=== PATIENT | male | born 1950 | race Caucasian/White ===

== ENCOUNTER 2016-12-05 13:19 | Inpatient (IN) | payer OTHER, MEDICARE ==
[~2016-12-05] VITALS: Ht 180.3 cm; Wt 95.4 kg
[2016-12-05] VITALS (20 sets, daily range): BP systolic 83–168; BP diastolic 54–107; PULSE 58–90; RESP 12–16; TEMP 98.3–98.7; O2SAT 93–100
[~2016-12-05 13:19] MED LIST: ASPI-119 PO; CALC-137 PO; CART240C4 PO; DICY1TAB26 PO; DOCU100T9 PO; ENOX100P SQ; FERR325T PO; LOVA1TAB47 PO; MUCI600T PO; OMEP20TA PO; VITA200017 PO; WAL-10TA2 PO; WARF5 PO
[2016-12-05] MEDS ORDERED: PROPOFOL 1000 MG/100 ML INJ 100 ML ONE (13:24)
[2016-12-05] MEDS ORDERED: SODIUM CHLORIDE 0.9% FLUSH 10 ML FLUSH IVF PRN (13:30)
[2016-12-05] MEDS ORDERED: MIDAZOLAM 100 MG/100 ML INJ 100 ML ONE (13:31)
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
[2016-12-05 14:00] LABS: AUTOMATED NEUTROPHIL # 3.7 TH/MM3 (1.8-7.7); BASOPHIL % 0.5 % (0.0-2.0); EOSINOPHIL # 0.1 TH/MM3 (0-0.4); EOSINOPHIL % 1.6 % (0.0-4.0); HEMATOCRIT 41.1 % (39.0-51.0); HEMO FLAGS DIFF FINAL; LYMPH % 22.4 % (9.0-44.0); LYMPHOCYTE # 1.3 TH/MM3 (1.0-4.8); MEAN CELL VOLUME 89.1 FL (80.0-100.0); MEAN CORPUSCULAR HEMOGLOBIN 28.7 PG (27.0-34.0); MEAN CORPUSCULAR HGB CONC 32.2 % (32.0-36.0); NEUT % 65.5 % (16.0-70.0); PLATELET COUNT 170 TH/MM3 (150-450); RED BLOOD COUNT 4.61 MIL/MM3 (4.50-5.90); RED CELL DISTRIBUTION WIDTH 14.7 % (11.6-17.2); WHITE BLOOD COUNT 5.7 TH/MM3 (4.0-11.0)
[2016-12-05 14:08] LABS: APTT (PATIENT) 25.6 SEC (24.3-30.1); INTERNATIONAL NORMALIZED RATIO 1.3 RATIO; PROTHROMBIN TIME - PATIENT 14.1 SEC (9.8-11.6)
[2016-12-05] MEDS: MIDAZOLAM 100 MG/100 ML INJ 100 ML IV PRN (14:08)
[2016-12-05 14:22] LABS: ALT (GPT) 14 U/L (12-78); ANION GAP 6 MEQ/L (5-15); AST (GOT) 15 U/L (15-37); BICARBONATE 31.1 MEQ/L (21.0-32.0); BLOOD UREA NITROGEN 9 MG/DL (7-18); CHLORIDE 97 MEQ/L (98-107); GLOMERULAR FILTRATION RATE 75 ML/MIN (>89); POTASSIUM 3.7 MEQ/L (3.5-5.1); SODIUM (NA) 134 MEQ/L (136-145)
[2016-12-05 14:23] LABS: ALKALINE PHOSPHATASE 96 U/L (45-117); TOTAL BILIRUBIN ADULT 0.4 MG/DL (0.2-1.0)
[2016-12-05] MEDS ORDERED: fentaNYL DRIP 250 ML IV PRN (14:30)
--- NOTE | 2016-12-05 14:38 | RADRPT ---
EXAM DATE/TIME: 12/05/2016 14:12 [facility] COMPARISON: CHEST SINGLE AP, October 10, 2015, 5:35. INDICATIONS : Chest pain. MEDICAL HISTORY : Hypertension. Gastroesophageal reflux disease. Asthma. Rasmussen's esophagus. SURGICAL HISTORY : Tonsillectomy. ENCOUNTER: Initial ACUITY: 1 day PAIN SCORE: Non-responsive. LOCATION: Bilateral chest FINDINGS: The cardiac silhouette is enlarged in transverse diameter. Endotracheal tube is in good position abov e the percy. There is subsegmental atelectasis in the left base. The right lung is free of acute par enchymal opacity. CONCLUSION: 1. Subsegmental atelectasis left base. Ananth Gage MD on December 05, 2016 at 14:36 Board Certified Radiologist. This report was verified electronically.
[2016-12-05] MEDS ORDERED: fentaNYL DRIP 250 ML ONE (14:40)
[2016-12-05 15:17] LABS: BLOOD GAS BASE EXCESS 5.7 mmol/L (-2-2); BLOOD GAS CARBOXYHEMOGLOBIN 1.1 % (0-4); BLOOD GAS HCO3 30 mmol/L (22-26); BLOOD GAS METHEMOGLOBIN 0.4 % (0-2); BLOOD GAS O2 HGB SATURATION 95 % (90-100); BLOOD GAS OXYGEN CONTENT 16.6 Vol % (12.0-20.0); BLOOD GAS PCO2 45 mmHg (38-42); BLOOD GAS PO2 85 mmHG (61-120); BLOOD GAS TOTAL HGB 12.3 G/DL (12.0-16.0); CRITICAL VALUE NO; OXYGEN DEVICE VENTILATOR; TEMP CORR TO 98.6
[2016-12-05 15:18] LABS: DRAW SITE RT RADIAL; FIO2 50 %; NUMBER OF ARTERIAL PUNCTURES 1; STAT NO; ULNAR PULSE PRESENT
[2016-12-05] MEDS ORDERED: RESP: ALBUTEROL 2.5 MG/IPRATROPIUM 0.5 MG NEB (PRN) INH (15:45)
[2016-12-05] MEDS ORDERED: CHLORHEXIDINE GLUCONATE 2 % 1 PACK (2 CLOTHS) TOP PRN (15:45)
[2016-12-05] MEDS ORDERED: MISCELLANEOUS NURSING INFORMATION XX SCH (15:45)
[2016-12-05] MEDS ORDERED: GLUCAGON 1 MG/ML VIAL OTHER PRN (16:00)
[2016-12-05] MEDS ORDERED: DEXTROSE 50% IN WATER 50 ML VIAL(D50) IV PUSH PRN (16:00)
[2016-12-05] MEDS ORDERED: SODIUM CHLOR 0.9% 1000 ML INJ 1,000 ML IV ONE (16:30)
[2016-12-05] MEDS: RESP: ALBUTEROL 2.5 MG/IPRATROPIUM 0.5 MG NEB (SCH) INH (16:47)
[2016-12-05] MEDS: INSULIN NovoLIN REGULAR SUPPLEMENTAL SCALE SQ SCH ×2 (16:47→23:00)
[2016-12-05] MEDS: SODIUM CHLOR 0.9% 1000 ML INJ 1,000 ML IV SCH (16:58)
[2016-12-05] MEDS: PANTOPRAZOLE SODIUM 40 MG VIAL IV PUSH SCH (17:01)
--- NOTE | 2016-12-05 17:50 | MH ---
cc: JODIE MELGAR M.D. DATE OF ADMISSION 12/05/2016 Critical care admission DATE OF 1950 HISTORY OF THE PRESENT ILLNESS The patient is a 66-year-old male with a past medical history of gastroesophageal reflux disease, Rasmussen's esophagus, hypertension, hyperlipidemia, iron-deficiency anemia, coronary artery disease, PE and DVT a year ago. The patient had a tumor removed from the right side of his neck at [facility] in October with pathology showing a glomus paraganglioma. 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 He had Dobbhoff placed for approximately one month and went to outpatient surgical center today to have a peg tube placed. However during procedure the patient had questionable some hemoptysis. The patient was scoped by Dr. Peña who did not think esophagus was the source of bleeding. The patient also noted to have hiatal hernia and a G tube could not be placed. The patient was intubated at the surgical center with Versed and transferred to the ER. When seen the patient is intubated and on full mechanical ventilation. His initial blood pressure on arrival 135/84 with a pulse of 84. Chest x-ray showed subsegmental atelectasis at the left base. His laboratory data showed normal CBC and mild hyponatremia with sodium level of 134. According to the patient's and daughter, he was on anticoagulation with Coumadin for his PE and DVT and was taken off of it in October and placed on Plavix instead. There is no history of any chest pain, shortness of breath or hemoptysis prior to arrival at the surgical center. In addition, no history of nausea, vomiting or abdominal pain. PAST MEDICAL HISTORY Significant for: 1. Coronary artery disease. 2. Iron-deficiency anemia. 3. PE / DVT. 4. Hypertension. 5. Gastroesophageal reflux disease / Rasmussen's esophagus. 6. Tumor removal from the neck, pathology showing glomus paraganglioma. PAST SURGICAL HISTORY Previous bilateral tonsillectomy in 2013. SOCIAL HISTORY Nonsmoker. Occasional drinker. ALLERGIES NO KNOWN DRUG ALLERGIES. FAMILY HISTORY Noncontributory. MEDICATIONS Reported medications: 1. Omeprazole. 2. Lovastatin. 3. Cartia. 4. Mucinex. 5. Vitamin D3. 6. Calcium. 7. Ferrous sulfate. REVIEW OF SYSTEMS As per history of present illness, the rest of the review of symptoms unobtainable as patient is intubated. PHYSICAL EXAMINATION GENERAL: A 66-year-old male intubated and sedated. VITAL SIGNS: Temperature 98.3, pulse of 65, blood pressure initially 135/84 and saturation at 98%. Vent setting PRVC rate of 14, tidal volume 500, PEEP of 5. ____ 1. FIO2 50%. HEENT: Atraumatic, normocephalic. Pupils equal, round and reactive to light and accommodation. Extraocular muscles intact. Conjunctivae pink. Nonicteric sclerae. Oral mucosa within normal. NECK: Supple. No JVD, adenopathy or thyromegaly. Trachea midline. Orally intubated. CARDIOVASCULAR: Regular rate and rhythm. Normal S1-S2. No murmurs, rubs or gallops noted. LUNGS: Pulmonary exam bilateral equal air entry. No rales or wheezing. ABDOMEN: Soft, nontender, no distension. Positive bowel sounds. EXTREMITIES: No cyanosis, clubbing or edema. NEUROLOGIC: Intubated and sedated. LABORATORY DATA Sodium 134, potassium 3.7, chloride 97, CO2 31, BUN 9, creatinine 0.99, glucose 165, corrected calcium 8.8. WBC 5.7, hemoglobin 13, hematocrit 41, platelet count 170. INR 1.3, PT 14.1, PTT 25.6. IMAGING Radiographic studies, a chest x-ray showed subsegmental atelectasis at the left base. IMPRESSION 1. Vent dependent respiratory failure. 2. Hemoptysis. 3. History of hypertension. 4. History of PE and DVT. 5. Iron-deficiency anemia. 6. 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 7. Vocal cord paralysis. 8. Coronary artery disease. RECOMMENDATIONS 1. Will place on fentanyl infusion for sedation and vent synchrony if needed. 2. Continue with vent support and maintain saturation above 92%. 3. Bronchodilators in the form of DuoNeb q.6h 4. ICU vent bundle. Decrease FIO2 to 40%. 5. We will obtain a CT angiogram of the chest to rule out a PE and for further evaluation of pulmonary parenchyma. 6. Monitor heart rate and blood pressure closely and maintain MAP greater 65 mmHg. 7. IV fluids, we will start on NS at 75 an hour and will give one liter bolus of normal saline. 8. Monitor renal function, Is and Os and electrolyte replacement per protocol. 9. Keep n.p.o. for now and place on Protonix 40 mg IV daily for GI prophylaxis. We will consult GI service. The patient is known to Dr. Peña. If GI cannot place a PEG tube due to hiatal hernia, we will ask IR to place a PEG tube. 10. Monitor for signs of infections which include fever and WBC. Panculture if spikes a fever. Will obtain urinalysis with culture if indicated. A chest x-ray in the ED showed subsegmental atelectasis at the left base. I will hold off on antibiotics at this time as there is no evidence of any infectious process. 11. Place on sliding scale insulin with Accu-Cheks for glycemic control. 12. Monitor CBC and coags. 13. GI prophylaxis with Protonix 40 mg daily and DVT prophylaxis with SCDs. Will hold off on chemical anticoagulation prophylaxis given possible hemoptysis on presentation. Case discussed with the patient's family, and daughter who are present at the bedside. Critical care time 35 minutes excluding procedures. MD DAVID Armas/CHRIS /4:28 PM /5:18 PM
[2016-12-05] MEDS ORDERED: IOHEXOL 350 MG/ML 10 ML VIAL (for RAD DIAG) IVCONTRAST ONE (18:17)
--- NOTE | 2016-12-05 18:31 | RADRPT ---
EXAM DATE/TIME: 12/05/2016 18:13 [facility] COMPARISON: CT PULMONARY ANGIOGRAM, October 16, 2015, 17:38. INDICATIONS : Hemoptysis with history of pulmonary embolism. IV CONTRAST: 50 cc Omnipaque 350 (iohexol) IV RADIATION DOSE: 22.34 CTDIvol (mGy) MEDICAL HISTORY : Hypertension. Benign tongue tumor SURGICAL HISTORY : None. ENCOUNTER: Initial ACUITY: 1 day PAIN SCALE: Non-responsive LOCATION: chest TECHNIQUE: Volumetric scanning of the chest was performed using a pulmonary embolism protocol MIP images were re constructed. Using automated exposure control and adjustment of the mA and/or kV according to patien t size, radiation dose was kept as low as reasonably achievable to obtain optimal diagnostic quality images. DICOM format image data is available electronically for review and comparison. Follow-up recommendations for detected pulmonary nodules are based at a minimum on nodule size and pa tient risk factors according to Fleischner Society Guidelines. FINDINGS: PULMONARY ARTERIES: There are multiple filling defects centrally within the pulmonary arteries bilaterally involving the segmental and subsegmental level arterial vessels. LUNGS: There is respiratory motion artifact with atelectasis and both lower lobes. The patient is intubated. No pneumothorax is present. PLEURAE: There is a hypodense mass containing calcification either in the medial posterior pleural space or in the posterior mediastinum. It measures up to 3.7 cm and is stable. MEDIASTINUM: Heart and great vessels demonstrate no acute finding. There is mild atherosclerotic disease of the ao rta. No lymphadenopathy is present. There is a large hiatal hernia with most of the stomach in the po sterior mediastinum rotated on its axis and there is herniation of fat into the posterior mediastinum . As described above, there is a partially calcified hypodense abnormality either in the posterior me dial left pleural space or posterior mediastinum abutting the descending thoracic aorta. MUSCULOSKELETAL: There are degenerative changes of the thoracic spine. MISCELLANEOUS: The visualized upper abdominal organs demonstrate no acute abnormality. There are 5 stable low-densit y lesions in the liver with the largest measuring 2 cm in having density measurements characteristic of cysts. There is also a 4.8 cm right upper pole renal cyst. CONCLUSION: 1. Extensive bilateral pulmonary arterial thrombi emboli bilaterally within the segmental and lobar v essels. There are no imaging findings to indicate right heart strain. 2. Stable 3.7 cm hypodense lesion with calcification either in the posterior mediastinum abutting the descending thoracic aorta or in the posterior left pleural space. Stranding of uncertain etiology bu t has not changed in approximately 13 months. 3. Stable large hiatal hernia. There is atelectasis/volume loss in both lower lobes. Luan Bermudez MD on December 05, 2016 at 18:23 Board Certified Radiologist. This report was verified electronically.
--- NOTE | 2016-12-05 19:46 | RADRPT ---
EXAM DATE/TIME: 12/05/2016 19:31 [facility] COMPARISON: No previous studies available for comparison. INDICATIONS : Altered mental status. RADIATION DOSE: 50.04 CTDIvol (mGy) MEDICAL HISTORY : Hypertension. SURGICAL HISTORY : None. ENCOUNTER: Initial ACUITY: 1 day PAIN SCALE: Non-responsive LOCATION: Bilateral head TECHNIQUE: Multiple contiguous axial images were obtained of the head. Using automated exposure control and adj ustment of the mA and/or kV according to patient size, radiation dose was kept as low as reasonably a chievable to obtain optimal diagnostic quality images. DICOM format image data is available electro nically for review and comparison. FINDINGS: CEREBRUM: There is mild cerebral atrophy. Ventricles are normal in size. There is periventricular white matter low attenuation bilaterally that is asymmetric in the right frontal lobe. However, this finding is li lisset chronic given the adjacent dilatation of the right frontal horn. No midline shift, mass lesion, hemorrhage or acute infarction. No extra-axial fluid collections are seen. POSTERIOR FOSSA: The cerebellum and brainstem demonstrate no acute finding. The 4th ventricle is midline. The cerebe llopontine angle is unremarkable. EXTRACRANIAL: There is mucoperiosteal thickening within the right maxillary antrum and there has been sinus surgery bilaterally. Fluid is present within the nasopharynx. Embolization coils are present in the right perry perior neck next the skull base. SKULL: The calvaria is intact. No evidence of skull fracture. CONCLUSION: No acute intracranial abnormality is identified. There is mild generalized atrophy and the asymmetric mild to moderate bilateral periventricular white matter changes characteristic of chronic ischemic c hange. Luan Bermudez MD on December 05, 2016 at 19:42 Board Certified Radiologist. This report was verified electronically.
[2016-12-05] MEDS ORDERED: ETOMIDATE 20 MG/10 ML VIAL IV PUSH ONE (20:15)
[2016-12-05] MEDS ORDERED: MIDAZOLAM HCL 5 MG/ML VIAL (1 ML) IV PUSH ONE (20:15)
[2016-12-05] MEDS ORDERED: HEPARIN-D5W 25,000 U/250 ML 250 ML IV PRN (20:15)
[2016-12-05] MEDS ORDERED: ROCURONIUM INJ 50 MG/5 ML VIAL IV ONE (20:15)
[2016-12-05 21:23] LABS: APTT (PATIENT) 25.9 SEC (24.3-30.1); INTERNATIONAL NORMALIZED RATIO 1.3 RATIO; PROTHROMBIN TIME - PATIENT 14.7 SEC (9.8-11.6)
--- NOTE | 2016-12-05 21:25 | PD.PROCEDR ---
Procedure Note Procedure Date: 12/05/16 Procedure: Fiberoptic bronchoscopy with bronchoalveolar lavage, diagnostic Indication: Hemoptysis Details of procedure: Informed consent was obtained from patient's after discussion of risks, benefits, alternatives. Patient had experience hemoptysis after Dobhoff removal and concern for trauma. Patient also had a 7.0 ETT so exchanged for 8.0 to facilitate bronchoscopy and also to prevent clotting and obstruction of tube. There was no bleeding from the nares. The patient was preoxygenated with 100% FiO2 via endotracheal tube and sedated with Versed 4 mg IV, Etomidate 20 mg IV, Fentanyl 100 mcg IV, Rocuronium 50 mg IV, Fentanyl drip 100 mcg/hr. The airway was visualized with Glidescope. There was some oozing from right pharynx/Right pharyngeal epiglottic fold that appeared to be source of bleeding. The ETT was exchanged for 8.0 ETT by RT while I visualized airway. There was color change present with colorimetric CO2 monitor and equal BS bilaterally. I entered the endotracheal tube with a flexible bronchoscope. There was some blood in right mainstem that was suctioned out. There were some bloody clots in right lower lobe subsegments which were removed after 10 mL saline wash x3. There was no active bleeding in the lower airways. No endobronchial lesions. Small amount of blood in left lower lobe subsegment. Patient tolerated procedure well without apparent complication. Family was updated. Will initiate heparin drip due to bilateral pulmonary emboli. There was no GI bleeding noted on endoscopy per Dr. Peña. The source of the bleeding is likely from the pharynx. Will leave ETT in place for airway protection while heparin is initiated. Monitor for bleeding. Risk/benefit discussed with patient's and daughter. Cayla Burgess MD Dec 05, 2016 21:25
[2016-12-05] MEDS: HEPARIN-D5W 25,000 U/250 ML 250 ML IV PRN (23:42)
--- NOTE | 2016-12-05 23:54 | RADRPT ---
EXAM DATE/TIME: 12/05/2016 23:02 [facility] COMPARISON: No previous studies available for comparison. INDICATIONS : Pulmonary embolism. MEDICAL HISTORY : Hypercholesterolemia. Gastroesophageal reflux disease. Hypertension. Hearing loss. Asthma. Hiatal her jason. Barretts esophagus. Measles. Pulmonary embolism. Coronary artery disease. Anemia. Deep vein thro mbosis. SURGICAL HISTORY : Tonsillectomy. Left knee surgery. 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 ENCOUNTER: Initial ACUITY: 1 day PAIN SCORE: Non-responsive LOCATION: Bilateral legs. TECHNIQUE: Venous ultrasound of the left and right leg was performed from the inguinal ligament to the proximal calf. Real-time, color Doppler and spectral tracing, compression and augmentation techniques were us ed. FINDINGS: On the right side there is nonocclusive deep venous thrombosis extending from the popliteal vein and posterior tibial veins and including the greater saphenous vein. The femoral vein is patent. On the left side there is chronic appearing nonocclusive thrombus extending from the superficial femo ral vein to the trailer body assembler tibial veins. Collateral veins noted that are patent. CONCLUSION: 1. Positive for deep venous thrombosis as above. Sidney Pérez MD on December 05, 2016 at 23:50 Board Certified Radiologist. This report was verified electronically.
[2016-12-06] VITALS (23 sets, daily range): BP systolic 106–142; BP diastolic 63–72; PULSE 73–89; RESP 6–17; TEMP 97.4–100.5; O2SAT 93–100
[2016-12-06] MEDS: CHLORHEXIDINE GLUCONATE 2 % 1 PACK (2 CLOTHS) TOP SCH (00:10)
[2016-12-06 00:14] LABS: BLOOD, URINE NEG (NEG); COMMENT (UR) CATH-CULT NOT IND; CULTURE IF INDICATED CATH CULTURE NOT IND; GLUCOSE,URINE NEG (NEG); KETONE, URINE 10 mg/dL (NEG); NITRITE,URINE NEG (NEG); URINE COLOR YELLOW (YELLW/STRAW)
[2016-12-06] MEDS ORDERED: HEPARIN - 10,000 UNITS/ML IV ADDITIVE IV PRN (02:15)
[2016-12-06] MEDS ORDERED: HEPARIN SODIUM - IV 10,000 UNITS/10 ML VIAL IV PRN (02:15)
[2016-12-06] MEDS: RESP: ALBUTEROL 2.5 MG/IPRATROPIUM 0.5 MG NEB (SCH) INH ×4 (03:36→20:56)
[2016-12-06 04:05] LABS: AUTOMATED NEUTROPHIL # 5.9 TH/MM3 (1.8-7.7); BASOPHIL # 0.1 TH/MM3 (0-0.2); BASOPHIL % 0.8 % (0.0-2.0); EOSINOPHIL # 0.1 TH/MM3 (0-0.4); EOSINOPHIL % 1.5 % (0.0-4.0); HEMO FLAGS DIFF FINAL; LYMPH % 20.9 % (9.0-44.0); LYMPHOCYTE # 1.8 TH/MM3 (1.0-4.8); MEAN CELL VOLUME 89.4 FL (80.0-100.0); MEAN CORPUSCULAR HEMOGLOBIN 29.1 PG (27.0-34.0); MEAN CORPUSCULAR HGB CONC 32.6 % (32.0-36.0); MONO % 9.2 % (0.0-8.0); NEUT % 67.6 % (16.0-70.0); PLATELET COUNT 155 TH/MM3 (150-450); RED BLOOD COUNT 4.37 MIL/MM3 (4.50-5.90); RED CELL DISTRIBUTION WIDTH 14.5 % (11.6-17.2); WHITE BLOOD COUNT 8.7 TH/MM3 (4.0-11.0)
[2016-12-06 04:20] LABS: BICARBONATE 30.2 MEQ/L (21.0-32.0); MAGNESIUM 1.8 MG/DL (1.5-2.5); POTASSIUM 3.7 MEQ/L (3.5-5.1)
[2016-12-06 04:29] LABS: APTT (PATIENT) 49.7 SEC (24.3-30.1)
[2016-12-06] MEDS: INSULIN NovoLIN REGULAR SUPPLEMENTAL SCALE SQ SCH ×4 (05:00→23:00)
[2016-12-06] MEDS: MIDAZOLAM 100 MG/100 ML INJ 100 ML IV PRN ×2 (05:42→23:30)
[2016-12-06] MEDS: SODIUM CHLOR 0.9% 1000 ML INJ 1,000 ML IV SCH ×2 (05:50→23:30)
--- NOTE | 2016-12-06 08:25 | HHI.CCPN ---
Subjective Remarks/Hospital Course The patient is a 66-year-old male with a past medical history of gastroesophageal reflux disease, Rasmussen's esophagus, hypertension, hyperlipidemia, iron-deficiency anemia, coronary artery disease, PE and DVT a year ago. He had a tumor removed from the right side of his neck at [facility] in October with pathology showing a glomus paraganglioma. 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 He had Dobbhoff placed for approximately one month and went to outpatient surgical center today to have a peg tube placed. However during procedure the patient had some hemoptysis. The patient was scoped by Dr. Peña who did not think esophagus was the source of bleeding. The patient also noted to have hiatal hernia and a G tube could not be placed. The patient was intubated at the surgical center with Versed and transferred to the ER. When seen the patient is intubated and on full mechanical ventilation. His initial blood pressure on arrival 135/84 with a pulse of 84. Chest x-ray showed subsegmental atelectasis at the left base. His laboratory data showed normal CBC and mild hyponatremia with sodium level of 134. According to the patient's and daughter, he was on anticoagulation with Coumadin for his PE and DVT and was taken off of it in October and placed on Plavix instead. There is no history of any chest pain, shortness of breath or hemoptysis prior to arrival at the surgical center. In addition, no history of nausea, vomiting or abdominal pain. 12/06 Patient remains intubated and sedated. CTA chest last night showed extensive b/l PE, Doppler US LE b/l DVT he was started on Heparin drip. In addition patient underwent bronch and ETT exchanged to 8.0 size last night. There was oozing from right pharynx/Right pharyngeal epiglottic fold that appeared to be source of bleeding. There was some blood in right mainstem that was suctioned out. There were some bloody clots in right lower lobe sub segments which were removed . No active bleeding in the lower airways. No endobronchial lesions. Small amount of blood in left lower lobe subsegment. Objective Vital Signs Date Time Temp Pulse Resp B/P (MAP) Pulse Ox O2 Delivery O2 Flow Rate FiO2 12/06/16 06:00 85 12/06/16 06:00 17 120/69 (86) 94 12/06/16 04:05 50 12/06/16 04:00 98.9 12/05/16 18:15 Ventilator Intake and Output 12/06/16 12/06/16 12/07/16 08:00 16:00 00:00 Intake Total 100 ml Output Total 1200 ml Balance -1100 ml Result Diagram: 12/06/16 0338 12/06/16 0338 Other Results Laboratory Tests Test 12/05/16 13:45 12/05/16 15:00 12/05/16 18:45 12/05/16 20:45 White Blood Count 5.7 TH/MM3 Red Blood Count 4.61 MIL/MM3 Hemoglobin 13.2 GM/DL Hematocrit 41.1 % Mean Corpuscular Volume 89.1 FL Mean Corpuscular Hemoglobin 28.7 PG Mean Corpuscular Hemoglobin Concent 32.2 % Red Cell Distribution Width 14.7 % Platelet Count 170 TH/MM3 Mean Platelet Volume 9.5 FL Neutrophils (%) (Auto) 65.5 % Lymphocytes (%) (Auto) 22.4 % Monocytes (%) (Auto) 10.0 % Eosinophils (%) (Auto) 1.6 % Basophils (%) (Auto) 0.5 % Neutrophils # (Auto) 3.7 TH/MM3 Lymphocytes # (Auto) 1.3 TH/MM3 Monocytes # (Auto) 0.6 TH/MM3 Eosinophils # (Auto) 0.1 TH/MM3 Basophils # (Auto) 0.0 TH/MM3 CBC Comment DIFF FINAL Differential Comment Prothrombin Time 14.1 SEC 14.7 SEC Prothromb Time International Ratio 1.3 RATIO 1.3 RATIO Activated Partial Thromboplast Time 25.6 SEC 25.9 SEC Blood Urea Nitrogen 9 MG/DL Creatinine 0.99 MG/DL Random Glucose 165 MG/DL Total Protein 6.9 GM/DL Albumin 3.2 GM/DL Calcium Level 8.8 MG/DL Magnesium Level 2.0 MG/DL Alkaline Phosphatase 96 U/L Aspartate Amino Transf (AST/SGOT) 15 U/L Alanine Aminotransferase (ALT/SGPT) 14 U/L Total Bilirubin 0.4 MG/DL Sodium Level 134 MEQ/L Potassium Level 3.7 MEQ/L Chloride Level 97 MEQ/L Carbon Dioxide Level 31.1 MEQ/L Anion Gap 6 MEQ/L Estimat Glomerular Filtration Rate 75 ML/MIN Blood Gas Puncture Site RT RADIAL Blood Gas Patient Temperature 98.6 Blood Gas HCO3 30 mmol/L Blood Gas Base Excess 5.7 mmol/L Blood Gas Oxygen Saturation 95 % Arterial Blood pH 7.43 Arterial Blood Partial Pressure CO2 45 mmHg Arterial Blood Partial Pressure O2 85 mmHG Arterial Blood Oxygen Content 16.6 Vol % Arterial Blood Carboxyhemoglobin 1.1 % Arterial Blood Methemoglobin 0.4 % Blood Gas Hemoglobin 12.3 G/DL Oxygen Delivery Device VENTILATOR Blood Gas Ventilator Setting Blood Gas Inspired Oxygen 50 % Nasal Screen MRSA (PCR) MRSA NOT DETECTED Troponin I LESS THAN 0.02 NG/ML B-Type Natriuretic Peptide 24 PG/ML Test 12/05/16 23:30 12/06/16 03:38 Urine Color YELLOW Urine Turbidity HAZY Urine pH 6.0 Urine Specific [place] 1.031 Urine Protein TRACE mg/dL Urine Glucose (UA) NEG mg/dL Urine Ketones 10 mg/dL Urine Occult Blood NEG Urine Nitrite NEG Urine Bilirubin NEG Urine Urobilinogen LESS THAN 2.0 MG/DL Urine Leukocyte Esterase NEG Urine RBC 1 /hpf Urine WBC 4 /hpf Urine Amorphous Sediment RARE Microscopic Urinalysis Comment CATH-CULT NOT IND White Blood Count 8.7 TH/MM3 Red Blood Count 4.37 MIL/MM3 Hemoglobin 12.7 GM/DL Hematocrit 39.0 % Mean Corpuscular Volume 89.4 FL Mean Corpuscular Hemoglobin 29.1 PG Mean Corpuscular Hemoglobin Concent 32.6 % Red Cell Distribution Width 14.5 % Platelet Count 155 TH/MM3 Mean Platelet Volume 9.8 FL Neutrophils (%) (Auto) 67.6 % Lymphocytes (%) (Auto) 20.9 % Monocytes (%) (Auto) 9.2 % Eosinophils (%) (Auto) 1.5 % Basophils (%) (Auto) 0.8 % Neutrophils # (Auto) 5.9 TH/MM3 Lymphocytes # (Auto) 1.8 TH/MM3 Monocytes # (Auto) 0.8 TH/MM3 Eosinophils # (Auto) 0.1 TH/MM3 Basophils # (Auto) 0.1 TH/MM3 CBC Comment DIFF FINAL Differential Comment Activated Partial Thromboplast Time 49.7 SEC Blood Urea Nitrogen 8 MG/DL Creatinine 0.76 MG/DL Random Glucose 84 MG/DL Calcium Level 8.6 MG/DL Phosphorus Level 4.2 MG/DL Magnesium Level 1.8 MG/DL Sodium Level 139 MEQ/L Potassium Level 3.7 MEQ/L Chloride Level 101 MEQ/L Carbon Dioxide Level 30.2 MEQ/L Anion Gap 8 MEQ/L Estimat Glomerular Filtration Rate 102 ML/MIN Imaging Last Impressions Chest X-Ray 12/05/16 1330 Signed Impressions: Service Date/Time: Monday, December 05, 2016 14:12 - CONCLUSION: 1. Subsegmental atelectasis left base. Ananth Gage MD Lower Extremity Ultrasound 12/05/16 0000 Signed Impressions: Service Date/Time: Monday, December 05, 2016 23:02 - CONCLUSION: 1. Positive for deep venous thrombosis as above. Sidney Pérez MD Head CT 12/05/16 0000 Signed Impressions: Service Date/Time: Monday, December 05, 2016 19:31 - CONCLUSION: No acute intracranial abnormality is identified. There is mild generalized atrophy and the asymmetric mild to moderate bilateral periventricular white matter changes characteristic of chronic ischemic change. Luan Bermudez MD CT Angiography 12/05/16 0000 Signed Impressions: Service Date/Time: Monday, December 05, 2016 18:13 - CONCLUSION: 1. Extensive bilateral pulmonary arterial thrombi emboli bilaterally within the segmental and lobar vessels. There are no imaging findings to indicate right heart strain. 2. Stable 3.7 cm hypodense lesion with calcification either in the posterior mediastinum abutting the descending thoracic aorta or in the posterior left pleural space. Stranding of uncertain etiology but has not changed in approximately 13 months. 3. Stable large hiatal hernia. There is atelectasis/volume loss in both lower lobes. Luan Bermudez MD Objective Remarks GENERAL: Patient is 66 yo critically ill intubated and sedated SKIN: Warm and dry. HEAD: Normocephalic. EYES: No scleral icterus. No injection or drainage. NECK: Supple, trachea midline. No JVD or lymphadenopathy. CARDIOVASCULAR: Regular rate and rhythm without murmurs, gallops, or rubs. RESPIRATORY: Breath sounds equal bilaterally. No accessory muscle use. GASTROINTESTINAL: Abdomen soft, non-tender, nondistended. MUSCULOSKELETAL: No cyanosis, or edema. Neuro: Sedated, intubated A/P Assessment and Plan 1. VDRF 2. B/L PE and DVT (recurrent) 3. History of hypertension. 4. History of PE and DVT. 5. Iron-deficiency anemia. 6. 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 7. Vocal cord paralysis. 8. Coronary artery disease. Plan Neuro: On fentanyl infusion for sedation and vent synchrony CT brain: No acute intracranial findings identified. Pulm: Continue with vent support and maintain sats> 92%. Bronchodilators, ICU vent bundle. CT chest: Extensive b/l PE- On Heparin drip ( Not a candidate for TPA as there is no hemodynamic instability, recent surgery and stroke in October) Echo: Monitor HR and BP and maintain MAP> 65mmHg. Check 2D echo r/o RV strain. Continue with NS@75ml/hr : Monitor renal function, Is and Os and electrolyte replacement per protocol. GI: Start tube feeds- Glucerna 1.5 with goal rate 45ml/hr, on Protonix 40 mg IV daily for GI prophylaxis. Consult surgery - patient might need Lap for hiatal hernia repair and PEG tube placement. GI ( Dr. Polo) couldn't place PEG tube yesterday ath surgical idabel due to hiatal hernia. ID: Monitor for signs of infections( fever and WBC). Panculture if spikes a fever. Heme: Monitor CBC, Coags. Heme eval might need IVC filter placement. Check Hypercoag profile. Endo: SSI with Accu-Cheks for glycemic control. GI prophylaxis with Protonix 40 mg daily and DVT prophylaxis with SCDs/heparin drip CCT 30 mins. Carie Ordaz MD Dec 06, 2016 08:25
[2016-12-06] MEDS: PANTOPRAZOLE SODIUM 40 MG VIAL IV PUSH SCH (10:05)
--- NOTE | 2016-12-06 11:54 | EKG ---
Date Performed: 12/05/2016 Time Performed: 13:45:11 PTAGE: 66 years EKG: Sinus rhythm WITH OCCASIONAL VENTRICULAR PREMATURE COMPLEXES INFERIOR MYOCARDIAL INFARCTION ABNORMAL ECG Compared to prior tracing no significant change PREVIOUS TRACING : 10/16/2015 16.56 DOCTOR: Popeye Emanuel Interpretating Date/Time 12/06/2016 11:52:59
[2016-12-06 12:20] LABS: APTT (PATIENT) 97.3 SEC (24.3-30.1)
[2016-12-06] MEDS: HEPARIN-D5W 25,000 U/250 ML 250 ML IV PRN (12:35)
--- NOTE | 2016-12-06 18:20 | PD.CAR.PN ---
CVT Progress Note Subjective/Hospital Course: Unfortunate 66-year-old gentleman with multiple medical problems including pulmonary embolism currently on the IV heparin Patient requires feeding access and percutaneous gastrostomy failed to the fact that patient has partial hiatal hernia making the anatomy quite difficult At this point we will place open feeding gastrostomy in the operating room It should be noted that the somebody suggested patient should have a hiatal hernia repair. Patient is in no condition to have elective surgery of any kind at this time and gastrostomies probably mostly can tolerate in these conditions. Thanks J Objective: Vital Signs Date Time Temp Pulse Resp B/P (MAP) Pulse Ox O2 Delivery O2 Flow Rate FiO2 12/06/16 16:25 95 40 12/06/16 16:00 85 12/06/16 16:00 50 12/06/16 14:00 85 12/06/16 12:00 50 12/06/16 12:00 85 12/06/16 12:00 98.5 81 17 113/63 (80) 95 12/06/16 11:51 95 40 12/06/16 10:00 85 12/06/16 08:23 100 40 12/06/16 08:00 85 12/06/16 08:00 50 12/06/16 07:00 97.4 82 6 114/65 (81) 95 12/06/16 06:00 85 12/06/16 06:00 85 17 120/69 (86) 94 12/06/16 05:00 89 17 142/72 (95) 93 12/06/16 04:05 95 50 12/06/16 04:00 88 12/06/16 04:00 50 12/06/16 04:00 98.9 88 17 138/71 (93) 95 12/06/16 03:00 80 14 132/72 (92) 96 12/06/16 02:00 75 12/06/16 02:00 77 15 124/71 (88) 96 12/06/16 01:00 74 15 111/68 (82) 97 12/06/16 00:55 97 50 12/06/16 00:00 73 12/06/16 00:00 50 12/06/16 00:00 98.3 73 15 106/64 (78) 96 12/05/16 23:00 99 60 12/05/16 23:00 82 14 116/68 (84) 93 12/05/16 22:00 82 12/05/16 22:00 81 14 147/91 (109) 96 12/05/16 21:30 100 100 12/05/16 21:00 83 15 168/107 (127) 97 12/05/16 20:07 100 100 12/05/16 20:00 78 12/05/16 20:00 50 12/05/16 20:00 98.7 78 16 116/70 (85) 98 12/05/16 19:00 80 12 126/73 (90) 12/05/16 18:36 50 Labs: Laboratory Tests Test 12/06/16 11:34 Activated Partial Thromboplast Time 97.3 SEC (24.3-30.1) Result Diagram: 12/06/16 0338 12/06/16 0338 Fely Weaver MD Dec 06, 2016 18:20
[2016-12-06 20:37] LABS: APTT (PATIENT) 86.8 SEC (24.3-30.1)
--- NOTE | 2016-12-06 21:04 | MB ---
cc: BRIAN JOHNS M.D. DATE OF CONSULTATION December 06, [address] Ordaz REASON FOR CONSULTATION Hematology was consulted regarding patient with deep venous thrombosis and extensive pulmonary embolism and give opinion regarding IVC filter placement. HISTORY OF PRESENT ILLNESS The patient is a 66-year-old male currently sedated, intubated. History obtained from his daughter at the bedside. His is also at the bedside. The patient's daughter is not very clear and specific about the event of the patient's blood clot history. According to her the patient had bilateral lower extremity deep venous thrombosis and bilateral pulmonary embolism about 2 years ago. Appeared to be unprovoked. He was on Coumadin for awhile and then discontinued, for some reason he was restarted again around October of this year while he was at [facility] to evaluate for right neck tumor. Coumadin was discontinued and he underwent right neck resection of benign tumor. She stated the patient was found to have clot in the right neck after the surgery. She also mentioned the patient was found to have DVT and pulmonary embolism. He was then started on Plavix and discharged home. The patient suffered a vocal cord paralysis during the neck surgery. He was not able to eat and had a Dobhoff tube placed. Today he was at the outpatient surgical suite to have G tube placement. Apparently, during the procedure he started having hemoptysis. Attempt to place G tube was not successful due to a hiatal hernia. The patient however had more bleeding and subsequently he was intubated and brought to the Intensive Care Unit. He had a bronchoscopy which showed blood in the bronchus but no active bleeding. It is thought that the bleeding is from the pharyngeal epiglottic fold area. During this admission he had ultrasound which showed bilateral lower extremity deep venous thrombosis. The left lower extremity DVT appeared to be chronic. CT angiogram showed extensive bilateral pulmonary embolism. Due to the extensive pulmonary wisdom he was started back on heparin. Hematology consulted regarding about placing an IVC filter. PAST MEDICAL HISTORY Right neck glomus paraganglioma. Gastroesophageal reflux disease. Rasmussen's esophagus, hypertension, hyperlipidemia, anemia, coronary artery disease, deep venous thrombosis with pulmonary embolism, stroke, vocal cord paralysis. PAST SURGICAL HISTORY Tonsillectomy, resection of right neck benign tumor, Dobhoff tube placement. FAMILY HISTORY Father had blood clot. Brother also had a history of blood clot. SOCIAL HISTORY No tobacco use. Drinks occasionally. ALLERGIES No known drug allergies. CURRENT MEDICATIONS 1. Heparin. 2. Protonix. 3. Insulin. REVIEW OF SYSTEMS As above. The patient is intubated, sedated. PHYSICAL EXAMINATION VITAL SIGNS: Temperature 100.5, blood pressure 118/63. GENERAL: He is intubated, sedated. HEENT: Atraumatic, normocephalic. ET tube, no bleeding noted. NECK: Right neck surgical site no bleeding. Could not palpate any mass. LYMPH NODE SURVEY: Lymphatics, no palpable axillary lymph node. CARDIOVASCULAR: Regular S1-S2. LUNGS: Clear to auscultation anteriorly. ABDOMEN: Soft, nontender, positive bowel sounds. EXTREMITIES: He has trace edema more prominent on the right side. NEUROLOGIC: Exam nonfocal. SKIN: No lesion. LABORATORY DATA Reviewed. ASSESSMENT 1. 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 The history obtained from the patient's daughter is quite confusing. She is not able to provide specific details. According to her the patient had bilateral lower extremity DVT and pulmonary embolism about 2 years ago, he was on Coumadin for while and then stopped. For some unclear reason when he was at [facility] he was started on Coumadin again but then later switched to Plavix. She also told me that the patient was found to have bilateral lower extremity DVT and pulmonary embolism when he was at [facility]. According to the record in [facility] the patient was admitted in this hospital in October of 2015 with left lower extremity venous thrombosis and bilateral pulmonary embolism. During this admission ultrasound again showed left lower extremity chronic DVT but the right lower extremity DVT appeared to be acute. He also had extensive bilateral pulmonary embolism although there is no right heart strain noted. The patient presented with bleeding in the pharynx. Given his history and family history of blood clot he has a high risk of developing more clot and possibly could result in more pulmonary emboli. He is also going to have procedure for PEG tube placement which would require stopping the anticoagulation. I think placing IVC filter would be somewhat protective. I explained the procedure to the patient's and daughter. However, they are more concerned about the PEG tube placement. They do not want IVC filter placement at this time, fearing that it would interfere with the PEG tube placement. I told them that IVC filter placement should be done first and will protect the patient when he is taken off the anticoagulation for the PEG tube placement. She however stated patient already has known pulmonary embolism and deep venous thrombosis when he was at [facility]. She was very upset that nobody had requested the record. I told them that I will try to get the record from [facility] but it will not alter my recommendation at this time. She stated she does not want to consent for IVC filter placement at this time, as such the patient would stay on heparin and be monitored closely. 2. Pharyngeal bleed started after he had an endoscopy with attempt to place a G-tube. He has no active bleeding noted at this time. 3. Right neck tumor status post resection, reportedly was a paraganglioma. 4. Family history of thromboembolic event. The patient's father and brother reportedly had blood clot. Hypercoagulable panel has been ordered. However, given the patient's history he needs to be on anticoagulation for life. RECOMMENDATIONS 1. Extensive discussion with the patient's family as above. They do not want to consent for IVC filter placement at this time. 2. We will request records from [facility]. I have placed the order. 3. Continue heparin and monitor closely for sign of bleeding. 4. Hypercoagulable panel pending. Thank you Dr. Ordaz for asking me to see this patient. MD LOIS Fernandez/BONY /7:51 PM /8:34 PM DAVI
[2016-12-07] VITALS (53 sets, daily range): BP systolic 96–154; BP diastolic 54–90; PULSE 75–109; RESP 0–33; TEMP 98.4–101.1; O2SAT 88–100
[2016-12-07] MEDS: RESP: ALBUTEROL 2.5 MG/IPRATROPIUM 0.5 MG NEB (SCH) INH ×4 (03:36→20:49)
[2016-12-07] MEDS: CHLORHEXIDINE GLUCONATE 2 % 1 PACK (2 CLOTHS) TOP SCH (04:00)
[2016-12-07] MEDS: INSULIN NovoLIN REGULAR SUPPLEMENTAL SCALE SQ SCH ×4 (05:00→23:00)
[2016-12-07 05:50] LABS: AUTOMATED NEUTROPHIL # 5.7 TH/MM3 (1.8-7.7); BASOPHIL # 0.1 TH/MM3 (0-0.2); BASOPHIL % 0.9 % (0.0-2.0); EOSINOPHIL # 0.1 TH/MM3 (0-0.4); EOSINOPHIL % 1.3 % (0.0-4.0); HEMATOCRIT 40.9 % (39.0-51.0); HEMO FLAGS DIFF FINAL; LYMPH % 23.8 % (9.0-44.0); LYMPHOCYTE # 2.2 TH/MM3 (1.0-4.8); MEAN CELL VOLUME 89.8 FL (80.0-100.0); MEAN CORPUSCULAR HGB CONC 32.2 % (32.0-36.0); PLATELET COUNT 162 TH/MM3 (150-450); RED BLOOD COUNT 4.55 MIL/MM3 (4.50-5.90); RED CELL DISTRIBUTION WIDTH 14.7 % (11.6-17.2); WHITE BLOOD COUNT 9.1 TH/MM3 (4.0-11.0)
[2016-12-07 06:20] LABS: BICARBONATE 25.1 MEQ/L (21.0-32.0); MAGNESIUM 1.8 MG/DL (1.5-2.5); POTASSIUM 3.9 MEQ/L (3.5-5.1)
[2016-12-07] MEDS: SODIUM CHLOR 0.9% 1000 ML INJ 1,000 ML IV SCH ×2 (08:30→23:04)
[2016-12-07] MEDS: PANTOPRAZOLE SODIUM 40 MG VIAL IV PUSH SCH (09:00)
[2016-12-07] MEDS ORDERED: ceFAZolin INJ 1,000 MG VIAL IV ONE (09:28)
[2016-12-07] MEDS ORDERED: ROCURONIUM INJ 50 MG/5 ML SYRINGE IV PUSH ONE (09:28)
[2016-12-07] MEDS: fentaNYL DRIP 250 ML IV PRN (11:37)
--- NOTE | 2016-12-07 12:23 | ECHRPT ---
Indication: SHORTNESS OF BREATH CONCLUSIONS The left ventricular systolic function is normal with an estimated ejection fraction in the range of 60-65% Normal left ventricular size. Wall thickness is normal. No regional wall motion abnormalities are present. The left atrial size is [id number] dilated. The right atrial size is mildly dilated. Mildly dilated proximal ascending aorta. Trace mitral valve regurgitation. Mitral annular calcification is present. There is estimated moderate pulmonary hypertension present (range 50-60 mmHg). There is trace tricuspid valve regurgitation. The left ventricular systolic function is normal with an estimated ejection fraction in the range of 60-65%. Normal left ventricular size. Wall thickness is normal. No regional wall motion abnormalities are present. BP: 120 / 69 HR: 85 Rhythm: Sinus MEASUREMENTS (Male / Female) Normal Values Technical Quality:Fair 2D ECHO LV Diastolic Diameter PLAX 5.0 cm 4.2 - 5.9 / 3.9 - 5.3 cm LV Systolic Diameter PLAX 3.2 cm IVS Diastolic Thickness 0.9 cm 0.6 - 1.0 / 0.6 - 0.9 cm LVPW Diastolic Thickness 0.9 cm 0.6 - 1.0 / 0.6 - 0.9 cm LV Relative Wall Thickness 0.4 LVOT Diameter 2.4 cm Aortic Root Diameter 3.4 cm LA Systolic Diameter LX 3.3 cm 3.0 - 4.0 / 2.7 - 3.8 cm M-MODE AV Cusp Separation MM 2.5 cm DOPPLER AV Peak Velocity 131.0 cm/s AV Peak Gradient 6.9 mmHg AV Mean Gradient 4.0 mmHg AV Velocity Time Integral 20.5 cm LVOT Peak Velocity 88.0 cm/s LVOT Peak Gradient 3.1 mmHg LVOT Velocity Time Integral 16.3 cm LVOT Cardiac Index 2512.7 cm/minm AV Area Cont Eq vti 3.6 cm AV Area Cont Eq pk 3.0 cm Mitral E Point Velocity 72.6 cm/s Mitral A Point Velocity 89.8 cm/s Mitral E to A Ratio 0.8 LV E' Lateral Velocity 10.9 cm/s Mitral E to LV E' Lateral Ratio 6.7 LV E' Septal Velocity 3.9 cm/s Mitral E to LV E' Septal Ratio 18.6 TR Peak Velocity 324.0 cm/s TR Peak Gradient 42.0 mmHg Right Atrial Pressure 10.0 mmHg Pulmonary Artery Systolic Pressu 52.0 mmHg Right Ventricular Systolic Press 52.0 mmHg PV Peak Velocity 92.5 cm/s PV Peak Gradient 3.4 mmHg FINDINGS LEFT VENTRICLE The left ventricular systolic function is normal with an estimated ejection fraction in the range of 60-65%. Normal left ventricular size. Wall thickness is normal. No regional wall motion abnormalities are present. LEFT ATRIUM The left atrial size is [id number] dilated. RIGHT ATRIUM The right atrial size is mildly dilated. AORTA Mildly dilated proximal ascending aorta. MITRAL VALVE Structurally normal mitral valve. Trace mitral valve regurgitation. Mitral annular calcification is present. AORTIC VALVE Trileaflet aortic valve. No aortic valve stenosis or regurgitation. TRICUSPID VALVE There is estimated moderate pulmonary hypertension present (range 50-60 mmHg). There is trace tricuspid valve regurgitation. VESSELS Andrez Peterson MD, FACC (Electronically Signed) Final Date:07 December 2016 12:22
--- NOTE | 2016-12-07 12:30 | PD.RAD ---
Post Procedure Progress Note Pre Procedure Diagnosis: (1) DVT (deep venous thrombosis) (2) Pulmonary embolism (3) Hemoptysis Post Procedure Diagnosis: (1) Pulmonary embolism (2) DVT (deep venous thrombosis) (3) Hemoptysis Procedure Date: Dec 07, 2016 Supervising Radiologist: Patric Stover Estimated blood loss: None Anesthesia: Local, Conscious Sedation Plan of Activity Patient to Unit: Critical Care Patient Condition: Poor Additional Comments: IVC filter placed without difficulty. Filter is in excellent position. Full dictated report to follow. See PACS Report for procedural detail/treatment Patric Stover MD Dec 07, 2016 12:30
[2016-12-07] MEDS ORDERED: IOHEXOL 350 MG/ML 50 ML BTL (for RAD DIAG) IVCONTRAST ONE (12:56)
[2016-12-07] MEDS ORDERED: ceFAZolin 2 GM PREMIX 50 ML IV ONE (13:44)
[2016-12-07] MEDS ORDERED: SENNOSIDES 8.6 MG TAB PO PRN (14:00)
[2016-12-07] MEDS ORDERED: BISACODYL 10 MG SUPP RECTAL PRN (14:00)
[2016-12-07] MEDS ORDERED: MAGNESIUM HYDROXIDE SUSP 30 ML CUP PO PRN (14:00)
[2016-12-07] MEDS ORDERED: ACETAMINOPHEN 325 MG TAB PO PRN (14:00)
[2016-12-07] MEDS ORDERED: MISCELLANEOUS NURSING INFORMATION XX SCH (14:00)
[2016-12-07] MEDS ORDERED: SODIUM CHLORIDE 0.9% FLUSH 10 ML FLUSH IV FLUSH PRN (14:00)
[2016-12-07] MEDS ORDERED: CHLORHEXIDINE GLUCONATE 2 % 1 PACK (2 CLOTHS) TOP PRN (14:00)
[2016-12-07] MEDS ORDERED: RESP: ALBUTEROL 2.5 MG/3 ML NEB (PRN) NEB (14:00)
[2016-12-07] MEDS ORDERED: LACTULOSE SYRUP 20 GM/30 ML CUP PO PRN (14:00)
--- NOTE | 2016-12-07 14:22 | HHI.CCPN ---
Subjective Remarks/Hospital Course The patient is a 66-year-old male with a past medical history of gastroesophageal reflux disease, Rasmussen's esophagus, hypertension, hyperlipidemia, iron-deficiency anemia, coronary artery disease, PE and DVT year ago. He had a tumor removed from the right side of his neck at [facility] in October with pathology showing a glomus paraganglioma. 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 He had Dobbhoff placed for approximately one month and went to outpatient surgical center today to have a peg tube placed. However during procedure the patient had some hemoptysis. The patient was scoped by Dr. Peña who did not think esophagus was\ the source of bleeding. The patient also noted to have hiatal hernia and a G tube could not be placed. The patient was intubated at the surgical center with Versed and transferred to the ER. When seen the patient is intubated and on full mechanical ventilation. His initial blood pressure on arrival 135/84 with a pulse of 84. Chest x-ray showed subsegmental\ atelectasis at the left base. His laboratory data showed normal CBC and mild hyponatremia with sodium level of 134. According to the patient's and daughter, he was on anticoagulation with Coumadin for his PE and DVT and was taken off of it in October and placed on Plavix instead. There is no history of any chest pain, shortness of breath or hemoptysis prior to arrival at the surgical center. In addition, no history of nausea, vomiting or abdominal pain. 12/06 Patient remains intubated and sedated. CTA chest last night showed extensive b/l PE, Doppler US LE b/l DVT he was started on Heparin drip. In addition patient underwent bronch and ETT exchanged to 8.0 size last night. There was oozing from right pharynx/Right pharyngeal epiglottic fold that appeared to be source of bleeding. There was some blood in right mainstem that was suctioned out. There were some bloody clots in right lower lobe sub segments which were removed . No active bleeding in the lower airways. No endobronchial lesions. Small amount of blood in left lower lobe subsegment. Subjective 12/07: Tmax 101.7. Currently 99 1. Currently down for IVC filter placement and G-tube placement. Was awake and following commands prior to procedure Objective Vital Signs Date Time Temp Pulse Resp B/P (MAP) Pulse Ox O2 Delivery O2 Flow Rate FiO2 12/07/16 12:00 100 12/07/16 12:00 99.7 81 15 112/67 (82) 95 12/05/16 18:15 Ventilator Intake and Output 12/07/16 12/07/16 12/08/16 08:00 16:00 00:00 Intake Total 250 ml 1250 ml Output Total 550 ml Balance -300 ml 1250 ml Result Diagram: 12/07/16 0438 12/07/16 0438 Imaging Last Impressions Chest X-Ray 12/05/16 1330 Signed Impressions: Service Date/Time: Monday, December 05, 2016 14:12 - CONCLUSION: 1. Subsegmental atelectasis left base. Ananth Gage MD Lower Extremity Ultrasound 12/05/16 0000 Signed Impressions: Service Date/Time: Monday, December 05, 2016 23:02 - CONCLUSION: 1. Positive for deep venous thrombosis as above. Sidney Pérez MD Head CT 12/05/16 0000 Signed Impressions: Service Date/Time: Monday, December 05, 2016 19:31 - CONCLUSION: No acute intracranial abnormality is identified. There is mild generalized atrophy and the asymmetric mild to moderate bilateral periventricular white matter changes characteristic of chronic ischemic change. Luan Bermudez MD CT Angiography 12/05/16 0000 Signed Impressions: Service Date/Time: Monday, December 05, 2016 18:13 - CONCLUSION: 1. Extensive bilateral pulmonary arterial thrombi emboli bilaterally within the segmental and lobar vessels. There are no imaging findings to indicate right heart strain. 2. Stable 3.7 cm hypodense lesion with calcification either in the posterior mediastinum abutting the descending thoracic aorta or in the posterior left pleural space. Stranding of uncertain etiology but has not changed in approximately 13 months. 3. Stable large hiatal hernia. There is atelectasis/volume loss in both lower lobes. Luan Bermudez MD Objective Remarks GENERAL: Patient is 66 yo critically ill intubated and sedated SKIN: Warm and dry. No rash HEAD: Normocephalic. EYES: No scleral icterus. No injection or drainage. NECK: Supple, trachea midline. No JVD or lymphadenopathy. CARDIOVASCULAR: RRR. S1, S2 withoutmurmur RESPIRATORY: Breath sounds equal bilaterally. No accessory muscle use. GASTROINTESTINAL: Abdomen soft, non-tender, nondistended. Hypoactive bowel sounds are appreciated MUSCULOSKELETAL: No significant peripheral edema Neuro: Cranial nerves II through XII grossly intact. Strength appears equal and symmetric. Normal sensation. A/P Assessment and Plan Neuro/Psych: Right basal ganglia/temporal occipital lobe CVA 10/27 Hemorrhagic conversion right caudate/putamen 11/06/16 Sincerely occurred status post modified radical neck dissection for On fentanyl infusion and midazolam gtt for sedation and vent synchrony CT brain 12/05: No acute intracranial findings identified. Records currently unavailable. Review chart CT brain revealed possible decreased attenuation right frontal horn. Pulm: Acute respiratory failure Bilateral pulmonary embolism R tVF paralysis Bilateral pulmonary embolism Continue with vent support and maintain sats> 92%. Bronchodilators with albuterol/ipratropium aerosols every 6 hours with albuterol aerosols every 2 hours. Dyspnea ICU vent bundle. CT chest: Extensive b/l PE- On Heparin drip ( Not a candidate for TPA as there is no hemodynamic instability, recent surgery and stroke in October) Per bronchoscopy note source of bleeding appeared to be right pharyngeal epiglottic fold -? specific medial or lateral glossoepiglottic, aryepiglottic or ventricle fold though bleeding seems to have ceased CV: Coronary artery disease Hypertension Dyslipidemia Monitor HR and BP and maintain MAP> 65mmHg. 2-D echo revealed EF 60-65%. Bilateral atrial enlargement. Moderate pulmonary hypertension PAP 50-60 Continue with NS@75ml/hr Resume lovastatin 20 by mouth daily when clinically indicated Currently holding diltiazem 240 mg by mouth daily and aspirin 81 mg daily Noted abnormality calcification the posterior pleural versus mediastinal space. Stable since last year. RENAL/FEN/: Right renal cyst Monitor renal function, Is and Os electrolyte replacement per protocol. GI: Hiatal hernia Rasmussen's esophagitis GasteoEsophageal reflux disease Multiple liver cysts Gastric/duodenal polyps Start tube feeds- Glucerna 1.5 with goal rate 45ml/hr if not able to extubate, on Protonix 40 mg IV daily for GI prophylaxis. Consult surgery Dr. Weaver- patient might need Lap for hiatal hernia repair and G/J tube GI ( Dr. Peña) couldn't place PEG tube 12/05 surgical center due to hiatal hernia. ID: Monitor for signs of infections( fever and WBC). 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 Adalid Yuen Iron-deficiency anemia. Bilateral lower extremity DVT Monitor CBC, Coags. Heme eval with Dr. Flynn for might need IVC filter placement. Pending Hypercoag profile. Continue home medication iron sulfate 325 mg by mouth daily if able Ultrasound revealed right nonocclusive thrombus in greater saphenous vein to the PT/V. Femoral vein patent. Left with nonocclusive thrombus from the SFV to PT with collaterals Endo: SSI with Accu-Cheks for glycemic control. GI prophylaxis with Protonix 40 mg daily and DVT prophylaxis with SCDs/heparin drip CCT 30 mins. Alejandro Mcbride MD Dec 07, 2016 14:22
--- NOTE | 2016-12-07 15:13 | PD.ONC.PN ---
Subjective Subjective Remarks Remains on vent. Awake and follows command. Pinkish sputum in ET tube. Reviewed records from [facility]. Objective Data Date Time Temp Pulse Resp B/P (MAP) Pulse Ox O2 Delivery O2 Flow Rate FiO2 12/07/16 14:51 97 75 12/07/16 12:00 100 12/07/16 12:00 99.7 81 15 112/67 (82) 95 12/07/16 12:00 81 12/07/16 11:45 99 15.00 12/07/16 11:45 96 100 12/07/16 10:15 88 100 12/07/16 10:00 84 12/07/16 09:45 100 12/07/16 08:32 96 40 12/07/16 08:00 40 12/07/16 08:00 99.4 80 16 107/61 (76) 96 12/07/16 08:00 80 12/07/16 06:00 81 12/07/16 04:35 94 40 12/07/16 04:00 101.1 109 16 154/90 (111) 92 12/07/16 04:00 50 12/07/16 04:00 101 12/07/16 02:00 75 12/07/16 01:58 95 40 12/07/16 00:00 100.0 82 16 128/69 (88) 94 12/07/16 00:00 82 12/07/16 00:00 50 12/06/16 23:30 95 40 12/06/16 22:00 84 12/06/16 20:36 97 40 12/06/16 20:00 100.4 84 16 129/67 (87) 97 12/06/16 20:00 50 12/06/16 20:00 84 12/06/16 18:00 85 12/06/16 16:25 95 40 12/06/16 16:00 85 12/06/16 16:00 50 12/06/16 16:00 100.5 82 17 118/63 (81) 96 12/07/16 12/07/16 12/07/16 07:00 15:00 23:00 Intake Total 250 ml 1400 ml Output Total 550 ml 320 ml Balance -300 ml 1080 ml Result Diagram: 12/07/16 0438 12/07/16 0438 Laboratory Results Laboratory Tests Test 12/06/16 19:41 12/07/16 04:38 Activated Partial Thromboplast Time 86.8 SEC White Blood Count 9.1 TH/MM3 Red Blood Count 4.55 MIL/MM3 Hemoglobin 13.2 GM/DL Hematocrit 40.9 % Mean Corpuscular Volume 89.8 FL Mean Corpuscular Hemoglobin 29.0 PG Mean Corpuscular Hemoglobin Concent 32.2 % Red Cell Distribution Width 14.7 % Platelet Count 162 TH/MM3 Mean Platelet Volume 9.8 FL Neutrophils (%) (Auto) 63.0 % Lymphocytes (%) (Auto) 23.8 % Monocytes (%) (Auto) 11.0 % Eosinophils (%) (Auto) 1.3 % Basophils (%) (Auto) 0.9 % Neutrophils # (Auto) 5.7 TH/MM3 Lymphocytes # (Auto) 2.2 TH/MM3 Monocytes # (Auto) 1.0 TH/MM3 Eosinophils # (Auto) 0.1 TH/MM3 Basophils # (Auto) 0.1 TH/MM3 CBC Comment DIFF FINAL Differential Comment Blood Urea Nitrogen 8 MG/DL Creatinine 0.74 MG/DL Random Glucose 81 MG/DL Calcium Level 8.7 MG/DL Phosphorus Level 3.5 MG/DL Magnesium Level 1.8 MG/DL Sodium Level 137 MEQ/L Potassium Level 3.9 MEQ/L Chloride Level 101 MEQ/L Carbon Dioxide Level 25.1 MEQ/L Anion Gap 11 MEQ/L Estimat Glomerular Filtration Rate 105 ML/MIN Administered Medications Medications (Trade) Dose Ordered Sig/Trang Route PRN Reason Start Time Stop Time Status Last Admin Dose Admin Midazolam HCl 100 ml @ 2 mls/hr TITRATE PRN IV SEDATION 12/05/16 13:30 12/06/16 23:30 Pantoprazole Sodium (Protonix Inj) 40 mg DAILY IV PUSH 12/05/16 16:30 12/07/16 09:00 Albuterol/ Ipratropium (Duoneb Neb) 1 ampule Q6HR NEB INH 12/05/16 16:00 12/07/16 14:55 Sodium Chloride 1,000 ml @ 75 mls/hr [id number] IV 12/05/16 16:30 12/07/16 08:30 Fentanyl Citrate 250 ml @ 5 mls/hr TITRATE PRN IV SEDATION 12/05/16 16:30 12/07/16 11:37 Objective Remarks GENERAL: Well-nourished, well-developed patient. On vent. SKIN: Warm and dry. HEAD: Normocephalic. EYES: No scleral icterus. No injection or drainage. NECK: Supple, trachea midline. No JVD or lymphadenopathy. ET tube pinkish sputum. LYMPHATIC: No adenopathy. CARDIOVASCULAR: Regular rate and rhythm without murmurs. RESPIRATORY: Breath sounds equal bilaterally. No accessory muscle use. On vent. GASTROINTESTINAL: Abdomen soft, non-tender, nondistended. EXTREMITIES: No cyanosis, Trace BLE edema. MUSCULOSKELETAL: Adequate muscle tone. NEUROLOGICAL: Awake, follows command Assessment/Plan Assessment 1. 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 The history obtained from the patient's daughter is quite confusing. She is not able to provide specific details. According to her the patient had bilateral lower extremity DVT and pulmonary embolism about 2 years ago, he was on Coumadin for while and then stopped. For some unclear reason when he was at [facility] he was started on Coumadin again but then later switched to Plavix. She also told me that the patient was found to have bilateral lower extremity DVT and pulmonary embolism when he was at [facility]. According to the record in [facility] the patient was admitted in this hospital in October of 2015 with left lower extremity venous thrombosis and bilateral pulmonary embolism. During this admission ultrasound again showed left lower extremity chronic DVT but the right lower extremity DVT appeared to be acute. He also had extensive bilateral pulmonary embolism although there is no right heart strain noted. The patient presented with bleeding in the pharynx. Given his history and family history of blood clot he has a high risk of developing more clot and possibly could result in more pulmonary emboli. He is also going to have procedure for PEG tube placement which would require stopping the anticoagulation. I think placing IVC filter would be somewhat protective. I explained the procedure to the patient's and daughter. However, they are more concerned about the PEG tube placement. They do not want IVC filter placement at this time, fearing that it would interfere with the PEG tube placement. I told them that IVC filter placement should be done first and will protect the patient when he is taken off the anticoagulation for the PEG tube placement. She however stated patient already has known pulmonary embolism and deep venous thrombosis when he was at [facility]. She was very upset that nobody had requested the record. I told them that I will try to get the record from [facility] but it will not alter my recommendation at this time. She stated she does not want to consent for IVC filter placement at this time, as such the patient would stay on heparin and be monitored closely. 12/07 Reviewed records from [facility]. Pt had a stroke after the neck surgery with hemorrhagic transformation in caudate lobe noted MRA 10/27. He was later started on Plavix. No US ot CTA found in the records and no mention of DVT/PE during his stay at [facility]. The RLE DVT and PE appear acute. Given his history, he has high risk of developing recurrent clots or extension of clots. Benefit of anticoagulation outweigh the risk of bleeding. Continue heparin. Also recommend IVC filter placement. 2. Pharyngeal bleed started after he had an endoscopy with attempt to place a G-tube. He has no active bleeding noted at this time. 3. Right neck tumor status post resection, reportedly was a paraganglioma. 4. Family history of thromboembolic event. The patient's father and brother reportedly had blood clot. Hypercoagulable panel has been ordered. However, given the patient's history he needs to be on anticoagulation for life. Plan Plan: 1. Reviewed records from [facility]. 2. Continue heparin and monitor for bleed. Recommend not to stop anticoagulation for prolong period due to acute thrombosis. 3. Recommend IVC filter placement. 4. Hypercoagulable panel pending. Discussed with . Paulo Flynn MD Dec 07, 2016 15:13
--- NOTE | 2016-12-07 15:38 | MB ---
cc: FELY WATERS MD DATE OF CONSULTATION: 12/06/[address] Waters, Surgery. REASON FOR CONSULTATION Need for permanent feeding site and pulmonary embolism, respiratory failure. CRITICAL CARE TIME 40 minutes. HISTORY OF PRESENT ILLNESS This 66-year-old gentleman was admitted to the hospital on the of this month. There was an attempt to place the PEG tube and during the procedure the patient had some hemoptysis and he was transferred to our institution intubated, ventilated. Workup revealed recurrent pulmonary embolism. The patient is currently on the ventilator. Question arises about placement of a permanent feeding site and possible IVC filter. Hence, the consultation. PAST MEDICAL HISTORY 1. Coronary artery disease. 2. Previous PE and DVT 2 years ago. 3. Hypertension. 4. Gastroesophageal reflux with Rasmussen's esophagus. 5. Recent removal of paraganglioma of the right neck. 6. The patient also has a history of previous stroke. 7. Internal carotid artery dissection at [facility] in October of this year. PAST SURGICAL HISTORY Tonsillectomy and above-noted procedures. SOCIAL HISTORY The patient does not smoke, drinks socially. PHYSICAL EXAMINATION GENERAL: A 66-year-old gentleman, intubated, ventilated. HEENT: Normocephalic. No trauma to the head. Pupils equally reactive. Extraocular muscles cannot be tested. CHEST: Bilateral breath sounds. The patient is barrel-chested and has some degree probably of COPD. HEART: Regular rhythm. ABDOMEN: Soft. Active bowel sounds. No rebound or guarding. No masses. EXTREMITIES: Appear within normal limits. BACK: Normal. NEUROLOGIC: The exam cannot be performed, he is intubated, ventilated. IMPRESSION/PLAN 66-year-old gentleman now on the ventilator on full-dose heparin for PE, DVT and also findings of DVT of the right leg. At this point recommendation is as follows: The patient should have IVC filter placed and open gastrostomy versus jejunostomy. Considering the patient has a hiatal hernia and apparently stomach is fairly high up, a gastrostomy might be difficult option but will try jejunostomy, can definitely be done with a fairly large tube. As far as PE is concerned, this is a recurrent PE in the patient and he definitely needs a permanent IVC filter placed, not a removable one. I do not believe that the order of procedures matters but he is scheduled for IVC filter placement tomorrow. I will go ahead with the gastrostomy tube placement later. Thank you much for the referral. Fely BUCHANAN/DENEENL /2:21 PM /3:16 PM
[2016-12-07] MEDS: ARTIFICIAL TEARS OPTH SOLN 15 ML BTL EACH EYE SCH (16:08)
--- NOTE | 2016-12-07 16:36 | RADRPT ---
EXAM DATE/TIME: 12/07/2016 15:47 [facility] COMPARISON: CHEST SINGLE AP, December 05, 2016, 14:12. INDICATIONS : Post NG tube placement. MEDICAL HISTORY : Hypercholesterolemia. Gastroesophageal reflux disease. Hypertension. Asthma. Hiatal hernia. Barretts esophagus. Measles. Pulmonary embolism. Coronary artery disease. Anemia. Deep vein thrombosis. SURGICAL HISTORY : Tonsillectomy. Left knee surgery. Glomus paraganglioma to right neck. ENCOUNTER: Initial ACUITY: 1 day PAIN SCORE: Non-responsive. LOCATION: abdomen. FINDINGS: The examination demonstrates the patient's NG tube to be directed into the right mainstem bronchus. T his needs to be removed. There are bilateral pleural effusions. The bowel gas pattern is within normal limits. Note is made of a J-tube in the left lower quadrant. CONCLUSION: 1. The NG tube is directed into the right mainstem bronchus. This needs to be removed. Patric Stover MD on December 07, 2016 at 16:30 Board Certified Radiologist. This report was verified electronically.
--- NOTE | 2016-12-07 16:39 | RADRPT ---
EXAM DATE/TIME: 12/07/2016 11:49 [facility] COMPARISON: CT BRAIN W/O CONTRAST, December 05, 2016, 19:31. INDICATIONS : Patient presents with deep vein thrombosis on right side in need of a inferior vena cava filter. 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 Ultrasound-guided venipuncture. 2. Inferior venacavogram. 3. Inferior vena cava filter placement. 4. Conscious sedation with continuous EKG and oximetry monitoring. The risks, benefits and alternatives to the procedure were explained to the patient's family. Verbal and written consent was obtained. Due to the patient's history of chronic pulmonary embolus, age and condition a Vena-Tech filter was selected. The site was prepped in sterile fashion. Full sterile te chnique was used, including cap, mask, sterile gloves and gown and a large sterile sheet. Hand hygie ne and 2% chlorhexidine and/or betadine/alcohol prep was utilized per protocol for cutaneous antiseps is. Sterile gel and sterile probe cover were utilized for ultrasound guidance. The skin and subcuta neous tissues were infiltrated with local anesthetic solution. With ultrasound and fluoroscopic guidance the targeted vein was punctured and a vascular sheath was p laced. Inferior venacavogram was performed to demonstrate level of renal veins. No caval thrombus was identified. The prescribed filter was deployed in the infrarenal inferior vena cava. Following deplo yment the filter was identified in good position. Conscious sedation was performed with the prescribed dosages and duration as above in the presence of an independent trained radiology nurse to assist in the monitoring of the patient. EKG and oximetry remained stable throughout the procedure. The patient tolerated the procedure well and there were n o complications. The patient was sent to post anesthesia recovery in stable condition. CONCLUSION: Uncomplicated inferior vena cava filter placement as above. Patric Stover MD on December 07, 2016 at 16:35 Board Certified Radiologist. This report was verified electronically.
[2016-12-07] MEDS: HEPARIN 25,000 UNITS-D5W 250 ML - PREMIX IV SCH (18:52)
[2016-12-07] MEDS: DOCUSATE SODIUM 50 MG/SENNA 8.6 MG TAB PO SCH (20:39)
[2016-12-07 20:40] LABS: APTT (PATIENT) 32.9 SEC (24.3-30.1)
[2016-12-07] MEDS: PRAVASTATIN SOD 20 MG TAB PO SCH (20:40)
[2016-12-07] MEDS: CHOLECALCIFEROL (VIT D3) 1000 UNIT TAB PO SCH (20:40)
[2016-12-07] MEDS: SODIUM CHLORIDE 0.9% FLUSH 10 ML FLUSH IV FLUSH SCH (20:41)
[2016-12-07] MEDS: CALCIUM CARBONATE 1.25 GM (CA 500 MG) TAB PO SCH (20:41)
[2016-12-07] MEDS: MIDAZOLAM 100 MG/100 ML INJ 100 ML IV PRN (21:35)
[2016-12-08] VITALS (58 sets, daily range): BP systolic 113–136; BP diastolic 62–79; PULSE 83–115; RESP 15–23; TEMP 99–101.1; O2SAT 90–96
[2016-12-08 01:50] LABS: AUTOMATED NEUTROPHIL # 6.3 TH/MM3 (1.8-7.7); BASOPHIL % 0.4 % (0.0-2.0); EOSINOPHIL % 0.1 % (0.0-4.0); HEMATOCRIT 36.1 % (39.0-51.0); HEMO FLAGS DIFF FINAL; LYMPH % 12.7 % (9.0-44.0); MEAN CELL VOLUME 87.4 FL (80.0-100.0); MEAN CORPUSCULAR HEMOGLOBIN 28.2 PG (27.0-34.0); MEAN CORPUSCULAR HGB CONC 32.2 % (32.0-36.0); MONO % 8.7 % (0.0-8.0); NEUT % 78.1 % (16.0-70.0); PLATELET COUNT 164 TH/MM3 (150-450); RED BLOOD COUNT 4.13 MIL/MM3 (4.50-5.90); RED CELL DISTRIBUTION WIDTH 14.3 % (11.6-17.2); WHITE BLOOD COUNT 8.1 TH/MM3 (4.0-11.0)
[2016-12-08 02:18] LABS: ALKALINE PHOSPHATASE 70 U/L (45-117); ALT (GPT) LESS THAN 6 U/L (12-78); ANION GAP 7 MEQ/L (5-15); AST (GOT) 9 U/L (15-37); BLOOD UREA NITROGEN 10 MG/DL (7-18); CHLORIDE 103 MEQ/L (98-107); GLOMERULAR FILTRATION RATE 116 ML/MIN (>89); MAGNESIUM 1.6 MG/DL (1.5-2.5); POTASSIUM 3.9 MEQ/L (3.5-5.1); SODIUM (NA) 137 MEQ/L (136-145); TOTAL BILIRUBIN ADULT 0.7 MG/DL (0.2-1.0)
[2016-12-08 02:47] LABS: APTT (PATIENT) 74.5 SEC (24.3-30.1)
[2016-12-08] MEDS: RESP: ALBUTEROL 2.5 MG/IPRATROPIUM 0.5 MG NEB (SCH) INH ×3 (02:55→21:34)
[2016-12-08] MEDS: CHLORHEXIDINE GLUCONATE 2 % 1 PACK (2 CLOTHS) TOP SCH (04:00)
[2016-12-08] MEDS: INSULIN NovoLIN REGULAR SUPPLEMENTAL SCALE SQ SCH ×4 (05:00→23:00)
--- NOTE | 2016-12-08 06:38 | MP ---
cc: FELY WATERS MD DATE OF SURGERY 12/07/2016 PREOPERATIVE DIAGNOSES Bilateral recurrent pulmonary embolism. Respiratory failure. Carotid artery dissection and stroke. POSTOPERATIVE DIAGNOSES Bilateral recurrent pulmonary embolism. Respiratory failure. Carotid artery dissection and stroke. OPERATIVE PROCEDURE Open feeding jejunostomy. SURGEON MD Meg ANESTHESIA General. ESTIMATED BLOOD LOSS 20 cc. PROCEDURE The patient prepped and draped in the usual fashion. A midline epigastric small incision made measuring about 3 inches in length, deepened down through the tissue and fascia and abdomen entered. First stomach is examined. The patient has a large hiatal hernia and stomach is stuck up in the EG junction. I tried to mobilize the stomach to bring it down to do a gastrostomy; however, it would be fairly tight and under tension, so this is an inappropriate way to go. This was therefore abandoned. The small bowel was now run from the ligament of Treitz to the ileocecal valve, appears to be normal. Proximal small bowel is fairly large in diameter and very suitable for a large jejunostomy tube. Therefore a 20-Divehi jejunostomy tube is chosen, cut to length and inserted through the lateral abdominal wall. A pursestring with 2-0 silk is placed in the small intestine and then 3-0 silk is placed into the intestine and then opening made in the proximal jejunum. Through this the feeding tube is milked down about 10 inches into the bowel. Now pursestring is tied down and then Witzel jejunostomy tunnel is created with interrupted 3-0 silk Lembert stitches. Once this is completed, the jejunostomy is tacked down to anterior abdominal wall with horizontal mattress sutures using three pieces of 2-0 Vicryl. The bowel is now brought up and all stitches are tied. Additional two or three 3-0 silks are used to tack down the bowel to the anterior abdominal wall to prevent any kinking. The bowel is now flushed with saline and water and flushes easily. The abdomen is irrigated and closed with #1 PDS loop and 4-0 Monocryl. The patient tolerates the procedure well. Fely BUCHANAN/TYSON /2:32 PM 6:28 AM
[2016-12-08] MEDS: DOCUSATE SODIUM 50 MG/SENNA 8.6 MG TAB PO SCH ×2 (08:28→22:04)
[2016-12-08] MEDS: FERROUS SULFATE 325 MG (65 MG ELEMENTAL IRON) TAB PO SCH (08:28)
[2016-12-08] MEDS: CHOLECALCIFEROL (VIT D3) 1000 UNIT TAB PO SCH ×2 (08:28→22:04)
[2016-12-08] MEDS: ARTIFICIAL TEARS OPTH SOLN 15 ML BTL EACH EYE SCH ×3 (08:29→18:05)
[2016-12-08] MEDS: SODIUM CHLORIDE 0.9% FLUSH 10 ML FLUSH IV FLUSH SCH ×2 (08:29→22:06)
[2016-12-08] MEDS: PANTOPRAZOLE SODIUM 40 MG VIAL IV PUSH SCH (08:29)
[2016-12-08] MEDS: HEPARIN 25,000 UNITS-D5W 250 ML - PREMIX IV SCH (08:30)
[2016-12-08] MEDS: SODIUM CHLOR 0.9% 1000 ML INJ 1,000 ML IV SCH (11:10)
--- NOTE | 2016-12-08 11:32 | PD.ONC.PN ---
Subjective Subjective Remarks Tmax 100.3 this morning Remains intubated and sedated Per RN no bleeding Objective Data Date Time Temp Pulse Resp B/P (MAP) Pulse Ox O2 Delivery O2 Flow Rate FiO2 12/08/16 10:00 90 12/08/16 09:15 50 12/08/16 08:00 40 12/08/16 08:00 100.3 83 15 115/63 (80) 93 12/08/16 08:00 83 12/08/16 07:50 94 40 12/08/16 06:45 87 17 94 12/08/16 06:30 86 16 118/65 (82) 94 12/08/16 06:15 86 17 93 12/08/16 06:00 89 12/08/16 06:00 70 12/08/16 06:00 89 16 119/62 (81) 93 12/08/16 05:45 88 17 93 12/08/16 05:30 92 15 136/79 (98) 96 12/08/16 05:15 87 17 94 12/08/16 05:00 86 17 115/65 (82) 92 12/08/16 04:45 87 17 92 12/08/16 04:30 88 18 121/70 (87) 92 12/08/16 04:22 94 40 12/08/16 04:15 90 17 93 12/08/16 04:00 99.0 17 12/08/16 04:00 91 17 118/68 (85) 94 12/08/16 04:00 85 12/08/16 04:00 91 12/08/16 03:45 92 17 94 12/08/16 03:30 92 17 114/67 (83) 94 12/08/16 03:15 91 16 95 12/08/16 03:00 92 16 130/76 (94) 94 12/08/16 02:45 93 15 93 12/08/16 02:30 85 15 113/66 (82) 95 12/08/16 02:15 87 16 95 12/08/16 02:15 87 16 95 12/08/16 02:00 88 16 119/68 (85) 95 12/08/16 02:00 95 12/08/16 02:00 88 16 119/68 (85) 95 12/08/16 01:45 87 16 95 12/08/16 01:45 87 16 95 12/08/16 01:30 88 16 114/67 (83) 94 12/08/16 01:30 88 16 114/67 (83) 94 12/08/16 01:15 90 16 95 12/08/16 01:15 90 16 95 12/08/16 01:00 92 16 113/67 (82) 94 12/08/16 01:00 92 16 113/67 (82) 94 12/08/16 00:55 95 40 12/08/16 00:45 91 18 96 12/08/16 00:45 91 18 96 12/08/16 00:30 92 17 128/66 (86) 95 12/08/16 00:30 92 17 128/66 (86) 95 12/08/16 00:15 92 17 121/71 (88) 95 12/08/16 00:15 92 17 121/71 (88) 95 12/08/16 00:00 94 17 119/69 (86) 95 12/08/16 00:00 70 12/08/16 00:00 89 12/08/16 00:00 94 17 119/69 (86) 95 12/07/16 23:45 93 19 115/68 (84) 95 12/07/16 23:30 94 18 117/71 (86) 95 12/07/16 23:15 94 18 119/66 (83) 95 12/07/16 23:00 95 18 119/68 (85) 94 12/07/16 22:45 96 18 118/68 (85) 94 12/07/16 22:30 95 18 124/69 (87) 95 12/07/16 22:21 95 50 12/07/16 22:15 95 17 121/68 (85) 95 12/07/16 22:00 85 12/07/16 22:00 98 20 125/67 (86) 95 12/07/16 21:45 99 18 131/71 (91) 94 12/07/16 21:30 100 18 129/71 (90) 95 12/07/16 21:15 97 17 132/69 (90) 95 12/07/16 21:00 97 17 134/76 (95) 96 12/07/16 20:45 94 16 140/80 (100) 100 12/07/16 20:45 100 50 12/07/16 20:30 89 17 119/69 (86) 98 12/07/16 20:15 92 16 130/69 (89) 98 12/07/16 20:00 70 12/07/16 20:00 93 16 127/66 (86) 98 12/07/16 20:00 99.2 17 12/07/16 20:00 99 12/07/16 18:45 93 16 137/75 (95) 99 12/07/16 18:30 95 17 131/75 (93) 99 12/07/16 18:15 92 16 129/75 (93) 96 12/07/16 18:00 90 16 127/73 (91) 97 12/07/16 18:00 90 12/07/16 17:45 88 16 130/73 (92) 97 12/07/16 17:30 90 16 127/70 (89) 98 12/07/16 17:15 90 18 131/72 (91) 97 12/07/16 17:00 88 18 122/70 (87) 98 12/07/16 16:45 91 18 119/71 (87) 96 12/07/16 16:30 90 17 122/66 (84) 96 12/07/16 16:15 92 17 123/69 (87) 96 12/07/16 16:00 70 12/07/16 16:00 91 17 121/65 (83) 95 12/07/16 16:00 98.4 91 14 121/65 (83) 95 12/07/16 16:00 91 12/07/16 15:45 92 20 123/66 (85) 92 12/07/16 15:30 91 18 129/69 (89) 95 12/07/16 15:15 93 18 138/75 (96) 95 12/07/16 15:00 98.4 102 14 149/86 (107) 96 12/07/16 15:00 102 33 149/86 (107) 96 12/07/16 15:00 102 12/07/16 14:51 97 75 12/07/16 14:51 97 148/80 (102) 12/07/16 12:00 100 12/07/16 12:00 99.7 81 15 112/67 (82) 95 12/07/16 12:00 86 98 12/07/16 12:00 81 12/07/16 11:45 99 15.00 12/07/16 11:45 96 100 12/08/16 12/08/16 12/08/16 07:00 15:00 23:00 Intake Total 150 ml Output Total 600 ml Balance -450 ml Result Diagram: 12/08/16 0133 12/08/16 0133 Laboratory Results Laboratory Tests Test 12/07/16 19:50 12/08/16 01:33 Activated Partial Thromboplast Time 32.9 SEC 74.5 SEC White Blood Count 8.1 TH/MM3 Red Blood Count 4.13 MIL/MM3 Hemoglobin 11.6 GM/DL Hematocrit 36.1 % Mean Corpuscular Volume 87.4 FL Mean Corpuscular Hemoglobin 28.2 PG Mean Corpuscular Hemoglobin Concent 32.2 % Red Cell Distribution Width 14.3 % Platelet Count 164 TH/MM3 Mean Platelet Volume 9.1 FL Neutrophils (%) (Auto) 78.1 % Lymphocytes (%) (Auto) 12.7 % Monocytes (%) (Auto) 8.7 % Eosinophils (%) (Auto) 0.1 % Basophils (%) (Auto) 0.4 % Neutrophils # (Auto) 6.3 TH/MM3 Lymphocytes # (Auto) 1.0 TH/MM3 Monocytes # (Auto) 0.7 TH/MM3 Eosinophils # (Auto) 0.0 TH/MM3 Basophils # (Auto) 0.0 TH/MM3 CBC Comment DIFF FINAL Differential Comment Blood Urea Nitrogen 10 MG/DL Creatinine 0.68 MG/DL Random Glucose 120 MG/DL Total Protein 5.4 GM/DL Albumin 2.0 GM/DL Calcium Level 8.0 MG/DL Phosphorus Level 3.2 MG/DL Magnesium Level 1.6 MG/DL Alkaline Phosphatase 70 U/L Aspartate Amino Transf (AST/SGOT) 9 U/L Alanine Aminotransferase (ALT/SGPT) LESS THAN 6 U/L Total Bilirubin 0.7 MG/DL Sodium Level 137 MEQ/L Potassium Level 3.9 MEQ/L Chloride Level 103 MEQ/L Carbon Dioxide Level 27.0 MEQ/L Anion Gap 7 MEQ/L Estimat Glomerular Filtration Rate 116 ML/MIN Lactic Acid Level 1.1 mmol/L Administered Medications Medications (Trade) Dose Ordered Sig/Trang Route PRN Reason Start Time Stop Time Status Last Admin Dose Admin Midazolam HCl 100 ml @ 2 mls/hr TITRATE PRN IV SEDATION 12/05/16 13:30 12/07/16 21:35 Pantoprazole Sodium (Protonix Inj) 40 mg DAILY IV PUSH 12/05/16 16:30 12/08/16 08:29 Albuterol/ Ipratropium (Duoneb Neb) 1 ampule Q6HR NEB INH 12/05/16 16:00 12/08/16 07:49 Sodium Chloride 1,000 ml @ 75 mls/hr [id number] IV 12/05/16 16:30 12/07/16 23:04 Fentanyl Citrate 250 ml @ 5 mls/hr TITRATE PRN IV SEDATION 12/05/16 16:30 12/07/16 11:37 Sodium Chloride (NS Flush) 2 ml BID IV FLUSH 12/07/16 21:00 12/08/16 08:29 Miscellaneous Information 1 [id number] XX 12/07/16 14:00 12/07/16 14:00 Chlorhexidine Gluconate (Chlorhexidine 2% Cloth) 3 pack Taper DAILY@04 TOP 12/08/16 04:00 12/04/17 03:59 12/08/16 04:00 Senna/Docusate Sodium (Ysabel-Colace) 1 tab BID PO 12/07/16 21:00 12/08/16 08:28 Ferrous Sulfate (Ferrous Sulfate) 325 mg DAILY PO 12/08/16 09:00 12/08/16 08:28 Calcium Carbonate (Oscal) 500 mg HS PO 12/07/16 21:00 12/07/16 20:41 Cholecalciferol (Vitamin D3) 2,000 units BID PO 12/07/16 21:00 12/08/16 08:28 Pravastatin Sodium (Pravachol) 20 mg HS PO 12/07/16 21:00 12/07/16 20:40 Heparin Sodium/ Dextrose 250 ml @ 18 mls/hr TITRATE IV 12/07/16 19:00 12/08/16 08:30 Objective Remarks GENERAL: Chronically ill-appearing older male. Currently sedated and mechanically ventilated SKIN: Warm and dry. No oozing from lines HEAD: Normocephalic. EYES: No injection or drainage. NECK: Supple, trachea midline. CARDIOVASCULAR: Regular rate and rhythm without murmurs. RESPIRATORY: Scattered rhonchi. Mechanically ventilated. GASTROINTESTINAL: Abdomen soft, non-tender, nondistended. Jejunostomy tube in place EXTREMITIES: No cyanosis, Trace BLE edema. NEUROLOGICAL: Sedated. Per RN, he follows simple commands when sedation weaned Assessment/Plan Problem List: (1) Pulmonary embolism ICD Codes: I26.99 - Other pulmonary embolism without acute cor pulmonale Status: Acute Plan: --CT angiography shows extensive bilateral pulmonary embolism -- Ultrasound of bilateral lower extremity shows a chronic DVT on the left and a nonocclusive thrombus in the right -- The patient has a family history of blood clots -- IVC filter placed on 12/07. -- Currently on heparin drip -- Hypercoagulable workup pending Hx/Workup: The patient presented with bleeding in his pharynx after an attempt of tube feed placement. 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 He was also apparently diagnosed with a DVT and pulmonary embolism while at [facility]. Assessment 66-year-old male admitted with hemoptysis; hematology consulted for history of recent pulmonary embolism Plan 1. Continue heparin drip 2. Monitor CBC; monitor for bleeding 3. Patient tolerated IVC filter placement well yesterday Discussed with RN Attending Statement The exam, history, and the medical decision-making described in the above note were completed with the assistance of the mid-level provider. I reviewed and agree with the findings presented. I attest that I had a [id number] encounter with the patient on the same day, and personally performed and documented my assessment and findings in the medical record. S/p IVC filter placement and J-tube placement. No obvious bleeding. Tolerating heparin. Remains intubated. Continue heparin and monitor for sign of bleeding. Deanna Wesley Dec 08, 2016 11:32 Paulo Flynn MD Dec 08, 2016 14:18
[2016-12-08 11:41] LABS: APTT (PATIENT) 79.1 SEC (24.3-30.1)
--- NOTE | 2016-12-08 14:14 | RADRPT ---
EXAM DATE/TIME: 12/08/2016 11:16 [facility] COMPARISON: CT BRAIN W/O CONTRAST, December 05, 2016, 19:31. INDICATIONS : Stroke, recent hemorrhagic conversion. RADIATION DOSE: 51.39 CTDIvol (mGy) MEDICAL HISTORY : Stroke. Hypertension. SURGICAL HISTORY : Tonsillectomy. ENCOUNTER: Subsequent ACUITY: 3 days PAIN SCALE: Non-responsive LOCATION: cranial TECHNIQUE: Multiple contiguous axial images were obtained of the head. Using automated exposure control and adj ustment of the mA and/or kV according to patient size, radiation dose was kept as low as reasonably a chievable to obtain optimal diagnostic quality images. DICOM format image data is available electro nically for review and comparison. FINDINGS: CEREBRUM: Hypodensity in the region of the right basal ganglia indicating subacute to chronic ischemic change. This finding is unchanged from prior study. No evidence of acute intracranial hemorrhage or extra axi al fluid collection. No mass effect or midline shift. POSTERIOR FOSSA: The cerebellum and brainstem are intact. The 4th ventricle is midline. The cerebellopontine angle i s unremarkable. EXTRACRANIAL: Severe partial opacification of the maxillary and ethmoid sinuses with multiple air-fluid levels. Air -fluid levels also seen in the frontal sinuses. SKULL: The calvaria is intact. No evidence of skull fracture. CONCLUSION: 1. Increased paranasal sinus opacification. 2. No other significant interval change. Subacute to chronic ischemic findings of the right basal rocío glia. Titi Najera MD on December 08, 2016 at 14:10 Board Certified Radiologist. This report was verified electronically.
[2016-12-08] MEDS ORDERED: VANCOMYCIN INJ 1,000 MG in SODIUM CHLOR 0.9% 250 ML INJ 250 ML IV SCH (15:30)
--- NOTE | 2016-12-08 15:33 | HHI.CCPN ---
Subjective Remarks/Hospital Course The patient is a 66-year-old male with a past medical history of gastroesophageal reflux disease, Rasmussen's esophagus, hypertension, hyperlipidemia, iron-deficiency anemia, coronary artery disease, PE and DVT year ago. He had a tumor removed from the right side of his neck at [facility] in October with pathology showing a glomus paraganglioma. 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 He had Dobbhoff placed for approximately one month and went to outpatient surgical center today to have a peg tube placed. However during procedure the patient had some hemoptysis. The patient was scoped by Dr. Peña who did not think esophagus was\ the source of bleeding. The patient also noted to have hiatal hernia and a G tube could not be placed. The patient was intubated at the surgical center with Versed and transferred to the ER. When seen the patient is intubated and on full mechanical ventilation. His initial blood pressure on arrival 135/84 with a pulse of 84. Chest x-ray showed subsegmental\ atelectasis at the left base. His laboratory data showed normal CBC and mild hyponatremia with sodium level of 134. According to the patient's and daughter, he was on anticoagulation with Coumadin for his PE and DVT and was taken off of it in October and placed on Plavix instead. There is no history of any chest pain, shortness of breath or hemoptysis prior to arrival at the surgical center. In addition, no history of nausea, vomiting or abdominal pain. 12/06 Patient remains intubated and sedated. CTA chest last night showed extensive b/l PE, Doppler US LE b/l DVT he was started on Heparin drip. In addition patient underwent bronch and ETT exchanged to 8.0 size last night. There was oozing from right pharynx/Right pharyngeal epiglottic fold that appeared to be source of bleeding. There was some blood in right mainstem that was suctioned out. There were some bloody clots in right lower lobe sub segments which were removed . No active bleeding in the lower airways. No endobronchial lesions. Small amount of blood in left lower lobe subsegment. Subjective 12/07: Tmax 101.7. Currently 99 1. Currently down for IVC filter placement and G-tube placement. Was awake and following commands prior to procedure 12/08: Profoundly hypoxemic, FiO2 100%. Acute fever up to 102. Sosa culture repeat chest x-ray requested. Started on Zosyn and one dose of vancomycin. On sedation lightening, follows commands weakly. Remains on IV heparin Objective Vital Signs Date Time Temp Pulse Resp B/P (MAP) Pulse Ox O2 Delivery O2 Flow Rate FiO2 12/08/16 14:00 115 12/08/16 12:00 100 12/08/16 12:00 101.1 18 126/70 (88) 96 12/07/16 11:45 15.00 12/05/16 18:15 Ventilator Intake and Output 12/08/16 12/08/16 12/09/16 08:00 16:00 00:00 Intake Total 150 ml 1250 ml Output Total 600 ml Balance -450 ml 1250 ml Result Diagram: 12/08/16 0133 12/08/16 0133 Imaging Last Impressions Chest X-Ray 12/05/16 1330 Signed Impressions: Service Date/Time: Monday, December 05, 2016 14:12 - CONCLUSION: 1. Subsegmental atelectasis left base. Ananth Gage MD Lower Extremity Ultrasound 12/05/16 0000 Signed Impressions: Service Date/Time: Monday, December 05, 2016 23:02 - CONCLUSION: 1. Positive for deep venous thrombosis as above. Sidney Pérez MD Head CT 12/05/16 0000 Signed Impressions: Service Date/Time: Monday, December 05, 2016 19:31 - CONCLUSION: No acute intracranial abnormality is identified. There is mild generalized atrophy and the asymmetric mild to moderate bilateral periventricular white matter changes characteristic of chronic ischemic change. Luan Bermudez MD CT Angiography 12/05/16 0000 Signed Impressions: Service Date/Time: Monday, December 05, 2016 18:13 - CONCLUSION: 1. Extensive bilateral pulmonary arterial thrombi emboli bilaterally within the segmental and lobar vessels. There are no imaging findings to indicate right heart strain. 2. Stable 3.7 cm hypodense lesion with calcification either in the posterior mediastinum abutting the descending thoracic aorta or in the posterior left pleural space. Stranding of uncertain etiology but has not changed in approximately 13 months. 3. Stable large hiatal hernia. There is atelectasis/volume loss in both lower lobes. Luan Bermudez MD Objective Remarks GENERAL: Patient is 66 yo critically ill intubated and sedated SKIN: Warm and dry. No rash HEAD: Normocephalic. EYES: No scleral icterus. No injection or drainage. NECK: Supple, trachea midline. No JVD or lymphadenopathy. CARDIOVASCULAR: RRR. S1, S2 without murmur RESPIRATORY: Breath sounds equal bilaterally. No accessory muscle use. Diminished at the bilateral bases GASTROINTESTINAL: Abdomen soft, non-tender, nondistended. Hypoactive bowel sounds are appreciated MUSCULOSKELETAL: No significant peripheral edema Neuro: Intubated sedated. On sedation hold patient is followed commands with upper extremity, weak A/P Assessment and Plan Neuro/Psych: Right basal ganglia/temporal occipital lobe CVA 10/27 Hemorrhagic conversion right caudate/putamen 11/06/16 Tumor removal from the neck, pathology -glomus paraganglioma On fentanyl infusion and midazolam gtt for sedation and vent synchrony. Sedation vacation once hypoxia improves CT brain 12/05: No acute intracranial findings identified. Repeat CT head today 12/08 no intracranial hemorrhage Pulm: Acute respiratory failure Bilateral pulmonary embolism R tVF paralysis History of PE and DVT Continue with vent support and maintain sats> 92%. Bronchodilators with albuterol/ipratropium aerosols every 6 hours with albuterol aerosols every 2 hours. Dyspnea ICU vent bundle. CT chest: Extensive b/l PE- On Heparin drip ( Not a candidate for TPA as there is no hemodynamic instability, recent surgery and stroke in October) Per bronchoscopy note source of bleeding appeared to be right pharyngeal epiglottic fold -? specific medial or lateral glossoepiglottic, aryepiglottic or ventricle fold though bleeding seems to have ceased CV: Coronary artery disease Hypertension Dyslipidemia Monitor HR and BP and maintain MAP> 65mmHg. 2-D echo revealed EF 60-65%. Bilateral atrial enlargement. Moderate pulmonary hypertension PAP 50-60 Continue with NS@75ml/hr Lovastatin 20 by mouth daily when clinically indicated Currently holding diltiazem 240 mg by mouth daily and aspirin 81 mg daily. Resume ASA Noted abnormality calcification the posterior pleural versus mediastinal space. Stable since last year. RENAL/FEN/: Right renal cyst Monitor renal function, Is and Os electrolyte replacement per protocol. GI: Hiatal hernia Rasmussen's esophagitis GasteoEsophageal reflux disease Multiple liver cysts Gastric/duodenal polyps Tube feeds- Glucerna 1.5 with goal rate 45ml/hr on Protonix 40 mg IV daily for GI prophylaxis. Consult surgery Dr. Weaver- patient might need Lap for hiatal hernia repair and G/J tube GI ( Dr. Peña) couldn't place PEG tube 12/05 surgical center due to hiatal hernia. ID: High fever with hypoxia Probable healthcare associated pneumonia start Zosyn and vancomycin Chest x-ray stat pending. Send sputum blood and urine culture Monitor for signs of infections( fever and WBC). 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 Adalid Yuen Iron-deficiency anemia. Bilateral lower extremity DVT Monitor CBC, Coags. Heme eval with Dr. Flynn for need IVC filter placement. Hypercoag profile. Continue home medication iron sulfate 325 mg by mouth daily if able Ultrasound revealed right nonocclusive thrombus in greater saphenous vein to the PT/V. Femoral vein patent. Left with nonocclusive thrombus from the SFV to PT with collaterals Endo: SSI with Accu-Cheks for glycemic control. GI prophylaxis with Protonix 40 mg daily and DVT prophylaxis with SCDs/heparin drip CCT 35 mins. Nely Roland MD Dec 08, 2016 15:33
[2016-12-08 15:51] LABS: THROMBIN TIME FOR LA ND sec (13-19)
--- NOTE | 2016-12-08 16:34 | RADRPT ---
EXAM DATE/TIME: 12/08/2016 15:50 [facility] COMPARISON: CHEST SINGLE AP, December 05, 2016, 14:12. CT PULMONARY ANGIOGRAM, December 05, 2016, 18:13. ABDO MEN SINGLE VIEW, December 07, 2016, 15:47. INDICATIONS : Respiratory failure. MEDICAL HISTORY : Hypercholesterolemia. Gastroesophageal reflux disease. Hypertension.Hiatal hernia. Barretts esophagus . Measles. Pulmonary embolism. CAD. DVT. SURGICAL HISTORY : Tonsillectomy. Left knee surgery. 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 LOCATION: Bilateral chest FINDINGS: The endotracheal tubes in good position. The heart is enlarged. There are bilateral effusions. There is diffuse interstitial prominence sugges ting congestive failure. There is atelectasis in both lung bases. Appearance of the chest has worsene d compared to previous dated 12/05/16 per CONCLUSION: 1. ET tube in good position. 2. Bibasilar atelectasis and effusions. 3. The exam has worsened compared to prior. Patric Stover MD on December 08, 2016 at 16:31 Board Certified Radiologist. This report was verified electronically.
[2016-12-08 16:42] LABS: BLOOD GAS CARBOXYHEMOGLOBIN 1.2 % (0-4); BLOOD GAS HCO3 24 mmol/L (22-26); BLOOD GAS O2 HGB SATURATION 93 % (90-100); BLOOD GAS OXYGEN CONTENT 15.4 Vol % (12.0-20.0); BLOOD GAS PCO2 39 mmHg (38-42); BLOOD GAS PO2 76 mmHg (61-120); BLOOD GAS TOTAL HGB 11.8 G/DL (12.0-16.0); CRITICAL VALUE NO; TEMP CORR TO 98.6
[2016-12-08 16:43] LABS: DRAW SITE LT RADIAL; FIO2 100 %; NUMBER OF ARTERIAL PUNCTURES 1; OXYGEN DEVICE PRVC/AC
[2016-12-08 16:44] LABS: STAT YES; ULNAR PULSE PRESENT
[2016-12-08] MEDS: PIPERACIL-TAZO 4.5 GM PREMIX 100 ML IV SCH ×2 (18:05→22:05)
[2016-12-08] MEDS: MIDAZOLAM 100 MG/100 ML INJ 100 ML IV PRN (18:07)
[2016-12-08 18:21] LABS: APTT (PATIENT) 55.6 SEC (24.3-30.1)
[2016-12-08 19:10] LABS: ALT (GPT) 7 U/L (12-78); ANION GAP 5 MEQ/L (5-15); AST (GOT) 10 U/L (15-37); BICARBONATE 28.1 MEQ/L (21.0-32.0); BLOOD UREA NITROGEN 9 MG/DL (7-18); CHLORIDE 102 MEQ/L (98-107); GLOMERULAR FILTRATION RATE 102 ML/MIN (>89); POTASSIUM 3.9 MEQ/L (3.5-5.1); SODIUM (NA) 135 MEQ/L (136-145)
[2016-12-08 19:17] LABS: ALKALINE PHOSPHATASE 71 U/L (45-117); TOTAL BILIRUBIN ADULT 0.7 MG/DL (0.2-1.0)
[2016-12-08] MEDS: PRAVASTATIN SOD 20 MG TAB PO SCH (21:00)
[2016-12-08] MEDS: CALCIUM CARBONATE 1.25 GM (CA 500 MG) TAB PO SCH (22:04)
[2016-12-09] VITALS (53 sets, daily range): BP systolic 99–160; BP diastolic 59–89; PULSE 68–98; RESP 0–29; TEMP 98.8–99.9; O2SAT 89–97
[2016-12-09] MEDS: SODIUM CHLOR 0.9% 1000 ML INJ 1,000 ML IV SCH (00:30)
[2016-12-09 02:56] LABS: BASOPHIL % 0.6 % (0.0-2.0); EOSINOPHIL % 0.1 % (0.0-4.0); HEMATOCRIT 34.2 % (39.0-51.0); HEMO FLAGS DIFF FINAL; LYMPH % 10.6 % (9.0-44.0); LYMPHOCYTE # 0.9 TH/MM3 (1.0-4.8); MEAN CELL VOLUME 87.7 FL (80.0-100.0); MEAN CORPUSCULAR HGB CONC 31.9 % (32.0-36.0); MONO % 7.7 % (0.0-8.0); PLATELET COUNT 166 TH/MM3 (150-450); RED CELL DISTRIBUTION WIDTH 14.3 % (11.6-17.2); WHITE BLOOD COUNT 8.6 TH/MM3 (4.0-11.0)
[2016-12-09 03:08] LABS: APTT (PATIENT) 70.6 SEC (24.3-30.1)
[2016-12-09] MEDS: CHLORHEXIDINE GLUCONATE 2 % 1 PACK (2 CLOTHS) TOP SCH ×2 (04:00→22:51)
[2016-12-09] MEDS: PIPERACIL-TAZO 4.5 GM PREMIX 100 ML IV SCH ×4 (04:25→22:46)
[2016-12-09] MEDS: RESP: ALBUTEROL 2.5 MG/IPRATROPIUM 0.5 MG NEB (SCH) INH ×4 (04:45→20:47)
[2016-12-09] MEDS: INSULIN NovoLIN REGULAR SUPPLEMENTAL SCALE SQ SCH ×4 (05:00→23:00)
[2016-12-09] MEDS: HEPARIN 25,000 UNITS-D5W 250 ML - PREMIX IV SCH ×2 (05:21→23:13)
--- NOTE | 2016-12-09 08:27 | HHI.CCPN ---
Subjective Remarks/Hospital Course The patient is a 66-year-old male with a past medical history of gastroesophageal reflux disease, Rasmussen's esophagus, hypertension, hyperlipidemia, iron-deficiency anemia, coronary artery disease, PE and DVT year ago. He had a tumor removed from the right side of his neck at [facility] in October with pathology showing a glomus paraganglioma. 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 He had Dobbhoff placed for approximately one month and went to outpatient surgical center today to have a peg tube placed. However during procedure the patient had some hemoptysis. The patient was scoped by Dr. Peña who did not think esophagus was\ the source of bleeding. The patient also noted to have hiatal hernia and a G tube could not be placed. The patient was intubated at the surgical center with Versed and transferred to the ER. When seen the patient is intubated and on full mechanical ventilation. His initial blood pressure on arrival 135/84 with a pulse of 84. Chest x-ray showed subsegmental\ atelectasis at the left base. His laboratory data showed normal CBC and mild hyponatremia with sodium level of 134. According to the patient's and daughter, he was on anticoagulation with Coumadin for his PE and DVT and was taken off of it in October and placed on Plavix instead. There is no history of any chest pain, shortness of breath or hemoptysis prior to arrival at the surgical center. In addition, no history of nausea, vomiting or abdominal pain. 12/06 Patient remains intubated and sedated. CTA chest last night showed extensive b/l PE, Doppler US LE b/l DVT he was started on Heparin drip. In addition patient underwent bronch and ETT exchanged to 8.0 size last night. There was oozing from right pharynx/Right pharyngeal epiglottic fold that appeared to be source of bleeding. There was some blood in right mainstem that was suctioned out. There were some bloody clots in right lower lobe sub segments which were removed . No active bleeding in the lower airways. No endobronchial lesions. Small amount of blood in left lower lobe subsegment. Subjective 12/07: Tmax 101.7. Currently 99 1. Currently down for IVC filter placement and G-tube placement. Was awake and following commands prior to procedure 12/08: Profoundly hypoxemic, FiO2 100%. Acute fever up to 102. Sosa culture repeat chest x-ray requested. Started on Zosyn and one dose of vancomycin. On sedation lightening, follows commands weakly. Remains on IV heparin 12/09 Patient is sedated with Versed , Fentanyl and intubated. T;100.7 last night.On Heparin drip. Objective Vital Signs Date Time Temp Pulse Resp B/P (MAP) Pulse Ox O2 Delivery O2 Flow Rate FiO2 12/09/16 06:00 86 12/09/16 04:49 95 100 12/09/16 04:30 17 115/74 (88) 12/09/16 04:00 99.2 12/07/16 11:45 15.00 12/05/16 18:15 Ventilator Intake and Output 12/09/16 12/09/16 12/10/16 08:00 16:00 00:00 Intake Total 1327 ml Output Total 400 ml Balance 927 ml Result Diagram: 12/09/16 0244 12/08/16 1756 Other Results Laboratory Tests Test 12/08/16 10:29 12/08/16 16:25 12/08/16 17:56 12/09/16 02:44 Activated Partial Thromboplast Time 79.1 SEC 55.6 SEC 70.6 SEC Blood Gas Puncture Site LT RADIAL Blood Gas Patient Temperature 98.6 Blood Gas HCO3 24 mmol/L Blood Gas Base Excess 0.0 mmol/L Blood Gas Oxygen Saturation 93 % Arterial Blood pH 7.41 Arterial Blood Partial Pressure CO2 39 mmHg Arterial Blood Partial Pressure O2 76 mmHg Arterial Blood Oxygen Content 15.4 Vol % Arterial Blood Carboxyhemoglobin 1.2 % Arterial Blood Methemoglobin 1.0 % Blood Gas Hemoglobin 11.8 G/DL Oxygen Delivery Device PRVC/AC Blood Gas Inspired Oxygen 100 % Blood Urea Nitrogen 9 MG/DL Creatinine 0.76 MG/DL Random Glucose 117 MG/DL Total Protein 5.8 GM/DL Albumin 2.1 GM/DL Calcium Level 8.3 MG/DL Alkaline Phosphatase 71 U/L Aspartate Amino Transf (AST/SGOT) 10 U/L Alanine Aminotransferase (ALT/SGPT) 7 U/L Total Bilirubin 0.7 MG/DL Sodium Level 135 MEQ/L Potassium Level 3.9 MEQ/L Chloride Level 102 MEQ/L Carbon Dioxide Level 28.1 MEQ/L Anion Gap 5 MEQ/L Estimat Glomerular Filtration Rate 102 ML/MIN White Blood Count 8.6 TH/MM3 Red Blood Count 3.90 MIL/MM3 Hemoglobin 10.9 GM/DL Hematocrit 34.2 % Mean Corpuscular Volume 87.7 FL Mean Corpuscular Hemoglobin 28.0 PG Mean Corpuscular Hemoglobin Concent 31.9 % Red Cell Distribution Width 14.3 % Platelet Count 166 TH/MM3 Mean Platelet Volume 8.9 FL Neutrophils (%) (Auto) 81.0 % Lymphocytes (%) (Auto) 10.6 % Monocytes (%) (Auto) 7.7 % Eosinophils (%) (Auto) 0.1 % Basophils (%) (Auto) 0.6 % Neutrophils # (Auto) 7.0 TH/MM3 Lymphocytes # (Auto) 0.9 TH/MM3 Monocytes # (Auto) 0.7 TH/MM3 Eosinophils # (Auto) 0.0 TH/MM3 Basophils # (Auto) 0.0 TH/MM3 CBC Comment DIFF FINAL Differential Comment Imaging Last Impressions Head CT 12/08/16 0600 Signed Impressions: Service Date/Time: November 11:16 - CONCLUSION: 1. Increased paranasal sinus opacification. 2. No other significant interval change. Subacute to chronic ischemic findings of the right basal ganglia. Titi Najera MD Chest X-Ray 12/08/16 0000 Signed Impressions: Service Date/Time: November 15:50 - CONCLUSION: 1. ET tube in good position. 2. Bibasilar atelectasis and effusions. 3. The exam has worsened compared to prior. Patric Stover MD IVC Filter Placement X-Ray 12/07/16 0000 Signed Impressions: Service Date/Time: Wednesday, December 07, 2016 11:49 - CONCLUSION: Uncomplicated inferior vena cava filter placement as above. Patric Stover MD Abdomen X-Ray 12/07/16 0000 Signed Impressions: Service Date/Time: Wednesday, December 07, 2016 15:47 - CONCLUSION: 1. The NG tube is directed into the right mainstem bronchus. This needs to be removed. Patric Stover MD Lower Extremity Ultrasound 12/05/16 0000 Signed Impressions: Service Date/Time: Monday, December 05, 2016 23:02 - CONCLUSION: 1. Positive for deep venous thrombosis as above. Sidney Pérez MD CT Angiography 12/05/16 0000 Signed Impressions: Service Date/Time: Monday, December 05, 2016 18:13 - CONCLUSION: 1. Extensive bilateral pulmonary arterial thrombi emboli bilaterally within the segmental and lobar vessels. There are no imaging findings to indicate right heart strain. 2. Stable 3.7 cm hypodense lesion with calcification either in the posterior mediastinum abutting the descending thoracic aorta or in the posterior left pleural space. Stranding of uncertain etiology but has not changed in approximately 13 months. 3. Stable large hiatal hernia. There is atelectasis/volume loss in both lower lobes. Luan Bermudez MD Objective Remarks GENERAL: Patient is 66 yo critically ill intubated and sedated SKIN: Warm and dry. No rash HEAD: Normocephalic. EYES: No scleral icterus. No injection or drainage. NECK: Supple, trachea midline. No JVD or lymphadenopathy. CARDIOVASCULAR: RRR. S1, S2 without murmur RESPIRATORY: Breath sounds equal bilaterally. No accessory muscle use. Diminished at the bilateral bases GASTROINTESTINAL: Abdomen soft, non-tender, nondistended. Hypoactive bowel sounds are appreciated MUSCULOSKELETAL: No significant peripheral edema Neuro: Intubated sedated. On sedation hold patient is followed commands with upper extremity, weak A/P Assessment and Plan Neuro/Psych: Right basal ganglia/temporal occipital lobe CVA 10/27 Hemorrhagic conversion right caudate/putamen 11/06/16 Tumor removal from the neck, pathology -glomus paraganglioma On fentanyl infusion and midazolam gtt for sedation and vent synchrony. Sedation vacation once hypoxia improves CT brain 12/05: No acute intracranial findings identified. Repeat CT head 12/08 no intracranial hemorrhage Pulm: Acute respiratory failure Bilateral pulmonary embolism R tVF paralysis History of PE and DVT Continue with vent support and maintain sats> 92%. Bronchodilators with albuterol/ipratropium aerosols every 6 hours with albuterol aerosols every 2 hours. ICU vent bundle. CT chest: Extensive b/l PE- On Heparin drip ( Not a candidate for TPA as there is no hemodynamic instability, recent surgery and stroke in October) S/p IVC filter placement 12/07 Per bronchoscopy note source of bleeding appeared to be right pharyngeal epiglottic fold -? specific medial or lateral glossoepiglottic, aryepiglottic or ventricle fold though bleeding seems to have ceased CV: Coronary artery disease Hypertension Dyslipidemia Monitor HR and BP and maintain MAP> 65mmHg. 2-D echo revealed EF 60-65%. Bilateral atrial enlargement. Moderate pulmonary hypertension PAP 50-60 Lovastatin 20 by mouth daily when clinically indicated Resume Aspirin 81 mg daily on Pravachol Noted abnormality calcification the posterior pleural versus mediastinal space. Stable since last year. RENAL/FEN/: Right renal cyst Monitor renal function, Is and Os ,electrolyte replacement per protocol. d/c IVF, diurese with Bumex 1mg BID GI: Hiatal hernia Rasmussen's esophagitis GasteoEsophageal reflux disease Multiple liver cysts Gastric/duodenal polyps Tube feeds- Glucerna 1.5 with goal rate 45ml/hr on Protonix 40 mg IV daily for GI prophylaxis. s/p open J-tube placement on 12/07 ID: High fever with hypoxia Continue abx( Zosyn and vancomycin) follow up on cxs- pancultured 12/08 Monitor for signs of infections( fever and WBC). 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 Adalid Yuen Iron-deficiency anemia. Bilateral lower extremity DVT Monitor CBC, Coags. Heme is following Dr. Flynn s/p IVC filter placement 12/07 Continue home medication iron sulfate 325 mg by mouth daily if able Ultrasound revealed right nonocclusive thrombus in greater saphenous vein to the PT/V. Femoral vein patent. Left with nonocclusive thrombus from the SFV to PT with collaterals Endo: SSI with Accu-Cheks for glycemic control. GI prophylaxis with Protonix 40 mg daily and DVT prophylaxis with SCDs/heparin drip CCT 30 mins. Carie Ordaz MD Dec 09, 2016 08:27
[2016-12-09] MEDS: FERROUS SULFATE 325 MG (65 MG ELEMENTAL IRON) TAB PO SCH (09:00)
--- NOTE | 2016-12-09 09:41 | PD.ONC.PN ---
Subjective Subjective Remarks Tmax 100.7. Intubated, sedated male. Objective Data Date Time Temp Pulse Resp B/P (MAP) Pulse Ox O2 Delivery O2 Flow Rate FiO2 12/09/16 06:00 86 12/09/16 04:49 95 100 12/09/16 04:30 92 17 115/74 (88) 96 12/09/16 04:15 92 17 97 12/09/16 04:00 100 12/09/16 04:00 92 17 119/72 (88) 96 12/09/16 04:00 92 12/09/16 04:00 99.2 14 12/09/16 03:45 93 15 96 12/09/16 03:30 92 15 120/72 (88) 95 12/09/16 03:15 91 5 95 12/09/16 03:01 93 7 112/69 (83) 95 12/09/16 03:00 92 16 94 12/09/16 02:45 91 0 94 12/09/16 02:31 96 19 160/89 (112) 97 12/09/16 02:30 98 29 96 12/09/16 02:15 94 0 97 12/09/16 02:00 91 12/09/16 02:00 91 16 116/69 (85) 96 12/09/16 01:45 96 21 96 12/09/16 01:30 94 17 114/72 (86) 96 12/09/16 01:15 93 16 97 12/09/16 01:00 92 17 120/77 (91) 96 12/09/16 00:45 97 20 96 12/09/16 00:30 92 19 116/74 (88) 96 12/09/16 00:23 96 100 12/09/16 00:15 92 16 95 12/09/16 00:00 96 18 117/75 (89) 95 12/09/16 00:00 100 12/09/16 00:00 99.9 16 12/09/16 00:00 96 12/08/16 23:45 96 18 95 12/08/16 23:30 95 17 115/69 (84) 93 12/08/16 23:15 93 16 94 12/08/16 23:00 97 18 117/70 (86) 93 12/08/16 22:45 96 17 94 12/08/16 22:30 97 16 117/71 (86) 94 12/08/16 22:15 98 17 95 12/08/16 22:00 92 12/08/16 22:00 98 18 119/73 (88) 95 12/08/16 21:49 95 100 12/08/16 21:45 97 16 95 12/08/16 21:30 101 19 120/78 (92) 94 12/08/16 21:15 100 16 95 12/08/16 21:00 101 23 120/71 (87) 94 12/08/16 20:45 101 20 95 12/08/16 20:30 103 18 133/73 (93) 96 12/08/16 20:15 102 21 96 12/08/16 20:00 104 12/08/16 20:00 100 12/08/16 20:00 104 18 130/73 (92) 95 12/08/16 20:00 100.7 12/08/16 19:45 108 15 96 12/08/16 18:00 99 12/08/16 17:06 94 100 12/08/16 17:00 100 12/08/16 16:00 100 12/08/16 16:00 110 12/08/16 16:00 99.9 103 19 127/74 (91) 94 12/08/16 14:00 115 12/08/16 12:00 100 12/08/16 12:00 101.1 91 18 126/70 (88) 96 12/08/16 12:00 91 12/08/16 11:30 90 100 12/08/16 11:00 93 100 12/08/16 10:00 90 12/09/16 12/09/16 12/09/16 07:00 15:00 23:00 Intake Total 1327 ml Output Total 400 ml Balance 927 ml Result Diagram: 12/09/16 0244 12/08/16 1756 Laboratory Results Laboratory Tests Test 12/08/16 10:29 12/08/16 16:25 12/08/16 17:56 12/09/16 02:44 Activated Partial Thromboplast Time 79.1 SEC 55.6 SEC 70.6 SEC Blood Gas Puncture Site LT RADIAL Blood Gas Patient Temperature 98.6 Blood Gas HCO3 24 mmol/L Blood Gas Base Excess 0.0 mmol/L Blood Gas Oxygen Saturation 93 % Arterial Blood pH 7.41 Arterial Blood Partial Pressure CO2 39 mmHg Arterial Blood Partial Pressure O2 76 mmHg Arterial Blood Oxygen Content 15.4 Vol % Arterial Blood Carboxyhemoglobin 1.2 % Arterial Blood Methemoglobin 1.0 % Blood Gas Hemoglobin 11.8 G/DL Oxygen Delivery Device PRVC/AC Blood Gas Inspired Oxygen 100 % Blood Urea Nitrogen 9 MG/DL Creatinine 0.76 MG/DL Random Glucose 117 MG/DL Total Protein 5.8 GM/DL Albumin 2.1 GM/DL Calcium Level 8.3 MG/DL Alkaline Phosphatase 71 U/L Aspartate Amino Transf (AST/SGOT) 10 U/L Alanine Aminotransferase (ALT/SGPT) 7 U/L Total Bilirubin 0.7 MG/DL Sodium Level 135 MEQ/L Potassium Level 3.9 MEQ/L Chloride Level 102 MEQ/L Carbon Dioxide Level 28.1 MEQ/L Anion Gap 5 MEQ/L Estimat Glomerular Filtration Rate 102 ML/MIN White Blood Count 8.6 TH/MM3 Red Blood Count 3.90 MIL/MM3 Hemoglobin 10.9 GM/DL Hematocrit 34.2 % Mean Corpuscular Volume 87.7 FL Mean Corpuscular Hemoglobin 28.0 PG Mean Corpuscular Hemoglobin Concent 31.9 % Red Cell Distribution Width 14.3 % Platelet Count 166 TH/MM3 Mean Platelet Volume 8.9 FL Neutrophils (%) (Auto) 81.0 % Lymphocytes (%) (Auto) 10.6 % Monocytes (%) (Auto) 7.7 % Eosinophils (%) (Auto) 0.1 % Basophils (%) (Auto) 0.6 % Neutrophils # (Auto) 7.0 TH/MM3 Lymphocytes # (Auto) 0.9 TH/MM3 Monocytes # (Auto) 0.7 TH/MM3 Eosinophils # (Auto) 0.0 TH/MM3 Basophils # (Auto) 0.0 TH/MM3 CBC Comment DIFF FINAL Differential Comment Culture Results Microbiology Date/Time Source Procedure Growth Status 12/08/16 17:56 Blood Peripheral Aerobic Blood Culture Pending Received 12/08/16 17:56 Blood Peripheral Anaerobic Blood Culture Pending Received 12/08/16 17:48 Blood Peripheral Aerobic Blood Culture Pending Received 12/08/16 17:48 Blood Peripheral Anaerobic Blood Culture Pending Received 12/08/16 15:46 Sputum Endotracheal Gram Stain Pending Received 12/08/16 15:46 Sputum Endotracheal Sputum Culture Pending Received 9/28/17 15:43 Urine Catheterized Urine Urine Culture Pending Received Administered Medications Medications (Trade) Dose Ordered Sig/Trang Route PRN Reason Start Time Stop Time Status Last Admin Dose Admin Midazolam HCl 100 ml @ 2 mls/hr TITRATE PRN IV SEDATION 12/05/16 13:30 12/08/16 18:07 Pantoprazole Sodium (Protonix Inj) 40 mg DAILY IV PUSH 12/05/16 16:30 12/08/16 08:29 Fentanyl Citrate 250 ml @ 5 mls/hr TITRATE PRN IV SEDATION 12/05/16 16:30 12/07/16 11:37 Sodium Chloride (NS Flush) 2 ml BID IV FLUSH 12/07/16 21:00 12/08/16 22:06 Artificial Tears (Tears Naturale Opth Soln) 1 drop TID EACH EYE 12/07/16 18:00 12/08/16 18:05 Miscellaneous Information 1 [id number] XX 12/07/16 14:00 12/07/16 14:00 Chlorhexidine Gluconate (Chlorhexidine 2% Cloth) 3 pack Taper DAILY@04 TOP 12/08/16 04:00 12/04/17 03:59 12/09/16 04:00 Senna/Docusate Sodium (Ysabel-Colace) 1 tab BID PO 12/07/16 21:00 12/08/16 22:04 Ferrous Sulfate (Ferrous Sulfate) 325 mg DAILY PO 12/08/16 09:00 12/08/16 08:28 Calcium Carbonate (Oscal) 500 mg HS PO 12/07/16 21:00 12/08/16 22:04 Cholecalciferol (Vitamin D3) 2,000 units BID PO 12/07/16 21:00 12/08/16 22:04 Pravastatin Sodium (Pravachol) 20 mg HS PO 12/07/16 21:00 12/08/16 21:00 Heparin Sodium/ Dextrose 250 ml @ 18 mls/hr TITRATE IV 12/07/16 19:00 12/09/16 05:21 Piperacillin Sod/ Tazobactam Sod 100 ml @ 200 mls/hr Q6H IV 12/08/16 16:00 12/09/16 04:25 Albuterol/ Ipratropium (Duoneb Neb) 1 ampule Q6HR NEB INH 12/08/16 22:00 12/09/16 04:45 Objective Remarks GENERAL: Intubated, sedated male, supine in bed SKIN: Warm and dry. HEAD: Normocephalic. NECK: Supple, trachea midline. CARDIOVASCULAR: Regular rate and rhythm RESPIRATORY: anterior joseph clear. on mechanical ventilation. GASTROINTESTINAL: Abdomen distended. midline incision with dried blood on bandage. G-tube clamped. EXTREMITIES: No cyanosis NEUROLOGICAL: intubated, sedated. Assessment/Plan Problem List: (1) Pulmonary embolism ICD Codes: I26.99 - Other pulmonary embolism without acute cor pulmonale Status: Acute Plan: --CT angiography shows extensive bilateral pulmonary embolism -- Ultrasound of bilateral lower extremity shows a chronic DVT on the left and a nonocclusive thrombus in the right -- The patient has a family history of blood clots -- IVC filter placed on 12/07. -- Currently on heparin drip -- Hypercoagulable workup pending Hx/Workup: The patient presented with bleeding in his pharynx after an attempt of tube feed placement. He was recently seen at [facility] where he was diagnosed with a paraganglioma. He was also apparently diagnosed with a DVT and pulmonary embolism while at [facility]. (2) History of CVA (cerebrovascular accident) ICD Codes: Z86.73 - Personal history of transient ischemic attack (TIA), and cerebral infarction without residual deficits Plan: --had a stroke after the neck surgery with hemorrhagic transformation in caudate lobe noted MRA 10/27. --was later started on Plavix. No US or CTA found in the records and no mention of DVT/PE during his stay at [facility]. Assessment 66-year-old male admitted with hemoptysis; hematology consulted for history of recent pulmonary embolism Plan 1. continue heparin gtt 2. monitor CBC Attending Statement The exam, history, and the medical decision-making described in the above note were completed with the assistance of the mid-level provider. I reviewed and agree with the findings presented. I attest that I had a [id number] encounter with the patient on the same day, and personally performed and documented my assessment and findings in the medical record. No obvious bleeding. No significant LE edema. Continue heparin. Monitor for sign of bleeding. Gogo Armenta Dec 09, 2016 09:41 Paulo Flynn MD Dec 09, 2016 15:24
[2016-12-09] MEDS: PANTOPRAZOLE SODIUM 40 MG VIAL IV PUSH SCH (11:49)
[2016-12-09] MEDS: ASPIRIN 81 MG CHEW TAB CHEW SCH (11:50)
[2016-12-09] MEDS: SODIUM CHLORIDE 0.9% FLUSH 10 ML FLUSH IV FLUSH SCH ×2 (11:51→22:52)
[2016-12-09] MEDS: ARTIFICIAL TEARS OPTH SOLN 15 ML BTL EACH EYE SCH ×3 (11:51→18:00)
--- NOTE | 2016-12-09 13:09 | PD.CAR.PN ---
CVT Progress Note Subjective/Hospital Course: Unfortunate 66-year-old gentleman with multiple medical problems including pulmonary embolism currently on the IV heparin Patient requires feeding access and percutaneous gastrostomy failed to the fact that patient has partial hiatal hernia making the anatomy quite difficult At this point we will place open feeding gastrostomy in the operating room It should be noted that the somebody suggested patient should have a hiatal hernia repair. Patient is in no condition to have elective surgery of any kind at this time and gastrostomies probably mostly can tolerate in these conditions. Thanks J 12/09/16 St Post feeding jejunostomy Incision clean dry Abdomen soft May us the jejunostomy for feedings as per medicine. Nothing to add to care. Objective: Vital Signs Date Time Temp Pulse Resp B/P (MAP) Pulse Ox O2 Delivery O2 Flow Rate FiO2 12/09/16 12:03 93 50 12/09/16 09:32 93 60 12/09/16 06:00 86 12/09/16 04:49 95 100 12/09/16 04:30 92 17 115/74 (88) 96 12/09/16 04:15 92 17 97 12/09/16 04:00 100 12/09/16 04:00 92 17 119/72 (88) 96 12/09/16 04:00 92 12/09/16 04:00 99.2 14 12/09/16 03:45 93 15 96 12/09/16 03:30 92 15 120/72 (88) 95 12/09/16 03:15 91 5 95 12/09/16 03:01 93 7 112/69 (83) 95 12/09/16 03:00 92 16 94 12/09/16 02:45 91 0 94 12/09/16 02:31 96 19 160/89 (112) 97 12/09/16 02:30 98 29 96 12/09/16 02:15 94 0 97 12/09/16 02:00 91 12/09/16 02:00 91 16 116/69 (85) 96 12/09/16 01:45 96 21 96 12/09/16 01:30 94 17 114/72 (86) 96 12/09/16 01:15 93 16 97 12/09/16 01:00 92 17 120/77 (91) 96 12/09/16 00:45 97 20 96 12/09/16 00:30 92 19 116/74 (88) 96 12/09/16 00:23 96 100 12/09/16 00:15 92 16 95 12/09/16 00:00 96 18 117/75 (89) 95 12/09/16 00:00 100 12/09/16 00:00 99.9 16 12/09/16 00:00 96 12/08/16 23:45 96 18 95 12/08/16 23:30 95 17 115/69 (84) 93 12/08/16 23:15 93 16 94 12/08/16 23:00 97 18 117/70 (86) 93 12/08/16 22:45 96 17 94 12/08/16 22:30 97 16 117/71 (86) 94 12/08/16 22:15 98 17 95 12/08/16 22:00 92 12/08/16 22:00 98 18 119/73 (88) 95 12/08/16 21:49 95 100 12/08/16 21:45 97 16 95 12/08/16 21:30 101 19 120/78 (92) 94 12/08/16 21:15 100 16 95 12/08/16 21:00 101 23 120/71 (87) 94 12/08/16 20:45 101 20 95 12/08/16 20:30 103 18 133/73 (93) 96 12/08/16 20:15 102 21 96 12/08/16 20:00 104 12/08/16 20:00 100 12/08/16 20:00 104 18 130/73 (92) 95 12/08/16 20:00 100.7 12/08/16 19:45 108 15 96 12/08/16 18:00 99 12/08/16 17:06 94 100 12/08/16 17:00 100 12/08/16 16:00 100 12/08/16 16:00 110 12/08/16 16:00 99.9 103 19 127/74 (91) 94 12/08/16 14:00 115 Labs: Laboratory Tests Test 12/09/16 02:44 White Blood Count 8.6 TH/MM3 (4.0-11.0) Red Blood Count 3.90 MIL/MM3 (4.50-5.90) Hemoglobin 10.9 GM/DL (13.0-17.0) Hematocrit 34.2 % (39.0-51.0) Mean Corpuscular Volume 87.7 FL (80.0-100.0) Mean Corpuscular Hemoglobin 28.0 PG (27.0-34.0) Mean Corpuscular Hemoglobin Concent 31.9 % (32.0-36.0) Red Cell Distribution Width 14.3 % (11.6-17.2) Platelet Count 166 TH/MM3 (150-450) Mean Platelet Volume 8.9 FL (7.0-11.0) Neutrophils (%) (Auto) 81.0 % (16.0-70.0) Lymphocytes (%) (Auto) 10.6 % (9.0-44.0) Monocytes (%) (Auto) 7.7 % (0.0-8.0) Eosinophils (%) (Auto) 0.1 % (0.0-4.0) Basophils (%) (Auto) 0.6 % (0.0-2.0) Neutrophils # (Auto) 7.0 TH/MM3 (1.8-7.7) Lymphocytes # (Auto) 0.9 TH/MM3 (1.0-4.8) Monocytes # (Auto) 0.7 TH/MM3 (0-0.9) Eosinophils # (Auto) 0.0 TH/MM3 (0-0.4) Basophils # (Auto) 0.0 TH/MM3 (0-0.2) CBC Comment DIFF FINAL Differential Comment Activated Partial Thromboplast Time 70.6 SEC (24.3-30.1) Result Diagram: 12/09/16 0244 12/08/16 1756 Fely Weaver MD Dec 09, 2016 13:09
[2016-12-09] MEDS ORDERED: SENNOSIDES SYRUP 8.8 MG/5 ML CUP PO PRN (13:15)
[2016-12-09] MEDS ORDERED: SENNOSIDES SYRUP 8.8 MG/5 ML CUP J-TUBE PRN (13:30)
--- NOTE | 2016-12-09 15:51 | RADRPT ---
EXAM DATE/TIME: 12/09/2016 15:02 [facility] COMPARISON: CHEST SINGLE AP, December 08, 2016, 15:50. INDICATIONS : Short of breath. MEDICAL HISTORY : Stroke. Hypertension SURGICAL HISTORY : Tonsillectomy. ENCOUNTER: Initial ACUITY: 4 - 6 days PAIN SCORE: Non-responsive. LOCATION: Bilateral chest FINDINGS: Stable ETT. Redemonstration of bilateral small pleural effusions and associated lower lobe airspace d isease. Cardiac silhouette is enlarged with indistinct central pulmonary vascularity and diffuse inte rstitial prominence. Remainder of the exam is unchanged. CONCLUSION: 1. Stable ETT. 2. Stable bilateral lower lobe airspace disease and small pleural effusions. 3. Cardiomegaly with positive fluid balance. 4. No significant interval change. Armand Valencia MD on December 09, 2016 at 15:48 Board Certified Radiologist. This report was verified electronically.
[2016-12-09] MEDS: ONDANSETRON HCL 4 MG/2 ML VIAL IV PUSH PRN (17:53)
[2016-12-09] MEDS: MIDAZOLAM 100 MG/100 ML INJ 100 ML IV PRN (17:57)
[2016-12-09] MEDS ORDERED: BUMETANIDE INJ 1 MG/4 ML VIAL IV PUSH SCH (18:00)
[2016-12-09] MEDS: [UNRECOGNIZED DRUG - REMARK] J-TUBE SCH (21:00)
[2016-12-09] MEDS: PRAVASTATIN SOD 20 MG TAB PO SCH (21:00)
[2016-12-09] MEDS: fentaNYL DRIP 250 ML IV PRN (22:43)
[2016-12-09] MEDS: DOCUSATE SODIUM 100 MG/10 ML UDC J-TUBE SCH (22:47)
[2016-12-09] MEDS: CHOLECALCIFEROL (VIT D3) LIQ 400 UNITS/ML 50 ML BOTTLE J-TUBE SCH (23:09)
[2016-12-10] VITALS (23 sets, daily range): BP systolic 114–182; BP diastolic 59–74; PULSE 69–91; RESP 14–17; TEMP 98.4–99.7; O2SAT 85–95
[2016-12-10] MEDS: RESP: ALBUTEROL 2.5 MG/IPRATROPIUM 0.5 MG NEB (SCH) INH ×4 (03:38→21:56)
[2016-12-10] MEDS: INSULIN NovoLIN REGULAR SUPPLEMENTAL SCALE SQ SCH ×4 (05:00→23:00)
[2016-12-10 05:21] LABS: AUTOMATED NEUTROPHIL # 3.4 TH/MM3 (1.8-7.7); BASOPHIL % 0.6 % (0.0-2.0); EOSINOPHIL # 0.1 TH/MM3 (0-0.4); EOSINOPHIL % 1.5 % (0.0-4.0); HEMATOCRIT 29.6 % (39.0-51.0); HEMO FLAGS DIFF FINAL; LYMPH % 22.6 % (9.0-44.0); LYMPHOCYTE # 1.2 TH/MM3 (1.0-4.8); MEAN CELL VOLUME 87.2 FL (80.0-100.0); MEAN CORPUSCULAR HEMOGLOBIN 28.5 PG (27.0-34.0); MEAN CORPUSCULAR HGB CONC 32.7 % (32.0-36.0); MONO % 9.4 % (0.0-8.0); NEUT % 65.9 % (16.0-70.0); PLATELET COUNT 147 TH/MM3 (150-450); RED BLOOD COUNT 3.39 MIL/MM3 (4.50-5.90); RED CELL DISTRIBUTION WIDTH 14.5 % (11.6-17.2); WHITE BLOOD COUNT 5.1 TH/MM3 (4.0-11.0)
[2016-12-10 05:28] LABS: APTT (PATIENT) 57.6 SEC (24.3-30.1)
[2016-12-10] MEDS: PIPERACIL-TAZO 4.5 GM PREMIX 100 ML IV SCH ×4 (05:33→21:53)
[2016-12-10 05:46] LABS: ALT (GPT) 9 U/L (12-78); ANION GAP 9 MEQ/L (5-15); AST (GOT) 11 U/L (15-37); BICARBONATE 27.1 MEQ/L (21.0-32.0); CHLORIDE 102 MEQ/L (98-107); GLOMERULAR FILTRATION RATE 104 ML/MIN (>89); POTASSIUM 3.4 MEQ/L (3.5-5.1); SODIUM (NA) 138 MEQ/L (136-145)
[2016-12-10 05:51] LABS: ALKALINE PHOSPHATASE 66 U/L (45-117); BLOOD UREA NITROGEN 17 MG/DL (7-18); TOTAL BILIRUBIN ADULT 0.6 MG/DL (0.2-1.0)
--- NOTE | 2016-12-10 07:25 | HHI.CCPN ---
Subjective Remarks/Hospital Course The patient is a 66-year-old male with a past medical history of gastroesophageal reflux disease, Rasmussen's esophagus, hypertension, hyperlipidemia, iron-deficiency anemia, coronary artery disease, PE and DVT year ago. He had a tumor removed from the right side of his neck at [facility] in October with pathology showing a glomus paraganglioma. 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 He had Dobbhoff placed for approximately one month and went to outpatient surgical center today to have a peg tube placed. However during procedure the patient had some hemoptysis. The patient was scoped by Dr. Peña who did not think esophagus was\ the source of bleeding. The patient also noted to have hiatal hernia and a G tube could not be placed. The patient was intubated at the surgical center with Versed and transferred to the ER. When seen the patient is intubated and on full mechanical ventilation. His initial blood pressure on arrival 135/84 with a pulse of 84. Chest x-ray showed subsegmental\ atelectasis at the left base. His laboratory data showed normal CBC and mild hyponatremia with sodium level of 134. According to the patient's and daughter, he was on anticoagulation with Coumadin for his PE and DVT and was taken off of it in October and placed on Plavix instead. There is no history of any chest pain, shortness of breath or hemoptysis prior to arrival at the surgical center. In addition, no history of nausea, vomiting or abdominal pain. 12/06 Patient remains intubated and sedated. CTA chest last night showed extensive b/l PE, Doppler US LE b/l DVT he was started on Heparin drip. In addition patient underwent bronch and ETT exchanged to 8.0 size last night. There was oozing from right pharynx/Right pharyngeal epiglottic fold that appeared to be source of bleeding. There was some blood in right mainstem that was suctioned out. There were some bloody clots in right lower lobe sub segments which were removed . No active bleeding in the lower airways. No endobronchial lesions. Small amount of blood in left lower lobe subsegment. Subjective 12/07: Tmax 101.7. Currently 99 1. Currently down for IVC filter placement and G-tube placement. Was awake and following commands prior to procedure 12/08: Profoundly hypoxemic, FiO2 100%. Acute fever up to 102. Sosa culture repeat chest x-ray requested. Started on Zosyn and one dose of vancomycin. On sedation lightening, follows commands weakly. Remains on IV heparin 12/09 Patient is sedated with Versed , Fentanyl and intubated. T;100.7 last night.On Heparin drip. 12/10 Patient remains intubated and sedated with Fentanyl and Versed. On PRVC with PEEP:10, FIO2 70%. Afebrile. Objective Vital Signs Date Time Temp Pulse Resp B/P (MAP) Pulse Ox O2 Delivery O2 Flow Rate FiO2 12/10/16 06:00 76 12/10/16 04:00 70 12/10/16 04:00 98.4 16 139/69 (92) 94 12/10/16 01:08 Ventilator 12/07/16 11:45 15.00 Intake and Output 12/10/16 12/10/16 12/11/16 08:00 16:00 00:00 Output Total 800 ml Balance -800 ml Result Diagram: 12/10/16 0421 12/10/16 0421 Other Results Laboratory Tests Test 12/10/16 04:21 White Blood Count 5.1 TH/MM3 Red Blood Count 3.39 MIL/MM3 Hemoglobin 9.7 GM/DL Hematocrit 29.6 % Mean Corpuscular Volume 87.2 FL Mean Corpuscular Hemoglobin 28.5 PG Mean Corpuscular Hemoglobin Concent 32.7 % Red Cell Distribution Width 14.5 % Platelet Count 147 TH/MM3 Mean Platelet Volume 9.3 FL Neutrophils (%) (Auto) 65.9 % Lymphocytes (%) (Auto) 22.6 % Monocytes (%) (Auto) 9.4 % Eosinophils (%) (Auto) 1.5 % Basophils (%) (Auto) 0.6 % Neutrophils # (Auto) 3.4 TH/MM3 Lymphocytes # (Auto) 1.2 TH/MM3 Monocytes # (Auto) 0.5 TH/MM3 Eosinophils # (Auto) 0.1 TH/MM3 Basophils # (Auto) 0.0 TH/MM3 CBC Comment DIFF FINAL Differential Comment Activated Partial Thromboplast Time 57.6 SEC Blood Urea Nitrogen 17 MG/DL Creatinine 0.75 MG/DL Random Glucose 98 MG/DL Total Protein 5.6 GM/DL Albumin 1.9 GM/DL Calcium Level 8.3 MG/DL Alkaline Phosphatase 66 U/L Aspartate Amino Transf (AST/SGOT) 11 U/L Alanine Aminotransferase (ALT/SGPT) 9 U/L Total Bilirubin 0.6 MG/DL Sodium Level 138 MEQ/L Potassium Level 3.4 MEQ/L Chloride Level 102 MEQ/L Carbon Dioxide Level 27.1 MEQ/L Anion Gap 9 MEQ/L Estimat Glomerular Filtration Rate 104 ML/MIN Imaging Last Impressions Chest X-Ray 12/09/16 0000 Signed Impressions: Service Date/Time: Friday, December 09, 2016 15:02 - CONCLUSION: 1. Stable ETT. 2. Stable bilateral lower lobe airspace disease and small pleural effusions. 3. Cardiomegaly with positive fluid balance. 4. No significant interval change. Armand Valencia MD Head CT 12/08/16 0600 Signed Impressions: Service Date/Time: November 11:16 - CONCLUSION: 1. Increased paranasal sinus opacification. 2. No other significant interval change. Subacute to chronic ischemic findings of the right basal ganglia. Titi Najera MD IVC Filter Placement X-Ray 12/07/16 0000 Signed Impressions: Service Date/Time: Wednesday, December 07, 2016 11:49 - CONCLUSION: Uncomplicated inferior vena cava filter placement as above. Patric Stover MD Abdomen X-Ray 12/07/16 0000 Signed Impressions: Service Date/Time: Wednesday, December 07, 2016 15:47 - CONCLUSION: 1. The NG tube is directed into the right mainstem bronchus. This needs to be removed. Patric Stover MD Lower Extremity Ultrasound 12/05/16 0000 Signed Impressions: Service Date/Time: Monday, December 05, 2016 23:02 - CONCLUSION: 1. Positive for deep venous thrombosis as above. Sidney Pérez MD CT Angiography 12/05/16 0000 Signed Impressions: Service Date/Time: Monday, December 05, 2016 18:13 - CONCLUSION: 1. Extensive bilateral pulmonary arterial thrombi emboli bilaterally within the segmental and lobar vessels. There are no imaging findings to indicate right heart strain. 2. Stable 3.7 cm hypodense lesion with calcification either in the posterior mediastinum abutting the descending thoracic aorta or in the posterior left pleural space. Stranding of uncertain etiology but has not changed in approximately 13 months. 3. Stable large hiatal hernia. There is atelectasis/volume loss in both lower lobes. Luan Bermudez MD Objective Remarks GENERAL: Patient is 66 yo critically ill intubated and sedated SKIN: Warm and dry. No rash HEAD: Normocephalic. EYES: No scleral icterus. No injection or drainage. NECK: Supple, trachea midline. No JVD or lymphadenopathy. CARDIOVASCULAR: RRR. S1, S2 without murmur RESPIRATORY: Breath sounds equal bilaterally. No accessory muscle use. Diminished at the bilateral bases GASTROINTESTINAL: Abdomen soft, non-tender, nondistended. Hypoactive bowel sounds are appreciated MUSCULOSKELETAL: No significant peripheral edema Neuro: Intubated sedated. On sedation hold patient is followed commands with upper extremity, weak A/P Assessment and Plan Neuro/Psych: Right basal ganglia/temporal occipital lobe CVA 10/27 Hemorrhagic conversion right caudate/putamen 11/06/16 Tumor removal from the neck, pathology -glomus paraganglioma On fentanyl infusion and midazolam gtt for sedation and vent synchrony. Sedation vacation once hypoxia improves CT brain 12/05: No acute intracranial findings identified. Repeat CT head 12/08 no intracranial hemorrhage Pulm: Acute respiratory failure Bilateral pulmonary embolism R tVF paralysis History of PE and DVT On PRVC RR 14, TV 500, IT: 1.0, PEEP:10, FIO2 70%. Continue with vent support and maintain sats> 92%. Dcerease FIO2 as pk. Bronchodilators with albuterol/ipratropium aerosols every 6 hours with albuterol aerosols every 2 hours. ICU vent bundle. CT chest: Extensive b/l PE- On Heparin drip ( Not a candidate for TPA as there is no hemodynamic instability, recent surgery and stroke in October) S/p IVC filter placement 12/07 Per bronchoscopy note source of bleeding appeared to be right pharyngeal epiglottic fold -? specific medial or lateral glossoepiglottic, aryepiglottic or ventricle fold though bleeding seems to have ceased CV: Coronary artery disease Hypertension Dyslipidemia Monitor HR and BP and maintain MAP> 65mmHg. 2-D echo revealed EF 60-65%. Bilateral atrial enlargement. Moderate pulmonary hypertension PAP 50-60 Lovastatin 20 by mouth daily when clinically indicated On Aspirin 81 mg daily on Pravachol Noted abnormality calcification the posterior pleural versus mediastinal space. Stable since last year. RENAL/FEN/: Right renal cyst Monitor renal function, Is and Os ,electrolyte replacement per protocol. Decrease Bumex 1mg IV daily, Will need K replacement today. GI: Hiatal hernia Rasmussen's esophagitis GasteoEsophageal reflux disease Multiple liver cysts Gastric/duodenal polyps Tube feeds- Glucerna 1.5 with goal rate 45ml/hr on Protonix 40 mg IV daily for GI prophylaxis. s/p open J-tube placement on 12/07 ID: High fever with hypoxia Continue abx( Zosyn and vancomycin) follow up on cxs- pancultured 12/08- NGTD Monitor for signs of infections( fever and WBC). 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 Cordoba - Wilfrid Iron-deficiency anemia. Bilateral lower extremity DVT Monitor CBC, Coags. Heme is following Dr. Flynn s/p IVC filter placement 12/07 Continue home medication iron sulfate 325 mg by mouth daily if able Ultrasound revealed right nonocclusive thrombus in greater saphenous vein to the PT/V. Femoral vein patent. Left with nonocclusive thrombus from the SFV to PT with collaterals Endo: SSI with Accu-Cheks for glycemic control. GI prophylaxis with Protonix 40 mg daily and DVT prophylaxis with SCDs/heparin drip CCT 30 mins. Carie Ordaz MD Dec 10, 2016 07:25
[2016-12-10] MEDS ORDERED: SODIUM PHOSPHATE INJ 30 MMOL in SODIUM CHLOR 0.9% 250 ML INJ 240 ML IV PRN (07:30)
[2016-12-10] MEDS ORDERED: POTASSIUM PHOSPHATE INJ 30 MMOL in SODIUM CHLOR 0.9% 250 ML INJ 250 ML IV PRN (07:30)
[2016-12-10] MEDS ORDERED: POTASSIUM PHOSPHATE MONOBASIC 500 MG TAB PO/TUBE PRN (07:30)
[2016-12-10] MEDS ORDERED: POTASSIUM CHLORIDE 25 MEQ EFFERVESCENT TAB PO PRN (07:30)
[2016-12-10] MEDS ORDERED: MAGNESIUM SULFATE INJ 2 GM in SODIUM CHLORIDE 0.9% INJ 96 ML IV PRN (07:30)
[2016-12-10] MEDS ORDERED: POTASSIUM CHLOR 40 MEQ PREMIX 100 ML IV PRN ×2 (07:30)
[2016-12-10] MEDS ORDERED: POTASSIUM PHOSPHATE MONOBASIC 500 MG TAB PO PRN (07:30)
[2016-12-10] MEDS ORDERED: MAGNESIUM SULFATE INJ 4 GM in SODIUM CHLORIDE 0.9% INJ 92 ML IV PRN (07:30)
[2016-12-10] MEDS ORDERED: MAGNESIUM OXIDE 400 MG TAB PO PRN (07:30)
[2016-12-10] MEDS: ASPIRIN 81 MG CHEW TAB CHEW SCH (07:56)
[2016-12-10] MEDS: DOCUSATE SODIUM 100 MG/10 ML UDC J-TUBE SCH ×2 (07:56→21:52)
[2016-12-10] MEDS: PANTOPRAZOLE SODIUM 40 MG VIAL IV PUSH SCH (07:57)
[2016-12-10] MEDS: CHOLECALCIFEROL (VIT D3) LIQ 400 UNITS/ML 50 ML BOTTLE J-TUBE SCH ×2 (07:57→21:00)
[2016-12-10] MEDS: SODIUM CHLORIDE 0.9% FLUSH 10 ML FLUSH IV FLUSH SCH ×2 (07:57→21:00)
[2016-12-10] MEDS: ARTIFICIAL TEARS OPTH SOLN 15 ML BTL EACH EYE SCH ×3 (07:57→17:30)
[2016-12-10] MEDS: FERROUS SULFATE 325 MG (65 MG ELEMENTAL IRON) TAB PO SCH (07:58)
[2016-12-10] MEDS: BUMETANIDE INJ 1 MG/4 ML VIAL IV PUSH SCH (08:00)
[2016-12-10] MEDS: MIDAZOLAM 100 MG/100 ML INJ 100 ML IV PRN (08:54)
[2016-12-10] MEDS: POTASSIUM CHLOR 20 MEQ PREMIX 100 ML IV PRN ×2 (12:03→17:29)
[2016-12-10] MEDS: HEPARIN 25,000 UNITS-D5W 250 ML - PREMIX IV SCH (19:33)
[2016-12-10] MEDS: PRAVASTATIN SOD 20 MG TAB PO SCH (21:00)
[2016-12-10] MEDS: [UNRECOGNIZED DRUG - REMARK] J-TUBE SCH (21:00)
[2016-12-11] VITALS (30 sets, daily range): BP systolic 105–167; BP diastolic 61–90; PULSE 70–97; RESP 12–24; TEMP 98.3–99.8; O2SAT 89–100
[2016-12-11] MEDS: PIPERACIL-TAZO 4.5 GM PREMIX 100 ML IV SCH ×4 (03:05→20:30)
[2016-12-11] MEDS: RESP: ALBUTEROL 2.5 MG/IPRATROPIUM 0.5 MG NEB (SCH) INH ×4 (03:55→21:17)
[2016-12-11] MEDS: CHLORHEXIDINE GLUCONATE 2 % 1 PACK (2 CLOTHS) TOP SCH (04:00)
[2016-12-11] MEDS: INSULIN NovoLIN REGULAR SUPPLEMENTAL SCALE SQ SCH ×3 (05:00→23:00)
[2016-12-11 06:14] LABS: BASOPHIL % 0.7 % (0.0-2.0); EOSINOPHIL # 0.1 TH/MM3 (0-0.4); EOSINOPHIL % 2.9 % (0.0-4.0); HEMO FLAGS DIFF FINAL; LYMPH % 25.9 % (9.0-44.0); LYMPHOCYTE # 1.3 TH/MM3 (1.0-4.8); MEAN CELL VOLUME 87.5 FL (80.0-100.0); MONO % 9.9 % (0.0-8.0); NEUT % 60.6 % (16.0-70.0); PLATELET COUNT 176 TH/MM3 (150-450); RED BLOOD COUNT 3.43 MIL/MM3 (4.50-5.90); WHITE BLOOD COUNT 4.9 TH/MM3 (4.0-11.0)
[2016-12-11 06:24] LABS: BICARBONATE 27.1 MEQ/L (21.0-32.0); MAGNESIUM 1.8 MG/DL (1.5-2.5); POTASSIUM 3.4 MEQ/L (3.5-5.1)
[2016-12-11 06:34] LABS: APTT (PATIENT) 54.2 SEC (24.3-30.1)
--- NOTE | 2016-12-11 07:36 | HHI.CCPN ---
Subjective Remarks/Hospital Course The patient is a 66-year-old male with a past medical history of gastroesophageal reflux disease, Rasmussen's esophagus, hypertension, hyperlipidemia, iron-deficiency anemia, coronary artery disease, PE and DVT year ago. He had a tumor removed from the right side of his neck at [facility] in October with pathology showing a glomus paraganglioma. 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 He had Dobbhoff placed for approximately one month and went to outpatient surgical center today to have a peg tube placed. However during procedure the patient had some hemoptysis. The patient was scoped by Dr. Peña who did not think esophagus was\ the source of bleeding. The patient also noted to have hiatal hernia and a G tube could not be placed. The patient was intubated at the surgical center with Versed and transferred to the ER. When seen the patient is intubated and on full mechanical ventilation. His initial blood pressure on arrival 135/84 with a pulse of 84. Chest x-ray showed subsegmental\ atelectasis at the left base. His laboratory data showed normal CBC and mild hyponatremia with sodium level of 134. According to the patient's and daughter, he was on anticoagulation with Coumadin for his PE and DVT and was taken off of it in October and placed on Plavix instead. There is no history of any chest pain, shortness of breath or hemoptysis prior to arrival at the surgical center. In addition, no history of nausea, vomiting or abdominal pain. 12/06 Patient remains intubated and sedated. CTA chest last night showed extensive b/l PE, Doppler US LE b/l DVT he was started on Heparin drip. In addition patient underwent bronch and ETT exchanged to 8.0 size last night. There was oozing from right pharynx/Right pharyngeal epiglottic fold that appeared to be source of bleeding. There was some blood in right mainstem that was suctioned out. There were some bloody clots in right lower lobe sub segments which were removed . No active bleeding in the lower airways. No endobronchial lesions. Small amount of blood in left lower lobe subsegment. Subjective 12/07: Tmax 101.7. Currently 99 1. Currently down for IVC filter placement and G-tube placement. Was awake and following commands prior to procedure 12/08: Profoundly hypoxemic, FiO2 100%. Acute fever up to 102. Sosa culture repeat chest x-ray requested. Started on Zosyn and one dose of vancomycin. On sedation lightening, follows commands weakly. Remains on IV heparin 12/09 Patient is sedated with Versed , Fentanyl and intubated. T;100.7 last night.On Heparin drip. 12/10 Patient remains intubated and sedated with Fentanyl and Versed. On PRVC with PEEP:10, FIO2 70%. Afebrile. 12/11 Patient is sedated with Versed, Fentanyl and intubated. Dropped his sats overnight On PRVC with PEEP: 10, FIO2 80% . Afebrile. Objective Vital Signs Date Time Temp Pulse Resp B/P (MAP) Pulse Ox O2 Delivery O2 Flow Rate FiO2 12/11/16 06:00 86 12/11/16 04:00 50 12/11/16 04:00 98.9 16 167/90 (115) 96 12/10/16 21:58 Ventilator 12/07/16 11:45 15.00 Intake and Output 12/11/16 12/11/16 12/12/16 08:00 16:00 00:00 Intake Total 100 ml Output Total 600 ml Balance -500 ml Result Diagram: 12/11/16 0343 12/11/16 0343 Other Results Laboratory Tests Test 12/10/16 10:45 12/11/16 03:43 Phosphorus Level 3.2 MG/DL 3.4 MG/DL White Blood Count 4.9 TH/MM3 Red Blood Count 3.43 MIL/MM3 Hemoglobin 9.6 GM/DL Hematocrit 30.0 % Mean Corpuscular Volume 87.5 FL Mean Corpuscular Hemoglobin 28.0 PG Mean Corpuscular Hemoglobin Concent 32.0 % Red Cell Distribution Width 15.0 % Platelet Count 176 TH/MM3 Mean Platelet Volume 9.5 FL Neutrophils (%) (Auto) 60.6 % Lymphocytes (%) (Auto) 25.9 % Monocytes (%) (Auto) 9.9 % Eosinophils (%) (Auto) 2.9 % Basophils (%) (Auto) 0.7 % Neutrophils # (Auto) 3.0 TH/MM3 Lymphocytes # (Auto) 1.3 TH/MM3 Monocytes # (Auto) 0.5 TH/MM3 Eosinophils # (Auto) 0.1 TH/MM3 Basophils # (Auto) 0.0 TH/MM3 CBC Comment DIFF FINAL Differential Comment Activated Partial Thromboplast Time 54.2 SEC Blood Urea Nitrogen 15 MG/DL Creatinine 0.58 MG/DL Random Glucose 90 MG/DL Calcium Level 8.7 MG/DL Magnesium Level 1.8 MG/DL Sodium Level 136 MEQ/L Potassium Level 3.4 MEQ/L Chloride Level 101 MEQ/L Carbon Dioxide Level 27.1 MEQ/L Anion Gap 8 MEQ/L Estimat Glomerular Filtration Rate 139 ML/MIN Imaging Last Impressions Chest X-Ray 12/09/16 0000 Signed Impressions: Service Date/Time: Friday, December 09, 2016 15:02 - CONCLUSION: 1. Stable ETT. 2. Stable bilateral lower lobe airspace disease and small pleural effusions. 3. Cardiomegaly with positive fluid balance. 4. No significant interval change. Armand Valencia MD Head CT 12/08/16 0600 Signed Impressions: Service Date/Time: November 11:16 - CONCLUSION: 1. Increased paranasal sinus opacification. 2. No other significant interval change. Subacute to chronic ischemic findings of the right basal ganglia. Titi Najera MD IVC Filter Placement X-Ray 12/07/16 0000 Signed Impressions: Service Date/Time: Wednesday, December 07, 2016 11:49 - CONCLUSION: Uncomplicated inferior vena cava filter placement as above. Patric Stover MD Abdomen X-Ray 12/07/16 0000 Signed Impressions: Service Date/Time: Wednesday, December 07, 2016 15:47 - CONCLUSION: 1. The NG tube is directed into the right mainstem bronchus. This needs to be removed. Patric Stover MD Lower Extremity Ultrasound 12/05/16 0000 Signed Impressions: Service Date/Time: Monday, December 05, 2016 23:02 - CONCLUSION: 1. Positive for deep venous thrombosis as above. Sidney Pérez MD CT Angiography 12/05/16 0000 Signed Impressions: Service Date/Time: Monday, December 05, 2016 18:13 - CONCLUSION: 1. Extensive bilateral pulmonary arterial thrombi emboli bilaterally within the segmental and lobar vessels. There are no imaging findings to indicate right heart strain. 2. Stable 3.7 cm hypodense lesion with calcification either in the posterior mediastinum abutting the descending thoracic aorta or in the posterior left pleural space. Stranding of uncertain etiology but has not changed in approximately 13 months. 3. Stable large hiatal hernia. There is atelectasis/volume loss in both lower lobes. Luan Bermudez MD Objective Remarks GENERAL: Patient is 66 yo critically ill intubated and sedated SKIN: Warm and dry. No rash HEAD: Normocephalic. EYES: No scleral icterus. No injection or drainage. NECK: Supple, trachea midline. No JVD or lymphadenopathy. CARDIOVASCULAR: RRR. S1, S2 without murmur RESPIRATORY: Breath sounds equal bilaterally. No accessory muscle use. Diminished at the bilateral bases GASTROINTESTINAL: Abdomen soft, non-tender, nondistended. Hypoactive bowel sounds are appreciated MUSCULOSKELETAL: No significant peripheral edema Neuro: Intubated sedated. On sedation hold patient is followed commands with upper extremity, weak A/P Assessment and Plan Neuro/Psych: Right basal ganglia/temporal occipital lobe CVA 10/27 Hemorrhagic conversion right caudate/putamen 11/06/16 Tumor removal from the neck, pathology -glomus paraganglioma On fentanyl infusion and midazolam gtt for sedation and vent synchrony. Sedation vacation once hypoxia improves CT brain 12/05: No acute intracranial findings identified. Repeat CT head 12/08 no intracranial hemorrhage Pulm: Acute respiratory failure Bilateral pulmonary embolism R tVF paralysis History of PE and DVT On PRVC RR 14, TV 500, IT: 1.0, PEEP:10, FIO2 80%.Decrease FIO2 as pk Continue with vent support and maintain sats> 92%. Check CXR Bronchodilators with albuterol/ipratropium aerosols every 6 hours with albuterol aerosols every 2 hours. ICU vent bundle. CT chest: Extensive b/l PE- On Heparin drip ( Not a candidate for TPA as there is no hemodynamic instability, recent surgery and stroke in October) S/p IVC filter placement 12/07 Per bronchoscopy note source of bleeding appeared to be right pharyngeal epiglottic fold -? specific medial or lateral glossoepiglottic, aryepiglottic or ventricle fold though bleeding seems to have ceased CV: Coronary artery disease Hypertension Dyslipidemia Monitor HR and BP and maintain MAP> 65mmHg. 2-D echo revealed EF 60-65%. Bilateral atrial enlargement. Moderate pulmonary hypertension PAP 50-60 Lovastatin 20 by mouth daily when clinically indicated On Aspirin 81 mg daily on Pravachol Noted abnormality calcification the posterior pleural versus mediastinal space. Stable since last year. RENAL/FEN/: Right renal cyst Monitor renal function, Is and Os ,electrolyte replacement per protocol. Bumex 1mg IV daily, Will need K replacement today. GI: Hiatal hernia Rasmussen's esophagitis GasteoEsophageal reflux disease Multiple liver cysts Gastric/duodenal polyps Tube feeds held for possible aspiration)- Glucerna 1.5 with goal rate 45ml/hr Check KUB abdomen r/o ileus on Protonix 40 mg IV daily for GI prophylaxis. s/p open J-tube placement on 12/07 ID: High fever with hypoxia Continue abx( Zosyn and vancomycin) follow up on cxs- pancultured 12/08- NGTD Monitor for signs of infections( fever and WBC). 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 Cordoba - Wilfrid Iron-deficiency anemia. Bilateral lower extremity DVT Monitor CBC, Coags. Heme is following Dr. Flynn s/p IVC filter placement 12/07 Continue home medication iron sulfate 325 mg by mouth daily if able Ultrasound revealed right nonocclusive thrombus in greater saphenous vein to the PT/V. Femoral vein patent. Left with nonocclusive thrombus from the SFV to PT with collaterals Endo: SSI with Accu-Cheks for glycemic control. GI prophylaxis with Protonix 40 mg daily and DVT prophylaxis with SCDs/heparin drip Discussed with family and updated them on patient's condition. CCT 30 mins. Carie Ordaz MD Dec 11, 2016 07:36
--- NOTE | 2016-12-11 09:23 | RADRPT ---
EXAM DATE/TIME: 12/11/2016 07:45 [facility] COMPARISON: No previous studies available for comparison. INDICATIONS : Distention, concern for ileus. MEDICAL HISTORY : Hypercholesterolemia. Gastroesophageal reflux disease. Hypertension. Asthma. Hiatal hernia. Barretts esophagus. Measles. Pulmonary embolism.Coronary artery disease. Anemia. Deep vein thrombosis. SURGICAL HISTORY : Tonsillectomy. Left knee surgery. Glomus paraganglioma to right neck. ENCOUNTER: Initial ACUITY: 1 day PAIN SCORE: Non-responsive. LOCATION: Bilateral abdomen. FINDINGS: Supine view of the abdomen was performed. The bowel is significant for suggestive areas of wall thic kening identified within the colon. There is overall paucity of bowel gas. No evidence of air-fluid l evel. No abnormal masses, calcifications, or organomegaly is seen. The osseous structures are signif icant only for degenerative changes of the lumbar spine. CONCLUSION: Overall paucity of bowel gas, without evidence of obstruction. There is suggestion of wall thickening identified in the colon. Recommend further evaluation with contrast-enhanced CT. Shannen Phillips MD on December 11, 2016 at 9:17 Board Certified Radiologist. This report was verified electronically.
--- NOTE | 2016-12-11 09:24 | RADRPT ---
EXAM DATE/TIME: 12/11/2016 07:52 [facility] COMPARISON: CHEST SINGLE AP, December 09, 2016, 15:02. INDICATIONS : Shortness of breath. MEDICAL HISTORY : Stroke. Hypertension SURGICAL HISTORY : Tonsillectomy. ENCOUNTER: Initial ACUITY: 1 day PAIN SCORE: Non-responsive. LOCATION: Bilateral chest FINDINGS: AP portable semiupright view of the chest demonstrates an endotracheal tube with the tip at the proxi mal aspect of the clavicles. The lungs are significantly hypoinflated and there is bilateral basilar atelectasis with adjacent hazy opacity within the overlying lungs concerning for bilateral pleural ef fusions. The cardiac silhouette is enlarged and the pulmonary vasculature is engorged. Osseous struct ures are grossly unremarkable. Surgical clips overlie the right neck at the level of the thyroid glan d. CONCLUSION: Endotracheal tube which appears retracted slightly as compared to the prior exam. Lung exam consisten t with congestive heart failure and pulmonary edema with bilateral pleural effusions and atelectasis versus air space consolidation. This appearance is stable from the prior exam. Shannen Phillips MD on December 11, 2016 at 9:21 Board Certified Radiologist. This report was verified electronically.
[2016-12-11] MEDS: MIDAZOLAM 100 MG/100 ML INJ 100 ML IV PRN (09:39)
[2016-12-11] MEDS: fentaNYL DRIP 250 ML IV PRN (09:39)
[2016-12-11] MEDS: PANTOPRAZOLE SODIUM 40 MG VIAL IV PUSH SCH (09:40)
[2016-12-11] MEDS: POTASSIUM CHLOR 20 MEQ PREMIX 100 ML IV PRN ×2 (09:40→10:09)
[2016-12-11] MEDS: DOCUSATE SODIUM 100 MG/10 ML UDC J-TUBE SCH ×2 (09:40→20:29)
[2016-12-11] MEDS: SENNOSIDES SYRUP 8.8 MG/5 ML CUP PO SCH (09:40)
[2016-12-11] MEDS: BUMETANIDE INJ 1 MG/4 ML VIAL IV PUSH SCH (09:40)
[2016-12-11] MEDS: ASPIRIN 81 MG CHEW TAB CHEW SCH (09:41)
[2016-12-11] MEDS: CHOLECALCIFEROL (VIT D3) LIQ 400 UNITS/ML 50 ML BOTTLE J-TUBE SCH ×2 (09:41→20:36)
[2016-12-11] MEDS: POLYETHYLENE GLYCOL 17 GM PKG PO SCH (09:41)
[2016-12-11] MEDS: FERROUS SULFATE 325 MG (65 MG ELEMENTAL IRON) TAB PO SCH (09:42)
[2016-12-11] MEDS: ARTIFICIAL TEARS OPTH SOLN 15 ML BTL EACH EYE SCH ×3 (09:42→18:00)
[2016-12-11] MEDS: SODIUM CHLORIDE 0.9% FLUSH 10 ML FLUSH IV FLUSH SCH ×2 (09:42→20:29)
[2016-12-11] MEDS: HEPARIN 25,000 UNITS-D5W 250 ML - PREMIX IV SCH (15:39)
[2016-12-11] MEDS: [UNRECOGNIZED DRUG - REMARK] J-TUBE SCH (21:00)
[2016-12-11] MEDS: PRAVASTATIN SOD 20 MG TAB PO SCH (21:00)
[2016-12-12] VITALS (44 sets, daily range): BP systolic 97–131; BP diastolic 59–77; PULSE 70–99; RESP 11–31; TEMP 99.1–100.8; O2SAT 77–95
[2016-12-12] MEDS: RESP: ALBUTEROL 2.5 MG/IPRATROPIUM 0.5 MG NEB (SCH) INH ×4 (03:28→20:57)
[2016-12-12] MEDS: PIPERACIL-TAZO 4.5 GM PREMIX 100 ML IV SCH ×4 (03:39→21:32)
[2016-12-12] MEDS: CHLORHEXIDINE GLUCONATE 2 % 1 PACK (2 CLOTHS) TOP SCH (04:00)
[2016-12-12] MEDS: INSULIN NovoLIN REGULAR SUPPLEMENTAL SCALE SQ SCH ×4 (05:00→23:00)
[2016-12-12 06:49] LABS: AUTOMATED NEUTROPHIL # 3.8 TH/MM3 (1.8-7.7); BASOPHIL % 0.8 % (0.0-2.0); EOSINOPHIL # 0.2 TH/MM3 (0-0.4); EOSINOPHIL % 3.5 % (0.0-4.0); HEMATOCRIT 32.5 % (39.0-51.0); HEMO FLAGS DIFF FINAL; LYMPH % 22.3 % (9.0-44.0); LYMPHOCYTE # 1.4 TH/MM3 (1.0-4.8); MEAN CELL VOLUME 87.6 FL (80.0-100.0); MEAN CORPUSCULAR HEMOGLOBIN 28.4 PG (27.0-34.0); MEAN CORPUSCULAR HGB CONC 32.4 % (32.0-36.0); MONO % 10.5 % (0.0-8.0); NEUT % 62.9 % (16.0-70.0); PLATELET COUNT 186 TH/MM3 (150-450); RED BLOOD COUNT 3.71 MIL/MM3 (4.50-5.90); RED CELL DISTRIBUTION WIDTH 14.7 % (11.6-17.2); WHITE BLOOD COUNT 6.1 TH/MM3 (4.0-11.0)
[2016-12-12 06:59] LABS: APTT (PATIENT) 40.6 SEC (24.3-30.1)
[2016-12-12 07:06] LABS: POTASSIUM 3.5 MEQ/L (3.5-5.1)
--- NOTE | 2016-12-12 07:41 | HHI.CCPN ---
Subjective Remarks/Hospital Course The patient is a 66-year-old male with a past medical history of gastroesophageal reflux disease, Rasmussen's esophagus, hypertension, hyperlipidemia, iron-deficiency anemia, coronary artery disease, PE and DVT year ago. He had a tumor removed from the right side of his neck at [facility] in October with pathology showing a glomus paraganglioma. 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 He had Dobbhoff placed for approximately one month and went to outpatient surgical center today to have a peg tube placed. However during procedure the patient had some hemoptysis. The patient was scoped by Dr. Peña who did not think esophagus was\ the source of bleeding. The patient also noted to have hiatal hernia and a G tube could not be placed. The patient was intubated at the surgical center with Versed and transferred to the ER. When seen the patient is intubated and on full mechanical ventilation. His initial blood pressure on arrival 135/84 with a pulse of 84. Chest x-ray showed subsegmental\ atelectasis at the left base. His laboratory data showed normal CBC and mild hyponatremia with sodium level of 134. According to the patient's and daughter, he was on anticoagulation with Coumadin for his PE and DVT and was taken off of it in October and placed on Plavix instead. There is no history of any chest pain, shortness of breath or hemoptysis prior to arrival at the surgical center. In addition, no history of nausea, vomiting or abdominal pain. 12/06 Patient remains intubated and sedated. CTA chest last night showed extensive b/l PE, Doppler US LE b/l DVT he was started on Heparin drip. In addition patient underwent bronch and ETT exchanged to 8.0 size last night. There was oozing from right pharynx/Right pharyngeal epiglottic fold that appeared to be source of bleeding. There was some blood in right mainstem that was suctioned out. There were some bloody clots in right lower lobe sub segments which were removed . No active bleeding in the lower airways. No endobronchial lesions. Small amount of blood in left lower lobe subsegment. Subjective 12/07: Tmax 101.7. Currently 99 1. Currently down for IVC filter placement and G-tube placement. Was awake and following commands prior to procedure 12/08: Profoundly hypoxemic, FiO2 100%. Acute fever up to 102. Sosa culture repeat chest x-ray requested. Started on Zosyn and one dose of vancomycin. On sedation lightening, follows commands weakly. Remains on IV heparin 12/09 Patient is sedated with Versed , Fentanyl and intubated. T;100.7 last night.On Heparin drip. 12/10 Patient remains intubated and sedated with Fentanyl and Versed. On PRVC with PEEP:10, FIO2 70%. Afebrile. 12/11 Patient is sedated with Versed, Fentanyl and intubated. Dropped his sats overnight On PRVC with PEEP: 10, FIO2 80% . Afebrile. 12/12 Remains intubated and sedated with Versed and Fentanyl drip, T: 99.8 last night. On Heparin drip. OGT inserted overnight and Patient had approx 1L gastric drainage( bile like). Objective Vital Signs Date Time Temp Pulse Resp B/P (MAP) Pulse Ox O2 Delivery O2 Flow Rate FiO2 12/12/16 06:00 86 15 113/62 (79) 92 12/12/16 04:10 60 12/12/16 04:00 99.3 12/10/16 21:58 Ventilator Intake and Output 12/12/16 12/12/16 12/13/16 08:00 16:00 00:00 Intake Total 822 ml Output Total 1775 ml Balance -953 ml Result Diagram: 12/12/16 0546 12/12/16 0546 Other Results Laboratory Tests Test 12/12/16 05:46 White Blood Count 6.1 TH/MM3 Red Blood Count 3.71 MIL/MM3 Hemoglobin 10.5 GM/DL Hematocrit 32.5 % Mean Corpuscular Volume 87.6 FL Mean Corpuscular Hemoglobin 28.4 PG Mean Corpuscular Hemoglobin Concent 32.4 % Red Cell Distribution Width 14.7 % Platelet Count 186 TH/MM3 Mean Platelet Volume 9.6 FL Neutrophils (%) (Auto) 62.9 % Lymphocytes (%) (Auto) 22.3 % Monocytes (%) (Auto) 10.5 % Eosinophils (%) (Auto) 3.5 % Basophils (%) (Auto) 0.8 % Neutrophils # (Auto) 3.8 TH/MM3 Lymphocytes # (Auto) 1.4 TH/MM3 Monocytes # (Auto) 0.6 TH/MM3 Eosinophils # (Auto) 0.2 TH/MM3 Basophils # (Auto) 0.0 TH/MM3 CBC Comment DIFF FINAL Differential Comment Activated Partial Thromboplast Time 40.6 SEC Blood Urea Nitrogen 14 MG/DL Creatinine 0.62 MG/DL Random Glucose 97 MG/DL Calcium Level 8.3 MG/DL Phosphorus Level 3.4 MG/DL Magnesium Level 2.0 MG/DL Sodium Level 137 MEQ/L Potassium Level 3.5 MEQ/L Chloride Level 102 MEQ/L Carbon Dioxide Level 27.0 MEQ/L Anion Gap 8 MEQ/L Estimat Glomerular Filtration Rate 129 ML/MIN Imaging Last Impressions Chest X-Ray 12/11/16 0000 Signed Impressions: Service Date/Time: Sunday, December 11, 2016 07:52 - CONCLUSION: Endotracheal tube which appears retracted slightly as compared to the prior exam. Lung exam consistent with congestive heart failure and pulmonary edema with bilateral pleural effusions and atelectasis versus air space consolidation. This appearance is stable from the prior exam. Shannen Phillips MD Abdomen X-Ray 12/11/16 0000 Signed Impressions: Service Date/Time: Sunday, December 11, 2016 07:45 - CONCLUSION: Overall paucity of bowel gas, without evidence of obstruction. There is suggestion of wall thickening identified in the colon. Recommend further evaluation with contrast-enhanced CT. Shannen Phillips MD Head CT 12/08/16 0600 Signed Impressions: Service Date/Time: November 11:16 - CONCLUSION: 1. Increased paranasal sinus opacification. 2. No other significant interval change. Subacute to chronic ischemic findings of the right basal ganglia. Titi Najera MD IVC Filter Placement X-Ray 12/07/16 0000 Signed Impressions: Service Date/Time: Wednesday, December 07, 2016 11:49 - CONCLUSION: Uncomplicated inferior vena cava filter placement as above. Patric Stover MD Lower Extremity Ultrasound 12/05/16 0000 Signed Impressions: Service Date/Time: Monday, December 05, 2016 23:02 - CONCLUSION: 1. Positive for deep venous thrombosis as above. Sidney Pérez MD CT Angiography 12/05/16 0000 Signed Impressions: Service Date/Time: Monday, December 05, 2016 18:13 - CONCLUSION: 1. Extensive bilateral pulmonary arterial thrombi emboli bilaterally within the segmental and lobar vessels. There are no imaging findings to indicate right heart strain. 2. Stable 3.7 cm hypodense lesion with calcification either in the posterior mediastinum abutting the descending thoracic aorta or in the posterior left pleural space. Stranding of uncertain etiology but has not changed in approximately 13 months. 3. Stable large hiatal hernia. There is atelectasis/volume loss in both lower lobes. Luan Bermudez MD Objective Remarks GENERAL: Patient is 66 yo critically ill intubated and sedated SKIN: Warm and dry. No rash HEAD: Normocephalic. EYES: No scleral icterus. No injection or drainage. NECK: Supple, trachea midline. No JVD or lymphadenopathy. CARDIOVASCULAR: RRR. S1, S2 without murmur RESPIRATORY: Breath sounds equal bilaterally. No accessory muscle use. Diminished at the bilateral bases GASTROINTESTINAL: Abdomen soft, non-tender, nondistended. Hypoactive bowel sounds are appreciated MUSCULOSKELETAL: No significant peripheral edema Neuro: Intubated sedated. On sedation hold patient is followed commands with upper extremity, weak A/P Assessment and Plan Neuro/Psych: Right basal ganglia/temporal occipital lobe CVA 10/27 Hemorrhagic conversion right caudate/putamen 11/06/16 Tumor removal from the neck, pathology -glomus paraganglioma On fentanyl infusion and midazolam gtt for sedation and vent synchrony. Daily Sedation vacation CT brain 12/05: No acute intracranial findings identified. Repeat CT head 12/08 no intracranial hemorrhage Pulm: Acute respiratory failure Bilateral pulmonary embolism R tVF paralysis History of PE and DVT On PRVC RR 14, TV 500, IT: 0.9, PEEP:8 FIO2 60%.Decrease FIO2 50% Continue with vent support and maintain sats> 92%. Bronchodilators with albuterol/ipratropium aerosols every 6 hours with albuterol aerosols every 2 hours. ICU vent bundle. CT chest: Extensive b/l PE- On Heparin drip ( Not a candidate for TPA as there is no hemodynamic instability, recent surgery and stroke in October) S/p IVC filter placement 12/07 Per bronchoscopy note source of bleeding appeared to be right pharyngeal epiglottic fold -? specific medial or lateral glossoepiglottic, aryepiglottic or ventricle fold though bleeding seems to have ceased CV: Coronary artery disease Hypertension Dyslipidemia Monitor HR and BP and maintain MAP> 65mmHg. 2-D echo revealed EF 60-65%. Bilateral atrial enlargement. Moderate pulmonary hypertension PAP 50-60 Lovastatin 20 by mouth daily when clinically indicated On Aspirin 81 mg daily on Pravachol Noted abnormality calcification the posterior pleural versus mediastinal space. Stable since last year. RENAL/FEN/: Right renal cyst Monitor renal function, Is and Os ,electrolyte replacement per protocol. Bumex 1mg IV daily, GI: Hiatal hernia Rasmussen's esophagitis GasteoEsophageal reflux disease Multiple liver cysts Gastric/duodenal polyps Tube feeds- Glucerna 1.5 with goal rate 45ml/hr via J-tube KUB abdomen: Overall paucity of bowel gas, without evidence of obstruction. There is suggestion of wall thickening identified in the colon OGT to LIMWS-Had approx 1L gastric drainage bile like. Check CT abdomen on Protonix 40 mg IV daily for GI prophylaxis. s/p open J-tube placement on 12/07 ID: High fever with hypoxia Continue abx( Zosyn) follow up on cxs- pancultured 12/08- NGTD Monitor for signs of infections( fever and WBC). 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 Adalid Yuen Iron-deficiency anemia. Bilateral lower extremity DVT Monitor CBC, Coags. Heme is following Dr. Flynn s/p IVC filter placement 12/07 Continue home medication iron sulfate 325 mg by mouth daily if able Ultrasound revealed right nonocclusive thrombus in greater saphenous vein to the PT/V. Femoral vein patent. Left with nonocclusive thrombus from the SFV to PT with collaterals Endo: SSI with Accu-Cheks for glycemic control. GI prophylaxis with Protonix 40 mg daily and DVT prophylaxis with SCDs/heparin drip CCT 30 mins. Carie Ordaz MD Dec 12, 2016 07:41
[2016-12-12] MEDS: DOCUSATE SODIUM 100 MG/10 ML UDC J-TUBE SCH ×2 (09:00→21:32)
[2016-12-12] MEDS: FERROUS SULFATE 325 MG (65 MG ELEMENTAL IRON) TAB PO SCH (09:00)
[2016-12-12] MEDS ORDERED: DIATRIZOATE MEGLUM/DIATRIZOATE SOD 9 ML CUP PO ONE (09:00)
[2016-12-12] MEDS: POTASSIUM CHLOR 20 MEQ PREMIX 100 ML IV PRN ×2 (09:34→12:25)
[2016-12-12] MEDS: SODIUM CHLORIDE 0.9% FLUSH 10 ML FLUSH IV FLUSH SCH ×2 (09:35→21:31)
[2016-12-12] MEDS: ASPIRIN 81 MG CHEW TAB CHEW SCH (09:35)
[2016-12-12] MEDS: BUMETANIDE INJ 1 MG/4 ML VIAL IV PUSH SCH (09:35)
[2016-12-12] MEDS: PANTOPRAZOLE SODIUM 40 MG VIAL IV PUSH SCH (09:35)
[2016-12-12] MEDS: SENNOSIDES SYRUP 8.8 MG/5 ML CUP PO SCH (09:36)
[2016-12-12] MEDS: POLYETHYLENE GLYCOL 17 GM PKG PO SCH (09:37)
[2016-12-12] MEDS: CHOLECALCIFEROL (VIT D3) LIQ 400 UNITS/ML 50 ML BOTTLE J-TUBE SCH ×2 (10:02→21:32)
[2016-12-12] MEDS: ARTIFICIAL TEARS OPTH SOLN 15 ML BTL EACH EYE SCH ×3 (10:02→17:03)
[2016-12-12] MEDS: HEPARIN 25,000 UNITS-D5W 250 ML - PREMIX IV SCH (10:11)
--- NOTE | 2016-12-12 12:43 | PD.ONC.PN ---
Subjective Subjective Remarks Afebrile overnight. Patient remains intubated, sedated. at bedside. Has had copious amounts of gastric drainage from OG tube. No bleeding noted. Objective Data Date Time Temp Pulse Resp B/P (MAP) Pulse Ox O2 Delivery O2 Flow Rate FiO2 12/12/16 11:24 92 50 12/12/16 10:00 76 12/12/16 08:00 99.1 80 11 120/66 (84) 92 12/12/16 08:00 80 12/12/16 08:00 50 12/12/16 07:58 50 12/12/16 07:56 93 50 12/12/16 07:50 91 50 12/12/16 06:00 86 15 113/62 (79) 92 12/12/16 06:00 86 12/12/16 05:45 88 19 90 12/12/16 05:30 84 18 92 12/12/16 05:15 86 31 77 12/12/16 05:00 77 22 111/62 (78) 91 12/12/16 04:45 76 17 93 12/12/16 04:30 77 17 92 12/12/16 04:30 77 17 92 12/12/16 04:15 76 17 90 12/12/16 04:15 76 17 90 12/12/16 04:10 88 60 12/12/16 04:00 99.3 12/12/16 04:00 76 12/12/16 04:00 60 12/12/16 04:00 76 18 101/60 (74) 89 12/12/16 03:45 80 18 89 12/12/16 03:30 82 23 91 12/12/16 03:27 92 50 12/12/16 03:15 79 17 91 12/12/16 03:00 81 17 104/59 (74) 90 12/12/16 02:45 82 18 90 12/12/16 02:30 81 18 89 12/12/16 02:15 81 18 93 12/12/16 02:01 79 17 116/65 (82) 89 12/12/16 02:00 79 17 86 12/12/16 02:00 79 12/12/16 01:45 80 17 88 12/12/16 01:30 70 17 94 12/12/16 01:15 71 16 94 12/12/16 01:00 72 16 97/62 (74) 93 12/12/16 00:45 71 16 94 12/12/16 00:30 71 17 95 12/12/16 00:26 95 50 12/12/16 00:15 73 16 94 12/12/16 00:00 75 16 103/61 (75) 92 12/12/16 00:00 75 12/12/16 00:00 50 12/12/16 00:00 99.5 16 12/11/16 23:45 78 16 93 12/11/16 23:30 76 16 95 12/11/16 23:15 76 16 95 12/11/16 23:00 70 16 106/68 (81) 98 12/11/16 22:45 72 17 95 12/11/16 22:30 72 17 95 12/11/16 22:15 74 17 96 12/11/16 22:00 75 16 111/70 (84) 96 12/11/16 22:00 75 12/11/16 21:45 75 17 97 12/11/16 21:30 76 17 96 12/11/16 21:17 95 50 12/11/16 21:15 78 19 95 12/11/16 21:00 78 19 129/73 (91) 95 12/11/16 20:45 77 17 96 12/11/16 20:30 76 16 97 12/11/16 20:15 75 16 93 12/11/16 20:00 99.8 16 12/11/16 20:00 75 16 105/66 (79) 95 12/11/16 20:00 75 12/11/16 20:00 50 12/11/16 19:30 95 50 12/11/16 16:00 98.3 97 24 114/73 (87) 90 12/11/16 15:52 93 50 12/12/16 12/12/16 12/12/16 07:00 15:00 23:00 Intake Total 822 ml 35 ml Output Total 1775 ml Balance -953 ml 35 ml Result Diagram: 12/12/16 0546 12/12/16 0546 Laboratory Results Laboratory Tests Test 12/12/16 05:46 White Blood Count 6.1 TH/MM3 Red Blood Count 3.71 MIL/MM3 Hemoglobin 10.5 GM/DL Hematocrit 32.5 % Mean Corpuscular Volume 87.6 FL Mean Corpuscular Hemoglobin 28.4 PG Mean Corpuscular Hemoglobin Concent 32.4 % Red Cell Distribution Width 14.7 % Platelet Count 186 TH/MM3 Mean Platelet Volume 9.6 FL Neutrophils (%) (Auto) 62.9 % Lymphocytes (%) (Auto) 22.3 % Monocytes (%) (Auto) 10.5 % Eosinophils (%) (Auto) 3.5 % Basophils (%) (Auto) 0.8 % Neutrophils # (Auto) 3.8 TH/MM3 Lymphocytes # (Auto) 1.4 TH/MM3 Monocytes # (Auto) 0.6 TH/MM3 Eosinophils # (Auto) 0.2 TH/MM3 Basophils # (Auto) 0.0 TH/MM3 CBC Comment DIFF FINAL Differential Comment Activated Partial Thromboplast Time 40.6 SEC Blood Urea Nitrogen 14 MG/DL Creatinine 0.62 MG/DL Random Glucose 97 MG/DL Calcium Level 8.3 MG/DL Phosphorus Level 3.4 MG/DL Magnesium Level 2.0 MG/DL Sodium Level 137 MEQ/L Potassium Level 3.5 MEQ/L Chloride Level 102 MEQ/L Carbon Dioxide Level 27.0 MEQ/L Anion Gap 8 MEQ/L Estimat Glomerular Filtration Rate 129 ML/MIN Administered Medications Medications (Trade) Dose Ordered Sig/Trang Route PRN Reason Start Time Stop Time Status Last Admin Dose Admin Pantoprazole Sodium (Protonix Inj) 40 mg DAILY IV PUSH 12/05/16 16:30 12/12/16 09:35 Fentanyl Citrate 250 ml @ 5 mls/hr TITRATE PRN IV SEDATION 12/05/16 16:30 12/11/16 09:39 Sodium Chloride (NS Flush) 2 ml BID IV FLUSH 12/07/16 21:00 12/12/16 09:35 Artificial Tears (Tears Naturale Opth Soln) 1 drop TID EACH EYE 12/07/16 18:00 12/12/16 10:02 Miscellaneous Information 1 [id number] XX 12/07/16 14:00 12/07/16 14:00 Chlorhexidine Gluconate (Chlorhexidine 2% Cloth) 3 pack Taper DAILY@04 TOP 12/08/16 04:00 12/04/17 03:59 12/12/16 04:00 Ferrous Sulfate (Ferrous Sulfate) 325 mg DAILY PO 12/08/16 09:00 12/11/16 09:42 Pravastatin Sodium (Pravachol) 20 mg HS PO 12/07/16 21:00 12/11/16 21:00 Heparin Sodium/ Dextrose 250 ml @ 18 mls/hr TITRATE IV 12/07/16 19:00 12/12/16 10:11 Piperacillin Sod/ Tazobactam Sod 100 ml @ 200 mls/hr Q6H IV 12/08/16 16:00 12/12/16 09:34 Albuterol/ Ipratropium (Duoneb Neb) 1 ampule Q6HR NEB INH 12/08/16 22:00 12/12/16 07:49 Aspirin (Aspirin Chew) 81 mg DAILY CHEW 12/09/16 09:00 12/12/16 09:35 Docusate Sodium (Colace Liq) 50 mg BID J-TUBE 12/09/16 21:00 12/12/16 09:00 Cholecalciferol (Vitamin D Liq) 2,000 units BID J-TUBE 12/09/16 21:00 12/12/16 10:02 Non-Formulary Medication 5 ML J-TUBE HS HS J-TUBE 12/09/16 21:00 12/11/16 21:00 Sennosides (Senna Liq) 17.6 mg Q12H PRN J-TUBE MODERATE - SEVERE CONSTIPATION 12/09/16 13:30 12/09/16 17:55 Ondansetron HCl (Zofran Inj) 4 mg Q8HR PRN IV PUSH N/V 12/09/16 17:00 12/09/16 17:53 Potassium Chloride 100 ml @ 50 mls/hr Q2H PRN IV For Potassium 2.8 - 3.2 mEq/L 12/10/16 07:30 12/12/16 09:34 Potassium Chloride 100 ml @ 50 mls/hr Q2H PRN IV For Potassium 3.3 - 3.5 mEq/L 12/10/16 07:30 12/12/16 12:25 Bumetanide (Bumex Inj) 1 mg DAILY IV PUSH 12/10/16 09:00 12/12/16 09:35 Sennosides (Senna Liq) 8.8 mg DAILY PO 12/11/16 09:00 12/12/16 09:36 Polyethylene Glycol (Miralax) 17 gm DAILY PO 12/11/16 09:00 12/12/16 09:37 Objective Remarks GENERAL: Intubated, sedated male, lying in bed with at bedide. SKIN: Warm and dry. HEAD: Normocephalic. NECK: Supple, trachea midline. CARDIOVASCULAR: +S1/S2, tachy RESPIRATORY: anterior joseph with scattered rhonchi. GASTROINTESTINAL: Abdomen distended. EXTREMITIES: No cyanosis NEUROLOGICAL: intubated, sedated. Assessment/Plan Problem List: (1) Pulmonary embolism ICD Codes: I26.99 - Other pulmonary embolism without acute cor pulmonale Status: Acute Plan: --CT angiography shows extensive bilateral pulmonary embolism -- Ultrasound of bilateral lower extremity shows a chronic DVT on the left and a nonocclusive thrombus in the right -- The patient has a family history of blood clots -- IVC filter placed on 12/07. -- Currently on heparin drip Hx/Workup: The patient presented with bleeding in his pharynx after an attempt of tube feed placement. He was recently seen at [facility] where he was diagnosed with a paraganglioma. He was also apparently diagnosed with a DVT and pulmonary embolism while at [facility]. (2) History of CVA (cerebrovascular accident) ICD Codes: Z86.73 - Personal history of transient ischemic attack (TIA), and cerebral infarction without residual deficits Plan: --had a stroke after the neck surgery with hemorrhagic transformation in caudate lobe noted MRA 10/27. --was later started on Plavix. No US or CTA found in the records and no mention of DVT/PE during his stay at [facility]. Assessment 66-year-old male admitted with hemoptysis; hematology consulted for history of recent pulmonary embolism Plan 1. continue heparin 2. monitor clinically for bleeding 3. monitor CBC Attending Statement The exam, history, and the medical decision-making described in the above note were completed with the assistance of the mid-level provider. I reviewed and agree with the findings presented. I attest that I had a [id number] encounter with the patient on the same day, and personally performed and documented my assessment and findings in the medical record. Remains sedated on vent. No obvious bleeding noted. No LE edema. Hypercoag panel negative so far. Continue heparin. Gogo Armenta Dec 12, 2016 12:43 Paulo Flynn MD Dec 12, 2016 16:01
[2016-12-12] MEDS ORDERED: IOHEXOL 350 MG/ML 10 ML VIAL (for RAD DIAG) IVCONTRAST ONE (13:35)
--- NOTE | 2016-12-12 13:56 | RADRPT ---
EXAM DATE/TIME: 12/12/2016 13:31 [place] COMPARISON: No previous studies available for comparison. INDICATIONS : Abdominal distention. IV CONTRAST: 80 cc Omnipaque 350 (iohexol) IV ORAL CONTRAST: Prescribed oral contrast ingested. RADIATION DOSE: 23.11 CTDIvol (mGy) ; Patient body habitus MEDICAL HISTORY : Hypertension. Hernia, hiatal. Gastroesophageal reflux disease. SURGICAL HISTORY : None. ENCOUNTER: Initial ACUITY: 1 day PAIN SCALE: Non-responsive LOCATION: Bilateral abdomen TECHNIQUE: Volumetric scanning of the abdomen and pelvis was performed. Using automated exposure control and ad justment of the mA and/or kV according to patient size, radiation dose was kept as low as reasonably achievable to obtain optimal diagnostic quality images. DICOM format image data is available electro nically for review and comparison. FINDINGS: LOWER LUNGS: Moderate dependent bibasilar probable atelectasis and small effusions LIVER: Multiple cysts. No suspicious mass. No evidence of biliary ductal dilatation. Gallbladder contents ar e hyperdense suggesting vicariously excreted contrast medium or sludge. SPLEEN: Normal size without lesion. PANCREAS: Within normal limits. KIDNEYS: Bilateral cysts. No hydronephrosis. No stone. ADRENAL GLANDS: Within normal limits. VASCULAR: Intervening caval filter present in good position. Arterial structures are normal in caliber. BOWEL/MESENTERY: Jejunal feeding tube in place. Small bowel and colon are nondilated and focally unremarkable. Enormou s hiatal hernia present ABDOMINAL WALL: Previous midline incision. Mild associated scarring. J-tube in place. RETROPERITONEUM: There is no lymphadenopathy. BLADDER: No wall thickening or mass. REPRODUCTIVE: Within normal limits. INGUINAL: There is no lymphadenopathy or hernia. MUSCULOSKELETAL: Within normal limits for patient age. CONCLUSION: Prominent consolidative changes in the posterior lung bases and small effusions. Very large hiatal hernia. Hepatic and renal cysts. Luan Nunez MD on December 12, 2016 at 13:41 Board Certified Radiologist. This report was verified electronically.
[2016-12-12] MEDS: PRAVASTATIN SOD 20 MG TAB PO SCH (21:00)
[2016-12-12] MEDS: [UNRECOGNIZED DRUG - REMARK] J-TUBE SCH (21:31)
[2016-12-13] VITALS (19 sets, daily range): BP systolic 109–134; BP diastolic 60–88; PULSE 71–99; RESP 17–31; TEMP 98.1–100.2; O2SAT 91–100
[2016-12-13] MEDS: CHLORHEXIDINE GLUCONATE 2 % 1 PACK (2 CLOTHS) TOP SCH (02:59)
[2016-12-13] MEDS: PIPERACIL-TAZO 4.5 GM PREMIX 100 ML IV SCH ×4 (03:16→22:09)
[2016-12-13] MEDS: HEPARIN 25,000 UNITS-D5W 250 ML - PREMIX IV SCH ×2 (03:21→19:36)
[2016-12-13 04:02] LABS: BASOPHIL % 0.6 % (0.0-2.0); EOSINOPHIL # 0.1 TH/MM3 (0-0.4); EOSINOPHIL % 1.6 % (0.0-4.0); HEMATOCRIT 32.8 % (39.0-51.0); HEMO FLAGS DIFF FINAL; LYMPH % 16.7 % (9.0-44.0); LYMPHOCYTE # 1.2 TH/MM3 (1.0-4.8); MEAN CELL VOLUME 86.4 FL (80.0-100.0); MEAN CORPUSCULAR HEMOGLOBIN 28.5 PG (27.0-34.0); MEAN CORPUSCULAR HGB CONC 32.9 % (32.0-36.0); MONO % 10.5 % (0.0-8.0); NEUT % 70.6 % (16.0-70.0); PLATELET COUNT 229 TH/MM3 (150-450); RED CELL DISTRIBUTION WIDTH 14.4 % (11.6-17.2)
[2016-12-13 04:15] LABS: APTT (PATIENT) 50.2 SEC (24.3-30.1)
[2016-12-13 04:30] LABS: BICARBONATE 27.8 MEQ/L (21.0-32.0); POTASSIUM 3.3 MEQ/L (3.5-5.1)
[2016-12-13] MEDS: INSULIN NovoLIN REGULAR SUPPLEMENTAL SCALE SQ SCH ×4 (04:48→23:00)
[2016-12-13] MEDS: POTASSIUM CHLOR 20 MEQ PREMIX 100 ML IV PRN ×2 (04:48→07:13)
[2016-12-13] MEDS ORDERED: VANCOMYCIN INJ 1,000 MG in SODIUM CHLOR 0.9% 250 ML INJ 250 ML IV ONE (08:00)
--- NOTE | 2016-12-13 08:01 | HHI.CCPN ---
Subjective Remarks/Hospital Course The patient is a 66-year-old male with a past medical history of gastroesophageal reflux disease, Rasmussen's esophagus, hypertension, hyperlipidemia, iron-deficiency anemia, coronary artery disease, PE and DVT year ago. He had a tumor removed from the right side of his neck at [facility] in October with pathology showing a glomus paraganglioma. 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 He had Dobbhoff placed for approximately one month and went to outpatient surgical center today to have a peg tube placed. However during procedure the patient had some hemoptysis. The patient was scoped by Dr. Peña who did not think esophagus was\ the source of bleeding. The patient also noted to have hiatal hernia and a G tube could not be placed. The patient was intubated at the surgical center with Versed and transferred to the ER. When seen the patient is intubated and on full mechanical ventilation. His initial blood pressure on arrival 135/84 with a pulse of 84. Chest x-ray showed subsegmental\ atelectasis at the left base. His laboratory data showed normal CBC and mild hyponatremia with sodium level of 134. According to the patient's and daughter, he was on anticoagulation with Coumadin for his PE and DVT and was taken off of it in October and placed on Plavix instead. There is no history of any chest pain, shortness of breath or hemoptysis prior to arrival at the surgical center. In addition, no history of nausea, vomiting or abdominal pain. 12/06 Patient remains intubated and sedated. CTA chest last night showed extensive b/l PE, Doppler US LE b/l DVT he was started on Heparin drip. In addition patient underwent bronch and ETT exchanged to 8.0 size last night. There was oozing from right pharynx/Right pharyngeal epiglottic fold that appeared to be source of bleeding. There was some blood in right mainstem that was suctioned out. There were some bloody clots in right lower lobe sub segments which were removed . No active bleeding in the lower airways. No endobronchial lesions. Small amount of blood in left lower lobe subsegment. Subjective 12/07: Tmax 101.7. Currently 99 1. Currently down for IVC filter placement and G-tube placement. Was awake and following commands prior to procedure 12/08: Profoundly hypoxemic, FiO2 100%. Acute fever up to 102. Sosa culture repeat chest x-ray requested. Started on Zosyn and one dose of vancomycin. On sedation lightening, follows commands weakly. Remains on IV heparin 12/09 Patient is sedated with Versed , Fentanyl and intubated. T;100.7 last night.On Heparin drip. 12/10 Patient remains intubated and sedated with Fentanyl and Versed. On PRVC with PEEP:10, FIO2 70%. Afebrile. 12/11 Patient is sedated with Versed, Fentanyl and intubated. Dropped his sats overnight On PRVC with PEEP: 10, FIO2 80% . Afebrile. 12/12 Remains intubated and sedated with Versed and Fentanyl drip, T: 99.8 last night. On Heparin drip. OGT inserted overnight and Patient had approx 1L gastric drainage( bile like). 12/13 Patient remains intubated. Off sedation, awake and alert this morning. T: 100.8. On Heparin drip. Objective Vital Signs Date Time Temp Pulse Resp B/P (MAP) Pulse Ox O2 Delivery O2 Flow Rate FiO2 12/13/16 06:00 72 12/13/16 04:25 98 40 12/13/16 04:00 100.2 17 109/72 (84) 12/10/16 21:58 Ventilator Intake and Output 12/13/16 12/13/16 12/14/16 08:00 16:00 00:00 Intake Total 901 ml Output Total 900 ml Balance 1 ml Result Diagram: 12/13/16 0318 12/13/16 0318 Other Results Laboratory Tests Test 12/13/16 03:18 White Blood Count 7.0 TH/MM3 Red Blood Count 3.80 MIL/MM3 Hemoglobin 10.8 GM/DL Hematocrit 32.8 % Mean Corpuscular Volume 86.4 FL Mean Corpuscular Hemoglobin 28.5 PG Mean Corpuscular Hemoglobin Concent 32.9 % Red Cell Distribution Width 14.4 % Platelet Count 229 TH/MM3 Mean Platelet Volume 9.0 FL Neutrophils (%) (Auto) 70.6 % Lymphocytes (%) (Auto) 16.7 % Monocytes (%) (Auto) 10.5 % Eosinophils (%) (Auto) 1.6 % Basophils (%) (Auto) 0.6 % Neutrophils # (Auto) 5.0 TH/MM3 Lymphocytes # (Auto) 1.2 TH/MM3 Monocytes # (Auto) 0.7 TH/MM3 Eosinophils # (Auto) 0.1 TH/MM3 Basophils # (Auto) 0.0 TH/MM3 CBC Comment DIFF FINAL Differential Comment Activated Partial Thromboplast Time 50.2 SEC Blood Urea Nitrogen 11 MG/DL Creatinine 0.67 MG/DL Random Glucose 114 MG/DL Calcium Level 8.6 MG/DL Sodium Level 137 MEQ/L Potassium Level 3.3 MEQ/L Chloride Level 102 MEQ/L Carbon Dioxide Level 27.8 MEQ/L Anion Gap 7 MEQ/L Estimat Glomerular Filtration Rate 118 ML/MIN Imaging Last Impressions Abdomen/Pelvis CT 12/12/16 0000 Signed Impressions: Service Date/Time: Monday, December 12, 2016 13:31 - CONCLUSION: Prominent consolidative changes in the posterior lung bases and small effusions. Very large hiatal hernia. Hepatic and renal cysts. Luan Nunez MD Chest X-Ray 12/11/16 0000 Signed Impressions: Service Date/Time: Sunday, December 11, 2016 07:52 - CONCLUSION: Endotracheal tube which appears retracted slightly as compared to the prior exam. Lung exam consistent with congestive heart failure and pulmonary edema with bilateral pleural effusions and atelectasis versus air space consolidation. This appearance is stable from the prior exam. Shannen Phillips MD Abdomen X-Ray 12/11/16 0000 Signed Impressions: Service Date/Time: Sunday, December 11, 2016 07:45 - CONCLUSION: Overall paucity of bowel gas, without evidence of obstruction. There is suggestion of wall thickening identified in the colon. Recommend further evaluation with contrast-enhanced CT. Shannen Phillips MD Head CT 12/08/16 0600 Signed Impressions: Service Date/Time: November 11:16 - CONCLUSION: 1. Increased paranasal sinus opacification. 2. No other significant interval change. Subacute to chronic ischemic findings of the right basal ganglia. Titi Najera MD IVC Filter Placement X-Ray 12/07/16 0000 Signed Impressions: Service Date/Time: Wednesday, December 07, 2016 11:49 - CONCLUSION: Uncomplicated inferior vena cava filter placement as above. Patric Stover MD Lower Extremity Ultrasound 12/05/16 0000 Signed Impressions: Service Date/Time: Monday, December 05, 2016 23:02 - CONCLUSION: 1. Positive for deep venous thrombosis as above. Sidney Pérez MD CT Angiography 12/05/16 0000 Signed Impressions: Service Date/Time: Monday, December 05, 2016 18:13 - CONCLUSION: 1. Extensive bilateral pulmonary arterial thrombi emboli bilaterally within the segmental and lobar vessels. There are no imaging findings to indicate right heart strain. 2. Stable 3.7 cm hypodense lesion with calcification either in the posterior mediastinum abutting the descending thoracic aorta or in the posterior left pleural space. Stranding of uncertain etiology but has not changed in approximately 13 months. 3. Stable large hiatal hernia. There is atelectasis/volume loss in both lower lobes. Luan Bermudez MD Objective Remarks GENERAL: Patient is 66 yo critically ill intubated and sedated SKIN: Warm and dry. No rash HEAD: Normocephalic. EYES: No scleral icterus. No injection or drainage. NECK: Supple, trachea midline. No JVD or lymphadenopathy. CARDIOVASCULAR: RRR. S1, S2 without murmur RESPIRATORY: Breath sounds equal bilaterally. No accessory muscle use. Diminished at the bilateral bases GASTROINTESTINAL: Abdomen soft, non-tender, nondistended. Hypoactive bowel sounds are appreciated MUSCULOSKELETAL: No significant peripheral edema Neuro: Intubated sedated. On sedation hold patient is followed commands with upper extremity, weak A/P Assessment and Plan Neuro/Psych: Right basal ganglia/temporal occipital lobe CVA 10/27 Hemorrhagic conversion right caudate/putamen 11/06/16 Tumor removal from the neck, pathology -glomus paraganglioma Off sedation, awake and alert. CT brain 12/05: No acute intracranial findings identified. Repeat CT head 12/08 no intracranial hemorrhage Pulm: Acute respiratory failure Bilateral pulmonary embolism R tVF paralysis History of PE and DVT On PRVC RR 14, TV 500, IT: 0.9, PEEP:8 FIO2 40%. Continue with vent support and maintain sats> 92%. Bronchodilators with albuterol/ipratropium aerosols every 6 hours with albuterol aerosols every 2 hours. ICU vent bundle. Continue with SBT and possible extubation today. Check CXR CT chest: Extensive b/l PE- On Heparin drip ( Not a candidate for TPA as there is no hemodynamic instability, recent surgery and stroke in October) S/p IVC filter placement 12/07 Per bronchoscopy note source of bleeding appeared to be right pharyngeal epiglottic fold -? specific medial or lateral glossoepiglottic, aryepiglottic or ventricle fold though bleeding seems to have ceased CV: Coronary artery disease Hypertension Dyslipidemia Monitor HR and BP and maintain MAP> 65mmHg. 2-D echo revealed EF 60-65%. Bilateral atrial enlargement. Moderate pulmonary hypertension PAP 50-60 Lovastatin 20 by mouth daily when clinically indicated On Aspirin 81 mg daily on Pravachol Noted abnormality calcification the posterior pleural versus mediastinal space. Stable since last year. RENAL/FEN/: Right renal cyst Monitor renal function, Is and Os ,electrolyte replacement per protocol. Will need K replacement today. d/c Bumex GI: Hiatal hernia Rasmussen's esophagitis GasteoEsophageal reflux disease Multiple liver cysts Gastric/duodenal polyps Tube feeds- Glucerna 1.5 with goal rate 45ml/hr via J-tube CT abdomen/pelvis: consolidative changes in the posterior lung bases and small effusions. Very large hiatal hernia. Hepatic and renal cysts. KUB abdomen: Overall paucity of bowel gas, without evidence of obstruction. There is suggestion of wall thickening identified in the colon OGT to LIMWS- on Protonix 40 mg IV daily for GI prophylaxis. s/p open J-tube placement on 12/07 ID: Continue abx( Zosyn) give Vanco 1gram x1 follow up on cxs- pancultured 12/08- NGTD Monitor for signs of infections( fever and WBC). 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 Adalid Yuen Iron-deficiency anemia. Bilateral lower extremity DVT Monitor CBC, Coags. Heme is following Dr. Flynn s/p IVC filter placement 12/07 Continue home medication iron sulfate 325 mg by mouth daily if able Ultrasound revealed right nonocclusive thrombus in greater saphenous vein to the PT/V. Femoral vein patent. Left with nonocclusive thrombus from the SFV to PT with collaterals Endo: SSI with Accu-Cheks for glycemic control. GI prophylaxis with Protonix 40 mg daily and DVT prophylaxis with SCDs/heparin drip CCT 30 mins. Carie Ordaz MD Dec 13, 2016 08:01
[2016-12-13] MEDS: SODIUM CHLORIDE 0.9% FLUSH 10 ML FLUSH IV FLUSH SCH ×2 (08:42→21:00)
[2016-12-13] MEDS: ARTIFICIAL TEARS OPTH SOLN 15 ML BTL EACH EYE SCH ×3 (08:42→16:24)
[2016-12-13] MEDS: DOCUSATE SODIUM 100 MG/10 ML UDC J-TUBE SCH ×2 (08:42→22:09)
[2016-12-13] MEDS: PANTOPRAZOLE SODIUM 40 MG VIAL IV PUSH SCH (08:42)
[2016-12-13] MEDS: ASPIRIN 81 MG CHEW TAB CHEW SCH (08:42)
[2016-12-13] MEDS: SENNOSIDES SYRUP 8.8 MG/5 ML CUP PO SCH (08:43)
[2016-12-13] MEDS: FERROUS SULFATE 325 MG (65 MG ELEMENTAL IRON) TAB PO SCH (08:43)
[2016-12-13] MEDS: POLYETHYLENE GLYCOL 17 GM PKG PO SCH (08:43)
[2016-12-13] MEDS: CHOLECALCIFEROL (VIT D3) LIQ 400 UNITS/ML 50 ML BOTTLE J-TUBE SCH ×2 (08:44→22:09)
--- NOTE | 2016-12-13 08:57 | RADRPT ---
EXAM DATE/TIME: 12/13/2016 08:09 [place] COMPARISON: CHEST SINGLE AP, December 11, 2016, 7:52. INDICATIONS : Ventilator dependent respiratory failure. MEDICAL HISTORY : None. SURGICAL HISTORY : None. ENCOUNTER: Subsequent ACUITY: 1 week PAIN SCORE: Non-responsive. LOCATION: chest FINDINGS: The cardiac silhouette is enlarged in transverse diameter. There is left lower lobe atelectasis versu s pneumonia. Small bilateral pleural effusions are identified. Endotracheal tube is in good position above the percy. Nasogastric tube is in the mid esophagus and needs to be repositioned CONCLUSION: 1. Cardiomegaly and findings of congestive heart failure. The findings are improved when compared wit h the prior exam. 2. Nasogastric tube in the midesophagus Ananth Gage MD on December 13, 2016 at 8:55 Board Certified Radiologist. This report was verified electronically.
[2016-12-13 09:35] LABS: BLOOD GAS BASE EXCESS 0.5 mmol/L (-2-2); BLOOD GAS CARBOXYHEMOGLOBIN 1.3 % (0-4); BLOOD GAS HCO3 22 mmol/L (22-26); BLOOD GAS METHEMOGLOBIN 0.8 % (0-2); BLOOD GAS O2 HGB SATURATION 95 % (90-100); BLOOD GAS OXYGEN CONTENT 23.5 Vol % (12.0-20.0); BLOOD GAS PCO2 23 mmHg (38-42); BLOOD GAS PO2 77 mmHg (61-120); BLOOD GAS TOTAL HGB 17.7 G/DL (12.0-16.0); CRITICAL VALUE YES; DRAW SITE LT RADIAL; FIO2 40 %; NUMBER OF ARTERIAL PUNCTURES 1; OXYGEN DEVICE VENTILATOR; STAT NO; TEMP CORR TO 98.6; ULNAR PULSE PRESENT
[2016-12-13 09:48] LABS: BACTERIA, URINE RARE /hpf; BLOOD, URINE NEG (NEG); GLUCOSE,URINE NEG (NEG); KETONE, URINE NEG (NEG); NITRITE,URINE NEG (NEG); URINE COLOR YELLOW (YELLW/STRAW)
[2016-12-13 09:51] LABS: COMMENT (UR) CATH-CULTURE IND; CULTURE IF INDICATED CATH CULTURE IND
[2016-12-13] MEDS ORDERED: RESP: ALBUTEROL 2.5 MG/IPRATROPIUM 0.5 MG NEB (PRN) NEB (10:45)
--- NOTE | 2016-12-13 11:29 | PD.ONC.PN ---
Subjective Subjective Remarks Tmax 100.8 overnight. Patient extubated this AM at 9:50. Has been desaturating since extubation and is currently on a venti-mask. Objective Data Date Time Temp Pulse Resp B/P (MAP) Pulse Ox O2 Delivery O2 Flow Rate FiO2 12/13/16 09:50 95 Venturi Mask 6.00 50 12/13/16 09:50 95 Venturi Mask 6 50 12/13/16 08:06 96 40 12/13/16 07:15 Venturi Mask 50 40 12/13/16 06:00 72 12/13/16 04:25 98 40 12/13/16 04:00 100.2 71 17 109/72 (84) 100 12/13/16 04:00 40 12/13/16 04:00 71 12/13/16 02:00 73 12/13/16 01:09 95 50 12/13/16 00:00 99.9 81 18 116/71 (86) 94 12/13/16 00:00 81 12/13/16 00:00 50 12/12/16 22:12 92 50 12/12/16 22:00 84 12/12/16 21:00 50 12/12/16 21:00 94 50 12/12/16 20:25 94 50 12/12/16 20:00 50 12/12/16 20:00 100.8 92 15 131/77 (95) 92 12/12/16 20:00 92 12/12/16 18:00 84 12/12/16 16:57 93 50 12/12/16 16:00 50 12/12/16 16:00 100.2 84 13 126/62 (83) 89 12/12/16 16:00 94 12/12/16 14:00 99 12/12/16 12:00 50 12/12/16 12:00 80 12/12/16 12:00 99.1 80 12 119/69 (86) 92 12/13/16 12/13/16 12/13/16 07:00 15:00 23:00 Intake Total 851 ml 50 ml Output Total 900 ml Balance -49 ml 50 ml Result Diagram: 12/13/168 12/13/16317 Laboratory Results Laboratory Tests Test 12/13/16 03:18 12/13/16 09:00 12/13/16 09:25 White Blood Count 7.0 TH/MM3 Red Blood Count 3.80 MIL/MM3 Hemoglobin 10.8 GM/DL Hematocrit 32.8 % Mean Corpuscular Volume 86.4 FL Mean Corpuscular Hemoglobin 28.5 PG Mean Corpuscular Hemoglobin Concent 32.9 % Red Cell Distribution Width 14.4 % Platelet Count 229 TH/MM3 Mean Platelet Volume 9.0 FL Neutrophils (%) (Auto) 70.6 % Lymphocytes (%) (Auto) 16.7 % Monocytes (%) (Auto) 10.5 % Eosinophils (%) (Auto) 1.6 % Basophils (%) (Auto) 0.6 % Neutrophils # (Auto) 5.0 TH/MM3 Lymphocytes # (Auto) 1.2 TH/MM3 Monocytes # (Auto) 0.7 TH/MM3 Eosinophils # (Auto) 0.1 TH/MM3 Basophils # (Auto) 0.0 TH/MM3 CBC Comment DIFF FINAL Differential Comment Activated Partial Thromboplast Time 50.2 SEC Blood Urea Nitrogen 11 MG/DL Creatinine 0.67 MG/DL Random Glucose 114 MG/DL Calcium Level 8.6 MG/DL Sodium Level 137 MEQ/L Potassium Level 3.3 MEQ/L Chloride Level 102 MEQ/L Carbon Dioxide Level 27.8 MEQ/L Anion Gap 7 MEQ/L Estimat Glomerular Filtration Rate 118 ML/MIN Urine Color YELLOW Urine Turbidity HAZY Urine pH 8.0 Urine Specific [place] 1.030 Urine Protein 30 mg/dL Urine Glucose (UA) NEG mg/dL Urine Ketones NEG mg/dL Urine Occult Blood NEG Urine Nitrite NEG Urine Bilirubin NEG Urine Urobilinogen LESS THAN 2.0 MG/DL Urine Leukocyte Esterase NEG Urine RBC 2 /hpf Urine WBC 1 /hpf Urine Bacteria RARE /hpf Microscopic Urinalysis Comment CATH-CULTURE IND Blood Gas Puncture Site LT RADIAL Blood Gas Patient Temperature 98.6 Blood Gas HCO3 22 mmol/L Blood Gas Base Excess 0.5 mmol/L Blood Gas Oxygen Saturation 95 % Arterial Blood pH 7.59 Arterial Blood Partial Pressure CO2 23 mmHg Arterial Blood Partial Pressure O2 77 mmHg Arterial Blood Oxygen Content 23.5 Vol % Arterial Blood Carboxyhemoglobin 1.3 % Arterial Blood Methemoglobin 0.8 % Blood Gas Hemoglobin 17.7 G/DL Oxygen Delivery Device VENTILATOR Blood Gas Ventilator Setting CPAP 5/10/40% Blood Gas Inspired Oxygen 40 % Culture Results Microbiology Date/Time Source Procedure Growth Status 12/13/16 09:00 Sputum Endotracheal Gram Stain Pending Received 12/13/16 09:00 Sputum Endotracheal Sputum Culture Pending Received 12/13/16 09:00 Urine Catheterized Urine Urine Culture Pending Received Imaging Studies Last 24 hours Impressions Chest X-Ray 12/13/16 0000 Signed Impressions: Service Date/Time: Tuesday, December 13, 2016 08:09 - CONCLUSION: 1. Cardiomegaly and findings of congestive heart failure. The findings are improved when compared with the prior exam. 2. Nasogastric tube in the midesophagus Ananth Gage MD Administered Medications Medications (Trade) Dose Ordered Sig/Trang Route PRN Reason Start Time Stop Time Status Last Admin Dose Admin Pantoprazole Sodium (Protonix Inj) 40 mg DAILY IV PUSH 12/05/16 16:30 12/13/16 08:42 Sodium Chloride (NS Flush) 2 ml BID IV FLUSH 12/07/16 21:00 12/13/16 08:42 Artificial Tears (Tears Naturale Opth Soln) 1 drop TID EACH EYE 12/07/16 18:00 12/12/16 10:02 Miscellaneous Information 1 [id number] XX 12/07/16 14:00 12/07/16 14:00 Chlorhexidine Gluconate (Chlorhexidine 2% Cloth) Taper DAILY@04 TOP 12/08/16 04:00 12/04/17 03:59 12/12/16 04:00 Ferrous Sulfate (Ferrous Sulfate) 325 mg DAILY PO 12/08/16 09:00 12/11/16 09:42 Pravastatin Sodium (Pravachol) 20 mg HS PO 12/07/16 21:00 12/12/16 21:00 Heparin Sodium/ Dextrose 250 ml @ 18 mls/hr TITRATE IV 12/07/16 19:00 12/13/16 03:21 Piperacillin Sod/ Tazobactam Sod 100 ml @ 200 mls/hr Q6H IV 12/08/16 16:00 12/13/16 10:45 Aspirin (Aspirin Chew) 81 mg DAILY CHEW 12/09/16 09:00 12/13/16 08:42 Docusate Sodium (Colace Liq) 50 mg BID J-TUBE 12/09/16 21:00 12/13/16 08:42 Cholecalciferol (Vitamin D Liq) 2,000 units BID J-TUBE 12/09/16 21:00 12/13/16 08:44 Non-Formulary Medication 5 ML J-TUBE HS HS J-TUBE 12/09/16 21:00 12/12/16 21:31 Sennosides (Senna Liq) 17.6 mg Q12H PRN J-TUBE MODERATE - SEVERE CONSTIPATION 12/09/16 13:30 12/09/16 17:55 Ondansetron HCl (Zofran Inj) 4 mg Q8HR PRN IV PUSH N/V 12/09/16 17:00 12/09/16 17:53 Potassium Chloride 100 ml @ 50 mls/hr Q2H PRN IV For Potassium 2.8 - 3.2 mEq/L 12/10/16 07:30 12/12/16 09:34 Potassium Chloride 100 ml @ 50 mls/hr Q2H PRN IV For Potassium 3.3 - 3.5 mEq/L 12/10/16 07:30 12/13/16 07:13 Sennosides (Senna Liq) 8.8 mg DAILY PO 12/11/16 09:00 12/13/16 08:43 Polyethylene Glycol (Miralax) 17 gm DAILY PO 12/11/16 09:00 12/13/16 08:43 Objective Remarks GENERAL: Middle aged male supine in bed on O2 via Venturi mask. SKIN: Warm and dry. HEAD: Normocephalic. EYES: No injection or drainage. NECK: Supple, trachea midline. CARDIOVASCULAR: Regular rate and rhythm RESPIRATORY: Breath sounds equal bilaterally. No accessory muscle use. GASTROINTESTINAL: Abdomen soft, non-tender, nondistended. EXTREMITIES: No cyanosis NEUROLOGICAL: awake, alert. following commands. Assessment/Plan Problem List: (1) Pulmonary embolism ICD Codes: I26.99 - Other pulmonary embolism without acute cor pulmonale Status: Acute Plan: --CT angiography shows extensive bilateral pulmonary embolism -- Ultrasound of bilateral lower extremity shows a chronic DVT on the left and a nonocclusive thrombus in the right -- The patient has a family history of blood clots -- IVC filter placed on 12/07. -- Currently on heparin drip Hx/Workup: The patient presented with bleeding in his pharynx after an attempt of tube feed placement. He was recently seen at [facility] where he was diagnosed with a paraganglioma. He was also apparently diagnosed with a DVT and pulmonary embolism while at [facility]. (2) History of CVA (cerebrovascular accident) ICD Codes: Z86.73 - Personal history of transient ischemic attack (TIA), and cerebral infarction without residual deficits Plan: --had a stroke after the neck surgery with hemorrhagic transformation in caudate lobe noted MRA 10/27. --was later started on Plavix. No US or CTA found in the records and no mention of DVT/PE during his stay at [facility]. Assessment 66-year-old male admitted with hemoptysis; hematology consulted for history of recent pulmonary embolism Plan 1. continue heparin 2. monitor CBC Attending Statement The exam, history, and the medical decision-making described in the above note were completed with the assistance of the mid-level provider. I reviewed and agree with the findings presented. I attest that I had a [id number] encounter with the patient on the same day, and personally performed and documented my assessment and findings in the medical record. No bleeding noted. Hgb stable. Continue heparin. Once able to tolerate PO then can switch to oral anticoagulation. Gogo Armenta Dec 13, 2016 11:29 Paulo Flynn MD Dec 13, 2016 17:17
[2016-12-13] MEDS: RESP: ALBUTEROL 2.5 MG/IPRATROPIUM 0.5 MG NEB (SCH) NEB ×4 (12:00→23:05)
[2016-12-13] MEDS: PRAVASTATIN SOD 20 MG TAB PO SCH (21:00)
[2016-12-13] MEDS: [UNRECOGNIZED DRUG - REMARK] J-TUBE SCH (21:00)
[2016-12-13] MEDS ORDERED: FUROSEMIDE 20 MG/2 ML VIAL IV ONE (23:45)
[2016-12-14] VITALS (18 sets, daily range): BP systolic 112–132; BP diastolic 72–79; PULSE 78–98; RESP 20–26; TEMP 98.2–99; O2SAT 91–97
[2016-12-14] MEDS: RESP: ALBUTEROL 2.5 MG/IPRATROPIUM 0.5 MG NEB (SCH) NEB ×6 (03:51→23:33)
[2016-12-14] MEDS: RESP: ACETYLCYSTEINE 20% 30 ML NEB NEB SCH ×7 (03:51→23:32)
[2016-12-14] MEDS: CHLORHEXIDINE GLUCONATE 2 % 1 PACK (2 CLOTHS) TOP SCH (04:00)
[2016-12-14] MEDS: INSULIN NovoLIN REGULAR SUPPLEMENTAL SCALE SQ SCH ×4 (05:00→23:00)
[2016-12-14 06:11] LABS: AUTOMATED NEUTROPHIL # 9.3 TH/MM3 (1.8-7.7); BASOPHIL % 0.4 % (0.0-2.0); EOSINOPHIL % 0.1 % (0.0-4.0); HEMATOCRIT 35.8 % (39.0-51.0); HEMO FLAGS DIFF FINAL; LYMPH % 11.3 % (9.0-44.0); LYMPHOCYTE # 1.3 TH/MM3 (1.0-4.8); MEAN CELL VOLUME 87.3 FL (80.0-100.0); MEAN CORPUSCULAR HGB CONC 32.1 % (32.0-36.0); MONO % 7.6 % (0.0-8.0); NEUT % 80.6 % (16.0-70.0); PLATELET COUNT 270 TH/MM3 (150-450); RED CELL DISTRIBUTION WIDTH 14.8 % (11.6-17.2); WHITE BLOOD COUNT 11.6 TH/MM3 (4.0-11.0)
[2016-12-14 06:39] LABS: BICARBONATE 25.7 MEQ/L (21.0-32.0); POTASSIUM 3.8 MEQ/L (3.5-5.1)
[2016-12-14] MEDS: PIPERACIL-TAZO 4.5 GM PREMIX 100 ML IV SCH ×3 (07:51→15:51)
--- NOTE | 2016-12-14 07:51 | HHI.CCPN ---
Subjective Remarks/Hospital Course The patient is a 66-year-old male with a past medical history of gastroesophageal reflux disease, Rasmussen's esophagus, hypertension, hyperlipidemia, iron-deficiency anemia, coronary artery disease, PE and DVT year ago. He had a tumor removed from the right side of his neck at [facility] in October with pathology showing a glomus paraganglioma. 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 He had Dobbhoff placed for approximately one month and went to outpatient surgical center today to have a peg tube placed. However during procedure the patient had some hemoptysis. The patient was scoped by Dr. Peña who did not think esophagus was\ the source of bleeding. The patient also noted to have hiatal hernia and a G tube could not be placed. The patient was intubated at the surgical center with Versed and transferred to the ER. When seen the patient is intubated and on full mechanical ventilation. His initial blood pressure on arrival 135/84 with a pulse of 84. Chest x-ray showed subsegmental\ atelectasis at the left base. His laboratory data showed normal CBC and mild hyponatremia with sodium level of 134. According to the patient's and daughter, he was on anticoagulation with Coumadin for his PE and DVT and was taken off of it in October and placed on Plavix instead. There is no history of any chest pain, shortness of breath or hemoptysis prior to arrival at the surgical center. In addition, no history of nausea, vomiting or abdominal pain. 12/06 Patient remains intubated and sedated. CTA chest last night showed extensive b/l PE, Doppler US LE b/l DVT he was started on Heparin drip. In addition patient underwent bronch and ETT exchanged to 8.0 size last night. There was oozing from right pharynx/Right pharyngeal epiglottic fold that appeared to be source of bleeding. There was some blood in right mainstem that was suctioned out. There were some bloody clots in right lower lobe sub segments which were removed . No active bleeding in the lower airways. No endobronchial lesions. Small amount of blood in left lower lobe subsegment. Subjective 12/07: Tmax 101.7. Currently 99 1. Currently down for IVC filter placement and G-tube placement. Was awake and following commands prior to procedure 12/08: Profoundly hypoxemic, FiO2 100%. Acute fever up to 102. Sosa culture repeat chest x-ray requested. Started on Zosyn and one dose of vancomycin. On sedation lightening, follows commands weakly. Remains on IV heparin 12/09 Patient is sedated with Versed , Fentanyl and intubated. T;100.7 last night.On Heparin drip. 12/10 Patient remains intubated and sedated with Fentanyl and Versed. On PRVC with PEEP:10, FIO2 70%. Afebrile. 12/11 Patient is sedated with Versed, Fentanyl and intubated. Dropped his sats overnight On PRVC with PEEP: 10, FIO2 80% . Afebrile. 12/12 Remains intubated and sedated with Versed and Fentanyl drip, T: 99.8 last night. On Heparin drip. OGT inserted overnight and Patient had approx 1L gastric drainage( bile like). 12/13 Patient remains intubated. Off sedation, awake and alert this morning. T: 100.8. On Heparin drip. 12/14 Patient s/p extubation yesterday on partial rebreather. Patient was on BIPAP now off . Afebrile. On Heparin drip. Objective Vital Signs Date Time Temp Pulse Resp B/P (MAP) Pulse Ox O2 Delivery O2 Flow Rate FiO2 12/14/16 06:00 92 12/14/16 05:26 95 Partial Rebreather 15.00 12/14/16 04:35 80 12/14/16 04:00 99.0 26 118/73 (88) Result Diagram: 12/14/16 0434 12/14/16 0434 Other Results Laboratory Tests Test 12/13/16 09:00 12/13/16 09:25 12/14/16 04:34 Urine Color YELLOW Urine Turbidity HAZY Urine pH 8.0 Urine Specific [place] 1.030 Urine Protein 30 mg/dL Urine Glucose (UA) NEG mg/dL Urine Ketones NEG mg/dL Urine Occult Blood NEG Urine Nitrite NEG Urine Bilirubin NEG Urine Urobilinogen LESS THAN 2.0 MG/DL Urine Leukocyte Esterase NEG Urine RBC 2 /hpf Urine WBC 1 /hpf Urine Bacteria RARE /hpf Microscopic Urinalysis Comment CATH-CULTURE IND Blood Gas Puncture Site LT RADIAL Blood Gas Patient Temperature 98.6 Blood Gas HCO3 22 mmol/L Blood Gas Base Excess 0.5 mmol/L Blood Gas Oxygen Saturation 95 % Arterial Blood pH 7.59 Arterial Blood Partial Pressure CO2 23 mmHg Arterial Blood Partial Pressure O2 77 mmHg Arterial Blood Oxygen Content 23.5 Vol % Arterial Blood Carboxyhemoglobin 1.3 % Arterial Blood Methemoglobin 0.8 % Blood Gas Hemoglobin 17.7 G/DL Oxygen Delivery Device VENTILATOR Blood Gas Ventilator Setting CPAP 5/10/40% Blood Gas Inspired Oxygen 40 % White Blood Count 11.6 TH/MM3 Red Blood Count 4.10 MIL/MM3 Hemoglobin 11.5 GM/DL Hematocrit 35.8 % Mean Corpuscular Volume 87.3 FL Mean Corpuscular Hemoglobin 28.0 PG Mean Corpuscular Hemoglobin Concent 32.1 % Red Cell Distribution Width 14.8 % Platelet Count 270 TH/MM3 Mean Platelet Volume 9.4 FL Neutrophils (%) (Auto) 80.6 % Lymphocytes (%) (Auto) 11.3 % Monocytes (%) (Auto) 7.6 % Eosinophils (%) (Auto) 0.1 % Basophils (%) (Auto) 0.4 % Neutrophils # (Auto) 9.3 TH/MM3 Lymphocytes # (Auto) 1.3 TH/MM3 Monocytes # (Auto) 0.9 TH/MM3 Eosinophils # (Auto) 0.0 TH/MM3 Basophils # (Auto) 0.0 TH/MM3 CBC Comment DIFF FINAL Differential Comment Activated Partial Thromboplast Time 32.0 SEC Blood Urea Nitrogen 11 MG/DL Creatinine 0.73 MG/DL Random Glucose 106 MG/DL Calcium Level 9.1 MG/DL Sodium Level 136 MEQ/L Potassium Level 3.8 MEQ/L Chloride Level 99 MEQ/L Carbon Dioxide Level 25.7 MEQ/L Anion Gap 11 MEQ/L Estimat Glomerular Filtration Rate 107 ML/MIN Imaging Last Impressions Abdomen/Pelvis CT 12/12/16 0000 Signed Impressions: Service Date/Time: Monday, December 12, 2016 13:31 - CONCLUSION: Prominent consolidative changes in the posterior lung bases and small effusions. Very large hiatal hernia. Hepatic and renal cysts. Luan Nunez MD Chest X-Ray 12/11/16 0000 Signed Impressions: Service Date/Time: Sunday, December 11, 2016 07:52 - CONCLUSION: Endotracheal tube which appears retracted slightly as compared to the prior exam. Lung exam consistent with congestive heart failure and pulmonary edema with bilateral pleural effusions and atelectasis versus air space consolidation. This appearance is stable from the prior exam. Shannen Phillips MD Abdomen X-Ray 12/11/16 0000 Signed Impressions: Service Date/Time: Sunday, December 11, 2016 07:45 - CONCLUSION: Overall paucity of bowel gas, without evidence of obstruction. There is suggestion of wall thickening identified in the colon. Recommend further evaluation with contrast-enhanced CT. Shannen Phillips MD Head CT 12/08/16 0600 Signed Impressions: Service Date/Time: November 11:16 - CONCLUSION: 1. Increased paranasal sinus opacification. 2. No other significant interval change. Subacute to chronic ischemic findings of the right basal ganglia. Titi Najera MD IVC Filter Placement X-Ray 12/07/16 0000 Signed Impressions: Service Date/Time: Wednesday, December 07, 2016 11:49 - CONCLUSION: Uncomplicated inferior vena cava filter placement as above. Patric Stover MD Lower Extremity Ultrasound 12/05/16 0000 Signed Impressions: Service Date/Time: Monday, December 05, 2016 23:02 - CONCLUSION: 1. Positive for deep venous thrombosis as above. Sidney Pérez MD CT Angiography 12/05/16 0000 Signed Impressions: Service Date/Time: Monday, December 05, 2016 18:13 - CONCLUSION: 1. Extensive bilateral pulmonary arterial thrombi emboli bilaterally within the segmental and lobar vessels. There are no imaging findings to indicate right heart strain. 2. Stable 3.7 cm hypodense lesion with calcification either in the posterior mediastinum abutting the descending thoracic aorta or in the posterior left pleural space. Stranding of uncertain etiology but has not changed in approximately 13 months. 3. Stable large hiatal hernia. There is atelectasis/volume loss in both lower lobes. Luan Bermudez MD Objective Remarks GENERAL: Patient is 66 yo critically ill intubated and sedated SKIN: Warm and dry. No rash HEAD: Normocephalic. EYES: No scleral icterus. No injection or drainage. NECK: Supple, trachea midline. No JVD or lymphadenopathy. CARDIOVASCULAR: RRR. S1, S2 without murmur RESPIRATORY: Breath sounds equal bilaterally. No accessory muscle use. Diminished at the bilateral bases GASTROINTESTINAL: Abdomen soft, non-tender, nondistended. Hypoactive bowel sounds are appreciated MUSCULOSKELETAL: No significant peripheral edema Neuro: Intubated sedated. On sedation hold patient is followed commands with upper extremity, weak A/P Assessment and Plan Neuro/Psych: Right basal ganglia/temporal occipital lobe CVA 10/27 Hemorrhagic conversion right caudate/putamen 11/06/16 Tumor removal from the neck, pathology -glomus paraganglioma Awake and alert. CT brain 12/05: No acute intracranial findings identified. Repeat CT head 12/08 no intracranial hemorrhage Pulm: Acute respiratory failure Bilateral pulmonary embolism R tVF paralysis History of PE and DVT Wean down oxygen as pk maintain sats> 92%. Bronchodilators, IS, NIPPV PRN for resp distress CT chest: Extensive b/l PE- On Heparin drip ( Not a candidate for TPA as there is no hemodynamic instability, recent surgery and stroke in October) S/p IVC filter placement 12/07 Per bronchoscopy note source of bleeding appeared to be right pharyngeal epiglottic fold -? specific medial or lateral glossoepiglottic, aryepiglottic or ventricle fold though bleeding seems to have ceased CV: Coronary artery disease Hypertension Dyslipidemia Monitor HR and BP and maintain MAP> 65mmHg. 2-D echo revealed EF 60-65%. Bilateral atrial enlargement. Moderate pulmonary hypertension PAP 50-60 Lovastatin 20 by mouth daily when clinically indicated On Aspirin 81 mg daily on Pravachol Noted abnormality calcification the posterior pleural versus mediastinal space. Stable since last year. RENAL/FEN/: Right renal cyst Monitor renal function, Is and Os ,electrolyte replacement per protocol. Given Lasix 20mg overnight GI: Hiatal hernia Rasmussen's esophagitis GasteoEsophageal reflux disease Multiple liver cysts Gastric/duodenal polyps Tube feeds- Glucerna 1.5 with goal rate 45ml/hr via J-tube CT abdomen/pelvis: consolidative changes in the posterior lung bases and small effusions. Very large hiatal hernia. Hepatic and renal cysts. KUB abdomen: Overall paucity of bowel gas, without evidence of obstruction. There is suggestion of wall thickening identified in the colon OGT to LIMWS- on Protonix 40 mg IV daily for GI prophylaxis. s/p open J-tube placement on 12/07 ID: Continue abx( Zosyn) s/p Vanco 1gram x1 yesterday- pancultured 12/08- NGTD Monitor for signs of infections( fever and WBC). 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 Adalid Yuen Iron-deficiency anemia. Bilateral lower extremity DVT Monitor CBC, Coags. Heme is following Dr. Flynn s/p IVC filter placement 12/07 Continue home medication iron sulfate 325 mg by mouth daily if able Ultrasound revealed right nonocclusive thrombus in greater saphenous vein to the PT/V. Femoral vein patent. Left with nonocclusive thrombus from the SFV to PT with collaterals Endo: SSI with Accu-Cheks for glycemic control. GI prophylaxis with Protonix 40 mg daily and DVT prophylaxis with SCDs/heparin drip Level 3 Carie Ordaz MD Dec 14, 2016 07:51
[2016-12-14] MEDS: POLYETHYLENE GLYCOL 17 GM PKG PO SCH (09:00)
[2016-12-14] MEDS: FERROUS SULFATE 325 MG (65 MG ELEMENTAL IRON) TAB PO SCH (11:06)
[2016-12-14] MEDS: SODIUM CHLORIDE 0.9% FLUSH 10 ML FLUSH IV FLUSH SCH (11:06)
[2016-12-14] MEDS: PANTOPRAZOLE SODIUM 40 MG VIAL IV PUSH SCH (11:07)
[2016-12-14] MEDS: ARTIFICIAL TEARS OPTH SOLN 15 ML BTL EACH EYE SCH ×3 (11:07→18:00)
[2016-12-14] MEDS: ASPIRIN 81 MG CHEW TAB CHEW SCH (11:07)
[2016-12-14] MEDS: DOCUSATE SODIUM 100 MG/10 ML UDC J-TUBE SCH ×2 (11:08→21:00)
[2016-12-14] MEDS: SENNOSIDES SYRUP 8.8 MG/5 ML CUP PO SCH (11:08)
[2016-12-14] MEDS: CHOLECALCIFEROL (VIT D3) LIQ 400 UNITS/ML 50 ML BOTTLE J-TUBE SCH ×2 (11:08→21:00)
--- NOTE | 2016-12-14 13:09 | PD.ONC.PN ---
Subjective Subjective Remarks Afebrile overnight. Patient on NRB mask, upright in bed. at bedside. Tube feeds resumed this morning. Patient still not cleared to start eating. Per nurse, TF have been turned off and on today d/t patient abdominal pain when they are started. Objective Data Date Time Temp Pulse Resp B/P (MAP) Pulse Ox O2 Delivery O2 Flow Rate FiO2 12/14/16 12:00 98.7 84 22 126/75 (92) 95 12/14/16 12:00 84 12/14/16 10:00 89 12/14/16 08:22 97 Partial Rebreather 15.00 12/14/16 08:00 98.2 86 20 125/77 (93) 97 12/14/16 08:00 86 12/14/16 06:00 92 12/14/16 05:26 95 Partial Rebreather 15.00 12/14/16 04:35 95 80 12/14/16 04:00 99.0 83 26 118/73 (88) 95 12/14/16 04:00 83 12/14/16 02:00 84 12/14/16 01:09 94 100 12/14/16 00:00 98 12/14/16 00:00 98.9 98 24 132/72 (92) 91 12/13/16 23:55 94 100 12/13/16 22:00 91 12/13/16 20:00 99 12/13/16 20:00 98.6 99 22 121/60 (80) 91 12/13/16 19:28 93 Partial Rebreather 15.00 12/13/16 18:00 94 12/13/16 16:00 95 12/13/16 16:00 98.4 95 23 127/70 (89) 95 12/13/16 14:00 86 12/14/16 12/14/16 12/14/16 07:00 15:00 23:00 Intake Total 1364 ml Output Total 1150 ml Balance 214 ml Result Diagram: 12/14/16 0434 12/14/16 0434 Laboratory Results Laboratory Tests Test 12/14/16 04:34 White Blood Count 11.6 TH/MM3 Red Blood Count 4.10 MIL/MM3 Hemoglobin 11.5 GM/DL Hematocrit 35.8 % Mean Corpuscular Volume 87.3 FL Mean Corpuscular Hemoglobin 28.0 PG Mean Corpuscular Hemoglobin Concent 32.1 % Red Cell Distribution Width 14.8 % Platelet Count 270 TH/MM3 Mean Platelet Volume 9.4 FL Neutrophils (%) (Auto) 80.6 % Lymphocytes (%) (Auto) 11.3 % Monocytes (%) (Auto) 7.6 % Eosinophils (%) (Auto) 0.1 % Basophils (%) (Auto) 0.4 % Neutrophils # (Auto) 9.3 TH/MM3 Lymphocytes # (Auto) 1.3 TH/MM3 Monocytes # (Auto) 0.9 TH/MM3 Eosinophils # (Auto) 0.0 TH/MM3 Basophils # (Auto) 0.0 TH/MM3 CBC Comment DIFF FINAL Differential Comment Activated Partial Thromboplast Time 32.0 SEC Blood Urea Nitrogen 11 MG/DL Creatinine 0.73 MG/DL Random Glucose 106 MG/DL Calcium Level 9.1 MG/DL Sodium Level 136 MEQ/L Potassium Level 3.8 MEQ/L Chloride Level 99 MEQ/L Carbon Dioxide Level 25.7 MEQ/L Anion Gap 11 MEQ/L Estimat Glomerular Filtration Rate 107 ML/MIN Culture Results Microbiology Date/Time Source Procedure Growth Status 12/13/16 12:10 Blood Peripheral Aerobic Blood Culture - Preliminary NO GROWTH IN 1 DAY Resulted 12/13/16 12:10 Blood Peripheral Anaerobic Blood Culture - Preliminary NO GROWTH IN 1 DAY Resulted 12/13/16 12:05 Blood Peripheral Aerobic Blood Culture - Preliminary NO GROWTH IN 1 DAY Resulted 12/13/16 12:05 Blood Peripheral Anaerobic Blood Culture - Preliminary NO GROWTH IN 1 DAY Resulted 12/13/16 09:00 Sputum Endotracheal Gram Stain - Final Resulted 12/13/16 09:00 Sputum Endotracheal Sputum Culture - Preliminary Resulted 12/13/16 09:00 Urine Catheterized Urine Urine Culture Pending Received Administered Medications Medications (Trade) Dose Ordered Sig/Trang Route PRN Reason Start Time Stop Time Status Last Admin Dose Admin Pantoprazole Sodium (Protonix Inj) 40 mg DAILY IV PUSH 12/05/16 16:30 12/14/16 11:07 Sodium Chloride (NS Flush) 2 ml BID IV FLUSH 12/07/16 21:00 12/14/16 11:06 Artificial Tears (Tears Naturale Opth Soln) 1 drop TID EACH EYE 12/07/16 18:00 12/14/16 11:07 Miscellaneous Information 1 [id number] XX 12/07/16 14:00 12/07/16 14:00 Chlorhexidine Gluconate (Chlorhexidine 2% Cloth) Taper DAILY@04 TOP 12/08/16 04:00 12/04/17 03:59 12/14/16 04:00 Ferrous Sulfate (Ferrous Sulfate) 325 mg DAILY PO 12/08/16 09:00 12/14/16 11:06 Pravastatin Sodium (Pravachol) 20 mg HS PO 12/07/16 21:00 12/13/16 21:00 Heparin Sodium/ Dextrose 250 ml @ 18 mls/hr TITRATE IV 12/07/16 19:00 12/13/16 19:36 Piperacillin Sod/ Tazobactam Sod 100 ml @ 200 mls/hr Q6H IV 12/08/16 16:00 12/14/16 10:00 Aspirin (Aspirin Chew) 81 mg DAILY CHEW 12/09/16 09:00 12/14/16 11:07 Docusate Sodium (Colace Liq) 50 mg BID J-TUBE 12/09/16 21:00 12/14/16 11:08 Cholecalciferol (Vitamin D Liq) 2,000 units BID J-TUBE 12/09/16 21:00 12/14/16 11:08 Non-Formulary Medication 5 ML J-TUBE HS HS J-TUBE 12/09/16 21:00 12/12/16 21:31 Sennosides (Senna Liq) 17.6 mg Q12H PRN J-TUBE MODERATE - SEVERE CONSTIPATION 12/09/16 13:30 12/09/16 17:55 Ondansetron HCl (Zofran Inj) 4 mg Q8HR PRN IV PUSH N/V 12/09/16 17:00 12/09/16 17:53 Potassium Chloride 100 ml @ 50 mls/hr Q2H PRN IV For Potassium 2.8 - 3.2 mEq/L 12/10/16 07:30 12/12/16 09:34 Potassium Chloride 100 ml @ 50 mls/hr Q2H PRN IV For Potassium 3.3 - 3.5 mEq/L 12/10/16 07:30 12/13/16 07:13 Sennosides (Senna Liq) 8.8 mg DAILY PO 12/11/16 09:00 12/14/16 11:08 Polyethylene Glycol (Miralax) 17 gm DAILY PO 12/11/16 09:00 12/14/16 09:00 Albuterol/ Ipratropium (Duoneb Neb) 1 ampule Q4HR NEB NEB 12/13/16 12:00 12/14/16 12:26 Acetylcysteine (Mucomyst 20% Neb) 2 ml Q4HR NEB NEB 12/14/16 00:00 12/14/16 12:00 Objective Remarks GENERAL: Middle aged male upright in bed on partial rebreather mask. SKIN: Warm and dry. HEAD: Normocephalic. EYES: No injection or drainage. NECK: Supple, trachea midline. CARDIOVASCULAR: Regular rate and rhythm RESPIRATORY: anterior joseph with scattered rhonchi. GASTROINTESTINAL: Abdomen soft, non-tender, nondistended. EXTREMITIES: No cyanosis NEUROLOGICAL: awake, alert. answering questions. following commands. Assessment/Plan Problem List: (1) Pulmonary embolism ICD Codes: I26.99 - Other pulmonary embolism without acute cor pulmonale Status: Acute Plan: --CT angiography shows extensive bilateral pulmonary embolism -- Ultrasound of bilateral lower extremity shows a chronic DVT on the left and a nonocclusive thrombus in the right -- The patient has a family history of blood clots -- IVC filter placed on 12/07. -- Currently on heparin drip Hx/Workup: The patient presented with bleeding in his pharynx after an attempt of tube feed placement. He was recently seen at [facility] where he was diagnosed with a paraganglioma. He was also apparently diagnosed with a DVT and pulmonary embolism while at [facility]. (2) History of CVA (cerebrovascular accident) ICD Codes: Z86.73 - Personal history of transient ischemic attack (TIA), and cerebral infarction without residual deficits Plan: --had a stroke after the neck surgery with hemorrhagic transformation in caudate lobe noted MRA 10/27. --was later started on Plavix. No US or CTA found in the records and no mention of DVT/PE during his stay at [facility]. Assessment 66-year-old male admitted with hemoptysis; hematology consulted for history of recent pulmonary embolism Plan 1. continue heparin-->will start oral anticoagulation once eating regularly/ tolerating tube feeds regularly. 2. monitor CBC Attending Statement The exam, history, and the medical decision-making described in the above note were completed with the assistance of the mid-level provider. I reviewed and agree with the findings presented. I attest that I had a [id number] encounter with the patient on the same day, and personally performed and documented my assessment and findings in the medical record. Pt is extubated. No bleeding noted. No LE edema. Continue heparin and convert to oral anticoagulant when he is able to tolerate PO. Gogo Armenta Dec 14, 2016 13:09 Paulo Flynn MD Dec 14, 2016 16:06
[2016-12-14] MEDS: HEPARIN 25,000 UNITS-D5W 250 ML - PREMIX IV SCH (15:51)
[2016-12-14 17:36] LABS: APTT (PATIENT) 52.9 SEC (24.3-30.1)
[2016-12-14] MEDS: [UNRECOGNIZED DRUG - REMARK] J-TUBE SCH (21:00)
[2016-12-14] MEDS: PRAVASTATIN SOD 20 MG TAB PO SCH (21:00)
[2016-12-15] VITALS (16 sets, daily range): BP systolic 130–153; BP diastolic 70–96; PULSE 86–108; RESP 22–29; TEMP 97.8–99.6; O2SAT 85–99
[2016-12-15] MEDS: PIPERACIL-TAZO 4.5 GM PREMIX 100 ML IV SCH ×5 (01:50→20:49)
[2016-12-15] MEDS: SODIUM CHLORIDE 0.9% FLUSH 10 ML FLUSH IV FLUSH SCH ×3 (01:50→20:27)
[2016-12-15] MEDS: RESP: ALBUTEROL 2.5 MG/IPRATROPIUM 0.5 MG NEB (SCH) NEB ×5 (02:53→19:53)
[2016-12-15] MEDS: RESP: ACETYLCYSTEINE 20% 30 ML NEB NEB SCH ×5 (02:53→19:53)
[2016-12-15 02:56] LABS: BLOOD GAS BASE EXCESS 2.6 mmol/L (-2-2); BLOOD GAS CARBOXYHEMOGLOBIN 1.3 % (0-4); BLOOD GAS HCO3 26 mmol/L (22-26); BLOOD GAS METHEMOGLOBIN 0.9 % (0-2); BLOOD GAS O2 HGB SATURATION 89 % (90-100); BLOOD GAS OXYGEN CONTENT 14.7 Vol % (12.0-20.0); BLOOD GAS PCO2 40 mmHg (38-42); BLOOD GAS PO2 62 mmHg (61-120); BLOOD GAS TOTAL HGB 11.7 G/DL (12.0-16.0); TEMP CORR TO 98.6
[2016-12-15 02:58] LABS: CRITICAL VALUE YES; OXYGEN DEVICE NRB
[2016-12-15 02:59] LABS: DRAW SITE RT RADIAL; LITER FLOW 15 L/M; NUMBER OF ARTERIAL PUNCTURES 1; STAT NO; ULNAR PULSE PRESENT
[2016-12-15] MEDS: CHLORHEXIDINE GLUCONATE 2 % 1 PACK (2 CLOTHS) TOP SCH (04:00)
[2016-12-15] MEDS: INSULIN NovoLIN REGULAR SUPPLEMENTAL SCALE SQ SCH ×4 (05:00→23:00)
[2016-12-15 06:53] LABS: APTT (PATIENT) 45.3 SEC (24.3-30.1)
[2016-12-15 07:03] LABS: AUTOMATED NEUTROPHIL # 9.3 TH/MM3 (1.8-7.7); BASOPHIL # 0.1 TH/MM3 (0-0.2); BASOPHIL % 0.6 % (0.0-2.0); EOSINOPHIL # 0.1 TH/MM3 (0-0.4); EOSINOPHIL % 0.5 % (0.0-4.0); HEMATOCRIT 37.5 % (39.0-51.0); HEMO FLAGS DIFF FINAL; LYMPH % 7.9 % (9.0-44.0); LYMPHOCYTE # 0.9 TH/MM3 (1.0-4.8); MEAN CELL VOLUME 88.1 FL (80.0-100.0); MEAN CORPUSCULAR HEMOGLOBIN 28.6 PG (27.0-34.0); MEAN CORPUSCULAR HGB CONC 32.4 % (32.0-36.0); MONO % 10.2 % (0.0-8.0); NEUT % 80.8 % (16.0-70.0); PLATELET COUNT 287 TH/MM3 (150-450); RED BLOOD COUNT 4.26 MIL/MM3 (4.50-5.90); RED CELL DISTRIBUTION WIDTH 14.9 % (11.6-17.2); WHITE BLOOD COUNT 11.5 TH/MM3 (4.0-11.0)
[2016-12-15 07:12] LABS: BICARBONATE 29.9 MEQ/L (21.0-32.0)
[2016-12-15 07:51] LABS: POTASSIUM 2.8 MEQ/L (3.5-5.1)
--- NOTE | 2016-12-15 08:01 | HHI.CCPN ---
Subjective Remarks/Hospital Course The patient is a 66-year-old male with a past medical history of gastroesophageal reflux disease, Rasmussen's esophagus, hypertension, hyperlipidemia, iron-deficiency anemia, coronary artery disease, PE and DVT year ago. He had a tumor removed from the right side of his neck at [facility] in October with pathology showing a glomus paraganglioma. 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 He had Dobbhoff placed for approximately one month and went to outpatient surgical center today to have a peg tube placed. However during procedure the patient had some hemoptysis. The patient was scoped by Dr. Peña who did not think esophagus was\ the source of bleeding. The patient also noted to have hiatal hernia and a G tube could not be placed. The patient was intubated at the surgical center with Versed and transferred to the ER. When seen the patient is intubated and on full mechanical ventilation. His initial blood pressure on arrival 135/84 with a pulse of 84. Chest x-ray showed subsegmental\ atelectasis at the left base. His laboratory data showed normal CBC and mild hyponatremia with sodium level of 134. According to the patient's and daughter, he was on anticoagulation with Coumadin for his PE and DVT and was taken off of it in October and placed on Plavix instead. There is no history of any chest pain, shortness of breath or hemoptysis prior to arrival at the surgical center. In addition, no history of nausea, vomiting or abdominal pain. 12/06 Patient remains intubated and sedated. CTA chest last night showed extensive b/l PE, Doppler US LE b/l DVT he was started on Heparin drip. In addition patient underwent bronch and ETT exchanged to 8.0 size last night. There was oozing from right pharynx/Right pharyngeal epiglottic fold that appeared to be source of bleeding. There was some blood in right mainstem that was suctioned out. There were some bloody clots in right lower lobe sub segments which were removed . No active bleeding in the lower airways. No endobronchial lesions. Small amount of blood in left lower lobe subsegment. Subjective 12/07: Tmax 101.7. Currently 99 1. Currently down for IVC filter placement and G-tube placement. Was awake and following commands prior to procedure 12/08: Profoundly hypoxemic, FiO2 100%. Acute fever up to 102. Sosa culture repeat chest x-ray requested. Started on Zosyn and one dose of vancomycin. On sedation lightening, follows commands weakly. Remains on IV heparin 12/09 Patient is sedated with Versed , Fentanyl and intubated. T;100.7 last night.On Heparin drip. 12/10 Patient remains intubated and sedated with Fentanyl and Versed. On PRVC with PEEP:10, FIO2 70%. Afebrile. 12/11 Patient is sedated with Versed, Fentanyl and intubated. Dropped his sats overnight On PRVC with PEEP: 10, FIO2 80% . Afebrile. 12/12 Remains intubated and sedated with Versed and Fentanyl drip, T: 99.8 last night. On Heparin drip. OGT inserted overnight and Patient had approx 1L gastric drainage( bile like). 12/13 Patient remains intubated. Off sedation, awake and alert this morning. T: 100.8. On Heparin drip. 12/14 Patient s/p extubation yesterday on partial rebreather. Patient was on BIPAP now off . Afebrile. On Heparin drip. 12/15 Patient is on non breather , afebrile. TF held overnight for emesis. Remains on Heparin drip. Objective Vital Signs Date Time Temp Pulse Resp B/P (MAP) Pulse Ox O2 Delivery O2 Flow Rate FiO2 12/15/16 06:00 88 12/15/16 04:00 98.8 27 153/96 (115) 96 12/15/16 02:57 Non-Rebreather 15.00 12/14/16 04:35 80 Intake and Output 12/15/16 12/15/16 12/16/16 08:00 16:00 00:00 Intake Total 527 ml Output Total 450 ml Balance 77 ml Result Diagram: 12/15/16 0522 12/14/16 0434 Other Results Laboratory Tests Test 12/14/16 16:20 12/15/16 02:39 12/15/16 05:22 Activated Partial Thromboplast Time 52.9 SEC 45.3 SEC Blood Gas Puncture Site RT RADIAL Blood Gas Patient Temperature 98.6 Blood Gas HCO3 26 mmol/L Blood Gas Base Excess 2.6 mmol/L Blood Gas Oxygen Saturation 89 % Arterial Blood pH 7.44 Arterial Blood Partial Pressure CO2 40 mmHg Arterial Blood Partial Pressure O2 62 mmHg Arterial Blood Oxygen Content 14.7 Vol % Arterial Blood Carboxyhemoglobin 1.3 % Arterial Blood Methemoglobin 0.9 % Blood Gas Hemoglobin 11.7 G/DL Oxygen Delivery Device NRB Blood Gas Liter Flow 15 L/M White Blood Count 11.5 TH/MM3 Red Blood Count 4.26 MIL/MM3 Hemoglobin 12.2 GM/DL Hematocrit 37.5 % Mean Corpuscular Volume 88.1 FL Mean Corpuscular Hemoglobin 28.6 PG Mean Corpuscular Hemoglobin Concent 32.4 % Red Cell Distribution Width 14.9 % Platelet Count 287 TH/MM3 Mean Platelet Volume 9.3 FL Neutrophils (%) (Auto) 80.8 % Lymphocytes (%) (Auto) 7.9 % Monocytes (%) (Auto) 10.2 % Eosinophils (%) (Auto) 0.5 % Basophils (%) (Auto) 0.6 % Neutrophils # (Auto) 9.3 TH/MM3 Lymphocytes # (Auto) 0.9 TH/MM3 Monocytes # (Auto) 1.2 TH/MM3 Eosinophils # (Auto) 0.1 TH/MM3 Basophils # (Auto) 0.1 TH/MM3 CBC Comment DIFF FINAL Differential Comment Blood Urea Nitrogen 18 MG/DL Creatinine 0.66 MG/DL Random Glucose 103 MG/DL Calcium Level 9.0 MG/DL Sodium Level 138 MEQ/L Potassium Level 2.8 MEQ/L Chloride Level 99 MEQ/L Carbon Dioxide Level 29.9 MEQ/L Anion Gap 9 MEQ/L Estimat Glomerular Filtration Rate 120 ML/MIN Imaging Last Impressions Chest X-Ray 12/13/16 0000 Signed Impressions: Service Date/Time: Tuesday, December 13, 2016 08:09 - CONCLUSION: 1. Cardiomegaly and findings of congestive heart failure. The findings are improved when compared with the prior exam. 2. Nasogastric tube in the midesophagus Ananth Gage MD Abdomen/Pelvis CT 12/12/16 0000 Signed Impressions: Service Date/Time: Monday, December 12, 2016 13:31 - CONCLUSION: Prominent consolidative changes in the posterior lung bases and small effusions. Very large hiatal hernia. Hepatic and renal cysts. Luan Nunez MD Abdomen X-Ray 12/11/16 0000 Signed Impressions: Service Date/Time: Sunday, December 11, 2016 07:45 - CONCLUSION: Overall paucity of bowel gas, without evidence of obstruction. There is suggestion of wall thickening identified in the colon. Recommend further evaluation with contrast-enhanced CT. Shannen Phillips MD Head CT 12/08/16 0600 Signed Impressions: Service Date/Time: November 11:16 - CONCLUSION: 1. Increased paranasal sinus opacification. 2. No other significant interval change. Subacute to chronic ischemic findings of the right basal ganglia. Titi Najera MD IVC Filter Placement X-Ray 12/07/16 0000 Signed Impressions: Service Date/Time: Wednesday, December 07, 2016 11:49 - CONCLUSION: Uncomplicated inferior vena cava filter placement as above. Patric Stover MD Lower Extremity Ultrasound 12/05/16 0000 Signed Impressions: Service Date/Time: Monday, December 05, 2016 23:02 - CONCLUSION: 1. Positive for deep venous thrombosis as above. Sidney Pérez MD CT Angiography 12/05/16 0000 Signed Impressions: Service Date/Time: Monday, December 05, 2016 18:13 - CONCLUSION: 1. Extensive bilateral pulmonary arterial thrombi emboli bilaterally within the segmental and lobar vessels. There are no imaging findings to indicate right heart strain. 2. Stable 3.7 cm hypodense lesion with calcification either in the posterior mediastinum abutting the descending thoracic aorta or in the posterior left pleural space. Stranding of uncertain etiology but has not changed in approximately 13 months. 3. Stable large hiatal hernia. There is atelectasis/volume loss in both lower lobes. Luan Bermudez MD Objective Remarks GENERAL: Patient is 66 yo on NRB SKIN: Warm and dry. No rash HEAD: Normocephalic. EYES: No scleral icterus. No injection or drainage. NECK: Supple, trachea midline. No JVD or lymphadenopathy. CARDIOVASCULAR: RRR. S1, S2 without murmur RESPIRATORY: Breath sounds equal bilaterally. No accessory muscle use. Few coarse BS GASTROINTESTINAL: Abdomen soft, non-tender, nondistended. +BS, +J-tube in place. MUSCULOSKELETAL: No significant peripheral edema Neuro: Awake, alert. A/P Assessment and Plan Neuro/Psych: Right basal ganglia/temporal occipital lobe CVA 10/27 Hemorrhagic conversion right caudate/putamen 11/06/16 Tumor removal from the neck, pathology -glomus paraganglioma Awake and alert. CT brain 12/05: No acute intracranial findings identified. Repeat CT head 12/08 no intracranial hemorrhage Pulm: Acute respiratory failure Bilateral pulmonary embolism R tVF paralysis History of PE and DVT Wean down oxygen as pk maintain sats> 92%. Bronchodilators, IS, NIPPV PRN for resp distress Check CXR CT chest: Extensive b/l PE- On Heparin drip ( Patient was not a candidate for TPA as there is no hemodynamic instability, recent surgery and stroke in October) S/p IVC filter placement 12/07 Per bronchoscopy note source of bleeding appeared to be right pharyngeal epiglottic fold -? specific medial or lateral glossoepiglottic, aryepiglottic or ventricle fold though bleeding seems to have ceased CV: Coronary artery disease Hypertension Dyslipidemia Monitor HR and BP and maintain MAP> 65mmHg. 2-D echo revealed EF 60-65%. Bilateral atrial enlargement. Moderate pulmonary hypertension PAP 50-60 Lovastatin 20 by mouth daily when clinically indicated On Aspirin 81 mg daily on Pravachol Noted abnormality calcification the posterior pleural versus mediastinal space. Stable since last year. RENAL/FEN/: Right renal cyst Hypokalemia Monitor renal function, Is and Os ,electrolyte replacement per protocol. For K replacement today GI: Hiatal hernia Rasmussen's esophagitis GasteoEsophageal reflux disease Multiple liver cysts Gastric/duodenal polyps Tube feeds held for emesis.- Glucerna 1.5 with goal rate 45ml/hr via J-tube Check KUB abdomen CT abdomen/pelvis: consolidative changes in the posterior lung bases and small effusions. Very large hiatal hernia. Hepatic and renal cysts. KUB abdomen: Overall paucity of bowel gas, without evidence of obstruction. There is suggestion of wall thickening identified in the colon OGT to LIMWS- on Protonix 40 mg IV daily for GI prophylaxis. s/p open J-tube placement on 12/07 ID: Continue abx( Zosyn)- pancultured 12/08- NGTD Monitor for signs of infections( fever and WBC). 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 Cordoba - [facility] Iron-deficiency anemia. Bilateral lower extremity DVT Monitor CBC, Coags. Heme is following Dr. Flynn s/p IVC filter placement 12/07 Continue home medication iron sulfate 325 mg by mouth daily if able Ultrasound revealed right nonocclusive thrombus in greater saphenous vein to the PT/V. Femoral vein patent. Left with nonocclusive thrombus from the SFV to PT with collaterals Endo: SSI with Accu-Cheks for glycemic control. GI prophylaxis with Protonix 40 mg daily and DVT prophylaxis with SCDs/heparin drip Continue with PT Discussed with patient's , daughter and updated them on his condition. Level 3 Carie Ordaz MD Dec 15, 2016 08:01
[2016-12-15] MEDS: PANTOPRAZOLE SODIUM 40 MG VIAL IV PUSH SCH (08:30)
[2016-12-15] MEDS: FERROUS SULFATE 325 MG (65 MG ELEMENTAL IRON) TAB PO SCH (08:30)
[2016-12-15] MEDS: CHOLECALCIFEROL (VIT D3) LIQ 400 UNITS/ML 50 ML BOTTLE J-TUBE SCH ×2 (08:30→20:26)
[2016-12-15] MEDS: ASPIRIN 81 MG CHEW TAB CHEW SCH (08:30)
[2016-12-15] MEDS: SENNOSIDES SYRUP 8.8 MG/5 ML CUP PO SCH (08:31)
[2016-12-15] MEDS: ARTIFICIAL TEARS OPTH SOLN 15 ML BTL EACH EYE SCH ×3 (08:31→17:45)
[2016-12-15] MEDS: POLYETHYLENE GLYCOL 17 GM PKG PO SCH (08:31)
[2016-12-15] MEDS: DOCUSATE SODIUM 100 MG/10 ML UDC J-TUBE SCH ×2 (08:31→20:26)
[2016-12-15] MEDS: POTASSIUM CHLOR 20 MEQ PREMIX 100 ML IV PRN ×4 (08:32→17:00)
[2016-12-15] MEDS: HEPARIN 25,000 UNITS-D5W 250 ML - PREMIX IV SCH (08:34)
[2016-12-15 08:43] LABS: MAGNESIUM 2.1 MG/DL (1.5-2.5)
--- NOTE | 2016-12-15 09:07 | RADRPT ---
EXAM DATE/TIME: 12/15/2016 08:26 [facility] COMPARISON: CHEST SINGLE AP, December 13, 2016, 8:09. INDICATIONS : Cough, congestion, shortness of breath. MEDICAL HISTORY : Hypertension. Gastroesophageal reflux disease. Asthma. SURGICAL HISTORY : G-tube. ENCOUNTER: Subsequent ACUITY: 4 - 6 days PAIN SCORE: 0/10 LOCATION: Bilateral chest FINDINGS: A single AP erect portable view of the chest was obtained and demonstrates interval extubation. The s tudy is more Midinspiratory with abnormal opacity remaining at both lung bases with air bronchograms. There is blunting of the right costophrenic angle. The heart size is mildly enlarged. The bony thora x remains intact with overlying electrocardiogram leads. CONCLUSION: 1. Interval extubation. 2. Midinspiratory exam with abnormal opacity at both lung bases right greater than left. There is phyllis arent right effusion as well. Italo Nelson MD on December 15, 2016 at 9:05 Board Certified Radiologist. This report was verified electronically.
--- NOTE | 2016-12-15 09:09 | RADRPT ---
EXAM DATE/TIME: 12/15/2016 08:15 [facility] COMPARISON: CT ABDOMEN & PELVIS W CONTRAST, December 12, 2016, 13:31. ABDOMEN KUB ONLY, December 11, 2016, 7:45. INDICATIONS : Nausea, vomiting and abdominal distention. Known hiatal hernia.. MEDICAL HISTORY : Hypertension. Gastroesophageal reflux disease. Asthma. SURGICAL HISTORY : G-tube. ENCOUNTER: Subsequent ACUITY: 4 - 6 days PAIN SCORE: 0/10 LOCATION: Abdomen. FINDINGS: 2 AP supine views of the abdomen and pelvis were obtained and demonstrate a jejunal feeding tube in p lace. A paucity of bowel gas is again identified with no evidence of free air. Abnormal opacity is pr esent at the lung bases right greater than left with blunting of the costophrenic angles. An inferior vena caval filter is present. The bony structures are intact. CONCLUSION: 1. Jejunal feeding tube remains in place with paucity of bowel gas. 2. Abnormal opacity at the lung bases with apparent bilateral effusions. Italo Nelson MD on December 15, 2016 at 9:06 Board Certified Radiologist. This report was verified electronically.
--- NOTE | 2016-12-15 09:29 | PD.ONC.PN ---
Subjective Subjective Remarks Afebrile overnight. Patient on Venti mask. Tube feeds were stopped yesterday d/t vomiting. NO bleeding. Objective Data Date Time Temp Pulse Resp B/P (MAP) Pulse Ox O2 Delivery O2 Flow Rate FiO2 12/15/16 07:46 99 Non-Rebreather 15.00 12/15/16 06:00 88 12/15/16 04:00 100 12/15/16 04:00 98.8 100 27 153/96 (115) 96 12/15/16 02:57 91 Non-Rebreather 15.00 12/15/16 02:40 85 Partial Rebreather 15.00 12/15/16 02:00 100 12/15/16 00:00 91 12/15/16 00:00 98.9 91 22 130/73 (92) 12/14/16 23:36 95 Partial Rebreather 10.00 12/14/16 22:00 94 12/14/16 20:09 94 Partial Rebreather 12.00 12/14/16 20:00 78 12/14/16 20:00 98.7 78 21 120/79 (93) 12/14/16 18:00 97 12/14/16 16:00 98.8 83 22 112/75 (87) 94 12/14/16 16:00 83 12/14/16 14:00 83 12/14/16 12:00 98.7 84 22 126/75 (92) 95 12/14/16 12:00 84 12/14/16 10:00 89 12/15/16 12/15/16 12/15/16 07:00 15:00 23:00 Intake Total 427 ml 100 ml Output Total 450 ml Balance -23 ml 100 ml Result Diagram: 12/15/1652112/15/16521 Laboratory Results Laboratory Tests Test 12/14/16 16:20 12/15/16 02:39 12/15/16 05:22 Activated Partial Thromboplast Time 52.9 SEC 45.3 SEC Blood Gas Puncture Site RT RADIAL Blood Gas Patient Temperature 98.6 Blood Gas HCO3 26 mmol/L Blood Gas Base Excess 2.6 mmol/L Blood Gas Oxygen Saturation 89 % Arterial Blood pH 7.44 Arterial Blood Partial Pressure CO2 40 mmHg Arterial Blood Partial Pressure O2 62 mmHg Arterial Blood Oxygen Content 14.7 Vol % Arterial Blood Carboxyhemoglobin 1.3 % Arterial Blood Methemoglobin 0.9 % Blood Gas Hemoglobin 11.7 G/DL Oxygen Delivery Device NRB Blood Gas Liter Flow 15 L/M White Blood Count 11.5 TH/MM3 Red Blood Count 4.26 MIL/MM3 Hemoglobin 12.2 GM/DL Hematocrit 37.5 % Mean Corpuscular Volume 88.1 FL Mean Corpuscular Hemoglobin 28.6 PG Mean Corpuscular Hemoglobin Concent 32.4 % Red Cell Distribution Width 14.9 % Platelet Count 287 TH/MM3 Mean Platelet Volume 9.3 FL Neutrophils (%) (Auto) 80.8 % Lymphocytes (%) (Auto) 7.9 % Monocytes (%) (Auto) 10.2 % Eosinophils (%) (Auto) 0.5 % Basophils (%) (Auto) 0.6 % Neutrophils # (Auto) 9.3 TH/MM3 Lymphocytes # (Auto) 0.9 TH/MM3 Monocytes # (Auto) 1.2 TH/MM3 Eosinophils # (Auto) 0.1 TH/MM3 Basophils # (Auto) 0.1 TH/MM3 CBC Comment DIFF FINAL Differential Comment Blood Urea Nitrogen 18 MG/DL Creatinine 0.66 MG/DL Random Glucose 103 MG/DL Calcium Level 9.0 MG/DL Sodium Level 138 MEQ/L Potassium Level 2.8 MEQ/L Chloride Level 99 MEQ/L Carbon Dioxide Level 29.9 MEQ/L Anion Gap 9 MEQ/L Estimat Glomerular Filtration Rate 120 ML/MIN Phosphorus Level 2.6 MG/DL Magnesium Level 2.1 MG/DL Culture Results Microbiology Date/Time Source Procedure Growth Status 12/13/16 12:10 Blood Peripheral Aerobic Blood Culture - Preliminary NO GROWTH IN 1 DAY Resulted 12/13/16 12:10 Blood Peripheral Anaerobic Blood Culture - Preliminary NO GROWTH IN 1 DAY Resulted 12/13/16 12:05 Blood Peripheral Aerobic Blood Culture - Preliminary NO GROWTH IN 1 DAY Resulted 12/13/16 12:05 Blood Peripheral Anaerobic Blood Culture - Preliminary NO GROWTH IN 1 DAY Resulted 12/13/16 09:00 Sputum Endotracheal Gram Stain - Final Resulted 12/13/16 09:00 Sputum Endotracheal Sputum Culture - Preliminary Resulted 12/13/16 09:00 Urine Catheterized Urine Urine Culture - Final NO GROWTH IN 48 HOURS. Complete Administered Medications Medications (Trade) Dose Ordered Sig/Trang Route PRN Reason Start Time Stop Time Status Last Admin Dose Admin Pantoprazole Sodium (Protonix Inj) 40 mg DAILY IV PUSH 12/05/16 16:30 12/15/16 08:30 Sodium Chloride (NS Flush) 2 ml BID IV FLUSH 12/07/16 21:00 12/15/16 08:31 Artificial Tears (Tears Naturale Opth Soln) 1 drop TID EACH EYE 12/07/16 18:00 12/15/16 08:31 Miscellaneous Information 1 [id number] XX 12/07/16 14:00 12/07/16 14:00 Chlorhexidine Gluconate (Chlorhexidine 2% Cloth) Taper DAILY@04 TOP 12/08/16 04:00 12/04/17 03:59 12/15/16 04:00 Ferrous Sulfate (Ferrous Sulfate) 325 mg DAILY PO 12/08/16 09:00 12/15/16 08:30 Pravastatin Sodium (Pravachol) 20 mg HS PO 12/07/16 21:00 12/13/16 21:00 Heparin Sodium/ Dextrose 250 ml @ 18 mls/hr TITRATE IV 12/07/16 19:00 12/15/16 08:34 Piperacillin Sod/ Tazobactam Sod 100 ml @ 200 mls/hr Q6H IV 12/08/16 16:00 12/15/16 08:32 Aspirin (Aspirin Chew) 81 mg DAILY CHEW 12/09/16 09:00 12/15/16 08:30 Docusate Sodium (Colace Liq) 50 mg BID J-TUBE 12/09/16 21:00 12/15/16 08:31 Cholecalciferol (Vitamin D Liq) 2,000 units BID J-TUBE 12/09/16 21:00 12/15/16 08:30 Non-Formulary Medication 5 ML J-TUBE HS HS J-TUBE 12/09/16 21:00 12/12/16 21:31 Sennosides (Senna Liq) 17.6 mg Q12H PRN J-TUBE MODERATE - SEVERE CONSTIPATION 12/09/16 13:30 12/09/16 17:55 Ondansetron HCl (Zofran Inj) 4 mg Q8HR PRN IV PUSH N/V 12/09/16 17:00 12/09/16 17:53 Potassium Chloride 100 ml @ 50 mls/hr Q2H PRN IV For Potassium 2.8 - 3.2 mEq/L 12/10/16 07:30 12/15/16 08:32 Potassium Chloride 100 ml @ 50 mls/hr Q2H PRN IV For Potassium 3.3 - 3.5 mEq/L 12/10/16 07:30 12/13/16 07:13 Sennosides (Senna Liq) 8.8 mg DAILY PO 12/11/16 09:00 12/15/16 08:31 Polyethylene Glycol (Miralax) 17 gm DAILY PO 12/11/16 09:00 12/15/16 08:31 Albuterol/ Ipratropium (Duoneb Neb) 1 ampule Q4HR NEB NEB 12/13/16 12:00 12/15/16 07:45 Acetylcysteine (Mucomyst 20% Neb) 2 ml Q4HR NEB NEB 12/14/16 00:00 12/15/16 07:46 Objective Remarks GENERAL: Middle aged male sitting up in bed on 9L O2 via venti mask. SKIN: Warm and dry. HEAD: Normocephalic. EYES: No injection or drainage. NECK: Supple, trachea midline. CARDIOVASCULAR: Regular rate and rhythm RESPIRATORY: anterior joseph with scattered rhonchi. GASTROINTESTINAL: Abdomen soft, non-tender, nondistended. EXTREMITIES: No cyanosis NEUROLOGICAL: awake. following commands. nods yes or no to questions. Assessment/Plan Problem List: (1) Pulmonary embolism ICD Codes: I26.99 - Other pulmonary embolism without acute cor pulmonale Status: Acute Plan: --CT angiography shows extensive bilateral pulmonary embolism -- Ultrasound of bilateral lower extremity shows a chronic DVT on the left and a nonocclusive thrombus in the right -- The patient has a family history of blood clots -- IVC filter placed on 12/07. -- Currently on heparin drip Hx/Workup: The patient presented with bleeding in his pharynx after an attempt of tube feed placement. He was recently seen at [facility] where he was diagnosed with a paraganglioma. He was also apparently diagnosed with a DVT and pulmonary embolism while at [facility]. (2) History of CVA (cerebrovascular accident) ICD Codes: Z86.73 - Personal history of transient ischemic attack (TIA), and cerebral infarction without residual deficits Plan: --had a stroke after the neck surgery with hemorrhagic transformation in caudate lobe noted MRA 8/17. --was later started on Plavix. No US or CTA found in the records and no mention of DVT/PE during his stay at [facility]. Assessment 66-year-old male admitted with hemoptysis; hematology consulted for history of recent pulmonary embolism Plan 1. continue heparin 2. monitor CBC 3. will plan to start oral anticoagulation when clinically improved, tolerating tube feeds/diet Attending Statement The exam, history, and the medical decision-making described in the above note were completed with the assistance of the mid-level provider. I reviewed and agree with the findings presented. I attest that I had a [id number] encounter with the patient on the same day, and personally performed and documented my assessment and findings in the medical record. Still very weak. No bleeding noted. No LE edema. Tolerating heparin. Plan to switch to oral anticoagulant when he is able to tolerate po. Gogo Armenta Dec 15, 2016 09:29 Paulo Flynn MD Dec 15, 2016 16:15
[2016-12-15] MEDS: PRAVASTATIN SOD 20 MG TAB PO SCH (20:26)
[2016-12-15] MEDS: ONDANSETRON HCL 4 MG/2 ML VIAL IV PUSH PRN (20:26)
[2016-12-15] MEDS: [UNRECOGNIZED DRUG - REMARK] J-TUBE SCH (21:00)
[2016-12-16] VITALS (18 sets, daily range): BP systolic 118–155; BP diastolic 68–87; PULSE 79–105; RESP 22–28; TEMP 97.8–100.1; O2SAT 87–98
[2016-12-16] MEDS: RESP: ALBUTEROL 2.5 MG/IPRATROPIUM 0.5 MG NEB (SCH) NEB ×6 (00:24→19:14)
[2016-12-16] MEDS: RESP: ACETYLCYSTEINE 20% 30 ML NEB NEB SCH ×3 (00:25→07:25)
[2016-12-16] MEDS: CHLORHEXIDINE GLUCONATE 2 % 1 PACK (2 CLOTHS) TOP SCH (04:00)
[2016-12-16 04:33] LABS: AUTOMATED NEUTROPHIL # 4.8 TH/MM3 (1.8-7.7); BASOPHIL # 0.1 TH/MM3 (0-0.2); BASOPHIL % 1.1 % (0.0-2.0); EOSINOPHIL # 0.1 TH/MM3 (0-0.4); EOSINOPHIL % 1.6 % (0.0-4.0); HEMATOCRIT 33.4 % (39.0-51.0); HEMO FLAGS DIFF FINAL; LYMPH % 16.8 % (9.0-44.0); LYMPHOCYTE # 1.2 TH/MM3 (1.0-4.8); MEAN CELL VOLUME 87.3 FL (80.0-100.0); MEAN CORPUSCULAR HEMOGLOBIN 28.3 PG (27.0-34.0); MEAN CORPUSCULAR HGB CONC 32.5 % (32.0-36.0); MONO % 11.9 % (0.0-8.0); NEUT % 68.6 % (16.0-70.0); PLATELET COUNT 272 TH/MM3 (150-450); RED BLOOD COUNT 3.83 MIL/MM3 (4.50-5.90); RED CELL DISTRIBUTION WIDTH 15.1 % (11.6-17.2)
[2016-12-16 04:37] LABS: APTT (PATIENT) 55.1 SEC (24.3-30.1)
[2016-12-16 04:54] LABS: BICARBONATE 28.7 MEQ/L (21.0-32.0); POTASSIUM 3.6 MEQ/L (3.5-5.1)
[2016-12-16] MEDS: INSULIN NovoLIN REGULAR SUPPLEMENTAL SCALE SQ SCH ×4 (05:00→23:00)
[2016-12-16] MEDS: PIPERACIL-TAZO 4.5 GM PREMIX 100 ML IV SCH ×4 (05:05→21:43)
[2016-12-16] MEDS: HEPARIN 25,000 UNITS-D5W 250 ML - PREMIX IV SCH ×2 (05:08→21:41)
--- NOTE | 2016-12-16 08:55 | HHI.CCPN ---
Subjective Remarks/Hospital Course The patient is a 66-year-old male with a past medical history of gastroesophageal reflux disease, Rasmussen's esophagus, hypertension, hyperlipidemia, iron-deficiency anemia, coronary artery disease, PE and DVT year ago. He had a tumor removed from the right side of his neck at [facility] in October with pathology showing a glomus paraganglioma. 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 He had Dobbhoff placed for approximately one month and went to outpatient surgical center today to have a peg tube placed. However during procedure the patient had some hemoptysis. The patient was scoped by Dr. Peña who did not think esophagus was\ the source of bleeding. The patient also noted to have hiatal hernia and a G tube could not be placed. The patient was intubated at the surgical center with Versed and transferred to the ER. When seen the patient is intubated and on full mechanical ventilation. His initial blood pressure on arrival 135/84 with a pulse of 84. Chest x-ray showed subsegmental\ atelectasis at the left base. His laboratory data showed normal CBC and mild hyponatremia with sodium level of 134. According to the patient's and daughter, he was on anticoagulation with Coumadin for his PE and DVT and was taken off of it in October and placed on Plavix instead. There is no history of any chest pain, shortness of breath or hemoptysis prior to arrival at the surgical center. In addition, no history of nausea, vomiting or abdominal pain. 12/06 Patient remains intubated and sedated. CTA chest last night showed extensive b/l PE, Doppler US LE b/l DVT he was started on Heparin drip. In addition patient underwent bronch and ETT exchanged to 8.0 size last night. There was oozing from right pharynx/Right pharyngeal epiglottic fold that appeared to be source of bleeding. There was some blood in right mainstem that was suctioned out. There were some bloody clots in right lower lobe sub segments which were removed . No active bleeding in the lower airways. No endobronchial lesions. Small amount of blood in left lower lobe subsegment. 12/07: Tmax 101.7. Currently 99 1. Currently down for IVC filter placement and G-tube placement. Was awake and following commands prior to procedure 12/08: Profoundly hypoxemic, FiO2 100%. Acute fever up to 102. Sosa culture repeat chest x-ray requested. Started on Zosyn and one dose of vancomycin. On sedation lightening, follows commands weakly. Remains on IV heparin 12/09 Patient is sedated with Versed , Fentanyl and intubated. T;100.7 last night.On Heparin drip. 12/10 Patient remains intubated and sedated with Fentanyl and Versed. On PRVC with PEEP:10, FIO2 70%. Afebrile. 12/11 Patient is sedated with Versed, Fentanyl and intubated. Dropped his sats overnight On PRVC with PEEP: 10, FIO2 80% . Afebrile. 12/12 Remains intubated and sedated with Versed and Fentanyl drip, T: 99.8 last night. On Heparin drip. OGT inserted overnight and Patient had approx 1L gastric drainage( bile like). 12/13 Patient remains intubated. Off sedation, awake and alert this morning. T: 100.8. On Heparin drip. 12/14 Patient s/p extubation yesterday on partial rebreather. Patient was on BIPAP now off . Afebrile. On Heparin drip. 12/15 Patient is on non breather , afebrile. TF held overnight for emesis. Remains on Heparin drip. Subjective 12/16: Currently on nasal cannula saturations 92%. Tube feeds again held overnight secondary to emesis. We'll start on D5 normosol today. One bowel movement. Objective Vital Signs Date Time Temp Pulse Resp B/P (MAP) Pulse Ox O2 Delivery O2 Flow Rate FiO2 12/16/16 07:26 94 Partial Rebreather 12/16/16 06:00 82 12/16/16 04:00 100.0 24 126/75 (92) 12/15/16 19:52 15.00 12/14/16 04:35 80 Intake and Output 12/16/16 12/16/16 12/17/16 08:00 16:00 00:00 Intake Total 1190 ml Output Total 600 ml Balance 590 ml Result Diagram: 12/16/16 0343 12/16/16 0343 Other Results Microbiology Date/Time Source Procedure Growth Status 12/13/16 12:10 Blood Peripheral Aerobic Blood Culture - Preliminary NO GROWTH IN 2 DAYS Resulted 12/13/16 12:10 Blood Peripheral Anaerobic Blood Culture - Preliminary NO GROWTH IN 2 DAYS Resulted 12/13/16 09:00 Sputum Endotracheal Gram Stain - Final Complete 12/13/16 09:00 Sputum Endotracheal Sputum Culture - Final HEAVY GROWTH NORMAL RESPIRATORY KENNY Complete 12/13/16 09:00 Urine Catheterized Urine Urine Culture - Final NO GROWTH IN 48 HOURS. Complete Imaging Last Impressions Chest X-Ray 12/15/16 0000 Signed Impressions: Service Date/Time: December 08:26 - CONCLUSION: 1. Interval extubation. 2. Midinspiratory exam with abnormal opacity at both lung bases right greater than left. There is apparent right effusion as well. Italo Nelson MD Abdomen X-Ray 12/15/16 0000 Signed Impressions: Service Date/Time: December 08:15 - CONCLUSION: 1. Jejunal feeding tube remains in place with paucity of bowel gas. 2. Abnormal opacity at the lung bases with apparent bilateral effusions. Italo Nelson MD Abdomen/Pelvis CT 12/12/16 0000 Signed Impressions: Service Date/Time: Monday, December 12, 2016 13:31 - CONCLUSION: Prominent consolidative changes in the posterior lung bases and small effusions. Very large hiatal hernia. Hepatic and renal cysts. Luan Nunez MD Head CT 12/08/16 0600 Signed Impressions: Service Date/Time: November 11:16 - CONCLUSION: 1. Increased paranasal sinus opacification. 2. No other significant interval change. Subacute to chronic ischemic findings of the right basal ganglia. Titi Najera MD IVC Filter Placement X-Ray 12/07/16 0000 Signed Impressions: Service Date/Time: Wednesday, December 07, 2016 11:49 - CONCLUSION: Uncomplicated inferior vena cava filter placement as above. Patric Stover MD Lower Extremity Ultrasound 12/05/16 0000 Signed Impressions: Service Date/Time: Monday, December 05, 2016 23:02 - CONCLUSION: 1. Positive for deep venous thrombosis as above. Sidney Pérez MD CT Angiography 12/05/16 0000 Signed Impressions: Service Date/Time: Monday, December 05, 2016 18:13 - CONCLUSION: 1. Extensive bilateral pulmonary arterial thrombi emboli bilaterally within the segmental and lobar vessels. There are no imaging findings to indicate right heart strain. 2. Stable 3.7 cm hypodense lesion with calcification either in the posterior mediastinum abutting the descending thoracic aorta or in the posterior left pleural space. Stranding of uncertain etiology but has not changed in approximately 13 months. 3. Stable large hiatal hernia. There is atelectasis/volume loss in both lower lobes. Luan Bermudez MD Objective Remarks GENERAL: 66 -year-old male, resting in bed on nasal cannula distress SKIN: Warm and dry. No rash HEAD: Normocephalic. EYES: No scleral icterus. No injection or drainage. NECK: Supple, trachea midline. No JVD or lymphadenopathy. CARDIOVASCULAR: RRR. S1, S2 without murmur RESPIRATORY: Breath sounds equal bilaterally. No accessory muscle use. Few coarse BS GASTROINTESTINAL: Abdomen soft, non-tender, nondistended. +BS, +J-tube in place without erythema MUSCULOSKELETAL: Trace bilateral lower extremity nonpitting edema Neuro: Awake, alert. Following commands. Cranial nerves II through XII grossly intact. Strength is equal symmetric. Normal sensation. A/P Assessment and Plan Neuro/Psych: Right basal ganglia/temporal occipital lobe CVA 10/27 Hemorrhagic conversion right caudate/putamen 11/06/16 Tumor removal from the neck, pathology -glomus paraganglioma Awake and alert. CT brain 12/05: No acute intracranial findings identified. Repeat CT head 12/08 no intracranial hemorrhage Acetaminophen for fever Pulm: Acute respiratory failure - resolving Bilateral pulmonary embolism R tVF paralysis History of PE and DVT Wean down oxygen as pk maintain sats> 92%. Currently on nasal cannula 6 L Currently on albuterol/ipratropium aerosols every 4 hours with albuterol every 2 hours. Dyspnea IS while awake NIPPV PRN for resp distress Check CXR CT chest: Extensive b/l PE- On Heparin drip ( Patient was not a candidate for TPA as there is no hemodynamic instability, recent surgery and stroke in October) S/p IVC filter placement 12/07 Per bronchoscopy note source of bleeding appeared to be right pharyngeal epiglottic fold -? specific medial or lateral glossoepiglottic, aryepiglottic or ventricle fold though bleeding seems to have ceased CV: Coronary artery disease Hypertension Dyslipidemia Monitor HR and BP and maintain MAP> 65mmHg. 2-D echo revealed EF 60-65%. Bilateral atrial enlargement. Moderate pulmonary hypertension PAP 50-60 mmHg Lovastatin 20 by mouth currently on pravastatin 20 mill grams daily On diltiazem 240 mg daily at home. This is currently on hold On Aspirin 81 mg daily Noted abnormality calcification the posterior pleural versus mediastinal space. Stable since last year. RENAL/FEN/: Right renal cyst Monitor renal function, Is and Os ,electrolyte replacement per protocol. Continue calcium carbonate 1250 mg by tube daily and cholecalciferol 2000 units by tube daily GI: Hiatal hernia Rasmussen's esophagitis GasteoEsophageal reflux disease Multiple liver cysts Gastric/duodenal polyps Tube feeds held for emesis.- Glucerna 1.5 with goal rate 45ml/hr via J-tube Check small bowel series CT abdomen/pelvis: consolidative changes in the posterior lung bases and small effusions. Very large hiatal hernia. Hepatic and renal cysts. KUB abdomen: Overall paucity of bowel gas, without evidence of obstruction. There is suggestion of wall thickening identified in the colon Pantoprazole 40 mg IV daily for GI prophylaxis. Started metoclopramide 5 mg 3 times a day for prokinetic activity s/p open J-tube placement on 12/07 On docusate sodium 100 mg 3 times a day for bowel regimen along with polyethylene glycol 17 g daily ID: Continue abx(piperacillin/tazobactam- pancultured 12/08- NGTD Monitor for signs of infections( fever and WBC). 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 Adalid Yuen Iron-deficiency anemia. Bilateral lower extremity DVT Monitor CBC, Coags. Heme is following Dr. Flynn s/p IVC filter placement 12/07 Continue home medication iron sulfate 325 mg by mouth daily if able Ultrasound revealed right nonocclusive thrombus in greater saphenous vein to the PT/V. Femoral vein patent. Left with nonocclusive thrombus from the SFV to PT with collaterals 15 iron sulfate 300 mg daily Endo: SSI with Accu-Cheks for glycemic control. GI prophylaxis with pantoprazole 40 mg daily and DVT prophylaxis with SCDs/ heparin drip Continue with PT Level II follow-up Alejandro Mcbride MD Dec 16, 2016 08:55
[2016-12-16] MEDS: CHOLECALCIFEROL (VIT D3) LIQ 400 UNITS/ML 50 ML BOTTLE J-TUBE SCH ×2 (09:00→21:42)
[2016-12-16] MEDS: SENNOSIDES SYRUP 8.8 MG/5 ML CUP PO SCH ×2 (09:00→09:01)
[2016-12-16] MEDS: ONDANSETRON HCL 4 MG/2 ML VIAL IV PUSH PRN ×2 (09:00→16:15)
[2016-12-16] MEDS: POLYETHYLENE GLYCOL 17 GM PKG PO SCH (09:00)
[2016-12-16] MEDS: DOCUSATE SODIUM 100 MG/10 ML UDC J-TUBE SCH ×3 (09:00→21:00)
[2016-12-16] MEDS: FERROUS SULFATE 325 MG (65 MG ELEMENTAL IRON) TAB PO SCH (09:01)
[2016-12-16] MEDS: PANTOPRAZOLE SODIUM 40 MG VIAL IV PUSH SCH (09:02)
[2016-12-16] MEDS: SODIUM CHLORIDE 0.9% FLUSH 10 ML FLUSH IV FLUSH SCH ×2 (09:02→21:41)
[2016-12-16] MEDS: ASPIRIN 81 MG CHEW TAB CHEW SCH (09:03)
[2016-12-16] MEDS ORDERED: DEXTROSE 5%-ELECTROLYTES R INJ 1,000 ML IV SCH (10:00)
[2016-12-16] MEDS: DEXT 5%-NACL 0.9% 1000 ML INJ 1,000 ML IV SCH (10:20)
[2016-12-16] MEDS: RESP: SODIUM CHLORIDE 3% 4 ML NEB NEB SCH ×3 (10:36→19:14)
--- NOTE | 2016-12-16 10:59 | PD.ONC.PN ---
Subjective Subjective Remarks Tmax 100F. Tube feeds on hold. Patient stating he's very hungry. No bleeding. Objective Data Date Time Temp Pulse Resp B/P (MAP) Pulse Ox O2 Delivery O2 Flow Rate FiO2 12/16/16 07:26 94 Partial Rebreather 12/16/16 06:00 82 12/16/16 04:00 82 12/16/16 04:00 100.0 82 24 126/75 (92) 94 12/16/16 02:00 87 12/16/16 00:00 98.8 89 26 141/71 (94) 87 12/16/16 00:00 81 12/15/16 22:00 86 12/15/16 20:00 97 12/15/16 20:00 97.8 97 24 138/81 (100) 93 12/15/16 19:52 96 Partial Rebreather 15.00 12/15/16 18:00 99 12/15/16 16:00 108 12/15/16 16:00 99.2 108 29 136/70 (92) 86 12/15/16 14:00 90 12/15/16 12:00 86 12/15/16 12:00 99.2 86 23 137/84 (101) 96 12/16/16 12/16/16 12/16/16 07:00 15:00 23:00 Intake Total 1190 ml Output Total 600 ml Balance 590 ml Result Diagram: 12/16/16 0343 12/16/16 0343 Laboratory Results Laboratory Tests Test 12/15/16 22:36 12/16/16 03:43 Potassium Level 3.6 MEQ/L 3.6 MEQ/L White Blood Count 7.0 TH/MM3 Red Blood Count 3.83 MIL/MM3 Hemoglobin 10.8 GM/DL Hematocrit 33.4 % Mean Corpuscular Volume 87.3 FL Mean Corpuscular Hemoglobin 28.3 PG Mean Corpuscular Hemoglobin Concent 32.5 % Red Cell Distribution Width 15.1 % Platelet Count 272 TH/MM3 Mean Platelet Volume 8.6 FL Neutrophils (%) (Auto) 68.6 % Lymphocytes (%) (Auto) 16.8 % Monocytes (%) (Auto) 11.9 % Eosinophils (%) (Auto) 1.6 % Basophils (%) (Auto) 1.1 % Neutrophils # (Auto) 4.8 TH/MM3 Lymphocytes # (Auto) 1.2 TH/MM3 Monocytes # (Auto) 0.8 TH/MM3 Eosinophils # (Auto) 0.1 TH/MM3 Basophils # (Auto) 0.1 TH/MM3 CBC Comment DIFF FINAL Differential Comment Activated Partial Thromboplast Time 55.1 SEC Blood Urea Nitrogen 16 MG/DL Creatinine 0.57 MG/DL Random Glucose 97 MG/DL Calcium Level 8.6 MG/DL Phosphorus Level 2.8 MG/DL Magnesium Level 2.0 MG/DL Sodium Level 138 MEQ/L Chloride Level 103 MEQ/L Carbon Dioxide Level 28.7 MEQ/L Anion Gap 6 MEQ/L Estimat Glomerular Filtration Rate 142 ML/MIN Culture Results Microbiology Date/Time Source Procedure Growth Status 12/13/16 12:10 Blood Peripheral Aerobic Blood Culture - Preliminary NO GROWTH IN 2 DAYS Resulted 12/13/16 12:10 Blood Peripheral Anaerobic Blood Culture - Preliminary NO GROWTH IN 2 DAYS Resulted 12/13/16 12:05 Blood Peripheral Aerobic Blood Culture - Preliminary NO GROWTH IN 2 DAYS Resulted 12/13/16 12:05 Blood Peripheral Anaerobic Blood Culture - Preliminary NO GROWTH IN 2 DAYS Resulted Administered Medications Medications (Trade) Dose Ordered Sig/Trang Route PRN Reason Start Time Stop Time Status Last Admin Dose Admin Pantoprazole Sodium (Protonix Inj) 40 mg DAILY IV PUSH 12/05/16 16:30 12/16/16 09:02 Sodium Chloride (NS Flush) 2 ml BID IV FLUSH 12/07/16 21:00 12/16/16 09:02 Miscellaneous Information 1 [id number] XX 12/07/16 14:00 12/07/16 14:00 Chlorhexidine Gluconate (Chlorhexidine 2% Cloth) Taper DAILY@04 TOP 12/08/16 04:00 12/04/17 03:59 12/16/16 04:00 Ferrous Sulfate (Ferrous Sulfate) 325 mg DAILY PO 12/08/16 09:00 12/16/16 09:01 Pravastatin Sodium (Pravachol) 20 mg HS PO 12/07/16 21:00 12/15/16 20:26 Heparin Sodium/ Dextrose 250 ml @ 18 mls/hr TITRATE IV 12/07/16 19:00 12/16/16 05:08 Piperacillin Sod/ Tazobactam Sod 100 ml @ 200 mls/hr Q6H IV 12/08/16 16:00 12/16/16 09:01 Aspirin (Aspirin Chew) 81 mg DAILY CHEW 12/09/16 09:00 12/16/16 09:03 Docusate Sodium (Colace Liq) 50 mg BID J-TUBE 12/09/16 21:00 12/15/16 20:26 Cholecalciferol (Vitamin D Liq) 2,000 units BID J-TUBE 12/09/16 21:00 12/16/16 09:00 Non-Formulary Medication 5 ML J-TUBE HS HS J-TUBE 12/09/16 21:00 12/12/16 21:31 Ondansetron HCl (Zofran Inj) 4 mg Q8HR PRN IV PUSH N/V 12/09/16 17:00 12/16/16 09:00 Potassium Chloride 100 ml @ 50 mls/hr Q2H PRN IV For Potassium 2.8 - 3.2 mEq/L 12/10/16 07:30 12/15/16 17:00 Potassium Chloride 100 ml @ 50 mls/hr Q2H PRN IV For Potassium 3.3 - 3.5 mEq/L 12/10/16 07:30 12/13/16 07:13 Sennosides (Senna Liq) 8.8 mg DAILY PO 12/11/16 09:00 12/15/16 08:31 Polyethylene Glycol (Miralax) 17 gm DAILY PO 12/11/16 09:00 12/15/16 08:31 Albuterol/ Ipratropium (Duoneb Neb) 1 ampule Q4HR NEB NEB 12/16/16 12:00 12/16/16 10:36 Sodium Chloride (Sodium Chloride 3% Neb) 2 ml Q4HR NEB NEB 12/16/16 12:00 12/20/16 11:59 12/16/16 10:36 Dextrose/Sodium Chloride 1,000 ml @ 50 mls/hr Q20H IV 12/16/16 10:00 12/16/16 10:20 Objective Remarks GENERAL: Middle aged male upright in chair next to bed in nad. On4L O2 via NC SKIN: Warm and dry. HEAD: Normocephalic. EYES: No injection or drainage. NECK: Supple, trachea midline. CARDIOVASCULAR: Regular rate and rhythm RESPIRATORY: diminished at bases. anterior joseph with occasional rhonchi. GASTROINTESTINAL: Abdomen soft, non-tender, nondistended. EXTREMITIES: No cyanosis NEUROLOGICAL: awake and alert, normal speech. Assessment/Plan Problem List: (1) Pulmonary embolism ICD Codes: I26.99 - Other pulmonary embolism without acute cor pulmonale Status: Acute Plan: --CT angiography shows extensive bilateral pulmonary embolism -- Ultrasound of bilateral lower extremity shows a chronic DVT on the left and a nonocclusive thrombus in the right -- The patient has a family history of blood clots -- IVC filter placed on 12/07. -- Currently on heparin drip Hx/Workup: The patient presented with bleeding in his pharynx after an attempt of tube feed placement. He was recently seen at [facility] where he was diagnosed with a paraganglioma. He was also apparently diagnosed with a DVT and pulmonary embolism while at [facility]. (2) History of CVA (cerebrovascular accident) ICD Codes: Z86.73 - Personal history of transient ischemic attack (TIA), and cerebral infarction without residual deficits Plan: --had a stroke after the neck surgery with hemorrhagic transformation in caudate lobe noted MRA 10/27. --was later started on Plavix. No US or CTA found in the records and no mention of DVT/PE during his stay at [facility]. Assessment 66-year-old male admitted with hemoptysis; hematology consulted for history of recent pulmonary embolism Plan 1. monitor CBC, PTT 2. continue heparin. Attending Statement The exam, history, and the medical decision-making described in the above note were completed with the assistance of the mid-level provider. I reviewed and agree with the findings presented. I attest that I had a [id number] encounter with the patient on the same day, and personally performed and documented my assessment and findings in the medical record. No bleeding noted. Not able to po yet. No evidence of recurrent clots. Continue heparin. Gogo Armenta Dec 16, 2016 10:59 Paulo Flynn MD Dec 16, 2016 15:24
[2016-12-16] MEDS: METOCLOPRAMIDE HCL 10 MG/2 ML VIAL IV PUSH SCH ×2 (14:00→21:44)
[2016-12-16] MEDS ORDERED: DIATRIZOATE MEGLUM/DIATRIZOATE SOD 120 ML BTL (for RAD DIAG) J-TUBE ONE (14:25)
--- NOTE | 2016-12-16 16:48 | RADRPT ---
EXAM DATE/TIME: 12/16/2016 14:10 [facility] COMPARISON: No previous studies available for comparison. INDICATIONS : Lack of bowel movement for one week, concern for ileus. FLUORO TIME: 1.2 minutes IMAGE COUNT: 14 CONTRAST: [facility] IMAGING TIME(S): 15 min, 30 min, 45 min MEDICAL HISTORY : Gastroesophageal reflux disease. Rasmussen's esophagus. SURGICAL HISTORY : J-tube. ENCOUNTER: Initial ACUITY: 1 week PAIN SCORE: 0/10 LOCATION: Abdomen. FINDINGS: Preliminary film is unremarkable. The stomach is grossly unremarkable. There is a gastrostomy catheter in place. Examination of the small bowel demonstrates normal mucosal pattern involving the jejunum and ileum. There is no evidence of mass or obstruction. No intraluminal filling defects are identified. Small bowel transit time is normal at 45 minutes. Fluoroscopy of the abdomen and terminal ileum demonstrat es no abnormality. CONCLUSION: Unremarkable small bowel examination. Armand Valencia MD on December 16, 2016 at 16:46 Board Certified Radiologist. This report was verified electronically.
[2016-12-16] MEDS: [UNRECOGNIZED DRUG - REMARK] J-TUBE SCH (21:00)
[2016-12-16] MEDS: PRAVASTATIN SOD 20 MG TAB PO SCH (21:42)
[2016-12-17] VITALS (14 sets, daily range): BP systolic 122–138; BP diastolic 68–84; PULSE 70–83; RESP 20–24; TEMP 98.7–101.2; O2SAT 93–98
[2016-12-17] MEDS: RESP: SODIUM CHLORIDE 3% 4 ML NEB NEB SCH ×7 (00:04→23:10)
[2016-12-17] MEDS: RESP: ALBUTEROL 2.5 MG/IPRATROPIUM 0.5 MG NEB (SCH) NEB ×7 (00:04→23:10)
[2016-12-17] MEDS: ACETAMINOPHEN 650 MG/20.3 ML UDC PO PRN ×3 (00:09→16:10)
[2016-12-17] MEDS: INSULIN NovoLIN REGULAR SUPPLEMENTAL SCALE SQ SCH ×4 (04:00→23:00)
[2016-12-17] MEDS: PIPERACIL-TAZO 4.5 GM PREMIX 100 ML IV SCH ×4 (04:00→21:07)
[2016-12-17] MEDS: CHLORHEXIDINE GLUCONATE 2 % 1 PACK (2 CLOTHS) TOP SCH (04:00)
[2016-12-17 04:48] LABS: HEMATOCRIT 35.3 % (39.0-51.0); MEAN CELL VOLUME 88.8 FL (80.0-100.0); MEAN CORPUSCULAR HEMOGLOBIN 28.2 PG (27.0-34.0); MEAN CORPUSCULAR HGB CONC 31.7 % (32.0-36.0); PLATELET COUNT 272 TH/MM3 (150-450); RED BLOOD COUNT 3.97 MIL/MM3 (4.50-5.90); RED CELL DISTRIBUTION WIDTH 15.2 % (11.6-17.2); REVIEW FLAG FINAL; WHITE BLOOD COUNT 8.5 TH/MM3 (4.0-11.0)
[2016-12-17 04:57] LABS: MAGNESIUM 2.2 MG/DL (1.5-2.5); POTASSIUM 3.1 MEQ/L (3.5-5.1)
[2016-12-17 05:28] LABS: C. DIFF EPI 027 PRESUMPTIVE NEGATIVE (NEGATIVE)
[2016-12-17] MEDS: POTASSIUM CHLOR 20 MEQ PREMIX 100 ML IV PRN ×3 (06:19→23:31)
[2016-12-17] MEDS: POLYETHYLENE GLYCOL 17 GM PKG PO SCH (08:42)
[2016-12-17] MEDS: SENNOSIDES SYRUP 8.8 MG/5 ML CUP PO SCH (08:42)
[2016-12-17] MEDS: FERROUS SULFATE 325 MG (65 MG ELEMENTAL IRON) TAB PO SCH (08:43)
[2016-12-17] MEDS: ASPIRIN 81 MG CHEW TAB CHEW SCH (08:43)
[2016-12-17] MEDS: PANTOPRAZOLE SODIUM 40 MG VIAL IV PUSH SCH (08:43)
[2016-12-17] MEDS: CHOLECALCIFEROL (VIT D3) LIQ 400 UNITS/ML 50 ML BOTTLE J-TUBE SCH ×2 (08:44→21:06)
[2016-12-17] MEDS: SODIUM CHLORIDE 0.9% FLUSH 10 ML FLUSH IV FLUSH SCH ×2 (08:44→21:06)
--- NOTE | 2016-12-17 11:33 | PD.ONC.PN ---
Subjective Subjective Remarks Tmax 101.2 overnight Pt resting in bed with partial non-rebreather Per RN he is not tolerating TF. Objective Data Date Time Temp Pulse Resp B/P (MAP) Pulse Ox O2 Delivery O2 Flow Rate FiO2 12/17/16 10:00 74 12/17/16 08:00 79 12/17/16 08:00 98.7 79 23 133/70 (91) 96 12/17/16 07:25 95 Partial Rebreather 15.00 12/17/16 06:00 73 12/17/16 04:00 98.9 70 20 130/79 (96) 98 12/17/16 04:00 70 12/17/16 02:00 74 12/17/16 00:00 79 12/17/16 00:00 101.2 79 23 122/68 (86) 95 12/16/16 22:00 97 12/16/16 20:00 96 12/16/16 20:00 100.1 96 26 126/68 (87) 91 12/16/16 19:16 95 Partial Rebreather 10.00 12/16/16 19:00 87 12/16/16 19:00 87 26 126/79 (95) 97 12/16/16 18:00 101 25 134/69 (90) 96 12/16/16 18:00 101 12/16/16 17:00 93 28 138/82 (100) 95 12/16/16 16:21 98.1 155/82 (106) 12/16/16 16:00 93 12/16/16 13:00 79 24 122/73 (89) 96 12/16/16 12:00 80 12/16/16 12:00 98.0 81 25 118/77 (91) 96 12/17/16 12/17/16 12/17/16 06:59 14:59 22:59 Intake Total 100 ml Output Total 600 ml Balance -500 ml Result Diagram: 12/17/1641612/17/16416 Laboratory Results Laboratory Tests Test 12/16/16 23:50 12/17/16 04:17 Stool C. difficile Toxin (PCR) NEGATIVE Stl C. difficile Toxin Epiderm 027 PRESUMPTIVE NEGATIVE White Blood Count 8.5 TH/MM3 Red Blood Count 3.97 MIL/MM3 Hemoglobin 11.2 GM/DL Hematocrit 35.3 % Mean Corpuscular Volume 88.8 FL Mean Corpuscular Hemoglobin 28.2 PG Mean Corpuscular Hemoglobin Concent 31.7 % Red Cell Distribution Width 15.2 % Platelet Count 272 TH/MM3 Mean Platelet Volume 8.5 FL Activated Partial Thromboplast Time 56.0 SEC Blood Urea Nitrogen 18 MG/DL Creatinine 0.74 MG/DL Random Glucose 104 MG/DL Calcium Level 8.8 MG/DL Phosphorus Level 3.9 MG/DL Magnesium Level 2.2 MG/DL Sodium Level 143 MEQ/L Potassium Level 3.1 MEQ/L Chloride Level 106 MEQ/L Carbon Dioxide Level 31.0 MEQ/L Anion Gap 6 MEQ/L Estimat Glomerular Filtration Rate 105 ML/MIN Administered Medications Medications (Trade) Dose Ordered Sig/Trang Route PRN Reason Start Time Stop Time Status Last Admin Dose Admin Pantoprazole Sodium (Protonix Inj) 40 mg DAILY IV PUSH 12/05/16 16:30 12/17/16 08:43 Sodium Chloride (NS Flush) 2 ml BID IV FLUSH 12/07/16 21:00 12/16/16 21:41 Miscellaneous Information 1 [id number] XX 12/07/16 14:00 12/07/16 14:00 Chlorhexidine Gluconate (Chlorhexidine 2% Cloth) Taper DAILY@04 TOP 12/08/16 04:00 12/04/17 03:59 12/17/16 04:00 Ferrous Sulfate (Ferrous Sulfate) 325 mg DAILY PO 12/08/16 09:00 12/17/16 08:43 Pravastatin Sodium (Pravachol) 20 mg HS PO 12/07/16 21:00 12/16/16 21:42 Heparin Sodium/ Dextrose 250 ml @ 18 mls/hr TITRATE IV 12/07/16 19:00 12/16/16 21:41 Piperacillin Sod/ Tazobactam Sod 100 ml @ 200 mls/hr Q6H IV 12/08/16 16:00 12/17/16 08:41 Acetaminophen (Tylenol 650 Mg/ 20 ml Liq) 650 mg Q6H PRN PO fever >101 12/08/16 16:15 12/17/16 08:55 Aspirin (Aspirin Chew) 81 mg DAILY CHEW 12/09/16 09:00 12/17/16 08:43 Docusate Sodium (Colace Liq) 50 mg BID J-TUBE 12/09/16 21:00 Future Hold 12/15/16 20:26 Cholecalciferol (Vitamin D Liq) 2,000 units BID J-TUBE 12/09/16 21:00 12/17/16 08:44 Non-Formulary Medication 5 ML J-TUBE HS HS J-TUBE 12/09/16 21:00 12/12/16 21:31 Ondansetron HCl (Zofran Inj) 4 mg Q8HR PRN IV PUSH N/V 12/09/16 17:00 12/16/16 16:15 Potassium Chloride 100 ml @ 50 mls/hr Q2H PRN IV For Potassium 2.8 - 3.2 mEq/L 12/10/16 07:30 12/17/16 10:49 Potassium Chloride 100 ml @ 50 mls/hr Q2H PRN IV For Potassium 3.3 - 3.5 mEq/L 12/10/16 07:30 12/13/16 07:13 Sennosides (Senna Liq) 8.8 mg DAILY PO 12/11/16 09:00 12/15/16 08:31 Polyethylene Glycol (Miralax) 17 gm DAILY PO 12/11/16 09:00 12/15/16 08:31 Albuterol/ Ipratropium (Duoneb Neb) 1 ampule Q4HR NEB NEB 12/16/16 12:00 12/17/16 07:24 Sodium Chloride (Sodium Chloride 3% Neb) 2 ml Q4HR NEB NEB 12/16/16 12:00 12/20/16 11:59 12/17/16 07:25 Metoclopramide HCl (Reglan Inj) 5 mg Q8HR IV PUSH 12/16/16 14:00 Future Hold 12/16/16 21:44 Dextrose/Sodium Chloride 1,000 ml @ 50 mls/hr Q20H IV 12/16/16 10:00 12/16/16 10:20 Objective Remarks GENERAL: Middle aged male resting in bed on partial nonrebreather in no acute distress SKIN: Warm and dry. HEAD: Normocephalic. EYES: No injection or drainage. NECK: Supple, trachea midline. CARDIOVASCULAR: Regular rate and rhythm RESPIRATORY: diminished at bases. anterior joseph with occasional rhonchi. GASTROINTESTINAL: Abdomen soft, non-tender, nondistended. PEG tube in left abdomen EXTREMITIES: No cyanosis NEUROLOGICAL: Awake and alert, normal speech. Assessment/Plan Problem List: (1) Pulmonary embolism ICD Codes: I26.99 - Other pulmonary embolism without acute cor pulmonale Status: Acute Plan: --CT angiography shows extensive bilateral pulmonary embolism -- Ultrasound of bilateral lower extremity shows a chronic DVT on the left and a nonocclusive thrombus in the right -- The patient has a family history of blood clots -- IVC filter placed on 12/07. -- Currently on heparin drip Hx/Workup: The patient presented with bleeding in his pharynx after an attempt of tube feed placement. He was recently seen at [facility] where he was diagnosed with a paraganglioma. He was also apparently diagnosed with a DVT and pulmonary embolism while at [facility]. (2) History of CVA (cerebrovascular accident) ICD Codes: Z86.73 - Personal history of transient ischemic attack (TIA), and cerebral infarction without residual deficits Plan: --had a stroke after the neck surgery with hemorrhagic transformation in caudate lobe noted MRA 10/27. --was later started on Plavix. No US or CTA found in the records and no mention of DVT/PE during his stay at [facility]. Assessment 66-year-old male admitted with hemoptysis; hematology consulted for history of recent pulmonary embolism Plan 1. APTT 56 today. Continue heparin drip for extensive pulmonary embolism. 2. Monitor CBC 3. Monitor for bleeding Attending Statement The exam, history, and the medical decision-making described in the above note were completed with the assistance of the mid-level provider. I reviewed and agree with the findings presented. I attest that I had a [id number] encounter with the patient on the same day, and personally performed and documented my assessment and findings in the medical record. Pt seen and examined, I spoke to the pt and his . His active issue is safe and optimal management of anticoagulation. He is therapeutically anticoagulated with heparin infusion at this time. There is no active bleeding clinically evident. His counts are stable as is his respiratory status. Continue ongoing care. Deanna Wesley Dec 17, 2016 11:33 Wesly Jorgensen MD Dec 17, 2016 19:49
[2016-12-17] MEDS ORDERED: POTASSIUM CHLORIDE 20 MEQ PWD PACKET J-TUBE ONE (12:15)
--- NOTE | 2016-12-17 12:40 | HHI.CCPN ---
Subjective Remarks/Hospital Course The patient is a 66-year-old male with a past medical history of gastroesophageal reflux disease, Rasmussen's esophagus, hypertension, hyperlipidemia, iron-deficiency anemia, coronary artery disease, PE and DVT year ago. He had a tumor removed from the right side of his neck at [facility] in October with pathology showing a glomus paraganglioma. 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 He had Dobbhoff placed for approximately one month and went to outpatient surgical center today to have a peg tube placed. However during procedure the patient had some hemoptysis. The patient was scoped by Dr. Peña who did not think esophagus was\ the source of bleeding. The patient also noted to have hiatal hernia and a G tube could not be placed. The patient was intubated at the surgical center with Versed and transferred to the ER. When seen the patient is intubated and on full mechanical ventilation. His initial blood pressure on arrival 135/84 with a pulse of 84. Chest x-ray showed subsegmental\ atelectasis at the left base. His laboratory data showed normal CBC and mild hyponatremia with sodium level of 134. According to the patient's and daughter, he was on anticoagulation with Coumadin for his PE and DVT and was taken off of it in October and placed on Plavix instead. There is no history of any chest pain, shortness of breath or hemoptysis prior to arrival at the surgical center. In addition, no history of nausea, vomiting or abdominal pain. 12/06 Patient remains intubated and sedated. CTA chest last night showed extensive b/l PE, Doppler US LE b/l DVT he was started on Heparin drip. In addition patient underwent bronch and ETT exchanged to 8.0 size last night. There was oozing from right pharynx/Right pharyngeal epiglottic fold that appeared to be source of bleeding. There was some blood in right mainstem that was suctioned out. There were some bloody clots in right lower lobe sub segments which were removed . No active bleeding in the lower airways. No endobronchial lesions. Small amount of blood in left lower lobe subsegment. 12/07: Tmax 101.7. Currently 99 1. Currently down for IVC filter placement and G-tube placement. Was awake and following commands prior to procedure 12/08: Profoundly hypoxemic, FiO2 100%. Acute fever up to 102. Sosa culture repeat chest x-ray requested. Started on Zosyn and one dose of vancomycin. On sedation lightening, follows commands weakly. Remains on IV heparin 12/09 Patient is sedated with Versed , Fentanyl and intubated. T;100.7 last night.On Heparin drip. 12/10 Patient remains intubated and sedated with Fentanyl and Versed. On PRVC with PEEP:10, FIO2 70%. Afebrile. 12/11 Patient is sedated with Versed, Fentanyl and intubated. Dropped his sats overnight On PRVC with PEEP: 10, FIO2 80% . Afebrile. 12/12 Remains intubated and sedated with Versed and Fentanyl drip, T: 99.8 last night. On Heparin drip. OGT inserted overnight and Patient had approx 1L gastric drainage( bile like). 12/13 Patient remains intubated. Off sedation, awake and alert this morning. T: 100.8. On Heparin drip. 12/14 Patient s/p extubation yesterday on partial rebreather. Patient was on BIPAP now off . Afebrile. On Heparin drip. 12/15 Patient is on non breather , afebrile. TF held overnight for emesis. Remains on Heparin drip. 12/16: Currently on nasal cannula saturations 92%. Tube feeds again held overnight secondary to emesis. We'll start on D5 normosol today. One bowel movement. Subjective 12/17: Back on partial nonrebreather saturations 95%. Denies dyspnea. Still not tolerating jejunal feedings however small bowel series yesterday normal transit time. Dietary consult for different protein-based feedings. Continue D5 normal saline for now 7 bowel movements Objective Vital Signs Date Time Temp Pulse Resp B/P (MAP) Pulse Ox O2 Delivery O2 Flow Rate FiO2 12/17/16 10:00 74 12/17/16 08:00 98.7 23 133/70 (91) 96 12/17/16 07:25 Partial Rebreather 15.00 12/14/16 04:35 80 Intake and Output 12/17/16 12/17/16 12/18/16 08:00 16:00 00:00 Intake Total 100 ml Output Total 600 ml Balance -500 ml Result Diagram: 12/17/16 0417 12/17/16 0417 Other Results Microbiology Date/Time Source Procedure Growth Status 12/13/16 12:10 Blood Peripheral Aerobic Blood Culture - Preliminary NO GROWTH IN 4 DAYS Resulted 12/13/16 12:10 Blood Peripheral Anaerobic Blood Culture - Preliminary NO GROWTH IN 4 DAYS Resulted 12/13/16 09:00 Sputum Endotracheal Gram Stain - Final Complete 12/13/16 09:00 Sputum Endotracheal Sputum Culture - Final HEAVY GROWTH NORMAL RESPIRATORY KENNY Complete 12/13/16 09:00 Urine Catheterized Urine Urine Culture - Final NO GROWTH IN 48 HOURS. Complete Imaging Last Impressions Small Bowel X-Ray 12/16/16 0000 Signed Impressions: Service Date/Time: Friday, December 16, 2016 14:10 - CONCLUSION: Unremarkable small bowel examination. Armand Valencia MD Chest X-Ray 12/15/16 0000 Signed Impressions: Service Date/Time: December 08:26 - CONCLUSION: 1. Interval extubation. 2. Midinspiratory exam with abnormal opacity at both lung bases right greater than left. There is apparent right effusion as well. Italo Nelson MD Abdomen X-Ray 12/15/16 0000 Signed Impressions: Service Date/Time: December 08:15 - CONCLUSION: 1. Jejunal feeding tube remains in place with paucity of bowel gas. 2. Abnormal opacity at the lung bases with apparent bilateral effusions. Italo Nelson MD Abdomen/Pelvis CT 12/12/16 0000 Signed Impressions: Service Date/Time: Monday, December 12, 2016 13:31 - CONCLUSION: Prominent consolidative changes in the posterior lung bases and small effusions. Very large hiatal hernia. Hepatic and renal cysts. Luan Nunez MD Head CT 12/08/16 0600 Signed Impressions: Service Date/Time: November 11:16 - CONCLUSION: 1. Increased paranasal sinus opacification. 2. No other significant interval change. Subacute to chronic ischemic findings of the right basal ganglia. Titi Najera MD IVC Filter Placement X-Ray 12/07/16 0000 Signed Impressions: Service Date/Time: Wednesday, December 07, 2016 11:49 - CONCLUSION: Uncomplicated inferior vena cava filter placement as above. Patric Stover MD Lower Extremity Ultrasound 12/05/16 0000 Signed Impressions: Service Date/Time: Monday, December 05, 2016 23:02 - CONCLUSION: 1. Positive for deep venous thrombosis as above. Sidney Pérez MD CT Angiography 12/05/16 0000 Signed Impressions: Service Date/Time: Monday, December 05, 2016 18:13 - CONCLUSION: 1. Extensive bilateral pulmonary arterial thrombi emboli bilaterally within the segmental and lobar vessels. There are no imaging findings to indicate right heart strain. 2. Stable 3.7 cm hypodense lesion with calcification either in the posterior mediastinum abutting the descending thoracic aorta or in the posterior left pleural space. Stranding of uncertain etiology but has not changed in approximately 13 months. 3. Stable large hiatal hernia. There is atelectasis/volume loss in both lower lobes. Luan Bermudez MD Objective Remarks GENERAL: 66 -year-old male, resting in bed on partial nonrebreather SKIN: Warm and dry. No rash HEAD: Normocephalic. EYES: No scleral icterus. No injection or drainage. NECK: Supple, trachea midline. No JVD or lymphadenopathy. CARDIOVASCULAR: RRR. S1, S2 without murmur RESPIRATORY: Breath sounds equal bilaterally. No accessory muscle use. Few coarse BS GASTROINTESTINAL: Abdomen soft, non-tender, nondistended. +BS, +J-tube in place without erythema MUSCULOSKELETAL: Trace bilateral lower extremity nonpitting edema Neuro: Awake, alert. Following commands. Cranial nerves II through XII grossly intact. Strength is equal symmetric. Normal sensation. A/P Assessment and Plan Neuro/Psych: Right basal ganglia/temporal occipital lobe CVA 10/27 Hemorrhagic conversion right caudate/putamen 11/06/16 Tumor removal from the neck, pathology -glomus paraganglioma ATKA Awake and alert. CT brain 12/05: No acute intracranial findings identified. Repeat CT head 12/08 no intracranial hemorrhage Acetaminophen for fever Pulm: Acute respiratory failure - resolving Bilateral pulmonary embolism R tVF paralysis History of PE and DVT Wean down oxygen as pk maintain sats> 92%. Currently on partial nonrebreather 15 L Currently on albuterol/ipratropium aerosols every 4 hours with albuterol every 2 hours. Dyspnea IS while awake along with a cappella every 4 hours NIPPV PRN for resp distress Check CXR today 12/17 CT chest: Extensive b/l PE- On Heparin drip ( Patient was not a candidate for TPA as there is no hemodynamic instability, recent surgery and stroke in October) S/p IVC filter placement 12/07 Per bronchoscopy note source of bleeding appeared to be right pharyngeal epiglottic fold -? specific medial or lateral glossoepiglottic, aryepiglottic or ventricle fold though bleeding seems to have ceased CV: Coronary artery disease Hypertension Dyslipidemia Monitor HR and BP and maintain MAP> 65mmHg. 2-D echo revealed EF 60-65%. Bilateral atrial enlargement. Moderate pulmonary hypertension PAP 50-60 mmHg Lovastatin 20 by mouth currently on pravastatin 20 mill grams daily On diltiazem 240 mg daily at home. This is currently on hold On Aspirin 81 mg daily Noted abnormality calcification the posterior pleural versus mediastinal space. Stable since last year. RENAL/FEN/: Right renal cyst Monitor renal function, Is and Os ,electrolyte replacement per protocol. Continue calcium carbonate 1250 mg by tube daily and cholecalciferol 2000 units by tube daily GI: Hiatal hernia Rasmussen's esophagitis GasteoEsophageal reflux disease Multiple liver cysts Gastric/duodenal polyps Tube feeds held for emesis.- Glucerna 1.5 with goal rate 45ml/hr via J-tube. Dietary consultation Check small bowel series with normal transit time 12/16 CT abdomen/pelvis: consolidative changes in the posterior lung bases and small effusions. Very large hiatal hernia. Hepatic and renal cysts. KUB abdomen: Overall paucity of bowel gas, without evidence of obstruction. There is suggestion of wall thickening identified in the colon Pantoprazole 40 mg IV daily for GI prophylaxis. Started metoclopramide 5 mg 3 times a day for prokinetic activity s/p open J-tube placement on 12/07 On docusate sodium 100 mg 3 times a day for bowel regimen along with polyethylene glycol 17 g daily ID: Continue abx(piperacillin/tazobactam through 12/21- pancultured 12/08- NGTD Monitor for signs of infections( fever and WBC). 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 Adalid Yuen Iron-deficiency anemia. Bilateral lower extremity DVT Monitor CBC, Coags. Heme is following Dr. Flynn s/p IVC filter placement 12/07 Continue home medication iron sulfate 325 mg by mouth daily if able Ultrasound revealed right nonocclusive thrombus in greater saphenous vein to the PT/V. Femoral vein patent. Left with nonocclusive thrombus from the SFV to PT with collaterals 15 iron sulfate 300 mg daily Endo: SSI with Accu-Cheks for glycemic control. GI prophylaxis with pantoprazole 40 mg daily and DVT prophylaxis with SCDs/ heparin drip Continue with PT Level II follow-up Alejandro Mcbride MD Dec 17, 2016 12:40
--- NOTE | 2016-12-17 13:44 | RADRPT ---
EXAM DATE/TIME: 12/17/2016 13:00 [facility] COMPARISON: SMALL BOWEL SERIES W/GASTROGRAFIN, December 16, 2016, 14:10. INDICATIONS : Shortness of breath. MEDICAL HISTORY : Gastroesophageal reflux disease. Rasmussen's esophagus. SURGICAL HISTORY : J-tube. ENCOUNTER: Initial ACUITY: 4 - 6 days PAIN SCORE: 0/10 LOCATION: Bilateral chest FINDINGS: The heart is enlarged. There are bilateral effusions. There consolidative changes in the lung bases. Exam would suggest congestive failure. The visualized osseous structures are grossly intact. CONCLUSION: 1. Probable congestive failure. Patric Stover MD on December 17, 2016 at 13:41 Board Certified Radiologist. This report was verified electronically.
[2016-12-17] MEDS: HEPARIN 25,000 UNITS-D5W 250 ML - PREMIX IV SCH (15:11)
[2016-12-17] MEDS: DEXT 5%-NACL 0.9% 1000 ML INJ 1,000 ML IV SCH (17:30)
[2016-12-17] MEDS: [UNRECOGNIZED DRUG - REMARK] J-TUBE SCH (21:00)
[2016-12-17] MEDS: PRAVASTATIN SOD 20 MG TAB PO SCH (21:07)
[2016-12-17 22:31] LABS: ALT (GPT) 42 U/L (12-78); AMYLASE 44 U/L (25-115); ANION GAP 5 MEQ/L (5-15); AST (GOT) 27 U/L (15-37); BICARBONATE 28.6 MEQ/L (21.0-32.0); BLOOD UREA NITROGEN 14 MG/DL (7-18); CHLORIDE 109 MEQ/L (98-107); GLOMERULAR FILTRATION RATE 137 ML/MIN (>89); MAGNESIUM 1.9 MG/DL (1.5-2.5); POTASSIUM 3.2 MEQ/L (3.5-5.1); SODIUM (NA) 143 MEQ/L (136-145)
[2016-12-17 22:43] LABS: ALKALINE PHOSPHATASE 86 U/L (45-117); TOTAL BILIRUBIN ADULT 0.6 MG/DL (0.2-1.0)
[2016-12-18] VITALS (14 sets, daily range): BP systolic 115–140; BP diastolic 67–86; PULSE 79–98; RESP 16–29; TEMP 97.7–99.7; O2SAT 93–98
[2016-12-18] MEDS: RESP: ALBUTEROL 2.5 MG/IPRATROPIUM 0.5 MG NEB (SCH) NEB ×6 (03:47→23:25)
[2016-12-18] MEDS: RESP: SODIUM CHLORIDE 3% 4 ML NEB NEB SCH ×8 (03:47→23:25)
[2016-12-18] MEDS: CHLORHEXIDINE GLUCONATE 2 % 1 PACK (2 CLOTHS) TOP SCH (04:00)
[2016-12-18] MEDS: PIPERACIL-TAZO 4.5 GM PREMIX 100 ML IV SCH ×4 (04:57→21:26)
[2016-12-18] MEDS: POTASSIUM CHLOR 20 MEQ PREMIX 100 ML IV PRN ×2 (04:58→07:23)
[2016-12-18] MEDS: INSULIN NovoLIN REGULAR SUPPLEMENTAL SCALE SQ SCH ×4 (05:00→21:28)
[2016-12-18] MEDS: SODIUM CHLORIDE 0.9% FLUSH 10 ML FLUSH IV FLUSH SCH ×2 (07:47→21:29)
[2016-12-18] MEDS: POLYETHYLENE GLYCOL 17 GM PKG PO SCH (07:47)
[2016-12-18] MEDS: SENNOSIDES SYRUP 8.8 MG/5 ML CUP PO SCH (07:48)
[2016-12-18] MEDS: FERROUS SULFATE 325 MG (65 MG ELEMENTAL IRON) TAB PO SCH (07:49)
[2016-12-18] MEDS: ASPIRIN 81 MG CHEW TAB CHEW SCH (07:49)
[2016-12-18] MEDS: PANTOPRAZOLE SODIUM 40 MG VIAL IV PUSH SCH (07:49)
[2016-12-18] MEDS: CHOLECALCIFEROL (VIT D3) LIQ 400 UNITS/ML 50 ML BOTTLE J-TUBE SCH ×2 (09:00→21:25)
[2016-12-18] MEDS: HEPARIN 25,000 UNITS-D5W 250 ML - PREMIX IV SCH (09:58)
[2016-12-18 12:48] LABS: AUTOMATED NEUTROPHIL # 5.3 TH/MM3 (1.8-7.7); BASOPHIL # 0.1 TH/MM3 (0-0.2); BASOPHIL % 0.9 % (0.0-2.0); EOSINOPHIL # 0.4 TH/MM3 (0-0.4); EOSINOPHIL % 5.2 % (0.0-4.0); HEMATOCRIT 35.8 % (39.0-51.0); HEMO FLAGS DIFF FINAL; LYMPH % 15.7 % (9.0-44.0); LYMPHOCYTE # 1.2 TH/MM3 (1.0-4.8); MEAN CELL VOLUME 87.6 FL (80.0-100.0); MEAN CORPUSCULAR HEMOGLOBIN 27.9 PG (27.0-34.0); MEAN CORPUSCULAR HGB CONC 31.8 % (32.0-36.0); MONO % 8.2 % (0.0-8.0); PLATELET COUNT 326 TH/MM3 (150-450); RED BLOOD COUNT 4.09 MIL/MM3 (4.50-5.90); RED CELL DISTRIBUTION WIDTH 15.2 % (11.6-17.2); WHITE BLOOD COUNT 7.5 TH/MM3 (4.0-11.0)
[2016-12-18 12:57] LABS: APTT (PATIENT) 57.2 SEC (24.3-30.1)
[2016-12-18 13:02] LABS: POTASSIUM 3.9 MEQ/L (3.5-5.1)
--- NOTE | 2016-12-18 13:15 | HHI.CCPN ---
Subjective Remarks/Hospital Course The patient is a 66-year-old male with a past medical history of gastroesophageal reflux disease, Rasmussen's esophagus, hypertension, hyperlipidemia, iron-deficiency anemia, coronary artery disease, PE and DVT year ago. He had a tumor removed from the right side of his neck at [facility] in October with pathology showing a glomus paraganglioma. 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 He had Dobbhoff placed for approximately one month and went to outpatient surgical center today to have a peg tube placed. However during procedure the patient had some hemoptysis. The patient was scoped by Dr. Peña who did not think esophagus was\ the source of bleeding. The patient also noted to have hiatal hernia and a G tube could not be placed. The patient was intubated at the surgical center with Versed and transferred to the ER. When seen the patient is intubated and on full mechanical ventilation. His initial blood pressure on arrival 135/84 with a pulse of 84. Chest x-ray showed subsegmental\ atelectasis at the left base. His laboratory data showed normal CBC and mild hyponatremia with sodium level of 134. According to the patient's and daughter, he was on anticoagulation with Coumadin for his PE and DVT and was taken off of it in October and placed on Plavix instead. There is no history of any chest pain, shortness of breath or hemoptysis prior to arrival at the surgical center. In addition, no history of nausea, vomiting or abdominal pain. 12/06 Patient remains intubated and sedated. CTA chest last night showed extensive b/l PE, Doppler US LE b/l DVT he was started on Heparin drip. In addition patient underwent bronch and ETT exchanged to 8.0 size last night. There was oozing from right pharynx/Right pharyngeal epiglottic fold that appeared to be source of bleeding. There was some blood in right mainstem that was suctioned out. There were some bloody clots in right lower lobe sub segments which were removed . No active bleeding in the lower airways. No endobronchial lesions. Small amount of blood in left lower lobe subsegment. 12/07: Tmax 101.7. Currently 99 1. Currently down for IVC filter placement and G-tube placement. Was awake and following commands prior to procedure 12/08: Profoundly hypoxemic, FiO2 100%. Acute fever up to 102. Sosa culture repeat chest x-ray requested. Started on Zosyn and one dose of vancomycin. On sedation lightening, follows commands weakly. Remains on IV heparin 12/09 Patient is sedated with Versed , Fentanyl and intubated. T;100.7 last night.On Heparin drip. 12/10 Patient remains intubated and sedated with Fentanyl and Versed. On PRVC with PEEP:10, FIO2 70%. Afebrile. 12/11 Patient is sedated with Versed, Fentanyl and intubated. Dropped his sats overnight On PRVC with PEEP: 10, FIO2 80% . Afebrile. 12/12 Remains intubated and sedated with Versed and Fentanyl drip, T: 99.8 last night. On Heparin drip. OGT inserted overnight and Patient had approx 1L gastric drainage( bile like). 12/13 Patient remains intubated. Off sedation, awake and alert this morning. T: 100.8. On Heparin drip. 12/14 Patient s/p extubation yesterday on partial rebreather. Patient was on BIPAP now off . Afebrile. On Heparin drip. 12/15 Patient is on non breather , afebrile. TF held overnight for emesis. Remains on Heparin drip. 12/16: Currently on nasal cannula saturations 92%. Tube feeds again held overnight secondary to emesis. We'll start on D5 normosol today. One bowel movement. 12/17: Back on partial nonrebreather saturations 95%. Denies dyspnea. Still not tolerating jejunal feedings however small bowel series yesterday normal transit time. Dietary consult for different protein-based feedings. Continue D5 normal saline for now 7 bowel movements Subjective 12/18: Tmax 100.1. Currently 99.3. Remains on partial nonrebreather mask 15 L. Saturations between 90 and 95%. Patient took mask overnight and subsequently temporarily desaturated to 70s. Copious thick yellow secretions suctioned with Yankauer Objective Vital Signs Date Time Temp Pulse Resp B/P (MAP) Pulse Ox O2 Delivery O2 Flow Rate FiO2 12/18/16 10:00 81 12/18/16 08:00 97.7 16 126/67 (86) 93 12/18/16 07:28 Partial Rebreather 15.00 Intake and Output 12/18/16 12/18/16 12/19/16 08:00 16:00 00:00 Intake Total 1475 ml Output Total 1300 ml Balance 175 ml Result Diagram: 12/18/16 1206 12/18/16 1206 Other Results Microbiology Date/Time Source Procedure Growth Status 12/13/16 12:10 Blood Peripheral Aerobic Blood Culture - Final NO GROWTH IN 5 DAYS Complete 12/13/16 12:10 Blood Peripheral Anaerobic Blood Culture - Final NO GROWTH IN 5 DAYS Complete 12/13/16 09:00 Sputum Endotracheal Gram Stain - Final Complete 12/13/16 09:00 Sputum Endotracheal Sputum Culture - Final HEAVY GROWTH NORMAL RESPIRATORY KENNY Complete 12/13/16 09:00 Urine Catheterized Urine Urine Culture - Final NO GROWTH IN 48 HOURS. Complete Imaging Last Impressions Chest X-Ray 12/17/16 0000 Signed Impressions: Service Date/Time: Saturday, December 17, 2016 13:00 - CONCLUSION: 1. Probable congestive failure. Patric Stover MD Small Bowel X-Ray 12/16/16 0000 Signed Impressions: Service Date/Time: Friday, December 16, 2016 14:10 - CONCLUSION: Unremarkable small bowel examination. Armand Valencia MD Abdomen X-Ray 12/15/16 0000 Signed Impressions: Service Date/Time: December 08:15 - CONCLUSION: 1. Jejunal feeding tube remains in place with paucity of bowel gas. 2. Abnormal opacity at the lung bases with apparent bilateral effusions. Italo Nelson MD Abdomen/Pelvis CT 12/12/16 0000 Signed Impressions: Service Date/Time: Monday, December 12, 2016 13:31 - CONCLUSION: Prominent consolidative changes in the posterior lung bases and small effusions. Very large hiatal hernia. Hepatic and renal cysts. Luan Nunez MD Head CT 12/08/16 0600 Signed Impressions: Service Date/Time: November 11:16 - CONCLUSION: 1. Increased paranasal sinus opacification. 2. No other significant interval change. Subacute to chronic ischemic findings of the right basal ganglia. Titi Najera MD IVC Filter Placement X-Ray 12/07/16 0000 Signed Impressions: Service Date/Time: Wednesday, December 07, 2016 11:49 - CONCLUSION: Uncomplicated inferior vena cava filter placement as above. Patric Stover MD Lower Extremity Ultrasound 12/05/16 0000 Signed Impressions: Service Date/Time: Monday, December 05, 2016 23:02 - CONCLUSION: 1. Positive for deep venous thrombosis as above. Sidney Pérez MD CT Angiography 12/05/16 0000 Signed Impressions: Service Date/Time: Monday, December 05, 2016 18:13 - CONCLUSION: 1. Extensive bilateral pulmonary arterial thrombi emboli bilaterally within the segmental and lobar vessels. There are no imaging findings to indicate right heart strain. 2. Stable 3.7 cm hypodense lesion with calcification either in the posterior mediastinum abutting the descending thoracic aorta or in the posterior left pleural space. Stranding of uncertain etiology but has not changed in approximately 13 months. 3. Stable large hiatal hernia. There is atelectasis/volume loss in both lower lobes. Luan Bermudez MD Objective Remarks GENERAL: 66 -year-old male, resting in bed on partial nonrebreather SKIN: Warm and dry. No rash HEAD: Normocephalic. EYES: No scleral icterus. No injection or drainage. NECK: Supple, trachea midline. No JVD or lymphadenopathy. CARDIOVASCULAR: RRR. S1, S2 without murmur RESPIRATORY: Transmitted upper airway sounds. No accessory muscle use. Few coarse BS that clear with cough GASTROINTESTINAL: Abdomen soft, non-tender, nondistended. +BS, +J-tube in place without erythema MUSCULOSKELETAL: Trace bilateral lower extremity nonpitting edema Neuro: Awake, alert. Following commands. Cranial nerves II through XII grossly intact. Strength is equal symmetric. Normal sensation. A/P Assessment and Plan Neuro/Psych: Right basal ganglia/temporal occipital lobe CVA 10/27 Hemorrhagic conversion right caudate/putamen 11/06/16 Tumor removal from the neck, pathology -glomus paraganglioma [facility] [place] Awake and alert. CT brain 12/05: No acute intracranial findings identified. Repeat CT head 12/08 no intracranial hemorrhage Acetaminophen for fever Pulm: Acute respiratory failure - resolving Bilateral pulmonary embolism R tVF paralysis History of PE and DVT Wean down oxygen as pk maintain sats> 92%. Currently on partial nonrebreather 15 L Currently on albuterol/ipratropium aerosols every 4 hours with albuterol every 2 hours. Dyspnea At 3% hypertonic saline aerosols every 4 hours 5 days along with guaifenesin 400 every 8 hours IS while awake along with a cappella every 4 hours NIPPV PRN for resp distress Check CXR today 12/[address] chest: Extensive b/l PE- On Heparin drip ( Patient was not a candidate for TPA as there is no hemodynamic instability, recent surgery and stroke in October) S/p IVC filter placement 12/07 Per bronchoscopy note source of bleeding appeared to be right pharyngeal epiglottic fold -? specific medial or lateral glossoepiglottic, aryepiglottic or ventricle fold though bleeding seems to have ceased Pulmonary consultation CV: Coronary artery disease Hypertension Dyslipidemia Monitor HR and BP and maintain MAP> 65mmHg. 2-D echo revealed EF 60-65%. Bilateral atrial enlargement. Moderate pulmonary hypertension PAP 50-60 mmHg Lovastatin 20 by mouth currently on pravastatin 20 mill grams daily On diltiazem 240 mg daily at home. This is currently on hold On Aspirin 81 mg daily Noted abnormality calcification the posterior pleural versus mediastinal space. Stable since last year. RENAL/FEN/: Right renal cyst Monitor renal function, Is and Os ,electrolyte replacement per protocol. Continue calcium carbonate 1250 mg by tube daily and cholecalciferol 2000 units by tube daily On free water 100 cc every 8 hours. 1 mg dose of Bumex today. Stop D5 normal saline. GI: Hiatal hernia Rasmussen's esophagitis GasteoEsophageal reflux disease Multiple liver cysts Gastric/duodenal polyps Tube feeds held for emesis.- Glucerna 1.5 with goal rate 45ml/hr via J-tube. Dietary consultation recommended vital 1.5 goal 70 cc an hour. I started Neutra hep currently at 45 cc an hour due to this regimen being no lactose/gluten-free and patient appears to be tolerating this well the present time. Small bowel series with normal transit time 12/16 CT abdomen/pelvis: consolidative changes in the posterior lung bases and small effusions. Very large hiatal hernia. Hepatic and renal cysts. KUB abdomen: Overall paucity of bowel gas, without evidence of obstruction. There is suggestion of wall thickening identified in the colon Pantoprazole 40 mg IV daily for GI prophylaxis. Started metoclopramide 5 mg 3 times a day for prokinetic activity s/p open J-tube placement on 12/07 On docusate sodium 100 mg 3 times a day for bowel regimen along with polyethylene glycol 17 g daily ID: Continue abx(piperacillin/tazobactam through 12/21- pancultured 12/08- NGTD Monitor for signs of infections( fever and WBC). 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 Adalid Yuen Iron-deficiency anemia. Bilateral lower extremity DVT Monitor CBC, Coags. Heme is following Dr. Flynn s/p IVC filter placement 12/07 Continue home medication iron sulfate 325 mg by mouth daily if able Ultrasound revealed right nonocclusive thrombus in greater saphenous vein to the PT/V. Femoral vein patent. Left with nonocclusive thrombus from the SFV to PT with collaterals 15 iron sulfate 300 mg daily Endo: SSI with Accu-Cheks for glycemic control. GI prophylaxis with pantoprazole 40 mg daily and DVT prophylaxis with SCDs/ heparin drip Continue with PT Level II follow-up Alejandro Mcbride MD Dec 18, 2016 13:15
[2016-12-18] MEDS ORDERED: BUMETANIDE INJ 1 MG/4 ML VIAL IV PUSH ONE (13:30)
[2016-12-18] MEDS: guaiFENesin SOLUTION 200 MG/10 ML CUP OG-TUBE SCH ×2 (14:00→21:28)
[2016-12-18] MEDS: FREE WATER G-TUBE SCH ×2 (14:00→21:28)
--- NOTE | 2016-12-18 14:52 | RADRPT ---
EXAM DATE/TIME: 12/18/2016 14:20 [facility] COMPARISON: CHEST SINGLE AP, December 17, 2016, 13:00. INDICATIONS : Short of breath MEDICAL HISTORY : Gastroesophageal reflux disease. Rasmussen's esophagus SURGICAL HISTORY : J-tube ENCOUNTER: Subsequent ACUITY: 4 - 6 days PAIN SCORE: 0/10 LOCATION: chest FINDINGS: There is advanced cardiomegaly. There are bilateral effusions and diffuse interstitial prominence. Th ere is consolidative change in both lung bases. The visualized bony structures are intact. Changes are similar to previous dated 12/17/16. CONCLUSION: 1. Advanced cardiomegaly with effusions and diffuse interstitial prominence suggesting congestive art lure. 2. Consolidative changes in the lung bases. An underlying pneumonia cannot be excluded. Patric Stover MD on December 18, 2016 at 14:49 Board Certified Radiologist. This report was verified electronically.
--- NOTE | 2016-12-18 17:32 | MB ---
cc: REYNALDO JACOBS M.D. DATE OF CONSULTATION: 12/18/2014. REASON FOR CONSULTATION: Pulmonary embolism. HISTORY OF PRESENT ILLNESS: Mr. Lee is a 66-year-old male who was admitted with respiratory failure on ventilatory support transferred from a surgical center. The patient was the center in an attempt to place a G-tube; however this was not possible. The patient was subsequently extubated. He did have a CT angiogram with evidence of DVT and PE. He was previously on anticoagulant therapy changed to Plavix. He was at [facility] for a neck tumor which was removed and proven glomus paraganglioma and this was in October and it was complicated by a stroke and an internal carotid artery dissection and vocal cord paralysis. The patient did have hemoptysis during his hospital stay. Bronchoscopy and upper endoscopy revealed the breathing to be coming from the pharynx. The patient is in no distress at present; however, does have hypoxemia requiring oxygen therapy. PAST MEDICAL HISTORY: His past medical history is notable for: 1. PE and DVT in the past and now. 2. Iron deficiency anemia. 3. Coronary artery disease. 4. Hypertension. 5. Acid reflux. 6. 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 7. Tonsillectomy and adenoidectomy as a child. SOCIAL HISTORY: He does not smoke. He drinks alcohol socially. ALLERGIES: NONE KNOWN TO MEDICATIONS. FAMILY HISTORY: Noncontributory. MEDICATIONS: Currently reviewed in the patient's [facility] for medication list. REVIEW OF SYSTEMS: A twelve-point review of systems is as per the history of present illness and past history, otherwise negative. PHYSICAL EXAMINATION: GENERAL: On exam, the patient is alert on oxygen via nasal cannula. VITAL SIGNS: Temperature is 98, pulse 82, respirations 18, blood pressure 130/70, oxygen saturation 94%. HEAD, EYES, EARS, NOSE, THROAT: Unremarkable. Eyes without icterus. NECK: Without adenopathy, thyroid enlargement, central trachea. CHEST: A few scattered rhonchi at the bases. CARDIAC: PMI distant. S1-S2 audible. No murmur. No rub. ABDOMEN: Lax. Audible bowel sounds. EXTREMITIES: Trace edema. LABS: White count 7.5, hemoglobin 11, hematocrit 35, platelets 326,000. The last arterial blood gas December 15 was pH 7.44, pC02 40, p02 62 on BiPAP. Sodium 143, potassium 3.2, BUN 14, creatinine 0.5. IMAGING STUDIES: Chest x-ray today with cardiomegaly of significant degree, bilateral effusions, increased interstitial markings, atelectasis and/or infiltrates at the lung bases noted. CT angiogram done on 12/05/16 with extensive bilateral pulmonary emboli without evidence of right ventricular strain. IMPRESSION: 1. DVT and pulmonary embolism, extensive as above. 2. Respiratory failure. 3. Cardiomegaly of significant degree. 4. Bilateral pleural effusions. 5. Probable congestive heart failure. 6. Coronary artery disease. 7. A glomus tumor of the neck. PLAN: 1. The patient is on heparin at this time. 2. Oral anticoagulant therapy will be appropriate. 3. The patient is followed by hematology at this time. 4. Would continue his oxygen therapy as needed. 5. Pulmonary toilet will be undertaken as well. 6. The patient has not been anticoagulated properly prior to hospitalization apparently because of his recent stroke; however, he is tolerating anticoagulation well at present, which should be continued. Will follow the patient's course along with you and depending on his progress, will proceed further. I do thank you for asking me to partake in Mr. Lee's care. Reynaldo Jacobs MD WWW/STEPHANIA /4:39 PM /5:03 PM
[2016-12-18] MEDS: PRAVASTATIN SOD 20 MG TAB PO SCH (21:29)
[2016-12-19] VITALS (15 sets, daily range): BP systolic 113–124; BP diastolic 56–96; PULSE 76–98; RESP 14–23; TEMP 98.2–98.6; O2SAT 92–98
[2016-12-19] MEDS: RESP: ALBUTEROL 2.5 MG/IPRATROPIUM 0.5 MG NEB (SCH) NEB ×6 (03:58→22:54)
[2016-12-19] MEDS: RESP: SODIUM CHLORIDE 3% 4 ML NEB NEB SCH ×14 (03:59→22:54)
[2016-12-19] MEDS: CHLORHEXIDINE GLUCONATE 2 % 1 PACK (2 CLOTHS) TOP SCH (04:00)
[2016-12-19] MEDS: INSULIN NovoLIN REGULAR SUPPLEMENTAL SCALE SQ SCH ×4 (05:00→23:00)
[2016-12-19] MEDS: guaiFENesin SOLUTION 200 MG/10 ML CUP OG-TUBE SCH ×3 (06:00→20:18)
[2016-12-19] MEDS: FREE WATER G-TUBE SCH ×3 (06:00→20:17)
[2016-12-19] MEDS: PIPERACIL-TAZO 4.5 GM PREMIX 100 ML IV SCH ×4 (06:18→20:18)
[2016-12-19 07:00] LABS: APTT (PATIENT) 52.5 SEC (24.3-30.1)
[2016-12-19 07:05] LABS: AUTOMATED NEUTROPHIL # 4.5 TH/MM3 (1.8-7.7); BASOPHIL # 0.1 TH/MM3 (0-0.2); BASOPHIL % 1.2 % (0.0-2.0); EOSINOPHIL # 0.5 TH/MM3 (0-0.4); EOSINOPHIL % 7.1 % (0.0-4.0); HEMATOCRIT 36.3 % (39.0-51.0); HEMO FLAGS DIFF FINAL; LYMPH % 17.5 % (9.0-44.0); LYMPHOCYTE # 1.2 TH/MM3 (1.0-4.8); MEAN CELL VOLUME 87.5 FL (80.0-100.0); MEAN CORPUSCULAR HEMOGLOBIN 28.2 PG (27.0-34.0); MEAN CORPUSCULAR HGB CONC 32.3 % (32.0-36.0); NEUT % 65.2 % (16.0-70.0); PLATELET COUNT 307 TH/MM3 (150-450); RED BLOOD COUNT 4.15 MIL/MM3 (4.50-5.90); RED CELL DISTRIBUTION WIDTH 15.1 % (11.6-17.2)
[2016-12-19 07:32] LABS: ALKALINE PHOSPHATASE 96 U/L (45-117); ALT (GPT) 55 U/L (12-78); ANION GAP 9 MEQ/L (5-15); AST (GOT) 34 U/L (15-37); BICARBONATE 28.3 MEQ/L (21.0-32.0); BLOOD UREA NITROGEN 9 MG/DL (7-18); CHLORIDE 100 MEQ/L (98-107); GLOMERULAR FILTRATION RATE 151 ML/MIN (>89); MAGNESIUM 1.9 MG/DL (1.5-2.5); POTASSIUM 3.2 MEQ/L (3.5-5.1); SODIUM (NA) 137 MEQ/L (136-145); TOTAL BILIRUBIN ADULT 0.5 MG/DL (0.2-1.0)
[2016-12-19] MEDS: POLYETHYLENE GLYCOL 17 GM PKG PO SCH (08:35)
[2016-12-19] MEDS: ASPIRIN 81 MG CHEW TAB CHEW SCH (08:35)
[2016-12-19] MEDS: FERROUS SULFATE 325 MG (65 MG ELEMENTAL IRON) TAB PO SCH (08:35)
[2016-12-19] MEDS: CHOLECALCIFEROL (VIT D3) LIQ 400 UNITS/ML 50 ML BOTTLE J-TUBE SCH ×2 (08:35→20:19)
[2016-12-19] MEDS: PANTOPRAZOLE SODIUM 40 MG VIAL IV PUSH SCH (08:35)
[2016-12-19] MEDS: SODIUM CHLORIDE 0.9% FLUSH 10 ML FLUSH IV FLUSH SCH ×2 (08:35→20:16)
[2016-12-19] MEDS: SENNOSIDES SYRUP 8.8 MG/5 ML CUP PO SCH (08:36)
[2016-12-19] MEDS ORDERED: ALBUMIN HUMAN 25% 25 GM/100 ML BAGP IV ONE (09:30)
--- NOTE | 2016-12-19 09:33 | HHI.CCPN ---
Subjective Remarks/Hospital Course The patient is a 66-year-old male with a past medical history of gastroesophageal reflux disease, Rasmussen's esophagus, hypertension, hyperlipidemia, iron-deficiency anemia, coronary artery disease, PE and DVT year ago. He had a tumor removed from the right side of his neck at [facility] in October with pathology showing a glomus paraganglioma. 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 He had Dobbhoff placed for approximately one month and went to outpatient surgical center today to have a peg tube placed. However during procedure the patient had some hemoptysis. The patient was scoped by Dr. Peña who did not think esophagus was\ the source of bleeding. The patient also noted to have hiatal hernia and a G tube could not be placed. The patient was intubated at the surgical center with Versed and transferred to the ER. When seen the patient is intubated and on full mechanical ventilation. His initial blood pressure on arrival 135/84 with a pulse of 84. Chest x-ray showed subsegmental\ atelectasis at the left base. His laboratory data showed normal CBC and mild hyponatremia with sodium level of 134. According to the patient's and daughter, he was on anticoagulation with Coumadin for his PE and DVT and was taken off of it in October and placed on Plavix instead. There is no history of any chest pain, shortness of breath or hemoptysis prior to arrival at the surgical center. In addition, no history of nausea, vomiting or abdominal pain. 12/06 Patient remains intubated and sedated. CTA chest last night showed extensive b/l PE, Doppler US LE b/l DVT he was started on Heparin drip. In addition patient underwent bronch and ETT exchanged to 8.0 size last night. There was oozing from right pharynx/Right pharyngeal epiglottic fold that appeared to be source of bleeding. There was some blood in right mainstem that was suctioned out. There were some bloody clots in right lower lobe sub segments which were removed . No active bleeding in the lower airways. No endobronchial lesions. Small amount of blood in left lower lobe subsegment. 12/07: Tmax 101.7. Currently 99 1. Currently down for IVC filter placement and G-tube placement. Was awake and following commands prior to procedure 12/08: Profoundly hypoxemic, FiO2 100%. Acute fever up to 102. Ossa culture repeat chest x-ray requested. Started on Zosyn and one dose of vancomycin. On sedation lightening, follows commands weakly. Remains on IV heparin 12/09 Patient is sedated with Versed , Fentanyl and intubated. T;100.7 last night.On Heparin drip. 12/10 Patient remains intubated and sedated with Fentanyl and Versed. On PRVC with PEEP:10, FIO2 70%. Afebrile. 12/11 Patient is sedated with Versed, Fentanyl and intubated. Dropped his sats overnight On PRVC with PEEP: 10, FIO2 80% . Afebrile. 12/12 Remains intubated and sedated with Versed and Fentanyl drip, T: 99.8 last night. On Heparin drip. OGT inserted overnight and Patient had approx 1L gastric drainage( bile like). 12/13 Patient remains intubated. Off sedation, awake and alert this morning. T: 100.8. On Heparin drip. 12/14 Patient s/p extubation yesterday on partial rebreather. Patient was on BIPAP now off . Afebrile. On Heparin drip. 12/15 Patient is on non breather , afebrile. TF held overnight for emesis. Remains on Heparin drip. 12/16: Currently on nasal cannula saturations 92%. Tube feeds again held overnight secondary to emesis. We'll start on D5 normosol today. One bowel movement. 12/17: Back on partial nonrebreather saturations 95%. Denies dyspnea. Still not tolerating jejunal feedings however small bowel series yesterday normal transit time. Dietary consult for different protein-based feedings. Continue D5 normal saline for now 7 bowel movements Subjective 12/18: Tmax 100.1. Currently 99.3. Remains on partial nonrebreather mask 15 L. Saturations between 90 and 95%. Patient took mask overnight and subsequently temporarily desaturated to 70s. Copious thick yellow secretions suctioned with Yankauer 12/19: Patient remains on 100% nonrebreather with oxygen saturation 91-93%. Chest x-ray today pending. Good urine output with 1 dose of Bumex yesterday. Chest exam reveals bilateral course crackles, trace pulmonary edema. Bumex scheduled started today Objective Vital Signs Date Time Temp Pulse Resp B/P (MAP) Pulse Ox O2 Delivery O2 Flow Rate FiO2 12/19/16 07:30 95 Partial Rebreather 15.00 12/19/16 06:00 76 12/19/16 04:00 98.5 14 116/58 (77) Intake and Output 12/19/16 12/19/16 12/20/16 08:00 16:00 00:00 Intake Total 822 ml Output Total 450 ml Balance 372 ml Result Diagram: 12/19/16 0524 12/19/16 0524 Imaging Last Impressions Chest X-Ray 12/17/16 0000 Signed Impressions: Service Date/Time: Saturday, December 17, 2016 13:00 - CONCLUSION: 1. Probable congestive failure. Patric Stover MD Small Bowel X-Ray 12/16/16 0000 Signed Impressions: Service Date/Time: Friday, December 16, 2016 14:10 - CONCLUSION: Unremarkable small bowel examination. Armand Valencia MD Abdomen X-Ray 12/15/16 0000 Signed Impressions: Service Date/Time: December 08:15 - CONCLUSION: 1. Jejunal feeding tube remains in place with paucity of bowel gas. 2. Abnormal opacity at the lung bases with apparent bilateral effusions. Italo Nelson MD Abdomen/Pelvis CT 12/12/16 0000 Signed Impressions: Service Date/Time: Monday, December 12, 2016 13:31 - CONCLUSION: Prominent consolidative changes in the posterior lung bases and small effusions. Very large hiatal hernia. Hepatic and renal cysts. Luan Nunez MD Head CT 12/08/16 0600 Signed Impressions: Service Date/Time: November 11:16 - CONCLUSION: 1. Increased paranasal sinus opacification. 2. No other significant interval change. Subacute to chronic ischemic findings of the right basal ganglia. Titi Najera MD IVC Filter Placement X-Ray 12/07/16 0000 Signed Impressions: Service Date/Time: Wednesday, December 07, 2016 11:49 - CONCLUSION: Uncomplicated inferior vena cava filter placement as above. Patric Stover MD Lower Extremity Ultrasound 12/05/16 0000 Signed Impressions: Service Date/Time: Monday, December 05, 2016 23:02 - CONCLUSION: 1. Positive for deep venous thrombosis as above. Sidney Pérez MD CT Angiography 12/05/16 0000 Signed Impressions: Service Date/Time: Monday, December 05, 2016 18:13 - CONCLUSION: 1. Extensive bilateral pulmonary arterial thrombi emboli bilaterally within the segmental and lobar vessels. There are no imaging findings to indicate right heart strain. 2. Stable 3.7 cm hypodense lesion with calcification either in the posterior mediastinum abutting the descending thoracic aorta or in the posterior left pleural space. Stranding of uncertain etiology but has not changed in approximately 13 months. 3. Stable large hiatal hernia. There is atelectasis/volume loss in both lower lobes. Luan Bermudez MD Objective Remarks GENERAL: 66 -year-old male, resting in bed on 100% nonrebreather SKIN: Warm and dry. No rash HEAD: Normocephalic. EYES: No scleral icterus. No injection or drainage. NECK: Supple, trachea midline. No JVD or lymphadenopathy. CARDIOVASCULAR: RRR. S1, S2 without murmur RESPIRATORY: Transmitted upper airway sounds. Bilateral course crackles and rhonchi GASTROINTESTINAL: Abdomen soft, non-tender, nondistended. +BS, +J-tube in place without erythema MUSCULOSKELETAL: Trace bilateral lower extremity edema Neuro: Awake, alert. Following commands. Cranial nerves II through XII grossly intact. Strength is equal symmetric. Normal sensation. A/P Assessment and Plan Neuro/Psych: Right basal ganglia/temporal occipital lobe CVA 10/27 Hemorrhagic conversion right caudate/putamen 11/06/16 Tumor removal from the neck, pathology -glomus paraganglioma Awake and alert. CT brain 12/05: No acute intracranial findings identified. Repeat CT head 12/08 no intracranial hemorrhage Acetaminophen for fever Pulm: Acute hypoxemic respiratory failure Bilateral pulmonary embolism Pulmonary edema R tVF paralysis History of PE and DVT Currently on percent nonrebreather with oxygen saturation 91-93% Albuterol/ipratropium aerosols every 4 hours with albuterol every 2 hours. Dyspnea At 3% hypertonic saline aerosols every 4 hours 5 days along with guaifenesin 400 every 8 hours IS while awake along with a cappella every 4 hours NIPPV PRN for resp distress CXR today 12/[address] chest: Extensive b/l PE- On Heparin drip ( Patient was not a candidate for TPA as there is no hemodynamic instability, recent surgery and stroke in October) S/p IVC filter placement 12/07 Per bronchoscopy note source of bleeding appeared to be right pharyngeal epiglottic fold -? specific medial or lateral glossoepiglottic, aryepiglottic or ventricle fold though bleeding seems to have ceased Pulmonary following CV: Coronary artery disease Pulmonary edema on chest x-ray Hypertension Dyslipidemia IV Bumex 1 mg every 12 hours with potassium replacement IV albumin 25 g 1 Monitor HR and BP and maintain MAP> 65mmHg. 2-D echo revealed EF 60-65%. Bilateral atrial enlargement. Moderate pulmonary hypertension PAP 50-60 mmHg Lovastatin 20 by mouth currently on pravastatin 20 mill grams daily On diltiazem 240 mg daily at home. This is currently on hold On Aspirin 81 mg daily Noted abnormality calcification the posterior pleural versus mediastinal space. Stable since last year. RENAL/FEN/: Right renal cyst Monitor renal function, Is and Os ,electrolyte replacement per protocol. Continue calcium carbonate 1250 mg by tube daily and cholecalciferol 2000 units by tube daily On free water 100 cc every 8 hours. 1 mg dose of Bumex 12/18. Scheduled Bumex 1 mg IV every 12 starting 12/19/16 GI: Hiatal hernia Rasmussen's esophagitis GERD Multiple liver cysts Gastric/duodenal polyps Tube feeds held for emesis.- Glucerna 1.5 with goal rate 45ml/hr via J-tube. Dietary consultation recommended vital 1.5 goal 70 cc an hour. Started Neutra hep currently at 45 cc an hour due to this regimen being no lactose/gluten-free and patient appears to be tolerating this well the present time. Small bowel series with normal transit time 12/16 CT abdomen/pelvis: consolidative changes in the posterior lung bases and small effusions. Very large hiatal hernia. Hepatic and renal cysts. KUB abdomen: Overall paucity of bowel gas, without evidence of obstruction. There is suggestion of wall thickening identified in the colon Pantoprazole 40 mg IV daily for GI prophylaxis. Metoclopramide 5 mg 3 times a day for prokinetic activity s/p open J-tube placement on 12/07 On docusate sodium 100 mg 3 times a day for bowel regimen along with polyethylene glycol 17 g daily ID: Continue abx(piperacillin/tazobactam through 10/11- pancultured 12/08- NGTD Monitor for signs of infections( fever and WBC). 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 Adalid Yuen Iron-deficiency anemia. Bilateral lower extremity DVT Monitor CBC, Coags. Heme is following Dr. Flynn s/p IVC filter placement 12/07 Continue home medication iron sulfate 325 mg by mouth daily if able LE ultrasound: right side nonocclusive DVT extending from the popliteal vein and posterior tibial veins and including the greater saphenous vein. On the left side there is chronic appearing nonocclusive thrombus extending from the superficial femoral vein to the job printer apprentice tibial veins. Collateral veins noted that are patent. 15 iron sulfate 300 mg daily Endo: SSI with Accu-Cheks for glycemic control. GI prophylaxis with pantoprazole 40 mg daily and DVT prophylaxis with SCDs/ heparin drip Continue with PT CCT 30. Patient is critically ill with worsening hypoxemia currently 100% nonrebreather. Chest x-ray shows pulmonary edema and I have placed him on scheduled Bumex. If not improving patient may need endotracheal intubation and mechanical ventilation. Follow-up on sputum culture Nely Roland MD Dec 19, 2016 09:33
[2016-12-19] MEDS: POTASSIUM CHLORIDE 25 MEQ EFFERVESCENT TAB PO SCH ×2 (10:00→20:17)
[2016-12-19] MEDS: BUMETANIDE INJ 1 MG/4 ML VIAL IV PUSH SCH ×2 (10:00→18:44)
--- NOTE | 2016-12-19 10:58 | RADRPT ---
EXAM DATE/TIME: 12/19/2016 09:42 [facility] COMPARISON: CHEST SINGLE AP, December 18, 2016, 14:20. INDICATIONS : Respiratory disease. MEDICAL HISTORY : Gastroesophageal reflux disease. Rasmussen's esophagus. SURGICAL HISTORY : J-tube. ENCOUNTER: Subsequent ACUITY: 2 weeks PAIN SCORE: 0/10 LOCATION: chest FINDINGS: There are increasing bibasilar parenchymal changes worse on the right than the left with cardiomegaly . Small bilateral pleural effusions are noted. CONCLUSION: Deterioration and increasing bibasilar parenchymal changes. Dong Stover MD FACR on December 19, 2016 at 10:38 Board Certified Radiologist. This report was verified electronically.
--- NOTE | 2016-12-19 13:01 | PD.ONC.PN ---
Subjective Subjective Remarks Afebrile overnight. Tolerating tube feeds. Son and at bedside. Objective Data Date Time Temp Pulse Resp B/P (MAP) Pulse Ox O2 Delivery O2 Flow Rate FiO2 12/19/16 12:00 98.5 80 14 113/96 (102) 98 12/19/16 12:00 80 12/19/16 10:00 81 12/19/16 08:00 98.5 90 14 117/56 (76) 98 12/19/16 08:00 76 12/19/16 07:30 95 Partial Rebreather 15.00 12/19/16 06:00 76 12/19/16 04:00 76 12/19/16 04:00 98.5 98 14 116/58 (77) 98 12/19/16 02:00 79 12/19/16 00:00 78 12/19/16 00:00 98.2 78 22 120/71 (87) 97 12/18/16 22:00 91 12/18/16 20:00 98 12/18/16 20:00 98.1 98 29 115/85 (95) 97 12/18/16 19:43 98 Non-Rebreather 15.00 12/18/16 18:00 92 12/18/16 16:00 83 12/18/16 16:00 98.2 83 22 127/79 (95) 94 12/18/16 14:00 79 12/19/16 12/19/16 12/19/16 07:00 15:00 23:00 Intake Total 822 ml Output Total 450 ml Balance 372 ml Result Diagram: 12/19/1652312/19/1624 Laboratory Results Laboratory Tests Test 12/19/16 05:24 White Blood Count 7.0 TH/MM3 Red Blood Count 4.15 MIL/MM3 Hemoglobin 11.7 GM/DL Hematocrit 36.3 % Mean Corpuscular Volume 87.5 FL Mean Corpuscular Hemoglobin 28.2 PG Mean Corpuscular Hemoglobin Concent 32.3 % Red Cell Distribution Width 15.1 % Platelet Count 307 TH/MM3 Mean Platelet Volume 8.6 FL Neutrophils (%) (Auto) 65.2 % Lymphocytes (%) (Auto) 17.5 % Monocytes (%) (Auto) 9.0 % Eosinophils (%) (Auto) 7.1 % Basophils (%) (Auto) 1.2 % Neutrophils # (Auto) 4.5 TH/MM3 Lymphocytes # (Auto) 1.2 TH/MM3 Monocytes # (Auto) 0.6 TH/MM3 Eosinophils # (Auto) 0.5 TH/MM3 Basophils # (Auto) 0.1 TH/MM3 CBC Comment DIFF FINAL Differential Comment Activated Partial Thromboplast Time 52.5 SEC Blood Urea Nitrogen 9 MG/DL Creatinine 0.54 MG/DL Random Glucose 105 MG/DL Total Protein 6.4 GM/DL Albumin 2.5 GM/DL Calcium Level 8.9 MG/DL Phosphorus Level 3.0 MG/DL Magnesium Level 1.9 MG/DL Alkaline Phosphatase 96 U/L Aspartate Amino Transf (AST/SGOT) 34 U/L Alanine Aminotransferase (ALT/SGPT) 55 U/L Total Bilirubin 0.5 MG/DL Sodium Level 137 MEQ/L Potassium Level 3.2 MEQ/L Chloride Level 100 MEQ/L Carbon Dioxide Level 28.3 MEQ/L Anion Gap 9 MEQ/L Estimat Glomerular Filtration Rate 151 ML/MIN Imaging Studies Last 24 hours Impressions Chest X-Ray 12/18/16 1400 Signed Impressions: Service Date/Time: Sunday, December 18, 2016 14:20 - CONCLUSION: 1. Advanced cardiomegaly with effusions and diffuse interstitial prominence suggesting congestive failure. 2. Consolidative changes in the lung bases. An underlying pneumonia cannot be excluded. Patric Stover MD Administered Medications Medications (Trade) Dose Ordered Sig/Trang Route PRN Reason Start Time Stop Time Status Last Admin Dose Admin Pantoprazole Sodium (Protonix Inj) 40 mg DAILY IV PUSH 12/05/16 16:30 12/19/16 08:35 Sodium Chloride (NS Flush) 2 ml BID IV FLUSH 12/07/16 21:00 12/19/16 08:35 Miscellaneous Information 1 [id number] XX 12/07/16 14:00 12/07/16 14:00 Chlorhexidine Gluconate (Chlorhexidine 2% Cloth) Taper DAILY@04 TOP 12/08/16 04:00 12/04/17 03:59 12/19/16 04:00 Ferrous Sulfate (Ferrous Sulfate) 325 mg DAILY PO 12/08/16 09:00 12/19/16 08:35 Pravastatin Sodium (Pravachol) 20 mg HS PO 12/07/16 21:00 12/18/16 21:29 Heparin Sodium/ Dextrose 250 ml @ 18 mls/hr TITRATE IV 12/07/16 19:00 12/18/16 09:58 Piperacillin Sod/ Tazobactam Sod 100 ml @ 200 mls/hr Q6H IV 12/08/16 16:00 12/21/16 09:00 12/19/16 08:34 Acetaminophen (Tylenol 650 Mg/ 20 ml Liq) 650 mg Q6H PRN PO fever >101 12/08/16 16:15 12/17/16 16:10 Aspirin (Aspirin Chew) 81 mg DAILY CHEW 12/09/16 09:00 12/19/16 08:35 Docusate Sodium (Colace Liq) 50 mg BID J-TUBE 12/09/16 21:00 Future Hold 12/15/16 20:26 Cholecalciferol (Vitamin D Liq) 2,000 units BID J-TUBE 12/09/16 21:00 12/19/16 08:35 Non-Formulary Medication 5 ML J-TUBE HS HS J-TUBE 12/09/16 21:00 12/12/16 21:31 Ondansetron HCl (Zofran Inj) 4 mg Q8HR PRN IV PUSH N/V 12/09/16 17:00 12/16/16 16:15 Potassium Chloride 100 ml @ 50 mls/hr Q2H PRN IV For Potassium 2.8 - 3.2 mEq/L 12/10/16 07:30 12/19/16 08:35 Potassium Chloride 100 ml @ 50 mls/hr Q2H PRN IV For Potassium 2.8 - 3.2 mEq/L 12/10/16 07:30 12/18/16 07:23 Potassium Chloride 100 ml @ 50 mls/hr Q2H PRN IV For Potassium 3.3 - 3.5 mEq/L 12/10/16 07:30 12/13/16 07:13 Sodium Phosphate 30 mmol/Sodium Chloride 250 ml @ 42 mls/hr UNSCH PRN IV For Phosphorus < 2.5 mg/dL 12/10/16 07:30 12/17/16 23:30 Sennosides (Senna Liq) 8.8 mg DAILY PO 12/11/16 09:00 12/15/16 08:31 Polyethylene Glycol (Miralax) 17 gm DAILY PO 12/11/16 09:00 12/15/16 08:31 Albuterol/ Ipratropium (Duoneb Neb) 1 ampule Q4HR NEB NEB 12/16/16 12:00 12/19/16 11:27 Sodium Chloride (Sodium Chloride 3% Neb) 2 ml Q4HR NEB NEB 12/16/16 12:00 12/20/16 11:59 12/19/16 07:29 Metoclopramide HCl (Reglan Inj) 5 mg Q8HR IV PUSH 12/16/16 14:00 Future Hold 12/16/16 21:44 Sodium Chloride (Sodium Chloride 3% Neb) 2 ml Q4HR NEB NEB 12/18/16 16:00 12/23/16 15:59 12/19/16 11:27 Guaifenesin (Robitussin Liq) 400 mg Q8HR OG-TUBE 12/18/16 14:00 12/19/16 06:00 Water (Free Water) VOLUME: 100 ML Q8HR G-TUBE 12/18/16 14:00 12/19/16 06:00 Bumetanide (Bumex Inj) 1 mg BID@,18 IV PUSH 12/19/16 10:00 12/19/16 10:00 Potassium Bicarb/ Potassium Chloride (K-Lyte Cl Eff) 25 meq Q12HR PO 12/19/16 10:00 12/19/16 10:00 Objective Remarks GENERAL: Middle aged male sitting up in chair in nad. SKIN: Warm and dry. HEAD: Normocephalic. EYES: No injection or drainage. NECK: Supple, trachea midline. CARDIOVASCULAR: Regular rate and rhythm RESPIRATORY: diminished at bases. anterior joseph with scattered rhonchi. on NRB mask GASTROINTESTINAL: Abdomen soft, non-tender, nondistended. EXTREMITIES: No cyanosis NEUROLOGICAL: awake and alert, normal speech. Assessment/Plan Problem List: (1) Pulmonary embolism ICD Codes: I26.99 - Other pulmonary embolism without acute cor pulmonale Status: Acute Plan: --CT angiography shows extensive bilateral pulmonary embolism -- Ultrasound of bilateral lower extremity shows a chronic DVT on the left and a nonocclusive thrombus in the right -- The patient has a family history of blood clots -- IVC filter placed on 12/07. -- Currently on heparin drip Hx/Workup: The patient presented with bleeding in his pharynx after an attempt of tube feed placement. He was recently seen at [facility] where he was diagnosed with a paraganglioma. He was also apparently diagnosed with a DVT and pulmonary embolism while at [facility]. (2) History of CVA (cerebrovascular accident) ICD Codes: Z86.73 - Personal history of transient ischemic attack (TIA), and cerebral infarction without residual deficits Plan: --had a stroke after the neck surgery with hemorrhagic transformation in caudate lobe noted MRA 10/27. --was later started on Plavix. No US or CTA found in the records and no mention of DVT/PE during his stay at [facility]. Assessment 66-year-old male admitted with hemoptysis; hematology consulted for history of recent pulmonary embolism Plan 1. continue heparin 2. monitor CBC Attending Statement The exam, history, and the medical decision-making described in the above note were completed with the assistance of the mid-level provider. I reviewed and agree with the findings presented. I attest that I had a [id number] encounter with the patient on the same day, and personally performed and documented my assessment and findings in the medical record. No bleeding noted. Hgb stable. No evidence of recurrent clots. Continue heparin. He is still not tolerating tube feeding. Gogo Armenta Dec 19, 2016 13:01 Paulo Flynn MD Dec 19, 2016 14:37
--- NOTE | 2016-12-19 14:40 | HHI.PR ---
Subjective Remarks ALERT NO SOB AT REST Objective Vital Signs Date Time Temp Pulse Resp B/P (MAP) Pulse Ox O2 Delivery O2 Flow Rate FiO2 12/19/16 12:00 98.5 80 14 113/96 (102) 98 12/19/16 12:00 80 12/19/16 10:00 81 12/19/16 08:00 98.5 90 14 117/56 (76) 98 12/19/16 08:00 76 12/19/16 07:30 95 Partial Rebreather 15.00 12/19/16 06:00 76 12/19/16 04:00 76 12/19/16 04:00 98.5 98 14 116/58 (77) 98 12/19/16 02:00 79 12/19/16 00:00 78 12/19/16 00:00 98.2 78 22 120/71 (87) 97 12/18/16 22:00 91 12/18/16 20:00 98 12/18/16 20:00 98.1 98 29 115/85 (95) 97 12/18/16 19:43 98 Non-Rebreather 15.00 12/18/16 18:00 92 12/18/16 16:00 83 12/18/16 16:00 98.2 83 22 127/79 (95) 94 I/O 12/18/16 12/18/16 12/18/16 12/19/16 12/19/16 12/19/16 07:00 15:00 23:00 07:00 15:00 23:00 Intake Total 1575 ml 258 ml 404 ml 822 ml Output Total 1300 ml 2500 ml 450 ml Balance 275 ml 258 ml -2096 ml 372 ml Intake Oral 0 ml IV Total 1372 ml 258 ml 200 ml 452 ml Tube Feeding 203 ml 204 ml 270 ml Tube Irrigant 100 ml Output Urine Total 1300 ml 2500 ml 450 ml # Bowel Movements 2 3 1 Result Diagram: 12/19/1652312/19/16523 Objective Remarks GENERAL: SKIN: Warm and dry. HEAD: Atraumatic. Normocephalic. EYES: Pupils equal and round. No scleral icterus. No injection or drainage. ENT: No nasal bleeding or discharge. Mucous membranes pink and moist. NECK: Trachea midline. No JVD. CARDIOVASCULAR: Regular rate and rhythm. RESPIRATORY: No accessory muscle use. decrease breath sounds at basis GASTROINTESTINAL: Abdomen soft, non-tender, nondistended. Hepatic and splenic margins not palpable. MUSCULOSKELETAL: Extremities without clubbing, cyanosis, or edema. No obvious deformities. NEUROLOGICAL: Awake and alert. No obvious cranial nerve deficits. Motor grossly within normal limits. Five out of 5 muscle strength in the arms and legs. Normal speech. PSYCHIATRIC: Appropriate mood and affect; insight and judgment normal. Assessment and Plan Assessment and Plan RESPIRATORY FAILURE DVT/PE ?CHF PLAN ANTICOAGULATION CHECK ECHO O2 NEEDED Reynaldo Jacobs MD Dec 19, 2016 14:40
[2016-12-19] MEDS: PRAVASTATIN SOD 20 MG TAB PO SCH (20:16)
[2016-12-19] MEDS: [UNRECOGNIZED DRUG - REMARK] J-TUBE SCH (20:19)
[2016-12-19] MEDS: HEPARIN 25,000 UNITS-D5W 250 ML - PREMIX IV SCH (20:25)
[2016-12-20] VITALS (20 sets, daily range): BP systolic 113–127; BP diastolic 67–84; PULSE 74–106; RESP 18–27; TEMP 97.5–98.5; O2SAT 89–97
[2016-12-20] MEDS: CHLORHEXIDINE GLUCONATE 2 % 1 PACK (2 CLOTHS) TOP SCH (04:00)
[2016-12-20 04:09] LABS: AUTOMATED NEUTROPHIL # 3.7 TH/MM3 (1.8-7.7); BASOPHIL # 0.1 TH/MM3 (0-0.2); BASOPHIL % 1.3 % (0.0-2.0); EOSINOPHIL # 0.4 TH/MM3 (0-0.4); EOSINOPHIL % 6.9 % (0.0-4.0); HEMATOCRIT 35.8 % (39.0-51.0); HEMO FLAGS DIFF FINAL; LYMPH % 22.1 % (9.0-44.0); LYMPHOCYTE # 1.4 TH/MM3 (1.0-4.8); MEAN CELL VOLUME 87.6 FL (80.0-100.0); MEAN CORPUSCULAR HEMOGLOBIN 28.4 PG (27.0-34.0); MEAN CORPUSCULAR HGB CONC 32.4 % (32.0-36.0); MONO % 10.3 % (0.0-8.0); NEUT % 59.4 % (16.0-70.0); PLATELET COUNT 296 TH/MM3 (150-450); RED BLOOD COUNT 4.09 MIL/MM3 (4.50-5.90); RED CELL DISTRIBUTION WIDTH 15.2 % (11.6-17.2); WHITE BLOOD COUNT 6.3 TH/MM3 (4.0-11.0)
[2016-12-20 04:17] LABS: APTT (PATIENT) 60.4 SEC (24.3-30.1)
[2016-12-20] MEDS: RESP: ALBUTEROL 2.5 MG/IPRATROPIUM 0.5 MG NEB (SCH) NEB ×3 (04:26→11:09)
[2016-12-20] MEDS: RESP: SODIUM CHLORIDE 3% 4 ML NEB NEB SCH ×5 (04:26→20:18)
[2016-12-20] MEDS: PIPERACIL-TAZO 4.5 GM PREMIX 100 ML IV SCH ×4 (04:28→22:12)
[2016-12-20] MEDS: INSULIN NovoLIN REGULAR SUPPLEMENTAL SCALE SQ SCH ×4 (04:29→22:43)
[2016-12-20 04:45] LABS: ALT (GPT) 52 U/L (12-78); ANION GAP 4 MEQ/L (5-15); AST (GOT) 26 U/L (15-37); BICARBONATE 28.7 MEQ/L (21.0-32.0); BLOOD UREA NITROGEN 12 MG/DL (7-18); CHLORIDE 100 MEQ/L (98-107); GLOMERULAR FILTRATION RATE 148 ML/MIN (>89); MAGNESIUM 1.9 MG/DL (1.5-2.5); POTASSIUM 4.1 MEQ/L (3.5-5.1); SODIUM (NA) 133 MEQ/L (136-145)
[2016-12-20 04:46] LABS: ALKALINE PHOSPHATASE 84 U/L (45-117); TOTAL BILIRUBIN ADULT 0.4 MG/DL (0.2-1.0)
--- NOTE | 2016-12-20 05:05 | RADRPT ---
EXAM DATE/TIME: 12/20/2016 03:53 [facility] COMPARISON: CHEST SINGLE AP, December 19, 2016, 9:42. INDICATIONS : Short of breath. MEDICAL HISTORY : Gastroesophageal reflux disease. Rasmussen's esophagus. SURGICAL HISTORY : j-tube. ENCOUNTER: Subsequent ACUITY: 2 weeks PAIN SCORE: 0/10 LOCATION: Bilateral chest FINDINGS: Bilateral perihilar and basilar infiltrates are unchanged. Visualiz cardiac contours are stable. CONCLUSION: No significant change Luan Nunez MD on December 20, 2016 at 5:03 Board Certified Radiologist. This report was verified electronically.
[2016-12-20] MEDS: FREE WATER G-TUBE SCH ×3 (06:00→22:00)
[2016-12-20] MEDS: guaiFENesin SOLUTION 200 MG/10 ML CUP OG-TUBE SCH ×3 (06:00→22:04)
[2016-12-20] MEDS: ASPIRIN 81 MG CHEW TAB CHEW SCH (08:02)
[2016-12-20] MEDS: BUMETANIDE INJ 1 MG/4 ML VIAL IV PUSH SCH ×2 (08:02→22:08)
[2016-12-20] MEDS: CHOLECALCIFEROL (VIT D3) LIQ 400 UNITS/ML 50 ML BOTTLE J-TUBE SCH ×2 (08:02→22:03)
[2016-12-20] MEDS: POTASSIUM CHLORIDE 25 MEQ EFFERVESCENT TAB PO SCH ×2 (08:02→22:04)
[2016-12-20] MEDS: PANTOPRAZOLE SODIUM 40 MG VIAL IV PUSH SCH (08:02)
[2016-12-20] MEDS: FERROUS SULFATE 325 MG (65 MG ELEMENTAL IRON) TAB PO SCH (08:02)
[2016-12-20] MEDS: POLYETHYLENE GLYCOL 17 GM PKG PO SCH (08:02)
[2016-12-20] MEDS: SENNOSIDES SYRUP 8.8 MG/5 ML CUP PO SCH (08:03)
--- NOTE | 2016-12-20 08:26 | PD.ONC.PN ---
Subjective Subjective Remarks Afebrile overnight. Patient resting in bed. Tolerating tube feeds at about 45cc/hr. Goal is 70cc/hr May be transferred select soon. Objective Data Date Time Temp Pulse Resp B/P (MAP) Pulse Ox O2 Delivery O2 Flow Rate FiO2 12/20/16 06:00 80 12/20/16 04:00 74 12/20/16 04:00 98.4 74 23 125/82 (96) 97 12/20/16 02:00 79 12/20/16 00:00 79 12/20/16 00:00 98.5 79 22 117/67 (84) 94 12/19/16 22:00 85 12/19/16 20:02 94 Nasal Cannula 6.00 12/19/16 20:00 98.4 77 23 124/78 (93) 94 12/19/16 20:00 77 12/19/16 18:27 92 Nasal Cannula 6.00 12/19/16 18:00 78 12/19/16 16:00 78 12/19/16 16:00 98.6 80 14 122/77 (92) 98 12/19/16 14:00 80 12/19/16 12:00 98.5 80 14 113/96 (102) 98 12/19/16 12:00 80 12/19/16 10:00 81 12/20/16 12/20/16 12/20/16 07:00 15:00 23:00 Intake Total 1502 ml Output Total 1200 ml Balance 302 ml Result Diagram: 12/20/16 0331 12/20/16 0331 Laboratory Results Laboratory Tests Test 12/19/16 18:07 12/20/16 03:31 Potassium Level 3.9 MEQ/L 4.1 MEQ/L White Blood Count 6.3 TH/MM3 Red Blood Count 4.09 MIL/MM3 Hemoglobin 11.6 GM/DL Hematocrit 35.8 % Mean Corpuscular Volume 87.6 FL Mean Corpuscular Hemoglobin 28.4 PG Mean Corpuscular Hemoglobin Concent 32.4 % Red Cell Distribution Width 15.2 % Platelet Count 296 TH/MM3 Mean Platelet Volume 8.4 FL Neutrophils (%) (Auto) 59.4 % Lymphocytes (%) (Auto) 22.1 % Monocytes (%) (Auto) 10.3 % Eosinophils (%) (Auto) 6.9 % Basophils (%) (Auto) 1.3 % Neutrophils # (Auto) 3.7 TH/MM3 Lymphocytes # (Auto) 1.4 TH/MM3 Monocytes # (Auto) 0.6 TH/MM3 Eosinophils # (Auto) 0.4 TH/MM3 Basophils # (Auto) 0.1 TH/MM3 CBC Comment DIFF FINAL Differential Comment Activated Partial Thromboplast Time 60.4 SEC Blood Urea Nitrogen 12 MG/DL Creatinine 0.55 MG/DL Random Glucose 102 MG/DL Total Protein 6.2 GM/DL Albumin 2.5 GM/DL Calcium Level 8.6 MG/DL Magnesium Level 1.9 MG/DL Alkaline Phosphatase 84 U/L Aspartate Amino Transf (AST/SGOT) 26 U/L Alanine Aminotransferase (ALT/SGPT) 52 U/L Total Bilirubin 0.4 MG/DL Sodium Level 133 MEQ/L Chloride Level 100 MEQ/L Carbon Dioxide Level 28.7 MEQ/L Anion Gap 4 MEQ/L Estimat Glomerular Filtration Rate 148 ML/MIN Culture Results Microbiology Date/Time Source Procedure Growth Status 12/19/16 18:30 Sputum Expectorated Sputum Gram Stain Pending Received 12/19/16 18:30 Sputum Expectorated Sputum Sputum Culture Pending Received Administered Medications Medications (Trade) Dose Ordered Sig/Trang Route PRN Reason Start Time Stop Time Status Last Admin Dose Admin Pantoprazole Sodium (Protonix Inj) 40 mg DAILY IV PUSH 12/05/16 16:30 12/20/16 08:02 Sodium Chloride (NS Flush) 2 ml BID IV FLUSH 12/07/16 21:00 12/19/16 20:16 Miscellaneous Information 1 [id number] XX 12/07/16 14:00 12/07/16 14:00 Chlorhexidine Gluconate (Chlorhexidine 2% Cloth) Taper DAILY@04 TOP 12/08/16 04:00 12/04/17 03:59 12/20/16 04:00 Ferrous Sulfate (Ferrous Sulfate) 325 mg DAILY PO 12/08/16 09:00 12/20/16 08:02 Pravastatin Sodium (Pravachol) 20 mg HS PO 12/07/16 21:00 12/19/16 20:16 Piperacillin Sod/ Tazobactam Sod 100 ml @ 200 mls/hr Q6H IV 12/08/16 16:00 12/21/16 09:00 12/20/16 08:05 Acetaminophen (Tylenol 650 Mg/ 20 ml Liq) 650 mg Q6H PRN PO fever >101 12/08/16 16:15 12/17/16 16:10 Aspirin (Aspirin Chew) 81 mg DAILY CHEW 12/09/16 09:00 12/20/16 08:02 Docusate Sodium (Colace Liq) 50 mg BID J-TUBE 12/09/16 21:00 Future Hold 12/15/16 20:26 Cholecalciferol (Vitamin D Liq) 2,000 units BID J-TUBE 12/09/16 21:00 12/20/16 08:02 Non-Formulary Medication 5 ML J-TUBE HS HS J-TUBE 12/09/16 21:00 12/19/16 20:19 Ondansetron HCl (Zofran Inj) 4 mg Q8HR PRN IV PUSH N/V 12/09/16 17:00 12/16/16 16:15 Potassium Chloride 100 ml @ 50 mls/hr Q2H PRN IV For Potassium 2.8 - 3.2 mEq/L 12/10/16 07:30 12/19/16 08:35 Potassium Chloride 100 ml @ 50 mls/hr Q2H PRN IV For Potassium 2.8 - 3.2 mEq/L 12/10/16 07:30 12/18/16 07:23 Potassium Chloride 100 ml @ 50 mls/hr Q2H PRN IV For Potassium 3.3 - 3.5 mEq/L 12/10/16 07:30 12/13/16 07:13 Sodium Phosphate 30 mmol/Sodium Chloride 250 ml @ 42 mls/hr UNSCH PRN IV For Phosphorus < 2.5 mg/dL 12/10/16 07:30 12/17/16 23:30 Sennosides (Senna Liq) 8.8 mg DAILY PO 12/11/16 09:00 12/20/16 08:03 Polyethylene Glycol (Miralax) 17 gm DAILY PO 12/11/16 09:00 12/20/16 08:02 Albuterol/ Ipratropium (Duoneb Neb) 1 ampule Q4HR NEB NEB 12/16/16 12:00 12/20/16 07:24 Sodium Chloride (Sodium Chloride 3% Neb) 2 ml Q4HR NEB NEB 12/16/16 12:00 12/20/16 11:59 12/20/16 07:25 Metoclopramide HCl (Reglan Inj) 5 mg Q8HR IV PUSH 12/16/16 14:00 Future Hold 12/16/16 21:44 Sodium Chloride (Sodium Chloride 3% Neb) 2 ml Q4HR NEB NEB 12/18/16 16:00 12/23/16 15:59 12/19/16 15:21 Guaifenesin (Robitussin Liq) 400 mg Q8HR OG-TUBE 12/18/16 14:00 12/20/16 06:00 Water (Free Water) VOLUME: 100 ML Q8HR G-TUBE 12/18/16 14:00 12/20/16 06:00 Bumetanide (Bumex Inj) 1 mg BID@,18 IV PUSH 12/19/16 10:00 12/20/16 08:02 Potassium Bicarb/ Potassium Chloride (K-Lyte Cl Eff) 25 meq Q12HR PO 12/19/16 10:00 12/20/16 08:02 Objective Remarks GENERAL: Middle aged male lying in bed, appears dyspneic. SKIN: Warm and dry. HEAD: Normocephalic. EYES: No injection or drainage. NECK: Supple, trachea midline. CARDIOVASCULAR: Regular rate and rhythm RESPIRATORY: diminished at bases. anterior joseph with occasional rhonchi. On 4L O2 via NC GASTROINTESTINAL: Abdomen soft, non-tender, nondistended. EXTREMITIES: No cyanosis NEUROLOGICAL: awake and alert, normal speech. Assessment/Plan Problem List: (1) Pulmonary embolism ICD Codes: I26.99 - Other pulmonary embolism without acute cor pulmonale Status: Acute Plan: --CT angiography shows extensive bilateral pulmonary embolism -- Ultrasound of bilateral lower extremity shows a chronic DVT on the left and a nonocclusive thrombus in the right -- The patient has a family history of blood clots -- IVC filter placed on 12/07. -- Currently on heparin drip Hx/Workup: The patient presented with bleeding in his pharynx after an attempt of tube feed placement. 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 He was also apparently diagnosed with a DVT and pulmonary embolism while at [facility]. (2) History of CVA (cerebrovascular accident) ICD Codes: Z86.73 - Personal history of transient ischemic attack (TIA), and cerebral infarction without residual deficits Plan: --had a stroke after the neck surgery with hemorrhagic transformation in caudate lobe noted MRA 10/27. --was later started on Plavix. No US or CTA found in the records and no mention of DVT/PE during his stay at [facility]. Assessment 66-year-old male admitted with hemoptysis; hematology consulted for history of recent pulmonary embolism Plan 1. start Pradaxa 150mg PO BID. Coumadin will be difficult to titrate with changing volumes of tube feeds. d/w patient rationale and risks/benefits of starting Pradaxa. d/w nurse to stop heparin and within 0-2 hours start Pradaxa. 2. monitor CBC Attending Statement The exam, history, and the medical decision-making described in the above note were completed with the assistance of the mid-level provider. I reviewed and agree with the findings presented. I attest that I had a [id number] encounter with the patient on the same day, and personally performed and documented my assessment and findings in the medical record. No CP/SOB. No LE edema. No bleeding. Not tolerating full dose tube feeding yet. Switch to Pradaxa and stop heparin. Monitor for sign of bleeding. Gogo Armenta Dec 20, 2016 08:26 Paulo Flynn MD Dec 20, 2016 16:28
--- NOTE | 2016-12-20 08:51 | HHI.PR ---
Subjective Remarks ALERT NO SOB AT REST Objective Vital Signs Date Time Temp Pulse Resp B/P (MAP) Pulse Ox O2 Delivery O2 Flow Rate FiO2 12/20/16 06:00 80 12/20/16 04:00 74 12/20/16 04:00 98.4 74 23 125/82 (96) 97 12/20/16 02:00 79 12/20/16 00:00 79 12/20/16 00:00 98.5 79 22 117/67 (84) 94 12/19/16 22:00 85 12/19/16 20:02 94 Nasal Cannula 6.00 12/19/16 20:00 98.4 77 23 124/78 (93) 94 12/19/16 20:00 77 12/19/16 18:27 92 Nasal Cannula 6.00 12/19/16 18:00 78 12/19/16 16:00 78 12/19/16 16:00 98.6 80 14 122/77 (92) 98 12/19/16 14:00 80 12/19/16 12:00 98.5 80 14 113/96 (102) 98 12/19/16 12:00 80 12/19/16 10:00 81 I/O 12/19/16 12/19/16 12/19/16 12/20/16 12/20/16 12/20/16 07:00 15:00 23:00 07:00 15:00 23:00 Intake Total 822 ml 1592 ml 1502 ml Output Total 450 ml 950 ml 1200 ml Balance 372 ml 642 ml 302 ml Intake Oral 0 ml IV Total 452 ml 1067 ml 100 ml Tube Feeding 270 ml 325 ml 955 ml Tube Irrigant 100 ml Other 200 ml 447 ml Output Urine Total 450 ml 950 ml 1200 ml # Bowel Movements 1 0 Result Diagram: 12/20/1633012/20/16330 Objective Remarks GENERAL: SKIN: Warm and dry. HEAD: Atraumatic. Normocephalic. EYES: Pupils equal and round. No scleral icterus. No injection or drainage. ENT: No nasal bleeding or discharge. Mucous membranes pink and moist. NECK: Trachea midline. No JVD. CARDIOVASCULAR: Regular rate and rhythm. RESPIRATORY: No accessory muscle use. decrease breath sounds at basis GASTROINTESTINAL: Abdomen soft, non-tender, nondistended. Hepatic and splenic margins not palpable. MUSCULOSKELETAL: Extremities without clubbing, cyanosis, or edema. No obvious deformities. NEUROLOGICAL: Awake and alert. No obvious cranial nerve deficits. Motor grossly within normal limits. Five out of 5 muscle strength in the arms and legs. Normal speech. PSYCHIATRIC: Appropriate mood and affect; insight and judgment normal. Assessment and Plan Assessment and Plan RESPIRATORY FAILURE DVT/PE ?CHF PLAN NOW ON PO ANTICOAGULATION O2 NEEDED INCREASE ACTIVITY Discharge Planning Laboratory Tests Test 12/17/16 21:45 12/18/16 12:06 12/19/16 05:24 12/19/16 18:07 Creatinine 0.59 MG/DL (0.60-1.30) 0.54 MG/DL (0.60-1.30) Total Protein 5.8 GM/DL (6.4-8.2) Albumin 2.3 GM/DL (3.4-5.0) 2.5 GM/DL (3.4-5.0) Phosphorus Level 2.2 MG/DL (2.5-4.9) Potassium Level 3.2 MEQ/L (3.5-5.1) 3.2 MEQ/L (3.5-5.1) Chloride Level 109 MEQ/L (98-107) Red Blood Count 4.09 MIL/MM3 (4.50-5.90) 4.15 MIL/MM3 (4.50-5.90) Hemoglobin 11.4 GM/DL (13.0-17.0) 11.7 GM/DL (13.0-17.0) Hematocrit 35.8 % (39.0-51.0) 36.3 % (39.0-51.0) Mean Corpuscular Hemoglobin Concent 31.8 % (32.0-36.0) Monocytes (%) (Auto) 8.2 % (0.0-8.0) 9.0 % (0.0-8.0) Eosinophils (%) (Auto) 5.2 % (0.0-4.0) 7.1 % (0.0-4.0) Activated Partial Thromboplast Time 57.2 SEC (24.3-30.1) 52.5 SEC (24.3-30.1) B-Type Natriuretic Peptide 116 PG/ML (0-100) Eosinophils # (Auto) 0.5 TH/MM3 (0-0.4) Test 12/20/16 03:31 Red Blood Count 4.09 MIL/MM3 (4.50-5.90) Hemoglobin 11.6 GM/DL (13.0-17.0) Hematocrit 35.8 % (39.0-51.0) Monocytes (%) (Auto) 10.3 % (0.0-8.0) Eosinophils (%) (Auto) 6.9 % (0.0-4.0) Activated Partial Thromboplast Time 60.4 SEC (24.3-30.1) Creatinine 0.55 MG/DL (0.60-1.30) Total Protein 6.2 GM/DL (6.4-8.2) Albumin 2.5 GM/DL (3.4-5.0) Sodium Level 133 MEQ/L (136-145) Anion Gap 4 MEQ/L (5-15) Reynaldo Jacobs MD Dec 20, 2016 08:51
--- NOTE | 2016-12-20 08:55 | PD.TRANSFR ---
Transfer Summary Admission Date Dec 05, 2016 at 15:40 Admitting Diagnosis Hemoptysis, Feeding tube dependent. Diagnoses: Transfer Summary/Subjective The patient is a 66-year-old male with a past medical history of gastroesophageal reflux disease, Rasmussen's esophagus, hypertension, hyperlipidemia, iron-deficiency anemia, coronary artery disease, PE and DVT year ago. He had a tumor removed from the right side of his neck at [facility] in October with pathology showing a glomus paraganglioma. 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 He had Dobbhoff placed for approximately one month and went to outpatient surgical center today to have a peg tube placed. However during procedure the patient had some hemoptysis. The patient was scoped by Dr. Peña who did not think esophagus was\ the source of bleeding. The patient also noted to have hiatal hernia and a G tube could not be placed. The patient was intubated at the surgical center with Versed and transferred to the ER. When seen the patient is intubated and on full mechanical ventilation. His initial blood pressure on arrival 135/84 with a pulse of 84. Chest x-ray showed subsegmental\ atelectasis at the left base. His laboratory data showed normal CBC and mild hyponatremia with sodium level of 134. According to the patient's and daughter, he was on anticoagulation with Coumadin for his PE and DVT and was taken off of it in October and placed on Plavix instead. There is no history of any chest pain, shortness of breath or hemoptysis prior to arrival at the surgical center. In addition, no history of nausea, vomiting or abdominal pain. 12/06 Patient remains intubated and sedated. CTA chest last night showed extensive b/l PE, Doppler US LE b/l DVT he was started on Heparin drip. In addition patient underwent bronch and ETT exchanged to 8.0 size last night. There was oozing from right pharynx/Right pharyngeal epiglottic fold that appeared to be source of bleeding. There was some blood in right mainstem that was suctioned out. There were some bloody clots in right lower lobe sub segments which were removed . No active bleeding in the lower airways. No endobronchial lesions. Small amount of blood in left lower lobe subsegment. 12/07: Tmax 101.7. Currently 99 1. Currently down for IVC filter placement and G-tube placement. Was awake and following commands prior to procedure 12/08: Profoundly hypoxemic, FiO2 100%. Acute fever up to 102. Sosa culture repeat chest x-ray requested. Started on Zosyn and one dose of vancomycin. On sedation lightening, follows commands weakly. Remains on IV heparin 12/09 Patient is sedated with Versed , Fentanyl and intubated. T;100.7 last night.On Heparin drip. 12/10 Patient remains intubated and sedated with Fentanyl and Versed. On PRVC with PEEP:10, FIO2 70%. Afebrile. 12/11 Patient is sedated with Versed, Fentanyl and intubated. Dropped his sats overnight On PRVC with PEEP: 10, FIO2 80% . Afebrile. 12/12 Remains intubated and sedated with Versed and Fentanyl drip, T: 99.8 last night. On Heparin drip. OGT inserted overnight and Patient had approx 1L gastric drainage( bile like). 12/13 Patient remains intubated. Off sedation, awake and alert this morning. T: 100.8. On Heparin drip. 12/14 Patient s/p extubation yesterday on partial rebreather. Patient was on BIPAP now off . Afebrile. On Heparin drip. 12/15 Patient is on non breather , afebrile. TF held overnight for emesis. Remains on Heparin drip. 12/16: Currently on nasal cannula saturations 92%. Tube feeds again held overnight secondary to emesis. We'll start on D5 normosol today. One bowel movement. 12/17: Back on partial nonrebreather saturations 95%. Denies dyspnea. Still not tolerating jejunal feedings however small bowel series yesterday normal transit time. Dietary consult for different protein-based feedings. Continue D5 normal saline for now 7 bowel movements 12/18: Tmax 100.1. Currently 99.3. Remains on partial nonrebreather mask 15 L. Saturations between 90 and 95%. Patient took mask overnight and subsequently temporarily desaturated to 70s. Copious thick yellow secretions suctioned with Yankauer 12/19: Patient remains on 100% nonrebreather with oxygen saturation 91-93%. Chest x-ray today pending. Good urine output with 1 dose of Bumex yesterday. Chest exam reveals bilateral course crackles, trace pulmonary edema. Bumex scheduled started today 12/20: Overnight placed on the nonrebreather but during daytime remained on 6 L nasal cannula. Currently weaned to nasal cannula again saturation 88-90%. CXR bilateral infiltrates essentially unchanged. Discussed with hematology-they're considering to start patient on Pradaxa Objective Vital Signs Date Time Temp Pulse Resp B/P (MAP) Pulse Ox O2 Delivery O2 Flow Rate FiO2 12/20/16 06:00 80 12/20/16 04:00 98.4 23 125/82 (96) 97 12/19/16 20:02 Nasal Cannula 6.00 Intake and Output 12/20/16 12/20/16 12/20/16 07:59 15:59 23:59 Intake Total 1502 ml Output Total 1200 ml Balance 302 ml Result Diagram: 12/20/16 0331 12/20/16 0331 Imaging Last Impressions Chest X-Ray 12/17/16 0000 Signed Impressions: Service Date/Time: Saturday, December 17, 2016 13:00 - CONCLUSION: 1. Probable congestive failure. Patric Stover MD Small Bowel X-Ray 12/16/16 0000 Signed Impressions: Service Date/Time: Friday, December 16, 2016 14:10 - CONCLUSION: Unremarkable small bowel examination. Armand Valencia MD Abdomen X-Ray 12/15/16 0000 Signed Impressions: Service Date/Time: December 08:15 - CONCLUSION: 1. Jejunal feeding tube remains in place with paucity of bowel gas. 2. Abnormal opacity at the lung bases with apparent bilateral effusions. Italo Nelson MD Abdomen/Pelvis CT 12/12/16 0000 Signed Impressions: Service Date/Time: Monday, December 12, 2016 13:31 - CONCLUSION: Prominent consolidative changes in the posterior lung bases and small effusions. Very large hiatal hernia. Hepatic and renal cysts. Luan Nunez MD Head CT 12/08/16 0600 Signed Impressions: Service Date/Time: November 11:16 - CONCLUSION: 1. Increased paranasal sinus opacification. 2. No other significant interval change. Subacute to chronic ischemic findings of the right basal ganglia. Titi Najera MD IVC Filter Placement X-Ray 12/07/16 0000 Signed Impressions: Service Date/Time: Wednesday, December 07, 2016 11:49 - CONCLUSION: Uncomplicated inferior vena cava filter placement as above. Patric Stover MD Lower Extremity Ultrasound 12/05/16 0000 Signed Impressions: Service Date/Time: Monday, December 05, 2016 23:02 - CONCLUSION: 1. Positive for deep venous thrombosis as above. Sidney Pérez MD CT Angiography 12/05/16 0000 Signed Impressions: Service Date/Time: Monday, December 05, 2016 18:13 - CONCLUSION: 1. Extensive bilateral pulmonary arterial thrombi emboli bilaterally within the segmental and lobar vessels. There are no imaging findings to indicate right heart strain. 2. Stable 3.7 cm hypodense lesion with calcification either in the posterior mediastinum abutting the descending thoracic aorta or in the posterior left pleural space. Stranding of uncertain etiology but has not changed in approximately 13 months. 3. Stable large hiatal hernia. There is atelectasis/volume loss in both lower lobes. Luan Bermudez MD Objective Remarks GENERAL: 66 -year-old male, resting in bed on NC SKIN: Warm and dry. No rash HEAD: Normocephalic. EYES: No scleral icterus. No injection or drainage. NECK: Supple, trachea midline. No JVD or lymphadenopathy. CARDIOVASCULAR: RRR. S1, S2 without murmur RESPIRATORY: Transmitted upper airway sounds. Bilateral course crackles and rhonchi GASTROINTESTINAL: Abdomen soft, non-tender, nondistended. +BS, +J-tube in place without erythema MUSCULOSKELETAL: Trace bilateral lower extremity edema NEURO: Awake, alert. Following commands. Strength is equal symmetric. Normal sensation. A/P Assessment and Plan Neuro/Psych: Right basal ganglia/temporal occipital lobe CVA 10/27 Hemorrhagic conversion right caudate/putamen 11/06/16 Tumor removal from the neck, pathology -glomus paraganglioma Awake and alert. CT brain 12/05: No acute intracranial findings identified. Repeat CT head 12/08 no intracranial hemorrhage Acetaminophen for fever Pulm: Acute hypoxemic respiratory failure Bilateral pulmonary embolism Pulmonary edema R tVF paralysis History of PE and DVT Currently 6L NC with oxygen saturation 91-93% Albuterol/ipratropium aerosols every 4 hours with albuterol every 2 hours. Dyspnea 3% hypertonic saline aerosols every 4 hours 5 days along with guaifenesin 400 every 8 hours IS while awake along with acappella, ezpap every 4 hours NIPPV PRN for resp distress CXR today 12/20. Stable bilateral infiltrates CT chest: Extensive b/l PE- On Heparin drip (Patient was not a candidate for TPA as there is no hemodynamic instability, recent surgery and stroke in October) Hematology may start on OAC with Pradaxa today S/p IVC filter placement 12/07 Per bronchoscopy note source of bleeding appeared to be right pharyngeal epiglottic fold -? specific medial or lateral glossoepiglottic, aryepiglottic or ventricle fold though bleeding seems to have ceased Pulmonary following. Dr. Hall CV: Coronary artery disease Pulmonary edema on chest x-ray Hypertension Dyslipidemia IV Bumex 1 mg every 12 hours for 3 days with potassium replacement IV albumin 25 g 1 given yesterday Monitor HR and BP and maintain MAP> 65mmHg. 2-D echo revealed EF 60-65%. Bilateral atrial enlargement. Moderate pulmonary hypertension PAP 50-60 mmHg Lovastatin 20 by mouth currently on pravastatin 20 mill grams daily On diltiazem 240 mg daily at home. This is currently on hold On Aspirin 81 mg daily Noted abnormality calcification the posterior pleural versus mediastinal space. Stable since last year. RENAL/FEN/: Right renal cyst Monitor renal function, Is and Os ,electrolyte replacement per protocol. Continue calcium carbonate 1250 mg by tube daily and cholecalciferol 2000 units by tube daily On free water 100 cc every 8 hours. 1 mg dose of Bumex 12/18. Scheduled Bumex 1 mg IV every 12 starting 12/19/16 for 3 days GI: Hiatal hernia Rasmussen's esophagitis GERD Multiple liver cysts Gastric/duodenal polyps Neutra hep currently at 45 cc an hour due to this regimen being no lactose/ gluten-free and patient appears to be tolerating this well the present time. Small bowel series with normal transit time 12/16 CT abdomen/pelvis: consolidative changes in the posterior lung bases and small effusions. Very large hiatal hernia. Hepatic and renal cysts. KUB abdomen: Overall paucity of bowel gas, without evidence of obstruction. There is suggestion of wall thickening identified in the colon Pantoprazole 40 mg IV daily for GI prophylaxis. Metoclopramide 5 mg 3 times a day for prokinetic activity s/p open J-tube placement on 12/07 On docusate sodium 100 mg 3 times a day for bowel regimen along with polyethylene glycol 17 g daily ID: Continue abx(piperacillin/tazobactam through 12/21- pancultured 12/08- NGTD Monitor for signs of infections( fever and WBC). 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 Adalid Yuen Iron-deficiency anemia. Bilateral lower extremity DVT Monitor CBC, Coags. Heme is following Dr. Flynn. On IV heparin, cahnge to OAC defer to hematology s/p IVC filter placement 12/07 Continue home medication iron sulfate 325 mg by tube LE ultrasound: right side nonocclusive DVT extending from the popliteal vein and posterior tibial veins and including the greater saphenous vein. On the left side there is chronic appearing nonocclusive thrombus extending from the superficial femoral vein to the director patient financial services tibial veins. Collateral veins noted that are patent. 15 iron sulfate 300 mg daily Endo: SSI with Accu-Cheks for glycemic control. GI prophylaxis with pantoprazole 40 mg daily and DVT prophylaxis with SCDs/ heparin drip Continue with PT Level 2. Consult [facility] to assume care in am. Continue ICU care for now, and transfer out if stable in 12-24 hours Nely Roland MD Dec 20, 2016 08:55
[2016-12-20] MEDS: SODIUM CHLORIDE 0.9% FLUSH 10 ML FLUSH IV FLUSH SCH ×2 (09:00→22:05)
[2016-12-20] MEDS: DABIGATRAN ETEXILATE 150 MG CAP PO SCH ×2 (11:51→21:00)
--- NOTE | 2016-12-20 17:16 | HHI.PR ---
Subjective Remarks ALERT NO SOB AT REST Objective Vital Signs Date Time Temp Pulse Resp B/P (MAP) Pulse Ox O2 Delivery O2 Flow Rate FiO2 12/20/16 16:56 92 Nasal Cannula 5.00 12/20/16 12:00 74 12/20/16 12:00 87 24 113/74 (87) 89 12/20/16 10:00 74 12/20/16 10:00 87 24 113/74 (87) 89 12/20/16 09:30 84 24 94 12/20/16 09:00 85 27 127/84 (98) 94 12/20/16 08:00 98.1 74 23 117/68 (84) 97 12/20/16 08:00 74 12/20/16 06:00 80 12/20/16 04:00 74 12/20/16 04:00 98.4 74 23 125/82 (96) 97 12/20/16 02:00 79 12/20/16 00:00 79 12/20/16 00:00 98.5 79 22 117/67 (84) 94 12/19/16 22:00 85 12/19/16 20:02 94 Nasal Cannula 6.00 12/19/16 20:00 98.4 77 23 124/78 (93) 94 12/19/16 20:00 77 12/19/16 18:27 92 Nasal Cannula 6.00 12/19/16 18:00 78 I/O 12/19/16 12/19/16 12/19/16 12/20/16 12/20/16 12/20/16 07:00 15:00 23:00 07:00 15:00 23:00 Intake Total 822 ml 1592 ml 1502 ml 111 ml Output Total 450 ml 950 ml 1200 ml 2000 ml Balance 372 ml 642 ml 302 ml -1889 ml Intake Oral 0 ml IV Total 452 ml 1067 ml 100 ml 111 ml Tube Feeding 270 ml 325 ml 955 ml Tube Irrigant 100 ml Other 200 ml 447 ml Output Urine Total 450 ml 950 ml 1200 ml 2000 ml # Bowel Movements 1 0 1 Result Diagram: 12/20/1633012/20/16330 Objective Remarks GENERAL: SKIN: Warm and dry. HEAD: Atraumatic. Normocephalic. EYES: Pupils equal and round. No scleral icterus. No injection or drainage. ENT: No nasal bleeding or discharge. Mucous membranes pink and moist. NECK: Trachea midline. No JVD. CARDIOVASCULAR: Regular rate and rhythm. RESPIRATORY: No accessory muscle use. decrease breath sounds at basis GASTROINTESTINAL: Abdomen soft, non-tender, nondistended. Hepatic and splenic margins not palpable. MUSCULOSKELETAL: Extremities without clubbing, cyanosis, or edema. No obvious deformities. NEUROLOGICAL: Awake and alert. No obvious cranial nerve deficits. Motor grossly within normal limits. Five out of 5 muscle strength in the arms and legs. Normal speech. PSYCHIATRIC: Appropriate mood and affect; insight and judgment normal. Assessment and Plan Assessment and Plan RESPIRATORY FAILURE DVT/PE ?CHF PLAN NOW ON PO ANTICOAGULATION O2 NEEDED INCREASE ACTIVITY Reynaldo Jacobs MD Dec 20, 2016 17:16
[2016-12-20] MEDS: RESP: ALBUTEROL 2.5 MG/3 ML NEB (PRN) NEB (20:12)
[2016-12-20] MEDS: [UNRECOGNIZED DRUG - REMARK] J-TUBE SCH (21:00)
[2016-12-20] MEDS: PRAVASTATIN SOD 20 MG TAB PO SCH (22:03)
[2016-12-20] MEDS: HEPARIN-D5W 25,000 U/250 ML 250 ML IV PRN (23:57)
[2016-12-21] VITALS (26 sets, daily range): BP systolic 117–123; BP diastolic 69–81; PULSE 80–94; RESP 18; TEMP 97–98.2; O2SAT 92–97
[2016-12-21 00:09] LABS: HEMATOCRIT 38.8 % (39.0-51.0); MEAN CELL VOLUME 86.9 FL (80.0-100.0); MEAN CORPUSCULAR HEMOGLOBIN 27.8 PG (27.0-34.0); MEAN CORPUSCULAR HGB CONC 31.9 % (32.0-36.0); PLATELET COUNT 302 TH/MM3 (150-450); RED BLOOD COUNT 4.47 MIL/MM3 (4.50-5.90); RED CELL DISTRIBUTION WIDTH 15.7 % (11.6-17.2); REVIEW FLAG FINAL; WHITE BLOOD COUNT 8.9 TH/MM3 (4.0-11.0)
[2016-12-21 00:19] LABS: APTT (PATIENT) 30.2 SEC (24.3-30.1); INTERNATIONAL NORMALIZED RATIO 1.3 RATIO; PROTHROMBIN TIME - PATIENT 14.4 SEC (9.8-11.6)
[2016-12-21] MEDS: ACETAMINOPHEN 650 MG/20.3 ML UDC PO PRN (02:41)
[2016-12-21] MEDS: CHLORHEXIDINE GLUCONATE 2 % 1 PACK (2 CLOTHS) TOP SCH (04:00)
--- NOTE | 2016-12-21 04:18 | RADRPT ---
EXAM DATE/TIME: 12/21/2016 04:00 [facility] COMPARISON: CT ABDOMEN & PELVIS W CONTRAST, December 12, 2016, 13:31. CHEST SINGLE AP, December 20, 2016, 3:53. INDICATIONS : Short of breath. MEDICAL HISTORY : Gastroesophageal reflux disease. Rasmussen's esophagus. SURGICAL HISTORY : j tube. ENCOUNTER: Subsequent ACUITY: 2 weeks PAIN SCORE: 0/10 LOCATION: Bilateral chest FINDINGS: Bibasilar infiltrates persist. Enormous hiatal hernia again noted. Cardiac contours are grossly uncha nged. CONCLUSION: No significant change Luan Nunez MD on December 21, 2016 at 4:15 Board Certified Radiologist. This report was verified electronically.
[2016-12-21] MEDS: RESP: SODIUM CHLORIDE 3% 4 ML NEB NEB SCH ×6 (04:31→20:23)
[2016-12-21] MEDS: PIPERACIL-TAZO 4.5 GM PREMIX 100 ML IV SCH (04:48)
[2016-12-21] MEDS: INSULIN NovoLIN REGULAR SUPPLEMENTAL SCALE SQ SCH ×4 (04:49→23:00)
[2016-12-21] MEDS: FREE WATER G-TUBE SCH ×3 (06:00→20:20)
[2016-12-21] MEDS: guaiFENesin SOLUTION 200 MG/10 ML CUP OG-TUBE SCH ×3 (06:00→20:20)
[2016-12-21 06:16] LABS: AUTOMATED NEUTROPHIL # 6.1 TH/MM3 (1.8-7.7); BASOPHIL # 0.1 TH/MM3 (0-0.2); BASOPHIL % 0.8 % (0.0-2.0); EOSINOPHIL # 0.3 TH/MM3 (0-0.4); EOSINOPHIL % 3.8 % (0.0-4.0); HEMO FLAGS DIFF FINAL; LYMPH % 16.2 % (9.0-44.0); LYMPHOCYTE # 1.4 TH/MM3 (1.0-4.8); MEAN CELL VOLUME 86.8 FL (80.0-100.0); MEAN CORPUSCULAR HEMOGLOBIN 28.3 PG (27.0-34.0); MEAN CORPUSCULAR HGB CONC 32.6 % (32.0-36.0); MONO % 8.6 % (0.0-8.0); NEUT % 70.6 % (16.0-70.0); PLATELET COUNT 277 TH/MM3 (150-450); RED BLOOD COUNT 4.38 MIL/MM3 (4.50-5.90); RED CELL DISTRIBUTION WIDTH 15.8 % (11.6-17.2); WHITE BLOOD COUNT 8.7 TH/MM3 (4.0-11.0)
[2016-12-21 06:32] LABS: APTT (PATIENT) 67.1 SEC (24.3-30.1)
[2016-12-21 06:46] LABS: ANION GAP 10 MEQ/L (5-15); AST (GOT) 23 U/L (15-37); BICARBONATE 27.3 MEQ/L (21.0-32.0); BLOOD UREA NITROGEN 13 MG/DL (7-18); CHLORIDE 95 MEQ/L (98-107); GLOMERULAR FILTRATION RATE 122 ML/MIN (>89); POTASSIUM 3.6 MEQ/L (3.5-5.1); SODIUM (NA) 132 MEQ/L (136-145)
[2016-12-21 06:47] LABS: ALT (GPT) 45 U/L (12-78)
[2016-12-21 06:49] LABS: ALKALINE PHOSPHATASE 86 U/L (45-117); TOTAL BILIRUBIN ADULT 0.5 MG/DL (0.2-1.0)
[2016-12-21] MEDS: RESP: ALBUTEROL 2.5 MG/3 ML NEB (PRN) NEB ×3 (07:59→16:28)
[2016-12-21] MEDS: POLYETHYLENE GLYCOL 17 GM PKG PO SCH (09:00)
[2016-12-21] MEDS: SENNOSIDES SYRUP 8.8 MG/5 ML CUP PO SCH (09:00)
[2016-12-21] MEDS: PANTOPRAZOLE SODIUM 40 MG VIAL IV PUSH SCH (09:33)
[2016-12-21] MEDS: BUMETANIDE INJ 1 MG/4 ML VIAL IV PUSH SCH ×2 (09:33→17:32)
[2016-12-21] MEDS: POTASSIUM CHLORIDE 25 MEQ EFFERVESCENT TAB PO SCH ×2 (09:35→20:19)
[2016-12-21] MEDS: CHOLECALCIFEROL (VIT D3) LIQ 400 UNITS/ML 50 ML BOTTLE J-TUBE SCH ×2 (09:35→20:18)
[2016-12-21] MEDS: ASPIRIN 81 MG CHEW TAB CHEW SCH (09:36)
[2016-12-21] MEDS: SODIUM CHLORIDE 0.9% FLUSH 10 ML FLUSH IV FLUSH SCH ×2 (09:37→20:18)
[2016-12-21] MEDS: FERROUS SULFATE 325 MG (65 MG ELEMENTAL IRON) TAB PO SCH (10:00)
--- NOTE | 2016-12-21 10:24 | PD.ONC.PN ---
Subjective Subjective Remarks Afebrile On 5L NC Denies SOB, pain He is being evaluated for discharge to [facility] Objective Data Date Time Temp Pulse Resp B/P (MAP) Pulse Ox O2 Delivery O2 Flow Rate FiO2 12/21/16 09:00 88 12/21/16 08:03 93 Nasal Cannula 5.00 12/21/16 08:00 84 12/21/16 07:00 97.6 83 18 123/81 (95) 92 12/21/16 07:00 83 12/21/16 06:00 82 12/21/16 05:00 83 12/21/16 04:00 81 12/21/16 03:00 97.3 90 18 118/76 (90) 94 12/21/16 03:00 89 12/21/16 02:00 80 12/21/16 01:00 88 12/21/16 00:00 93 12/20/16 23:00 93 12/20/16 23:00 97.5 80 18 118/81 (93) 95 12/20/16 22:00 92 12/20/16 21:00 96 12/20/16 20:16 92 Nasal Cannula 5.00 12/20/16 20:00 98 12/20/16 20:00 98.0 86 18 120/77 (91) 94 12/20/16 19:00 96 12/20/16 18:00 106 12/20/16 16:56 92 Nasal Cannula 5.00 12/20/16 16:00 88 12/20/16 14:18 88 12/20/16 14:00 90 12/20/16 12:00 74 12/20/16 12:00 87 24 113/74 (87) 89 12/21/16 12/21/16 12/21/16 07:00 15:00 23:00 Intake Total 1661 ml Output Total 1510 ml Balance 151 ml Result Diagram: 12/21/16 0535 12/21/16 0535 Laboratory Results Laboratory Tests Test 12/20/16 23:26 12/21/16 05:35 White Blood Count 8.9 TH/MM3 8.7 TH/MM3 Red Blood Count 4.47 MIL/MM3 4.38 MIL/MM3 Hemoglobin 12.4 GM/DL 12.4 GM/DL Hematocrit 38.8 % 38.0 % Mean Corpuscular Volume 86.9 FL 86.8 FL Mean Corpuscular Hemoglobin 27.8 PG 28.3 PG Mean Corpuscular Hemoglobin Concent 31.9 % 32.6 % Red Cell Distribution Width 15.7 % 15.8 % Platelet Count 302 TH/MM3 277 TH/MM3 Mean Platelet Volume 8.6 FL 8.7 FL Prothrombin Time 14.4 SEC Prothromb Time International Ratio 1.3 RATIO Activated Partial Thromboplast Time 30.2 SEC 67.1 SEC Neutrophils (%) (Auto) 70.6 % Lymphocytes (%) (Auto) 16.2 % Monocytes (%) (Auto) 8.6 % Eosinophils (%) (Auto) 3.8 % Basophils (%) (Auto) 0.8 % Neutrophils # (Auto) 6.1 TH/MM3 Lymphocytes # (Auto) 1.4 TH/MM3 Monocytes # (Auto) 0.7 TH/MM3 Eosinophils # (Auto) 0.3 TH/MM3 Basophils # (Auto) 0.1 TH/MM3 CBC Comment DIFF FINAL Differential Comment Blood Urea Nitrogen 13 MG/DL Creatinine 0.65 MG/DL Random Glucose 125 MG/DL Total Protein 6.2 GM/DL Albumin 2.6 GM/DL Calcium Level 9.0 MG/DL Magnesium Level 2.0 MG/DL Alkaline Phosphatase 86 U/L Aspartate Amino Transf (AST/SGOT) 23 U/L Alanine Aminotransferase (ALT/SGPT) 45 U/L Total Bilirubin 0.5 MG/DL Sodium Level 132 MEQ/L Potassium Level 3.6 MEQ/L Chloride Level 95 MEQ/L Carbon Dioxide Level 27.3 MEQ/L Anion Gap 10 MEQ/L Estimat Glomerular Filtration Rate 122 ML/MIN Culture Results Microbiology Date/Time Source Procedure Growth Status 12/21/16 02:22 Stool Stool Stool Occult Blood (AVELINO) - Final HEMOCCULT NEGATIVE Complete 12/19/16 18:30 Sputum Expectorated Sputum Gram Stain - Final Resulted 12/19/16 18:30 Sputum Expectorated Sputum Sputum Culture - Preliminary LIGHT GROWTH NORMAL RESPIRATORY KENNY... Resulted Imaging Studies Last 24 hours Impressions Chest X-Ray 12/21/16 0600 Signed Impressions: Service Date/Time: Wednesday, December 21, 2016 04:00 - CONCLUSION: No significant change Luan Nunez MD Administered Medications Medications (Trade) Dose Ordered Sig/Trang Route PRN Reason Start Time Stop Time Status Last Admin Dose Admin Pantoprazole Sodium (Protonix Inj) 40 mg DAILY IV PUSH 12/05/16 16:30 12/21/16 09:33 Sodium Chloride (NS Flush) 2 ml BID IV FLUSH 12/07/16 21:00 12/21/16 09:37 Miscellaneous Information 1 [id number] XX 12/07/16 14:00 12/07/16 14:00 Chlorhexidine Gluconate (Chlorhexidine 2% Cloth) Taper DAILY@04 TOP 12/08/16 04:00 12/04/17 03:59 12/20/16 04:00 Ferrous Sulfate (Ferrous Sulfate) 325 mg DAILY PO 12/08/16 09:00 12/20/16 08:02 Pravastatin Sodium (Pravachol) 20 mg HS PO 12/07/16 21:00 12/20/16 22:03 Acetaminophen (Tylenol 650 Mg/ 20 ml Liq) 650 mg Q6H PRN PO fever >101 12/08/16 16:15 12/21/16 02:41 Aspirin (Aspirin Chew) 81 mg DAILY CHEW 12/09/16 09:00 12/21/16 09:36 Docusate Sodium (Colace Liq) 50 mg BID J-TUBE 12/09/16 21:00 Future Hold 12/15/16 20:26 Cholecalciferol (Vitamin D Liq) 2,000 units BID J-TUBE 12/09/16 21:00 12/21/16 09:35 Non-Formulary Medication 5 ML J-TUBE HS HS J-TUBE 12/09/16 21:00 12/20/16 21:00 Ondansetron HCl (Zofran Inj) 4 mg Q8HR PRN IV PUSH N/V 12/09/16 17:00 12/16/16 16:15 Potassium Chloride 100 ml @ 50 mls/hr Q2H PRN IV For Potassium 2.8 - 3.2 mEq/L 12/10/16 07:30 12/19/16 08:35 Potassium Chloride 100 ml @ 50 mls/hr Q2H PRN IV For Potassium 2.8 - 3.2 mEq/L 12/10/16 07:30 12/18/16 07:23 Potassium Chloride 100 ml @ 50 mls/hr Q2H PRN IV For Potassium 3.3 - 3.5 mEq/L 12/10/16 07:30 12/13/16 07:13 Sodium Phosphate 30 mmol/Sodium Chloride 250 ml @ 42 mls/hr UNSCH PRN IV For Phosphorus < 2.5 mg/dL 12/10/16 07:30 12/17/16 23:30 Sennosides (Senna Liq) 8.8 mg DAILY PO 12/11/16 09:00 12/20/16 08:03 Polyethylene Glycol (Miralax) 17 gm DAILY PO 12/11/16 09:00 12/20/16 08:02 Albuterol Sulfate (Albuterol Neb) 2.5 mg Q2HR NEB PRN NEB dyspnea 12/16/16 08:45 12/21/16 07:59 Metoclopramide HCl (Reglan Inj) 5 mg Q8HR IV PUSH 12/16/16 14:00 Future Hold 12/16/16 21:44 Sodium Chloride (Sodium Chloride 3% Neb) 2 ml Q4HR NEB NEB 12/18/16 16:00 12/23/16 15:59 12/21/16 07:59 Guaifenesin (Robitussin Liq) 400 mg Q8HR OG-TUBE 12/18/16 14:00 12/21/16 06:00 Water (Free Water) VOLUME: 100 ML Q8HR G-TUBE 12/18/16 14:00 12/21/16 06:00 Bumetanide (Bumex Inj) 1 mg BID@09,18 IV PUSH 12/19/16 10:00 12/22/16 09:59 12/21/16 09:33 Potassium Bicarb/ Potassium Chloride (K-Lyte Cl Eff) 25 meq Q12HR PO 12/19/16 10:00 12/21/16 09:35 Dabigatran (Pradaxa) 150 mg BID PO 12/20/16 09:00 Future Hold 12/20/16 11:51 Heparin Sodium/ Dextrose 250 ml @ 18 mls/hr TITRATE PRN IV Coagulation management 12/20/16 23:00 12/20/16 23:57 Objective Remarks GENERAL: Middle aged male lying in bed on 5L NC with family at bedside. SKIN: Warm and dry. HEAD: Normocephalic. EYES: No injection or drainage. NECK: Supple, trachea midline. CARDIOVASCULAR: Regular rate and rhythm RESPIRATORY: Occasional rhonchi anteriorly. On 5 L nasal cannula. GASTROINTESTINAL: Abdomen soft, non-tender, nondistended. EXTREMITIES: No cyanosis NEUROLOGICAL: Awake and alert, normal speech. Moving all extremities Assessment/Plan Problem List: (1) Pulmonary embolism ICD Codes: I26.99 - Other pulmonary embolism without acute cor pulmonale Status: Acute Plan: --CT angiography shows extensive bilateral pulmonary embolism -- Ultrasound of bilateral lower extremity shows a chronic DVT on the left and a nonocclusive thrombus in the right -- The patient has a family history of blood clots -- IVC filter placed on 12/07. -- Currently on heparin drip Hx/Workup: The patient presented with bleeding in his pharynx after an attempt of tube feed placement. He was recently seen at [facility] where he was diagnosed with a paraganglioma. He was also apparently diagnosed with a DVT and pulmonary embolism while at [facility]. (2) History of CVA (cerebrovascular accident) ICD Codes: Z86.73 - Personal history of transient ischemic attack (TIA), and cerebral infarction without residual deficits Plan: --had a stroke after the neck surgery with hemorrhagic transformation in caudate lobe noted MRA 10/27. --was later started on Plavix. No US or CTA found in the records and no mention of DVT/PE during his stay at [facility]. Assessment 66-year-old male admitted with hemoptysis; hematology consulted for history of recent pulmonary embolism Plan 1. Hold Pradaxa for now. 2. Will likely start patient on Lovenox in 1-2 days 3. We can transition to oral anticoagulation once he is swallowing. 4. Monitor APTT, CBC. Attending Statement The exam, history, and the medical decision-making described in the above note were completed with the assistance of the mid-level provider. I reviewed and agree with the findings presented. I attest that I had a [id number] encounter with the patient on the same day, and personally performed and documented my assessment and findings in the medical record. Not able to swallow pills. Continue on heparin but can consider switching to lovenox if he is going to be d/c. No bleeding noted. No evidence of recurrent clots. Deanna Wesley Dec 21, 2016 10:24 Paulo Flynn MD Dec 21, 2016 16:05
--- NOTE | 2016-12-21 11:50 | HHI.PR ---
Subjective Remarks Discussed with family at the bedside they declined rehabilitation Patient resting comfortably open eyes he does not communicate much Objective Vitals Vital Signs Date Time Temp Pulse Resp B/P (MAP) Pulse Ox O2 Delivery O2 Flow Rate FiO2 12/21/16 11:00 Nasal Cannula 5.00 12/21/16 11:00 87 12/21/16 11:00 98.2 87 18 121/77 (92) 92 12/21/16 10:00 90 12/21/16 09:00 88 12/21/16 08:03 93 Nasal Cannula 5.00 12/21/16 08:00 84 12/21/16 07:00 97.6 83 18 123/81 (95) 92 12/21/16 07:00 83 12/21/16 06:00 82 12/21/16 05:00 83 12/21/16 04:00 81 12/21/16 03:00 97.3 90 18 118/76 (90) 94 12/21/16 03:00 89 12/21/16 02:00 80 12/21/16 01:00 88 12/21/16 00:00 93 12/20/16 23:00 93 12/20/16 23:00 97.5 80 18 118/81 (93) 95 12/20/16 22:00 92 12/20/16 21:00 96 12/20/16 20:16 92 Nasal Cannula 5.00 12/20/16 20:00 98 12/20/16 20:00 98.0 86 18 120/77 (91) 94 12/20/16 19:00 96 12/20/16 18:00 106 12/20/16 16:56 92 Nasal Cannula 5.00 12/20/16 16:00 88 12/20/16 14:18 88 12/20/16 14:00 90 12/20/16 12:00 74 12/20/16 12:00 87 24 113/74 (87) 89 I/O 12/20/16 12/20/16 12/20/16 12/21/16 12/21/16 12/21/16 07:00 15:00 23:00 07:00 15:00 23:00 Intake Total 1502 ml 111 ml 100 ml 1661 ml Output Total 1200 ml 2000 ml 1510 ml Balance 302 ml -1889 ml 100 ml 151 ml Intake Oral 0 ml 0 ml IV Total 100 ml 111 ml 100 ml 298 ml Tube Feeding 955 ml 887 ml Tube Irrigant 75 ml Other 447 ml 401 ml Output Urine Total 1200 ml 2000 ml 1510 ml # Bowel Movements 0 1 1 Result Diagram: 12/21/1653412/21/16534 Objective Remarks GENERAL: This is 66 years old frail elderly, well-developed patient, in no apparent distress. SKIN: No rashes, warm and dry HEAD: Atraumatic. Normocephalic. EYES: Pupils equal round and reactive. Extraocular motions intact. No scleral icterus. ENT: Nose without bleeding, or drainage, Airway patent. NECK: Trachea midline. Supple CARDIOVASCULAR: Regular rate and rhythm without murmurs, gallops, or rubs. RESPIRATORY: Fair air entry bilaterally. No wheezes, rales, or rhonchi. GASTROINTESTINAL: Abdomen soft, non-tender, nondistended. Positive bowel sounds MUSCULOSKELETAL: Extremities without clubbing, cyanosis, or edema. Pedal pulses appreciated NEUROLOGICAL: Awake and alert. Moves all extremity. 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 CT brain 12/05: No acute intracranial findings identified. Repeat CT head 12/08 no intracranial hemorrhage Acetaminophen for fever Acute hypoxemic respiratory failure Bilateral pulmonary embolism Pulmonary edema R tVF paralysis History of PE and DVT Currently 6L NC with oxygen saturation 91-93% Albuterol/ipratropium aerosols every 4 hours with albuterol every 2 hours. Dyspnea 3% hypertonic saline aerosols every 4 hours 5 days along with guaifenesin 400 every 8 hours IS while awake along with acappella, ezpap every 4 hours NIPPV PRN for resp distress CXR today 12/20. Stable bilateral infiltrates CT chest: Extensive b/l PE- On Heparin drip (Patient was not a candidate for TPA as there is no hemodynamic instability, recent surgery and stroke in October) Hematology may start on OAC with Pradaxa today S/p IVC filter placement 12/07 Per bronchoscopy note source of bleeding appeared to be right pharyngeal epiglottic fold -? specific medial or lateral glossoepiglottic, aryepiglottic or ventricle fold though bleeding seems to have ceased Pulmonary following. Dr. Hall Coronary artery disease Pulmonary edema on chest x-ray Hypertension Dyslipidemia IV Bumex 1 mg every 12 hours for 3 days with potassium replacement IV albumin 25 g 1 given yesterday Monitor HR and BP and maintain MAP> 65mmHg. 2-D echo revealed EF 60-65%. Bilateral atrial enlargement. Moderate pulmonary hypertension PAP 50-60 mmHg Lovastatin 20 by mouth currently on pravastatin 20 mill grams daily On diltiazem 240 mg daily at home. This is currently on hold On Aspirin 81 mg daily Noted abnormality calcification the posterior pleural versus mediastinal space. Stable since last year. Right renal cyst Monitor renal function, Is and Os ,electrolyte replacement per protocol. Continue calcium carbonate 1250 mg by tube daily and cholecalciferol 2000 units by tube daily On free water 100 cc every 8 hours. 1 mg dose of Bumex 12/18. Scheduled Bumex 1 mg IV every 12 starting 12/19/16 for 3 days Hiatal hernia Rasmussen's esophagitis GERD Multiple liver cysts Gastric/duodenal polyps Neutra hep currently at 45 cc an hour due to this regimen being no lactose/ gluten-free and patient appears to be tolerating this well the present time. Small bowel series with normal transit time 12/16 CT abdomen/pelvis: consolidative changes in the posterior lung bases and small effusions. Very large hiatal hernia. Hepatic and renal cysts. KUB abdomen: Overall paucity of bowel gas, without evidence of obstruction. There is suggestion of wall thickening identified in the colon Pantoprazole 40 mg IV daily for GI prophylaxis. Metoclopramide 5 mg 3 times a day for prokinetic activity s/p open J-tube placement on 12/07 On docusate sodium 100 mg 3 times a day for bowel regimen along with polyethylene glycol 17 g daily Status post abx(piperacillin/tazobactam through 12/21- pancultured 12/08- NGTD Monitor for signs of infections( fever and WBC). 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 Adalid Yuen Iron-deficiency anemia. Bilateral lower extremity DVT Monitor CBC, Coags. Heme is following Dr. Flynn. On IV heparin, change to OAC possibly Pradaxa defer to hematology s/p IVC filter placement 12/07 Continue home medication iron sulfate 325 mg by tube LE ultrasound: right side nonocclusive DVT extending from the popliteal vein and posterior tibial veins and including the greater saphenous vein. On the left side there is chronic appearing nonocclusive thrombus extending from the superficial femoral vein to the extermination inspector tibial veins. Collateral veins noted that are patent. 15 iron sulfate 300 mg daily GI prophylaxis with pantoprazole 40 mg daily and DVT prophylaxis with SCDs/ heparin drip Continue with PT Jo Still MD Dec 21, 2016 11:50
[2016-12-21 15:13] LABS: APTT (PATIENT) 60.1 SEC (24.3-30.1)
[2016-12-21] MEDS: HEPARIN-D5W 25,000 U/250 ML 250 ML IV PRN (17:42)
--- NOTE | 2016-12-21 19:03 | HHI.PR ---
Subjective Remarks ALERT NO SOB AT REST Objective Vital Signs Date Time Temp Pulse Resp B/P (MAP) Pulse Ox O2 Delivery O2 Flow Rate FiO2 12/21/16 18:00 88 12/21/16 17:00 84 12/21/16 16:00 98.0 89 18 117/79 (92) 95 12/21/16 16:00 88 12/21/16 15:00 86 12/21/16 15:00 Nasal Cannula 5.00 12/21/16 14:00 88 12/21/16 12:00 82 12/21/16 11:57 86 12/21/16 11:00 Nasal Cannula 5.00 12/21/16 11:00 87 12/21/16 11:00 98.2 87 18 121/77 (92) 92 12/21/16 10:00 90 12/21/16 09:00 88 12/21/16 08:03 93 Nasal Cannula 5.00 12/21/16 08:00 84 12/21/16 07:00 97.6 83 18 123/81 (95) 92 12/21/16 07:00 83 12/21/16 06:00 82 12/21/16 05:00 83 12/21/16 04:00 81 12/21/16 03:00 97.3 90 18 118/76 (90) 94 12/21/16 03:00 89 12/21/16 02:00 80 12/21/16 01:00 88 12/21/16 00:00 93 12/20/16 23:00 93 12/20/16 23:00 97.5 80 18 118/81 (93) 95 12/20/16 22:00 92 12/20/16 21:00 96 12/20/16 20:16 92 Nasal Cannula 5.00 12/20/16 20:00 98 12/20/16 20:00 98.0 86 18 120/77 (91) 94 I/O 12/20/16 12/20/16 12/20/16 12/21/16 12/21/16 12/21/16 06:59 14:59 22:59 06:59 14:59 22:59 Intake Total 1502 ml 111 ml 100 ml 1661 ml 845 ml Output Total 1200 ml 2000 ml 1510 ml Balance 302 ml -1889 ml 100 ml 151 ml 845 ml Intake Oral 0 ml 0 ml 0 ml IV Total 100 ml 111 ml 100 ml 298 ml 250 ml Tube Feeding 955 ml 887 ml 495 ml Tube Irrigant 75 ml 100 ml Other 447 ml 401 ml Output Urine Total 1200 ml 2000 ml 1510 ml # Bowel Movements 0 1 1 Result Diagram: 12/21/1653412/21/16534 Objective Remarks GENERAL: SKIN: Warm and dry. HEAD: Atraumatic. Normocephalic. EYES: Pupils equal and round. No scleral icterus. No injection or drainage. ENT: No nasal bleeding or discharge. Mucous membranes pink and moist. NECK: Trachea midline. No JVD. CARDIOVASCULAR: Regular rate and rhythm. RESPIRATORY: No accessory muscle use. decrease breath sounds at basis GASTROINTESTINAL: Abdomen soft, non-tender, nondistended. Hepatic and splenic margins not palpable. MUSCULOSKELETAL: Extremities without clubbing, cyanosis, or edema. No obvious deformities. NEUROLOGICAL: Awake and alert. No obvious cranial nerve deficits. Motor grossly within normal limits. Five out of 5 muscle strength in the arms and legs. Normal speech. PSYCHIATRIC: Appropriate mood and affect; insight and judgment normal. Assessment and Plan Assessment and Plan RESPIRATORY FAILURE DVT/PE ?CHF PLAN NOW ON PO ANTICOAGULATION O2 NEEDED INCREASE ACTIVITY Reynaldo Jacobs MD Dec 21, 2016 19:03
[2016-12-21] MEDS: [UNRECOGNIZED DRUG - REMARK] J-TUBE SCH (20:19)
[2016-12-21] MEDS: PRAVASTATIN SOD 20 MG TAB PO SCH (20:19)
[2016-12-22] VITALS (28 sets, daily range): BP systolic 113–138; BP diastolic 70–96; PULSE 52–95; RESP 17–22; TEMP 97.5–98.9; O2SAT 92–97
[2016-12-22] MEDS: ACETAMINOPHEN 650 MG/20.3 ML UDC PO PRN ×3 (00:11→20:32)
[2016-12-22] MEDS: RESP: SODIUM CHLORIDE 3% 4 ML NEB NEB SCH ×7 (00:34→23:46)
[2016-12-22] MEDS: CHLORHEXIDINE GLUCONATE 2 % 1 PACK (2 CLOTHS) TOP SCH (04:00)
[2016-12-22] MEDS: INSULIN NovoLIN REGULAR SUPPLEMENTAL SCALE SQ SCH ×4 (05:00→23:00)
[2016-12-22] MEDS: HEPARIN-D5W 25,000 U/250 ML 250 ML IV PRN (05:25)
[2016-12-22] MEDS: FREE WATER G-TUBE SCH ×3 (06:00→21:03)
[2016-12-22] MEDS: guaiFENesin SOLUTION 200 MG/10 ML CUP OG-TUBE SCH ×3 (06:00→21:03)
[2016-12-22 06:56] LABS: APTT (PATIENT) 57.2 SEC (24.3-30.1)
[2016-12-22] MEDS: RESP: ALBUTEROL 2.5 MG/3 ML NEB (PRN) NEB ×2 (08:06→12:05)
[2016-12-22] MEDS: SODIUM CHLORIDE 0.9% FLUSH 10 ML FLUSH IV FLUSH SCH ×2 (09:00→20:33)
[2016-12-22] MEDS: CHOLECALCIFEROL (VIT D3) LIQ 400 UNITS/ML 50 ML BOTTLE J-TUBE SCH ×2 (09:00→20:34)
[2016-12-22] MEDS: ASPIRIN 81 MG CHEW TAB CHEW SCH (09:00)
[2016-12-22] MEDS: SENNOSIDES SYRUP 8.8 MG/5 ML CUP PO SCH (09:00)
[2016-12-22] MEDS: POLYETHYLENE GLYCOL 17 GM PKG PO SCH (09:00)
[2016-12-22] MEDS: FERROUS SULFATE 325 MG (65 MG ELEMENTAL IRON) TAB PO SCH (09:08)
[2016-12-22] MEDS: PANTOPRAZOLE SODIUM 40 MG VIAL IV PUSH SCH (09:09)
[2016-12-22] MEDS: POTASSIUM CHLORIDE 25 MEQ EFFERVESCENT TAB PO SCH ×2 (09:09→20:34)
[2016-12-22] MEDS: BUMETANIDE INJ 1 MG/4 ML VIAL IV PUSH SCH (09:09)
[2016-12-22] MEDS ORDERED: WATE1INJ2 G-TUBE (11:38)
--- NOTE | 2016-12-22 12:00 | HHI.PR ---
Subjective Remarks d/w pt and family they decline rehab and want to take pt back to [place] no event over night , still on heparin gtt no sob , or cp Objective Vitals Vital Signs Date Time Temp Pulse Resp B/P (MAP) Pulse Ox O2 Delivery O2 Flow Rate FiO2 12/22/16 11:30 Nasal Cannula 5.00 80 12/22/16 08:07 96 Nasal Cannula 5.00 12/22/16 08:00 Nasal Cannula 5.00 80 12/22/16 07:30 98.7 73 17 124/73 (90) 97 12/22/16 07:00 83 12/22/16 06:00 82 12/22/16 05:00 82 12/22/16 04:00 80 12/22/16 03:00 82 12/22/16 03:00 Nasal Cannula 5.00 12/22/16 03:00 97.5 89 18 138/96 (110) 97 12/22/16 02:00 80 12/22/16 01:00 88 12/22/16 00:00 78 12/21/16 23:00 97.0 85 18 122/80 (94) 97 12/21/16 23:00 93 12/21/16 23:00 Nasal Cannula 5.00 12/21/16 22:00 88 12/21/16 21:00 82 12/21/16 20:23 93 Nasal Cannula 5.00 12/21/16 20:00 89 12/21/16 20:00 97.3 88 18 122/69 (86) 94 12/21/16 20:00 Nasal Cannula 5.00 12/21/16 19:00 94 12/21/16 18:00 88 12/21/16 17:00 84 12/21/16 16:00 98.0 89 18 117/79 (92) 95 12/21/16 16:00 88 12/21/16 15:00 86 12/21/16 15:00 Nasal Cannula 5.00 12/21/16 14:00 88 I/O 12/21/16 12/21/16 12/21/16 12/22/16 12/22/16 12/22/16 06:59 14:59 22:59 06:59 14:59 22:59 Intake Total 1661 ml 845 ml 989 ml Output Total 1510 ml Balance 151 ml 845 ml 989 ml Intake Oral 0 ml 0 ml 0 ml IV Total 298 ml 250 ml 409 ml Tube Feeding 887 ml 495 ml 380 ml Tube Irrigant 75 ml 100 ml Other 401 ml 200 ml Output Urine Total 1510 ml # Bowel Movements 1 Result Diagram: 12/21/1653412/21/16534 Objective Remarks GENERAL: This is 66 years old frail elderly, well-developed patient, in no apparent distress. SKIN: No rashes, warm and dry HEAD: Atraumatic. Normocephalic. EYES: Pupils equal round and reactive. Extraocular motions intact. No scleral icterus. ENT: Nose without bleeding, or drainage, Airway patent. NECK: Trachea midline. Supple CARDIOVASCULAR: Regular rate and rhythm without murmurs, gallops, or rubs. RESPIRATORY: Fair air entry bilaterally. No wheezes, rales, or rhonchi. GASTROINTESTINAL: Abdomen soft, non-tender, nondistended. Positive bowel sounds MUSCULOSKELETAL: Extremities without clubbing, cyanosis, or edema. Pedal pulses appreciated NEUROLOGICAL: Awake and alert. Moves all extremity. A/P Assessment and Plan 12/22: he of PE and dvt , d/w dr chew regarding switching heparin gtt to other anticoag , not ble to do pradaxa(cannot be crushed to adminster in gtube) they rec lovenox full anticoag. 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 CT brain 12/05: No acute intracranial findings identified. Repeat CT head 12/08 no intracranial hemorrhage Acetaminophen for fever Acute hypoxemic respiratory failure Bilateral pulmonary embolism Pulmonary edema R tVF paralysis History of PE and DVT Currently 6L NC with oxygen saturation 91-93% Albuterol/ipratropium aerosols every 4 hours with albuterol every 2 hours. Dyspnea 3% hypertonic saline aerosols every 4 hours 5 days along with guaifenesin 400 every 8 hours IS while awake along with acappella, ezpap every 4 hours NIPPV PRN for resp distress CXR today 12/20. Stable bilateral infiltrates CT chest: Extensive b/l PE- On Heparin drip (Patient was not a candidate for TPA as there is no hemodynamic instability, recent surgery and stroke in October) Hematology may start on OAC with Pradaxa today S/p IVC filter placement 12/07 Per bronchoscopy note source of bleeding appeared to be right pharyngeal epiglottic fold -? specific medial or lateral glossoepiglottic, aryepiglottic or ventricle fold though bleeding seems to have ceased Pulmonary following. Dr. Hall Coronary artery disease Pulmonary edema on chest x-ray Hypertension Dyslipidemia IV Bumex 1 mg every 12 hours for 3 days with potassium replacement IV albumin 25 g 1 given yesterday Monitor HR and BP and maintain MAP> 65mmHg. 2-D echo revealed EF 60-65%. Bilateral atrial enlargement. Moderate pulmonary hypertension PAP 50-60 mmHg Lovastatin 20 by mouth currently on pravastatin 20 mill grams daily On diltiazem 240 mg daily at home. This is currently on hold On Aspirin 81 mg daily Noted abnormality calcification the posterior pleural versus mediastinal space. Stable since last year. Right renal cyst Monitor renal function, Is and Os ,electrolyte replacement per protocol. Continue calcium carbonate 1250 mg by tube daily and cholecalciferol 2000 units by tube daily On free water 100 cc every 8 hours. 1 mg dose of Bumex 12/18. Scheduled Bumex 1 mg IV every 12 starting 12/19/16 for 3 days Hiatal hernia Rasmussen's esophagitis GERD Multiple liver cysts Gastric/duodenal polyps Neutra hep currently at 45 cc an hour due to this regimen being no lactose/ gluten-free and patient appears to be tolerating this well the present time. Small bowel series with normal transit time 12/16 CT abdomen/pelvis: consolidative changes in the posterior lung bases and small effusions. Very large hiatal hernia. Hepatic and renal cysts. KUB abdomen: Overall paucity of bowel gas, without evidence of obstruction. There is suggestion of wall thickening identified in the colon Pantoprazole 40 mg IV daily for GI prophylaxis. Metoclopramide 5 mg 3 times a day for prokinetic activity s/p open J-tube placement on 12/07 On docusate sodium 100 mg 3 times a day for bowel regimen along with polyethylene glycol 17 g daily Status post abx(piperacillin/tazobactam through 12/21- pancultured 12/08- NGTD Monitor for signs of infections( fever and WBC). 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 Adalid Yuen Iron-deficiency anemia. Bilateral lower extremity DVT Monitor CBC, Coags. Heme is following Dr. Flynn. On IV heparin, change to OAC possibly Pradaxa defer to hematology s/p IVC filter placement 12/07 Continue home medication iron sulfate 325 mg by tube LE ultrasound: right side nonocclusive DVT extending from the popliteal vein and posterior tibial veins and including the greater saphenous vein. On the left side there is chronic appearing nonocclusive thrombus extending from the superficial femoral vein to the tank erector tibial veins. Collateral veins noted that are patent. 15 iron sulfate 300 mg daily GI prophylaxis with pantoprazole 40 mg daily and DVT prophylaxis with SCDs/ heparin drip Continue with PT Jo Still MD Dec 22, 2016 12:00
--- NOTE | 2016-12-22 15:36 | PD.ONC.PN ---
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 Objective Data Date Time Temp Pulse Resp B/P (MAP) Pulse Ox O2 Delivery O2 Flow Rate FiO2 12/22/16 12:17 98.9 82 17 113/75 (88) 92 12/22/16 12:05 94 Nasal Cannula 4.00 12/22/16 11:30 Nasal Cannula 5.00 80 12/22/16 08:07 96 Nasal Cannula 5.00 12/22/16 08:00 Nasal Cannula 5.00 80 12/22/16 07:30 98.7 73 17 124/73 (90) 97 12/22/16 07:00 83 12/22/16 06:00 82 12/22/16 05:00 82 12/22/16 04:00 80 12/22/16 03:00 82 12/22/16 03:00 Nasal Cannula 5.00 12/22/16 03:00 97.5 89 18 138/96 (110) 97 12/22/16 02:00 80 12/22/16 01:00 88 12/22/16 00:00 78 12/21/16 23:00 97.0 85 18 122/80 (94) 97 12/21/16 23:00 93 12/21/16 23:00 Nasal Cannula 5.00 12/21/16 22:00 88 12/21/16 21:00 82 12/21/16 20:23 93 Nasal Cannula 5.00 12/21/16 20:00 89 12/21/16 20:00 97.3 88 18 122/69 (86) 94 12/21/16 20:00 Nasal Cannula 5.00 12/21/16 19:00 94 12/21/16 18:00 88 12/21/16 17:00 84 12/21/16 16:00 98.0 89 18 117/79 (92) 95 12/21/16 16:00 88 12/22/16 12/22/16 12/22/16 07:00 15:00 23:00 Intake Total 989 ml Balance 989 ml Result Diagram: 12/21/16 0535 12/21/16 0535 Laboratory Results Laboratory Tests Test 12/22/16 06:16 Activated Partial Thromboplast Time 57.2 SEC Culture Results Microbiology Date/Time Source Procedure Growth Status 12/21/16 02:22 Stool Stool Stool Occult Blood (AVELINO) - Final HEMOCCULT NEGATIVE Complete 12/19/16 18:30 Sputum Expectorated Sputum Gram Stain - Final Complete 12/19/16 18:30 Sputum Expectorated Sputum Sputum Culture - Final MODERATE GROWTH NORMAL RESPIRATORY KENNY Complete Administered Medications Medications (Trade) Dose Ordered Sig/Trang Route PRN Reason Start Time Stop Time Status Last Admin Dose Admin Pantoprazole Sodium (Protonix Inj) 40 mg DAILY IV PUSH 12/05/16 16:30 12/22/16 09:09 Sodium Chloride (NS Flush) 2 ml BID IV FLUSH 12/07/16 21:00 12/21/16 09:37 Miscellaneous Information 1 Q361D XX 12/07/16 14:00 12/07/16 14:00 Chlorhexidine Gluconate (Chlorhexidine 2% Cloth) Taper DAILY@04 TOP 12/08/16 04:00 12/04/17 03:59 12/20/16 04:00 Ferrous Sulfate (Ferrous Sulfate) 325 mg DAILY PO 12/08/16 09:00 12/22/16 09:08 Pravastatin Sodium (Pravachol) 20 mg HS PO 12/07/16 21:00 12/21/16 20:19 Acetaminophen (Tylenol 650 Mg/ 20 ml Liq) 650 mg Q6H PRN PO fever >101 12/08/16 16:15 12/22/16 06:04 Aspirin (Aspirin Chew) 81 mg DAILY CHEW 12/09/16 09:00 12/22/16 09:00 Docusate Sodium (Colace Liq) 50 mg BID J-TUBE 12/09/16 21:00 Future Hold 12/15/16 20:26 Cholecalciferol (Vitamin D Liq) 2,000 units BID J-TUBE 12/09/16 21:00 12/22/16 09:00 Non-Formulary Medication 5 ML J-TUBE HS HS J-TUBE 12/09/16 21:00 12/21/16 20:19 Ondansetron HCl (Zofran Inj) 4 mg Q8HR PRN IV PUSH N/V 12/09/16 17:00 12/16/16 16:15 Potassium Chloride 100 ml @ 50 mls/hr Q2H PRN IV For Potassium 2.8 - 3.2 mEq/L 12/10/16 07:30 12/19/16 08:35 Potassium Chloride 100 ml @ 50 mls/hr Q2H PRN IV For Potassium 2.8 - 3.2 mEq/L 12/10/16 07:30 12/18/16 07:23 Potassium Chloride 100 ml @ 50 mls/hr Q2H PRN IV For Potassium 3.3 - 3.5 mEq/L 12/10/16 07:30 12/13/16 07:13 Sodium Phosphate 30 mmol/Sodium Chloride 250 ml @ 42 mls/hr UNSCH PRN IV For Phosphorus < 2.5 mg/dL 12/10/16 07:30 12/17/16 23:30 Sennosides (Senna Liq) 8.8 mg DAILY PO 12/11/16 09:00 12/20/16 08:03 Polyethylene Glycol (Miralax) 17 gm DAILY PO 12/11/16 09:00 12/20/16 08:02 Albuterol Sulfate (Albuterol Neb) 2.5 mg Q2HR NEB PRN NEB dyspnea 12/16/16 08:45 12/22/16 12:05 Metoclopramide HCl (Reglan Inj) 5 mg Q8HR IV PUSH 12/16/16 14:00 Future Hold 12/16/16 21:44 Sodium Chloride (Sodium Chloride 3% Neb) 2 ml Q4HR NEB NEB 12/18/16 16:00 12/23/16 15:59 12/22/16 15:28 Guaifenesin (Robitussin Liq) 400 mg Q8HR OG-TUBE 12/18/16 14:00 12/22/16 14:00 Water (Free Water) VOLUME: 100 ML Q8HR G-TUBE 12/18/16 14:00 12/22/16 14:00 Potassium Bicarb/ Potassium Chloride (K-Lyte Cl Eff) 25 meq Q12HR PO 12/19/16 10:00 12/22/16 09:09 Dabigatran (Pradaxa) 150 mg BID PO 12/20/16 09:00 Future Hold 12/20/16 11:51 Objective Remarks GENERAL: Middle aged male lying in bed on 4L NC with at bedside. SKIN: Warm and dry. HEAD: Normocephalic. EYES: No injection or drainage. NECK: Supple, trachea midline. CARDIOVASCULAR: Regular rate and rhythm RESPIRATORY: Occasional rhonchi anteriorly. On 4 L nasal cannula. GASTROINTESTINAL: Abdomen soft, non-tender, nondistended. EXTREMITIES: No cyanosis NEUROLOGICAL: Awake and alert, normal speech. Moving all extremities Assessment/Plan Problem List: (1) Pulmonary embolism ICD Codes: I26.99 - Other pulmonary embolism without acute cor pulmonale Status: Acute Plan: --CT angiography shows extensive bilateral pulmonary embolism -- Ultrasound of bilateral lower extremity shows a chronic DVT on the left and a nonocclusive thrombus in the right -- The patient has a family history of blood clots -- IVC filter placed on 12/07. -- Currently on Lovenox Hx/Workup: The patient presented with bleeding in his pharynx after an attempt of tube feed placement. He was recently seen at [facility] where he was diagnosed with a paraganglioma. He was also apparently diagnosed with a DVT and pulmonary embolism while at [facility]. (2) History of CVA (cerebrovascular accident) ICD Codes: Z86.73 - Personal history of transient ischemic attack (TIA), and cerebral infarction without residual deficits Plan: --had a stroke after the neck surgery with hemorrhagic transformation in caudate lobe noted MRA 10/27. --was later started on Plavix. No US or CTA found in the records and no mention of DVT/PE during his stay at [facility]. Assessment 66-year-old male admitted with hemoptysis; hematology consulted for history of recent pulmonary embolism Plan 1. Transition patient from heparin to Lovenox today 2. Once he is able to swallow we will switch to oral anticoagulation 3. Monitor for bleeding 4. Monitor blood counts Attending Statement The exam, history, and the medical decision-making described in the above note were completed with the assistance of the mid-level provider. I reviewed and agree with the findings presented. I attest that I had a [id number] encounter with the patient on the same day, and personally performed and documented my assessment and findings in the medical record. Still not tolerating tube feeding. No bleeding noted. No evidence of recurrent clots. Switch to lovenox and transition to oral anticoagulant once he is able to swallow pill. Discussed with . Deanna Wesley Dec 22, 2016 15:36 Paulo Flynn MD Dec 22, 2016 16:47
--- NOTE | 2016-12-22 16:21 | HHI.PR ---
Subjective Remarks ALERT NO SOB AT REST Objective Vital Signs Date Time Temp Pulse Resp B/P (MAP) Pulse Ox O2 Delivery O2 Flow Rate FiO2 12/22/16 12:17 98.9 82 17 113/75 (88) 92 12/22/16 12:05 94 Nasal Cannula 4.00 12/22/16 11:30 Nasal Cannula 5.00 80 12/22/16 08:07 96 Nasal Cannula 5.00 12/22/16 08:00 Nasal Cannula 5.00 80 12/22/16 07:30 98.7 73 17 124/73 (90) 97 12/22/16 07:00 83 12/22/16 06:00 82 12/22/16 05:00 82 12/22/16 04:00 80 12/22/16 03:00 82 12/22/16 03:00 Nasal Cannula 5.00 12/22/16 03:00 97.5 89 18 138/96 (110) 97 12/22/16 02:00 80 12/22/16 01:00 88 12/22/16 00:00 78 12/21/16 23:00 97.0 85 18 122/80 (94) 97 12/21/16 23:00 93 12/21/16 23:00 Nasal Cannula 5.00 12/21/16 22:00 88 12/21/16 21:00 82 12/21/16 20:23 93 Nasal Cannula 5.00 12/21/16 20:00 89 12/21/16 20:00 97.3 88 18 122/69 (86) 94 12/21/16 20:00 Nasal Cannula 5.00 12/21/16 19:00 94 12/21/16 18:00 88 12/21/16 17:00 84 I/O 12/21/16 12/21/16 12/21/16 12/22/16 12/22/16 12/22/16 07:00 15:00 23:00 07:00 15:00 23:00 Intake Total 1661 ml 845 ml 989 ml Output Total 1510 ml Balance 151 ml 845 ml 989 ml Intake Oral 0 ml 0 ml 0 ml IV Total 298 ml 250 ml 409 ml Tube Feeding 887 ml 495 ml 380 ml Tube Irrigant 75 ml 100 ml Other 401 ml 200 ml Output Urine Total 1510 ml # Bowel Movements 1 Result Diagram: 12/21/16 0535 12/21/16 0535 Objective Remarks GENERAL: SKIN: Warm and dry. HEAD: Atraumatic. Normocephalic. EYES: Pupils equal and round. No scleral icterus. No injection or drainage. ENT: No nasal bleeding or discharge. Mucous membranes pink and moist. NECK: Trachea midline. No JVD. CARDIOVASCULAR: Regular rate and rhythm. RESPIRATORY: No accessory muscle use. decrease breath sounds at basis GASTROINTESTINAL: Abdomen soft, non-tender, nondistended. Hepatic and splenic margins not palpable. MUSCULOSKELETAL: Extremities without clubbing, cyanosis, or edema. No obvious deformities. NEUROLOGICAL: Awake and alert. No obvious cranial nerve deficits. Motor grossly within normal limits. Five out of 5 muscle strength in the arms and legs. Normal speech. PSYCHIATRIC: Appropriate mood and affect; insight and judgment normal. Assessment and Plan Assessment and Plan RESPIRATORY FAILURE DVT/PE ?CHF PLAN NOW ON PO ANTICOAGULATION O2 NEEDED INCREASE ACTIVITY Reynaldo Jacobs MD Dec 22, 2016 16:21
[2016-12-22] MEDS: ENOXAPARIN SODIUM 100 MG/ML SYRINGE SQ SCH (17:29)
[2016-12-22] MEDS: PRAVASTATIN SOD 20 MG TAB PO SCH (20:32)
[2016-12-22] MEDS: [UNRECOGNIZED DRUG - REMARK] J-TUBE SCH (20:33)
[2016-12-23] VITALS (21 sets, daily range): BP systolic 109–135; BP diastolic 78–89; PULSE 81–98; RESP 16–20; TEMP 97.2–98.3; O2SAT 95–99
[2016-12-23] MEDS: ENOXAPARIN SODIUM 100 MG/ML SYRINGE SQ SCH ×2 (03:49→17:35)
[2016-12-23] MEDS: CHLORHEXIDINE GLUCONATE 2 % 1 PACK (2 CLOTHS) TOP SCH (04:00)
[2016-12-23] MEDS: INSULIN NovoLIN REGULAR SUPPLEMENTAL SCALE SQ SCH ×4 (04:05→23:00)
[2016-12-23] MEDS: RESP: SODIUM CHLORIDE 3% 4 ML NEB NEB SCH ×3 (04:51→11:26)
[2016-12-23] MEDS: FREE WATER G-TUBE SCH ×3 (06:00→22:00)
[2016-12-23] MEDS: guaiFENesin SOLUTION 200 MG/10 ML CUP OG-TUBE SCH ×3 (06:00→22:00)
[2016-12-23 06:25] LABS: HEMATOCRIT 37.9 % (39.0-51.0); MEAN CELL VOLUME 87.3 FL (80.0-100.0); MEAN CORPUSCULAR HEMOGLOBIN 28.4 PG (27.0-34.0); MEAN CORPUSCULAR HGB CONC 32.5 % (32.0-36.0); PLATELET COUNT 267 TH/MM3 (150-450); RED BLOOD COUNT 4.34 MIL/MM3 (4.50-5.90); RED CELL DISTRIBUTION WIDTH 15.7 % (11.6-17.2); REVIEW FLAG FINAL; WHITE BLOOD COUNT 8.4 TH/MM3 (4.0-11.0)
--- NOTE | 2016-12-23 08:26 | HHI.PR ---
Subjective Remarks ALERT NO SOB AT REST Objective Vital Signs Date Time Temp Pulse Resp B/P (MAP) Pulse Ox O2 Delivery O2 Flow Rate FiO2 12/23/16 07:48 99 Nasal Cannula 2.00 12/23/16 06:00 82 12/23/16 05:00 82 12/23/16 04:00 82 12/23/16 03:00 Nasal Cannula 4.00 96 12/23/16 03:00 97.2 87 20 135/87 (103) 96 12/23/16 03:00 86 12/23/16 02:00 82 12/23/16 01:00 84 12/23/16 00:00 86 12/22/16 23:00 Nasal Cannula 4.00 92 12/22/16 23:00 82 12/22/16 23:00 97.6 85 18 122/83 (96) 92 12/22/16 22:00 86 12/22/16 21:12 96 Nasal Cannula 12/22/16 21:00 88 12/22/16 20:00 90 12/22/16 20:00 98.4 86 22 129/70 (89) 94 12/22/16 19:00 Nasal Cannula 4.00 94 12/22/16 19:00 95 12/22/16 17:09 81 17 121/77 (92) 93 12/22/16 17:00 86 12/22/16 16:00 Nasal Cannula 5.00 80 12/22/16 16:00 88 12/22/16 15:00 88 12/22/16 14:00 90 12/22/16 13:00 88 12/22/16 12:17 98.9 82 17 113/75 (88) 92 12/22/16 12:05 94 Nasal Cannula 4.00 12/22/16 12:00 84 12/22/16 11:30 Nasal Cannula 5.00 80 12/22/16 11:00 84 12/22/16 10:00 94 12/22/16 09:00 92 I/O 12/22/16 12/22/16 12/22/16 12/23/16 12/23/16 12/23/16 07:00 15:00 23:00 07:00 15:00 23:00 Intake Total 989 ml 750 ml Output Total 1400 ml 1150 ml Balance 989 ml -1400 ml -400 ml Intake Oral 0 ml IV Total 409 ml Tube Feeding 380 ml 450 ml Tube Irrigant 300 ml Other 200 ml Output Urine Total 1400 ml 1150 ml # Bowel Movements 1 Result Diagram: 12/23/16 0545 12/21/16 0535 Objective Remarks GENERAL: SKIN: Warm and dry. HEAD: Atraumatic. Normocephalic. EYES: Pupils equal and round. No scleral icterus. No injection or drainage. ENT: No nasal bleeding or discharge. Mucous membranes pink and moist. NECK: Trachea midline. No JVD. CARDIOVASCULAR: Regular rate and rhythm. RESPIRATORY: No accessory muscle use. decrease breath sounds at basis GASTROINTESTINAL: Abdomen soft, non-tender, nondistended. Hepatic and splenic margins not palpable. MUSCULOSKELETAL: Extremities without clubbing, cyanosis, or edema. No obvious deformities. NEUROLOGICAL: Awake and alert. No obvious cranial nerve deficits. Motor grossly within normal limits. Five out of 5 muscle strength in the arms and legs. Normal speech. PSYCHIATRIC: Appropriate mood and affect; insight and judgment normal. Assessment and Plan Assessment and Plan RESPIRATORY FAILURE , resolved DVT/PE PLAN O2 NEEDED INCREASE ACTIVITY Reynaldo Jacobs MD Dec 23, 2016 08:26
[2016-12-23] MEDS ORDERED: ENOX100P SQ (08:45)
--- NOTE | 2016-12-23 08:49 | HHI.DS ---
Discharge Summary Admission Date Dec 05, 2016 at 15:40 Discharge Date: Dec 23, 2016 Admitting Diagnosis Hemoptysis, Feeding tube dependent. (1) Hemoptysis ICD Code: R04.2 - Hemoptysis Status: Acute (2) Pulmonary embolism ICD Code: I26.99 - Other pulmonary embolism without acute cor pulmonale Status: Acute (3) DVT (deep venous thrombosis) ICD Code: I82.409 - Acute embolism and thrombosis of unspecified deep veins of unspecified lower extremity Status: Acute (4) History of CVA (cerebrovascular accident) ICD Code: Z86.73 - Personal history of transient ischemic attack (TIA), and cerebral infarction without residual deficits Procedures IVC filter placement J tube placement(Open). Brief History - From Admission History of present illness from the admitting physician. 66-year-old male with a past medical history of gastroesophageal reflux disease, Rasmussen's esophagus, hypertension, hyperlipidemia, iron-deficiency anemia, coronary artery disease, PE and DVT a year ago. The patient had a tumor removed from the right side of his neck at [facility] in October with pathology showing a glomus paraganglioma. 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 He had Dobbhoff placed for approximately one month and went to outpatient surgical center today to have a peg tube placed. However during procedure the patient had questionable some hemoptysis. The patient was scoped by Dr. Peña who did not think esophagus was the source of bleeding. The patient also noted to have hiatal hernia and a G tube could not be placed. The patient was intubated at the surgical center with Versed and transferred to the ER. When seen the patient is intubated and on full mechanical ventilation. His initial blood pressure on arrival 135/84 with a pulse of 84. Chest x-ray showed subsegmental atelectasis at the left base. CBC/BMP: 12/23/16 0545 12/21/16 0535 Significant Findings Laboratory Tests Test 12/20/16 23:26 12/21/16 05:35 12/21/16 14:19 12/22/16 06:16 Red Blood Count 4.47 MIL/MM3 (4.50-5.90) 4.38 MIL/MM3 (4.50-5.90) Hemoglobin 12.4 GM/DL (13.0-17.0) 12.4 GM/DL (13.0-17.0) Hematocrit 38.8 % (39.0-51.0) 38.0 % (39.0-51.0) Mean Corpuscular Hemoglobin Concent 31.9 % (32.0-36.0) Prothrombin Time 14.4 SEC (9.8-11.6) Activated Partial Thromboplast Time 30.2 SEC (24.3-30.1) 67.1 SEC (24.3-30.1) 60.1 SEC (24.3-30.1) 57.2 SEC (24.3-30.1) Neutrophils (%) (Auto) 70.6 % (16.0-70.0) Monocytes (%) (Auto) 8.6 % (0.0-8.0) Random Glucose 125 MG/DL (74-106) Total Protein 6.2 GM/DL (6.4-8.2) Albumin 2.6 GM/DL (3.4-5.0) Sodium Level 132 MEQ/L (136-145) Chloride Level 95 MEQ/L (98-107) Test 12/23/16 05:45 Red Blood Count 4.34 MIL/MM3 (4.50-5.90) Hemoglobin 12.3 GM/DL (13.0-17.0) Hematocrit 37.9 % (39.0-51.0) Imaging Last Impressions Chest X-Ray 12/21/16 0600 Signed Impressions: Service Date/Time: Wednesday, December 21, 2016 04:00 - CONCLUSION: No significant change Luan Nunez MD Small Bowel X-Ray 12/16/16 0000 Signed Impressions: Service Date/Time: Friday, December 16, 2016 14:10 - CONCLUSION: Unremarkable small bowel examination. Armand Valencia MD Abdomen X-Ray 12/15/16 0000 Signed Impressions: Service Date/Time: December 08:15 - CONCLUSION: 1. Jejunal feeding tube remains in place with paucity of bowel gas. 2. Abnormal opacity at the lung bases with apparent bilateral effusions. Italo Nelson MD Abdomen/Pelvis CT 12/12/16 0000 Signed Impressions: Service Date/Time: Monday, December 12, 2016 13:31 - CONCLUSION: Prominent consolidative changes in the posterior lung bases and small effusions. Very large hiatal hernia. Hepatic and renal cysts. Luan Nunez MD Head CT 12/08/16 0600 Signed Impressions: Service Date/Time: November 11:16 - CONCLUSION: 1. Increased paranasal sinus opacification. 2. No other significant interval change. Subacute to chronic ischemic findings of the right basal ganglia. Titi Najera MD IVC Filter Placement X-Ray 12/07/16 0000 Signed Impressions: Service Date/Time: Wednesday, December 07, 2016 11:49 - CONCLUSION: Uncomplicated inferior vena cava filter placement as above. Patric Stover MD Lower Extremity Ultrasound 12/05/16 0000 Signed Impressions: Service Date/Time: Monday, December 05, 2016 23:02 - CONCLUSION: 1. Positive for deep venous thrombosis as above. Sidney Pérez MD CT Angiography 12/05/16 0000 Signed Impressions: Service Date/Time: Monday, December 05, 2016 18:13 - CONCLUSION: 1. Extensive bilateral pulmonary arterial thrombi emboli bilaterally within the segmental and lobar vessels. There are no imaging findings to indicate right heart strain. 2. Stable 3.7 cm hypodense lesion with calcification either in the posterior mediastinum abutting the descending thoracic aorta or in the posterior left pleural space. Stranding of uncertain etiology but has not changed in approximately 13 months. 3. Stable large hiatal hernia. There is atelectasis/volume loss in both lower lobes. Luan Bermudez MD PE at Discharge GENERAL: This is 66 years old frail elderly, well-developed patient, in no apparent distress. SKIN: No rashes, warm and dry HEAD: Atraumatic. Normocephalic. EYES: Pupils equal round and reactive. Extraocular motions intact. No scleral icterus. ENT: Nose without bleeding, or drainage, Airway patent. NECK: Trachea midline. Supple CARDIOVASCULAR: Regular rate and rhythm without murmurs, gallops, or rubs. RESPIRATORY: Fair air entry bilaterally. No wheezes, rales, or rhonchi. GASTROINTESTINAL: Abdomen soft, non-tender, nondistended. Positive bowel sounds MUSCULOSKELETAL: Extremities without clubbing, cyanosis, or edema. Pedal pulses appreciated NEUROLOGICAL: Awake and alert. Moves all extremity. Pt update on day of discharge Patient looking forward to go to rehabilitation. No new complaints today. Hospital Course 66-year-old male with a past medical history of gastroesophageal reflux disease , Rasmussen's esophagus, hypertension, hyperlipidemia, iron-deficiency anemia, coronary artery disease, PE and DVT year ago. He had a tumor removed from the right side of his neck at [facility] in October with pathology showing a glomus paraganglioma. 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 He had Dobbhoff placed for approximately one month and went to outpatient surgical center today to have a peg tube placed. However during procedure the patient had some hemoptysis. The patient was scoped by Dr. Peña who did not think esophagus was\ the source of bleeding. The patient also noted to have hiatal hernia and a G tube could not be placed. The patient was intubated at the surgical center with Versed and transferred to the ER. When seen the patient is intubated and on full mechanical ventilation. His initial blood pressure on arrival 135/84 with a pulse of 84. Chest x-ray showed subsegmental\ atelectasis at the left base. His laboratory data showed normal CBC and mild hyponatremia with sodium level of 134. According to the patient's and daughter, he was on anticoagulation with Coumadin for his PE and DVT and was taken off of it in October and placed on Plavix instead. There is no history of any chest pain, shortness of breath or hemoptysis prior to arrival at the surgical center. In addition, no history of nausea, vomiting or abdominal pain. The patient was eventually extubated. He remained stable on a nasal cannula. He was able to tolerate tube feeding. He underwent IVC filter placement and G- tube placement. He was followed by oncology. Patient was started on therapeutic dose of Lovenox for treatment of DVT/PE. He is to continue on that until he can tolerate by mouth at which point he may be transitioned to Pradaxa. Pt Condition on Discharge: Stable Discharge Disposition: Rehab Inpatient Discharge Time: > 30 minutes Discharge Instructions DIET: Follow Instructions for: On Tube Feeding Activities you can perform: Regular-No Restrictions New Medications: Enoxaparin Inj (Lovenox Inj) 100 Mg/Ml Syr 90 MG SQ Q12H for 30 Days, INJECTION Water For Injection, Sterile (Sterile Water For Injecti) 1 Inj Inj 0 ML G-TUBE Q8HR for . for 30 Days, INJECTION Continued Medications: Aspirin (David Low Dose) 81 Mg Tab 81 MG PO HS for heart for 30 Days, TAB Calcium Carbonate (Calcium 600) 600 Mg Calcium (1500 Mg) Tab 1 TAB PO HS for 30 Days, TAB Cholecalciferol (Vitamin D3 Super Strength) 2,000 Unit Cap 2000 UNIT PO BID, CAP Dicyclomine Hcl (Bentyl) 20 Mg Tab 20 MG PO Q6HR PRN for PAIN SCALE 1 TO 10, #20 TAB FOR CRAMPS Docusate Sodium (Docusate Sodium) 100 Mg Cap 100 MG PO TID, CAP Ferrous Sulfate (Iron) 325 Mg Tab 325 MG PO DAILY, TAB Guaifenesin (Mucinex) 600 Mg Tabcr 600 MG PO BID, TABCR Loratadine (Loratadine) 10 Mg Tab 10 MG PO PRN, TAB Lovastatin (Lovastatin) 20 Mg Tab 20 MG PO HS Omeprazole 20 mg (Omeprazole 20 mg) 20 Mg Tab 20 MG PO DAILY Discontinued Medications: DILTIAZEM XT 240 mg (Cartia) (Cartia XT 240 mg) 240 Mg/24 Hr Cap 240 MG PO DAILY, CAP Enoxaparin Sodium (Lovenox) 100 Mg/Ml Inj 100 MG SQ BID for pulmonary embolism for 5 Days, INJ Warfarin Sod (Coumadin) 5 Mg Tab 5 MG PO DAILY@16 for Pulmonary embolism for 7 Days, TAB Donavan Mendoza MD Dec 23, 2016 08:49
[2016-12-23] MEDS: POLYETHYLENE GLYCOL 17 GM PKG PO SCH (09:00)
[2016-12-23] MEDS: POTASSIUM CHLORIDE 25 MEQ EFFERVESCENT TAB PO SCH ×2 (10:48→22:41)
[2016-12-23] MEDS: ASPIRIN 81 MG CHEW TAB CHEW SCH (10:49)
[2016-12-23] MEDS: PANTOPRAZOLE SODIUM 40 MG VIAL IV PUSH SCH (10:49)
[2016-12-23] MEDS: FERROUS SULFATE 325 MG (65 MG ELEMENTAL IRON) TAB PO SCH (10:49)
[2016-12-23] MEDS: CHOLECALCIFEROL (VIT D3) LIQ 400 UNITS/ML 50 ML BOTTLE J-TUBE SCH ×2 (10:50→22:40)
[2016-12-23] MEDS: SENNOSIDES SYRUP 8.8 MG/5 ML CUP PO SCH (10:50)
[2016-12-23] MEDS: SODIUM CHLORIDE 0.9% FLUSH 10 ML FLUSH IV FLUSH SCH ×2 (10:51→22:40)
--- NOTE | 2016-12-23 12:11 | PD.ONC.PN ---
Subjective Subjective Remarks Afebrile overnight. Patient resting in bed in nad. Tolerating Lovenox injections. Objective Data Date Time Temp Pulse Resp B/P (MAP) Pulse Ox O2 Delivery O2 Flow Rate FiO2 12/23/16 07:48 99 Nasal Cannula 2.00 12/23/16 07:30 93 12/23/16 07:15 Nasal Cannula 4.00 12/23/16 07:15 97.3 89 16 109/78 (88) 98 12/23/16 06:00 82 12/23/16 05:00 82 12/23/16 04:00 82 12/23/16 03:00 Nasal Cannula 4.00 96 12/23/16 03:00 97.2 87 20 135/87 (103) 96 12/23/16 03:00 86 12/23/16 02:00 82 12/23/16 01:00 84 12/23/16 00:00 86 12/22/16 23:00 Nasal Cannula 4.00 92 12/22/16 23:00 82 12/22/16 23:00 97.6 85 18 122/83 (96) 92 12/22/16 22:00 86 12/22/16 21:12 96 Nasal Cannula 12/22/16 21:00 88 12/22/16 20:00 90 12/22/16 20:00 98.4 86 22 129/70 (89) 94 12/22/16 19:00 Nasal Cannula 4.00 94 12/22/16 19:00 95 12/22/16 17:09 81 17 121/77 (92) 93 12/22/16 17:00 86 12/22/16 16:00 Nasal Cannula 5.00 80 12/22/16 16:00 88 12/22/16 15:00 88 12/22/16 14:00 90 12/22/16 13:00 88 12/22/16 12:17 98.9 82 17 113/75 (88) 92 12/23/16 12/23/16 12/23/16 06:59 14:59 22:59 Intake Total 750 ml Output Total 1150 ml Balance -400 ml Result Diagram: 12/23/16 0545 12/21/16 0535 Laboratory Results Laboratory Tests Test 12/23/16 05:45 White Blood Count 8.4 TH/MM3 Red Blood Count 4.34 MIL/MM3 Hemoglobin 12.3 GM/DL Hematocrit 37.9 % Mean Corpuscular Volume 87.3 FL Mean Corpuscular Hemoglobin 28.4 PG Mean Corpuscular Hemoglobin Concent 32.5 % Red Cell Distribution Width 15.7 % Platelet Count 267 TH/MM3 Mean Platelet Volume 9.1 FL Culture Results Microbiology Date/Time Source Procedure Growth Status 12/21/16 02:22 Stool Stool Stool Occult Blood (AVELINO) - Final HEMOCCULT NEGATIVE Complete Administered Medications Medications (Trade) Dose Ordered Sig/Trang Route PRN Reason Start Time Stop Time Status Last Admin Dose Admin Pantoprazole Sodium (Protonix Inj) 40 mg DAILY IV PUSH 12/05/16 16:30 12/23/16 10:49 Sodium Chloride (NS Flush) 2 ml BID IV FLUSH 12/07/16 21:00 12/23/16 10:51 Miscellaneous Information 1 Q361D XX 12/07/16 14:00 12/07/16 14:00 Chlorhexidine Gluconate (Chlorhexidine 2% Cloth) Taper DAILY@04 TOP 12/08/16 04:00 12/04/17 03:59 12/20/16 04:00 Ferrous Sulfate (Ferrous Sulfate) 325 mg DAILY PO 12/08/16 09:00 12/23/16 10:49 Pravastatin Sodium (Pravachol) 20 mg HS PO 12/07/16 21:00 12/22/16 20:32 Acetaminophen (Tylenol 650 Mg/ 20 ml Liq) 650 mg Q6H PRN PO fever >101 12/08/16 16:15 12/22/16 20:32 Aspirin (Aspirin Chew) 81 mg DAILY CHEW 12/09/16 09:00 12/23/16 10:49 Docusate Sodium (Colace Liq) 50 mg BID J-TUBE 12/09/16 21:00 Future Hold 12/15/16 20:26 Cholecalciferol (Vitamin D Liq) 2,000 units BID J-TUBE 12/09/16 21:00 12/23/16 10:50 Non-Formulary Medication 5 ML J-TUBE HS HS J-TUBE 12/09/16 21:00 12/22/16 20:33 Ondansetron HCl (Zofran Inj) 4 mg Q8HR PRN IV PUSH N/V 12/09/16 17:00 12/16/16 16:15 Potassium Chloride 100 ml @ 50 mls/hr Q2H PRN IV For Potassium 2.8 - 3.2 mEq/L 12/10/16 07:30 12/19/16 08:35 Potassium Chloride 100 ml @ 50 mls/hr Q2H PRN IV For Potassium 2.8 - 3.2 mEq/L 12/10/16 07:30 12/18/16 07:23 Potassium Chloride 100 ml @ 50 mls/hr Q2H PRN IV For Potassium 3.3 - 3.5 mEq/L 12/10/16 07:30 12/13/16 07:13 Sodium Phosphate 30 mmol/Sodium Chloride 250 ml @ 42 mls/hr UNSCH PRN IV For Phosphorus < 2.5 mg/dL 12/10/16 07:30 12/17/16 23:30 Sennosides (Senna Liq) 8.8 mg DAILY PO 12/11/16 09:00 12/23/16 10:50 Polyethylene Glycol (Miralax) 17 gm DAILY PO 12/11/16 09:00 12/20/16 08:02 Albuterol Sulfate (Albuterol Neb) 2.5 mg Q2HR NEB PRN NEB dyspnea 12/16/16 08:45 12/22/16 12:05 Metoclopramide HCl (Reglan Inj) 5 mg Q8HR IV PUSH 12/16/16 14:00 Future Hold 12/16/16 21:44 Sodium Chloride (Sodium Chloride 3% Neb) 2 ml Q4HR NEB NEB 12/18/16 16:00 12/23/16 15:59 12/23/16 11:26 Guaifenesin (Robitussin Liq) 400 mg Q8HR OG-TUBE 12/18/16 14:00 12/23/16 06:00 Water (Free Water) VOLUME: 100 ML Q8HR G-TUBE 12/18/16 14:00 12/23/16 06:00 Potassium Bicarb/ Potassium Chloride (K-Lyte Cl Eff) 25 meq Q12HR PO 12/19/16 10:00 12/23/16 10:48 Enoxaparin Sodium (Lovenox Inj) 90 mg Q12H SQ 12/22/16 16:00 12/23/16 03:49 Objective Remarks GENERAL: Chronically ill appearing male sitting up in bed in nad. SKIN: Warm and dry. HEAD: Normocephalic. EYES: No injection or drainage. NECK: Supple, trachea midline. CARDIOVASCULAR: +S1/S2 RESPIRATORY: anterior joseph clear. GASTROINTESTINAL: Abdomen soft, non-tender, nondistended. EXTREMITIES: No cyanosis NEUROLOGICAL: awake and alert, normal speech. moving all extremities. Assessment/Plan Problem List: (1) Pulmonary embolism ICD Codes: I26.99 - Other pulmonary embolism without acute cor pulmonale Status: Acute Plan: --CT angiography shows extensive bilateral pulmonary embolism -- Ultrasound of bilateral lower extremity shows a chronic DVT on the left and a nonocclusive thrombus in the right -- The patient has a family history of blood clots -- IVC filter placed on 12/07. -- Currently on Lovenox Hx/Workup: The patient presented with bleeding in his pharynx after an attempt of tube feed placement. He was recently seen at [facility] where he was diagnosed with a paraganglioma. He was also apparently diagnosed with a DVT and pulmonary embolism while at [facility]. (2) History of CVA (cerebrovascular accident) ICD Codes: Z86.73 - Personal history of transient ischemic attack (TIA), and cerebral infarction without residual deficits Plan: --had a stroke after the neck surgery with hemorrhagic transformation in caudate lobe noted MRA 10/27. --was later started on Plavix. No US or CTA found in the records and no mention of DVT/PE during his stay at [facility]. Assessment 66-year-old male admitted with hemoptysis; hematology consulted for history of recent pulmonary embolism Plan 1. continue Lovenox 2. will switch to oral anticoagulant once able to swallow 3. Monitor CBC Attending Statement The exam, history, and the medical decision-making described in the above note were completed with the assistance of the mid-level provider. I reviewed and agree with the findings presented. I attest that I had a [id number] encounter with the patient on the same day, and personally performed and documented my assessment and findings in the medical record. Started on Lovenox , tolerating well, no bleeding noted. No evidence of recurrent clots. Can go to rehab from hematology standpoint. He can be transition to oral anticoagulant like Pradaxa once he is able to swallow pill. Gogo Armenta Dec 23, 2016 12:11 Paulo Flynn MD Dec 23, 2016 15:03
[2016-12-23] MEDS: ACETAMINOPHEN 650 MG/20.3 ML UDC PO PRN (13:07)
--- NOTE | 2016-12-23 19:06 | PD.CONS ---
[facility] Service Rehabilitation Medicine Consult Requested By Dr. Mendoza Reason for Consult Comprehensive rehabilitation evaluation. Primary Care Physician Jassi Brown MD History of Present Illness Felix Lee is a 66 year old right hand dominant male admitted to [facility] after developing hemoptysis during PEG placement with respiratory failure. HE was intubated. He was found to have bilateral DVT and extensive bilateral PE on CTA. On 12/07/16 he underwent IVC filter placement. On 12/07/16 her also underwent open feeding J-tube placement. He was extubated 12/13/16. He is receiving Lovenox. Review of Systems Constitutional: COMPLAINS OF: Fatigue Eyes: DENIES: Diplopia Ears, nose, mouth, throat: COMPLAINS OF: Throat pain Respiratory: DENIES: Shortness of breath Cardiovascular: DENIES: Chest pain Gastrointestinal: COMPLAINS OF: Constipation, DENIES: Abdominal pain Genitourinary: DENIES: Urinary incontinence Musculoskeletal: COMPLAINS OF: Muscle aches Integumentary: DENIES: Rash Hematologic/lymphatic: DENIES: Bruising Immunologic/allergic: DENIES: Urticaria Neurologic: DENIES: Headache, Localized weakness, Paresthesias Psychiatric: DENIES: Confusion Past Family Social History Allergies: Coded Allergies: No Known Allergies (Verified , 10/16/15) Past Medical History Stroke ICA dissection Vocal cord paralysis Coronary artery disease. Iron-deficiency anemia. PE / DVT. Hypertension. Gastroesophageal reflux disease / Rasmussen's esophagus. Past Surgical History Tumor removal from the right neck, pathology showing glomus paraganglioma Dobhoff tube placement Bilateral tonsillectomy in 201 Current Medications Current Medications Medications (Trade) Dose Ordered Sig/Trang Route Start Time Stop Time Status Last Admin (Protonix Inj) 40 mg DAILY IV PUSH 12/05/16 16:30 12/23/16 10:49 (D50w (Vial) Inj) 50 ml UNSCH PRN IV PUSH 12/05/16 16:00 (Glucagon Inj) 1 mg UNSCH PRN OTHER 12/05/16 16:00 (NovoLIN R SUPPLEMENTAL SCALE) 1 Q6H SQ 12/05/16 17:00 (NS Flush) 2 ml UNSCH PRN IV FLUSH 12/07/16 14:00 (NS Flush) 2 ml BID IV FLUSH 12/07/16 21:00 12/23/16 10:51 Miscellaneous Information 1 Q361D XX 12/07/16 14:00 12/07/16 14:00 (Chlorhexidine 2% Cloth) Taper DAILY@04 TOP 12/08/16 04:00 12/04/17 03:59 12/20/16 04:00 (Chlorhexidine 2% Cloth) 3 pack UNSCH PRN TOP 12/07/16 14:00 (Milk Of Magnesia Liq) 30 ml Q12H PRN PO 12/07/16 14:00 (Dulcolax Supp) 10 mg DAILY PRN RECTAL 12/07/16 14:00 (Lactulose Liq) 30 ml DAILY PRN PO 12/07/16 14:00 (Ferrous Sulfate) 325 mg DAILY PO 12/08/16 09:00 12/23/16 10:49 (Pravachol) 20 mg HS PO 12/07/16 21:00 12/22/16 20:32 (Tylenol 650 Mg/ 20 ml Liq) 650 mg Q6H PRN PO 12/08/16 16:15 12/23/16 13:07 (Aspirin Chew) 81 mg DAILY CHEW 12/09/16 09:00 12/23/16 10:49 (Colace Liq) 50 mg BID J-TUBE 12/09/16 21:00 Future Hold 12/15/16 20:26 (Vitamin D Liq) 2,000 units BID J-TUBE 12/09/16 21:00 12/23/16 10:50 Non-Formulary Medication 5 ML J-TUBE HS HS J-TUBE 12/09/16 21:00 12/22/16 20:33 (Zofran Inj) 4 mg Q8HR PRN IV PUSH 12/09/16 17:00 12/16/16 16:15 Potassium Chloride 100 ml @ 50 mls/hr Q2H PRN IV 12/10/16 07:30 12/19/16 08:35 Potassium Chloride 100 ml @ 50 mls/hr Q2H PRN IV 12/10/16 07:30 12/18/16 07:23 (K-Lyte Cl Eff) 50 meq UNSCH PRN PO 12/10/16 07:30 Potassium Chloride 100 ml @ 25 mls/hr UNSCH PRN IV 12/10/16 07:30 Potassium Chloride 100 ml @ 50 mls/hr Q2H PRN IV 12/10/16 07:30 12/13/16 07:13 Magnesium Sulfate 4 gm/Sodium Chloride 100 ml @ 50 mls/hr UNSCH PRN IV 12/10/16 07:30 (Mag-Ox) 800 mg UNSCH PRN PO 12/10/16 07:30 Magnesium Sulfate 2 gm/Sodium Chloride 100 ml @ 50 mls/hr UNSCH PRN IV 12/10/16 07:30 (K-Phos) 2,000 mg Q4H PRN PO 12/10/16 07:30 Sodium Phosphate 30 mmol/Sodium Chloride 250 ml @ 42 mls/hr UNSCH PRN IV 12/10/16 07:30 12/17/16 23:30 (K-Phos) 2,000 mg UNSCH PRN PO/TUBE 12/10/16 07:30 Potassium Phosphate 30 mmol/ Sodium Chloride 260 ml @ 42 mls/hr UNSCH PRN IV 12/10/16 07:30 (Senna Liq) 8.8 mg DAILY PO 12/11/16 09:00 12/23/16 10:50 (Miralax) 17 gm DAILY PO 12/11/16 09:00 12/20/16 08:02 (Albuterol Neb) 2.5 mg Q2HR NEB PRN NEB 12/16/16 08:45 12/22/16 12:05 (Reglan Inj) 5 mg Q8HR IV PUSH 12/16/16 14:00 Future Hold 12/16/16 21:44 (Robitussin Liq) 400 mg Q8HR OG-TUBE 12/18/16 14:00 12/23/16 13:49 (Free Water) VOLUME: 100 ML Q8HR G-TUBE 12/18/16 14:00 12/23/16 13:55 (K-Lyte Cl Eff) 25 meq Q12HR PO 12/19/16 10:00 12/23/16 10:48 (Lovenox Inj) 90 mg Q12H SQ 12/22/16 16:00 12/23/16 17:35 Exam I&O / VS 12/23/16 12/23/16 12/24/16 15:00 23:00 07:00 Intake Total 1445 ml Output Total 600 ml Balance 845 ml Tube Feeding 1345 ml Tube Irrigant 100 ml Output Urine Total 600 ml # Bowel Movements 0 Vital Signs Date Time Temp Pulse Resp B/P (MAP) Pulse Ox O2 Delivery O2 Flow Rate FiO2 12/23/16 18:35 90 12/23/16 17:14 85 12/23/16 15:48 97.5 88 16 117/81 (93) 95 12/23/16 15:48 Nasal Cannula 2.00 12/23/16 15:48 81 12/23/16 14:09 85 12/23/16 14:09 18 12/23/16 13:56 81 12/23/16 12:00 84 12/23/16 11:00 Nasal Cannula 1.50 12/23/16 11:00 98 12/23/16 11:00 98.3 82 16 130/89 (103) 99 12/23/16 10:00 96 12/23/16 09:00 92 12/23/16 08:00 93 12/23/16 07:48 99 Nasal Cannula 2.00 12/23/16 07:30 93 12/23/16 07:15 Nasal Cannula 4.00 12/23/16 07:15 97.3 89 16 109/78 (88) 98 12/23/16 06:00 82 12/23/16 05:00 82 12/23/16 04:00 82 12/23/16 03:00 Nasal Cannula 4.00 96 12/23/16 03:00 97.2 87 20 135/87 (103) 96 12/23/16 03:00 86 12/23/16 02:00 82 12/23/16 01:00 84 12/23/16 00:00 86 12/22/16 23:00 Nasal Cannula 4.00 92 12/22/16 23:00 82 12/22/16 23:00 97.6 85 18 122/83 (96) 92 12/22/16 22:00 86 12/22/16 21:12 96 Nasal Cannula 12/22/16 21:00 88 12/22/16 20:00 90 12/22/16 20:00 98.4 86 22 129/70 (89) 94 12/22/16 19:00 Nasal Cannula 4.00 94 12/22/16 19:00 95 General: No acute distress Respiratory: Lungs CTA, Non-labored respirations, BS equal (Decreased breath sounds bilaterally) Gastrointestinal: Positive Bowel Sounds, Distended (Soft, depressible), Tender (Over surgical incision), Other (Jtube in place) Musculoskeletal: Swelling (None in LE distally) Psychiatric: Cooperative, Appropriate mood & affect Orientation: oriented to Self, oriented to Place, oriented to Time, oriented to Situation Neurologic: Pupils (PERRLA), EOM (intact), Speech (Clear) Motor: Right Upper Extremity (4+/5), Left Upper Extremity (4+/5), Right Lower Extremity (4/5), Left Lower Extremity (4/5) Sensory Intact to light touch in both UE and LE DTRs: Normal Clonus: Negative Assessment and Plan Diagnosis: (1) Pulmonary embolism ICD Codes: I26.99 - Other pulmonary embolism without acute cor pulmonale Status: Acute (2) DVT (deep venous thrombosis) ICD Codes: I82.409 - Acute embolism and thrombosis of unspecified deep veins of unspecified lower extremity Status: Acute (3) History of CVA (cerebrovascular accident) ICD Codes: Z86.73 - Personal history of transient ischemic attack (TIA), and cerebral infarction without residual deficits (4) Impaired mobility and activities of daily living ICD Codes: Z74.09 - Other reduced mobility Assessment 1. Resection of neck glomus paraganglioma with stroke/ICA dissection/vocal cord paralysis S/P Dobhoff placement with respiratory failure during PEG placement 2. Bilateral DVT and PE 3. IVC filter 4. Open J tube placement 5. CAD 6. Anemia 7. HTN 8. Rasmussen's esopahgus 9. Hyperlipidemia Plan 1. PT mobilizing patient and CG for transfers and gait with RW 50 feet with fair minus balance. Continue to mobilize anticipating that patient should progress well. 2. OT addressing ADL's and min assist for grooming and max for UE dressing 3. ST evaluating swallow and NPO 4. Anticipate that patient will need ongoing inpatient rehabilitation and case management is working with insurance for authorization. 5. Will follow while hospitalized and at discharge. Thank you for this consult. Kailyn Sierra MD Dec 23, 2016 19:06
[2016-12-23] MEDS: PRAVASTATIN SOD 20 MG TAB PO SCH (22:41)
[2016-12-23] MEDS: [UNRECOGNIZED DRUG - REMARK] J-TUBE SCH (22:48)
[2016-12-24] VITALS (8 sets, daily range): BP systolic 123–141; BP diastolic 76–85; PULSE 78–101; RESP 16–18; TEMP 97.4–98.6; O2SAT 94–98
[2016-12-24] MEDS: CHLORHEXIDINE GLUCONATE 2 % 1 PACK (2 CLOTHS) TOP SCH (04:00)
[2016-12-24] MEDS: INSULIN NovoLIN REGULAR SUPPLEMENTAL SCALE SQ SCH ×5 (05:00→23:00)
[2016-12-24 05:25] LABS: APTT (PATIENT) 30.1 SEC (24.3-30.1)
[2016-12-24] MEDS: FREE WATER G-TUBE SCH ×3 (06:00→22:00)
[2016-12-24] MEDS: guaiFENesin SOLUTION 200 MG/10 ML CUP OG-TUBE SCH ×2 (06:00→14:00)
[2016-12-24] MEDS: ENOXAPARIN SODIUM 100 MG/ML SYRINGE SQ SCH ×2 (07:21→17:03)
[2016-12-24] MEDS: POLYETHYLENE GLYCOL 17 GM PKG PO SCH (08:55)
[2016-12-24] MEDS: ASPIRIN 81 MG CHEW TAB CHEW SCH (08:56)
[2016-12-24] MEDS: POTASSIUM CHLORIDE 25 MEQ EFFERVESCENT TAB PO SCH (08:56)
[2016-12-24] MEDS: SENNOSIDES SYRUP 8.8 MG/5 ML CUP PO SCH (08:56)
[2016-12-24] MEDS: FERROUS SULFATE 325 MG (65 MG ELEMENTAL IRON) TAB PO SCH (08:56)
[2016-12-24] MEDS: CHOLECALCIFEROL (VIT D3) LIQ 400 UNITS/ML 50 ML BOTTLE J-TUBE SCH (08:56)
[2016-12-24] MEDS: PANTOPRAZOLE SODIUM 40 MG VIAL IV PUSH SCH (08:57)
[2016-12-24] MEDS: SODIUM CHLORIDE 0.9% FLUSH 10 ML FLUSH IV FLUSH SCH (08:57)
--- NOTE | 2016-12-24 11:33 | HHI.PR ---
Subjective Remarks Patient discharged yesterday to inpatient rehabilitation. Awaiting insurance authorization. Patient is frustrated that he still waiting for the insurance company to approve his transfer to rehabilitation. He has no new complaints. Objective Vitals Vital Signs Date Time Temp Pulse Resp B/P (MAP) Pulse Ox O2 Delivery O2 Flow Rate FiO2 12/24/16 09:59 92 12/24/16 09:00 97.6 101 18 124/84 (97) 96 12/24/16 00:44 97.9 86 18 141/76 (97) 96 12/24/16 00:09 91 12/23/16 20:30 Room Air 21 12/23/16 20:30 93 12/23/16 18:35 90 12/23/16 17:14 85 12/23/16 15:48 97.5 88 16 117/81 (93) 95 12/23/16 15:48 Nasal Cannula 2.00 12/23/16 15:48 81 12/23/16 14:09 85 12/23/16 14:09 18 12/23/16 13:56 81 12/23/16 12:00 84 I/O 12/23/16 12/23/16 12/23/16 12/24/16 12/24/16 12/24/16 07:00 15:00 23:00 07:00 15:00 23:00 Intake Total 750 ml 1445 ml 2651 ml Output Total 1150 ml 600 ml 500 ml Balance -400 ml 845 ml 2151 ml Tube Feeding 450 ml 1345 ml 2651 ml Tube Irrigant 300 ml 100 ml Output Urine Total 1150 ml 600 ml 500 ml # Bowel Movements 0 Result Diagram: 12/23/16 0545 12/21/16 0535 Objective Remarks GENERAL: This is 66 years old frail elderly, well-developed patient, in no apparent distress. CARDIOVASCULAR: Regular rate and rhythm without murmurs, gallops, or rubs. RESPIRATORY: Fair air entry bilaterally. No wheezes, rales, or rhonchi. GASTROINTESTINAL: Abdomen soft, non-tender, nondistended. Positive bowel sounds MUSCULOSKELETAL: Extremities without clubbing, cyanosis, or edema. Pedal pulses appreciated NEUROLOGICAL: Awake and alert. Moves all extremity. Procedures IVC filter placement J tube placement(Open). A/P Problem List: (1) Hemoptysis ICD Code: R04.2 - Hemoptysis Status: Acute (2) Pulmonary embolism ICD Code: I26.99 - Other pulmonary embolism without acute cor pulmonale Status: Acute (3) DVT (deep venous thrombosis) ICD Code: I82.409 - Acute embolism and thrombosis of unspecified deep veins of unspecified lower extremity Status: Acute (4) History of CVA (cerebrovascular accident) ICD Code: Z86.73 - Personal history of transient ischemic attack (TIA), and cerebral infarction without residual deficits Assessment and Plan 66-year-old male with a past medical history of gastroesophageal reflux disease , Rasmussen's esophagus, hypertension, hyperlipidemia, iron-deficiency anemia, coronary artery disease, PE and DVT year ago. He had a tumor removed from the right side of his neck at [facility] in October with pathology showing a glomus paraganglioma. 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 He had Dobbhoff placed for approximately one month and went to outpatient surgical center today to have a peg tube placed. However during procedure the patient had some hemoptysis. The patient was scoped by Dr. Peña who did not think esophagus was\ the source of bleeding. The patient also noted to have hiatal hernia and a G tube could not be placed. The patient was intubated at the surgical center with Versed and transferred to the ER. When seen the patient is intubated and on full mechanical ventilation. His initial blood pressure on arrival 135/84 with a pulse of 84. Chest x-ray showed subsegmental\ atelectasis at the left base. His laboratory data showed normal CBC and mild hyponatremia with sodium level of 134. According to the patient's and daughter, he was on anticoagulation with Coumadin for his PE and DVT and was taken off of it in October and placed on Plavix instead. There is no history of any chest pain, shortness of breath or hemoptysis prior to arrival at the surgical center. In addition, no history of nausea, vomiting or abdominal pain. The patient was eventually extubated. He remained stable on a nasal cannula. He was able to tolerate tube feeding. He underwent IVC filter placement and G- tube placement. He was followed by oncology. Patient was started on therapeutic dose of Lovenox for treatment of DVT/PE. He is to continue on that until he can tolerate by mouth at which point he may be transitioned to Pradaxa. Patient is discharged to inpatient rehab. Awaiting insurance authorization. Donavan Mendoza MD Dec 24, 2016 11:33
[2016-12-24] MEDS: [UNRECOGNIZED DRUG - REMARK] J-TUBE SCH (21:00)
[2016-12-25] VITALS (17 sets, daily range): BP systolic 119–135; BP diastolic 79–88; PULSE 82–96; RESP 16–20; TEMP 97.3–97.7; O2SAT 92–97
[2016-12-25] MEDS: PRAVASTATIN SOD 20 MG TAB PO SCH ×2 (00:01→20:26)
[2016-12-25] MEDS: POTASSIUM CHLORIDE 25 MEQ EFFERVESCENT TAB PO SCH ×3 (00:01→20:26)
[2016-12-25] MEDS: ACETAMINOPHEN 650 MG/20.3 ML UDC PO PRN ×2 (00:01→06:02)
[2016-12-25] MEDS: CHOLECALCIFEROL (VIT D3) LIQ 400 UNITS/ML 50 ML BOTTLE J-TUBE SCH ×3 (00:02→20:26)
[2016-12-25] MEDS: guaiFENesin SOLUTION 200 MG/10 ML CUP OG-TUBE SCH ×4 (00:02→22:20)
[2016-12-25] MEDS: SODIUM CHLORIDE 0.9% FLUSH 10 ML FLUSH IV FLUSH SCH ×3 (00:10→20:26)
[2016-12-25] MEDS: CHLORHEXIDINE GLUCONATE 2 % 1 PACK (2 CLOTHS) TOP SCH (04:00)
[2016-12-25] MEDS: INSULIN NovoLIN REGULAR SUPPLEMENTAL SCALE SQ SCH ×4 (05:00→22:20)
[2016-12-25] MEDS: ENOXAPARIN SODIUM 100 MG/ML SYRINGE SQ SCH ×2 (05:35→17:29)
[2016-12-25] MEDS: FREE WATER G-TUBE SCH ×3 (06:00→22:00)
[2016-12-25 08:34] LABS: APTT (PATIENT) 32.4 SEC (24.3-30.1)
[2016-12-25] MEDS: FERROUS SULFATE 325 MG (65 MG ELEMENTAL IRON) TAB PO SCH (11:29)
[2016-12-25] MEDS: ASPIRIN 81 MG CHEW TAB CHEW SCH (11:29)
[2016-12-25] MEDS: POLYETHYLENE GLYCOL 17 GM PKG PO SCH (11:29)
[2016-12-25] MEDS: SENNOSIDES SYRUP 8.8 MG/5 ML CUP PO SCH (11:30)
[2016-12-25] MEDS: PANTOPRAZOLE SODIUM 40 MG VIAL IV PUSH SCH (11:31)
--- NOTE | 2016-12-25 11:49 | HHI.PR ---
Subjective Remarks ALERT NO SOB AT REST Objective Vital Signs Date Time Temp Pulse Resp B/P (MAP) Pulse Ox O2 Delivery O2 Flow Rate FiO2 12/25/16 09:39 97.7 86 20 119/80 (93) 95 12/25/16 08:01 95 2.00 12/25/16 05:31 97.4 85 16 131/79 (96) 96 12/25/16 05:23 96 2.00 12/25/16 00:28 97.6 89 16 122/85 (97) 93 12/25/16 00:24 93 2.00 12/24/16 21:55 95 2.00 12/24/16 21:27 98 12/24/16 20:00 97.4 84 16 139/85 (103) 95 12/24/16 20:00 89 12/24/16 18:42 98 Room Air 2.00 21 12/24/16 17:02 97.6 85 18 123/81 (95) 94 12/24/16 12:21 98.6 78 18 124/78 (93) 96 I/O 12/24/16 12/24/16 12/24/16 12/25/16 12/25/16 12/25/16 07:00 15:00 23:00 07:00 15:00 23:00 Intake Total 2651 ml 820 ml 100 ml Output Total 500 ml 650 ml 600 ml Balance 2151 ml 170 ml -500 ml IV Total 100 ml 100 ml Tube Feeding 2651 ml 620 ml Other 100 ml Output Urine Total 500 ml 650 ml 600 ml # Bowel Movements 1 Result Diagram: 12/23/16 0545 12/21/16 0535 Objective Remarks GENERAL: SKIN: Warm and dry. HEAD: Atraumatic. Normocephalic. EYES: Pupils equal and round. No scleral icterus. No injection or drainage. ENT: No nasal bleeding or discharge. Mucous membranes pink and moist. NECK: Trachea midline. No JVD. CARDIOVASCULAR: Regular rate and rhythm. RESPIRATORY: No accessory muscle use. decrease breath sounds at basis GASTROINTESTINAL: Abdomen soft, non-tender, nondistended. Hepatic and splenic margins not palpable. MUSCULOSKELETAL: Extremities without clubbing, cyanosis, or edema. No obvious deformities. NEUROLOGICAL: Awake and alert. No obvious cranial nerve deficits. Motor grossly within normal limits. Five out of 5 muscle strength in the arms and legs. Normal speech. PSYCHIATRIC: Appropriate mood and affect; insight and judgment normal. Assessment and Plan Assessment and Plan RESPIRATORY FAILURE , resolved DVT/PE PLAN O2 NEEDED INCREASE ACTIVITY Reynaldo,Reynaldo Chandler MD Dec 25, 2016 11:49
--- NOTE | 2016-12-25 13:15 | HHI.PR ---
Subjective Remarks Patient discharge, awaiting insurance approval for placement at inpatient rehabilitation. He expressed frustrations. No new issues. Objective Vitals Vital Signs Date Time Temp Pulse Resp B/P (MAP) Pulse Ox O2 Delivery O2 Flow Rate FiO2 12/25/16 12:43 Nasal Cannula 2.00 12/25/16 09:39 97.7 86 20 119/80 (93) 95 12/25/16 08:01 95 2.00 12/25/16 05:31 97.4 85 16 131/79 (96) 96 12/25/16 05:23 96 2.00 12/25/16 00:28 97.6 89 16 122/85 (97) 93 12/25/16 00:24 93 2.00 12/24/16 21:55 95 2.00 12/24/16 21:27 98 12/24/16 20:00 97.4 84 16 139/85 (103) 95 12/24/16 20:00 89 12/24/16 18:42 98 Room Air 2.00 21 12/24/16 17:02 97.6 85 18 123/81 (95) 94 I/O 12/24/16 12/24/16 12/24/16 12/25/16 12/25/16 12/25/16 07:00 15:00 23:00 07:00 15:00 23:00 Intake Total 2651 ml 820 ml 100 ml Output Total 500 ml 650 ml 600 ml Balance 2151 ml 170 ml -500 ml IV Total 100 ml 100 ml Tube Feeding 2651 ml 620 ml Other 100 ml Output Urine Total 500 ml 650 ml 600 ml # Bowel Movements 1 Result Diagram: 12/23/16 0545 12/21/16 0535 Objective Remarks GENERAL: This is 66 years old frail elderly, well-developed patient, in no apparent distress. CARDIOVASCULAR: Regular rate and rhythm without murmurs, gallops, or rubs. RESPIRATORY: Fair air entry bilaterally. No wheezes, rales, or rhonchi. GASTROINTESTINAL: Abdomen soft, non-tender, nondistended. Positive bowel sounds MUSCULOSKELETAL: Extremities without clubbing, cyanosis, or edema. Pedal pulses appreciated NEUROLOGICAL: Awake and alert. Moves all extremity. Procedures IVC filter placement J tube placement(Open). A/P Problem List: (1) Hemoptysis ICD Code: R04.2 - Hemoptysis Status: Acute (2) Pulmonary embolism ICD Code: I26.99 - Other pulmonary embolism without acute cor pulmonale Status: Acute (3) DVT (deep venous thrombosis) ICD Code: I82.409 - Acute embolism and thrombosis of unspecified deep veins of unspecified lower extremity Status: Acute (4) History of CVA (cerebrovascular accident) ICD Code: Z86.73 - Personal history of transient ischemic attack (TIA), and cerebral infarction without residual deficits Assessment and Plan 66-year-old male with a past medical history of gastroesophageal reflux disease , Rasmussen's esophagus, hypertension, hyperlipidemia, iron-deficiency anemia, coronary artery disease, PE and DVT year ago. He had a tumor removed from the right side of his neck at [facility] in October with pathology showing a glomus paraganglioma. 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 He had Dobbhoff placed for approximately one month and went to outpatient surgical center today to have a peg tube placed. However during procedure the patient had some hemoptysis. The patient was scoped by Dr. Peña who did not think esophagus was\ the source of bleeding. The patient also noted to have hiatal hernia and a G tube could not be placed. The patient was intubated at the surgical center with Versed and transferred to the ER. When seen the patient is intubated and on full mechanical ventilation. His initial blood pressure on arrival 135/84 with a pulse of 84. Chest x-ray showed subsegmental\ atelectasis at the left base. His laboratory data showed normal CBC and mild hyponatremia with sodium level of 134. According to the patient's and daughter, he was on anticoagulation with Coumadin for his PE and DVT and was taken off of it in October and placed on Plavix instead. There is no history of any chest pain, shortness of breath or hemoptysis prior to arrival at the surgical center. In addition, no history of nausea, vomiting or abdominal pain. The patient was eventually extubated. He remained stable on a nasal cannula. He was able to tolerate tube feeding. He underwent IVC filter placement and G- tube placement. He was followed by oncology. Patient was started on therapeutic dose of Lovenox for treatment of DVT/PE. He is to continue on that until he can tolerate by mouth at which point he may be transitioned to Pradaxa. Awaiting insurance authorization for inpatient rehabilitation placement. Donaavn Mendoza MD Dec 25, 2016 13:15
[2016-12-25] MEDS: [UNRECOGNIZED DRUG - REMARK] J-TUBE SCH (20:43)
[2016-12-26] MEDS: CHLORHEXIDINE GLUCONATE 2 % 1 PACK (2 CLOTHS) TOP SCH (00:34)
[2016-12-26 03:49] VITALS: O2SAT 96
[2016-12-26] MEDS: guaiFENesin SOLUTION 200 MG/10 ML CUP OG-TUBE SCH ×3 (04:30→23:06)
[2016-12-26] MEDS: FREE WATER G-TUBE SCH ×3 (04:30→22:00)
[2016-12-26] MEDS: ENOXAPARIN SODIUM 100 MG/ML SYRINGE SQ SCH ×2 (04:30→17:17)
[2016-12-26] MEDS: INSULIN NovoLIN REGULAR SUPPLEMENTAL SCALE SQ SCH ×4 (04:32→23:00)
[2016-12-26 04:37] VITALS: BP 141/96; PULSE 87; RESP 18; TEMP 97.5; O2SAT 95
[2016-12-26 06:26] LABS: HEMATOCRIT 37.6 % (39.0-51.0); MEAN CELL VOLUME 87.6 FL (80.0-100.0); MEAN CORPUSCULAR HEMOGLOBIN 28.7 PG (27.0-34.0); MEAN CORPUSCULAR HGB CONC 32.7 % (32.0-36.0); PLATELET COUNT 235 TH/MM3 (150-450); RED CELL DISTRIBUTION WIDTH 15.7 % (11.6-17.2); REVIEW FLAG FINAL; WHITE BLOOD COUNT 6.8 TH/MM3 (4.0-11.0)
--- NOTE | 2016-12-26 07:33 | PD.ONC.PN ---
Subjective Subjective Remarks No CP/SOB. No bleeding. Tolerating tube feeding better. Objective Data Date Time Temp Pulse Resp B/P (MAP) Pulse Ox O2 Delivery O2 Flow Rate FiO2 12/26/16 04:37 97.5 87 18 141/96 (111) 95 12/26/16 03:49 96 Nasal Cannula 2.00 12/26/16 03:08 93 2.00 12/25/16 23:32 97.5 90 18 125/84 (98) 93 12/25/16 23:30 93 2.00 12/25/16 21:31 92 12/25/16 21:15 97 2.00 12/25/16 20:00 97.7 84 18 135/84 (101) 97 12/25/16 18:00 85 12/25/16 17:00 84 12/25/16 16:00 87 12/25/16 15:00 97.3 82 18 135/88 (104) 92 12/25/16 15:00 95 2.00 12/25/16 14:00 86 12/25/16 13:00 84 12/25/16 12:43 Nasal Cannula 2.00 12/25/16 12:00 89 12/25/16 11:00 96 12/25/16 11:00 95 2.00 12/25/16 10:00 92 12/25/16 09:39 97.7 86 20 119/80 (93) 95 12/25/16 09:00 82 12/25/16 08:01 95 2.00 12/25/16 08:00 89 12/26/16 12/26/16 12/26/16 07:00 15:00 23:00 Intake Total 637 ml Output Total 300 ml Balance 337 ml Result Diagram: 12/26/16 0439 Laboratory Results Laboratory Tests Test 12/26/16 04:39 White Blood Count 6.8 TH/MM3 Red Blood Count 4.30 MIL/MM3 Hemoglobin 12.3 GM/DL Hematocrit 37.6 % Mean Corpuscular Volume 87.6 FL Mean Corpuscular Hemoglobin 28.7 PG Mean Corpuscular Hemoglobin Concent 32.7 % Red Cell Distribution Width 15.7 % Platelet Count 235 TH/MM3 Mean Platelet Volume 9.8 FL Activated Partial Thromboplast Time 31.0 SEC Administered Medications Medications (Trade) Dose Ordered Sig/Trang Route PRN Reason Start Time Stop Time Status Last Admin Dose Admin Pantoprazole Sodium (Protonix Inj) 40 mg DAILY IV PUSH 12/05/16 16:30 12/25/16 11:31 Sodium Chloride (NS Flush) 2 ml BID IV FLUSH 12/07/16 21:00 12/25/16 20:26 Miscellaneous Information 1 [id number] XX 12/07/16 14:00 12/07/16 14:00 Chlorhexidine Gluconate (Chlorhexidine 2% Cloth) Taper DAILY@04 TOP 12/08/16 04:00 12/04/17 03:59 12/20/16 04:00 Ferrous Sulfate (Ferrous Sulfate) 325 mg DAILY PO 12/08/16 09:00 12/25/16 11:29 Pravastatin Sodium (Pravachol) 20 mg HS PO 12/07/16 21:00 12/25/16 20:26 Acetaminophen (Tylenol 650 Mg/ 20 ml Liq) 650 mg Q6H PRN PO fever >101 12/08/16 16:15 12/25/16 06:02 Aspirin (Aspirin Chew) 81 mg DAILY CHEW 12/09/16 09:00 12/25/16 11:29 Docusate Sodium (Colace Liq) 50 mg BID J-TUBE 12/09/16 21:00 Future Hold 12/15/16 20:26 Cholecalciferol (Vitamin D Liq) 2,000 units BID J-TUBE 12/09/16 21:00 12/25/16 20:26 Ondansetron HCl (Zofran Inj) 4 mg Q8HR PRN IV PUSH N/V 12/09/16 17:00 12/16/16 16:15 Sennosides (Senna Liq) 8.8 mg DAILY PO 12/11/16 09:00 12/25/16 11:30 Polyethylene Glycol (Miralax) 17 gm DAILY PO 12/11/16 09:00 12/25/16 11:29 Albuterol Sulfate (Albuterol Neb) 2.5 mg Q2HR NEB PRN NEB dyspnea 12/16/16 08:45 12/22/16 12:05 Metoclopramide HCl (Reglan Inj) 5 mg Q8HR IV PUSH 12/16/16 14:00 Future Hold 12/16/16 21:44 Guaifenesin (Robitussin Liq) 400 mg Q8HR OG-TUBE 12/18/16 14:00 12/26/16 04:30 Water (Free Water) VOLUME: 100 ML Q8HR G-TUBE 12/18/16 14:00 12/26/16 04:30 Potassium Bicarb/ Potassium Chloride (K-Lyte Cl Eff) 25 meq Q12HR PO 12/19/16 10:00 12/25/16 20:26 Enoxaparin Sodium (Lovenox Inj) 90 mg Q12H SQ 12/22/16 16:00 12/26/16 04:30 Non-Formulary Medication NON-FORM DRUG: OS... HS J-TUBE 12/25/16 21:00 12/25/16 20:43 Objective Remarks GENERAL: Well-nourished, well-developed patient. Weak. SKIN: Warm and dry. HEAD: Normocephalic. EYES: No scleral icterus. No injection or drainage. NECK: Supple, trachea midline. No JVD or lymphadenopathy. LYMPHATIC: No adenopathy. CARDIOVASCULAR: Regular rate and rhythm without murmurs. RESPIRATORY: Breath sounds equal bilaterally. No accessory muscle use. GASTROINTESTINAL: Abdomen soft, non-tender, nondistended. EXTREMITIES: No cyanosis, or edema. MUSCULOSKELETAL: Adequate muscle tone. NEUROLOGICAL: No obvious focal deficit. Awake, alert, and oriented x3. PSYCHIATRIC: Appropriate mood and affect; insight and judgment normal. Assessment/Plan Problem List: (1) Pulmonary embolism ICD Codes: I26.99 - Other pulmonary embolism without acute cor pulmonale Status: Acute Plan: --CT angiography shows extensive bilateral pulmonary embolism -- Ultrasound of bilateral lower extremity shows a chronic DVT on the left and a nonocclusive thrombus in the right -- The patient has a family history of blood clots -- IVC filter placed on 12/07. -- Currently on Lovenox, not able to swallow. Hx/Workup: The patient presented with bleeding in his pharynx after an attempt of tube feed placement. He was recently seen at [facility] where he was diagnosed with a paraganglioma. He was also apparently diagnosed with a DVT and pulmonary embolism while at [facility]. (2) History of CVA (cerebrovascular accident) ICD Codes: Z86.73 - Personal history of transient ischemic attack (TIA), and cerebral infarction without residual deficits Plan: --had a stroke after the neck surgery with hemorrhagic transformation in caudate lobe noted MRA 10/27. --was later started on Plavix. No US or CTA found in the records and no mention of DVT/PE during his stay at [facility]. Assessment 66-year-old male admitted with hemoptysis; hematology consulted for history of recent pulmonary embolism Plan 1. continue Lovenox 2. Can switch to oral anticoagulant once able to swallow 3. Monitor CBC 4. Await d/c to rehab. Paulo Flynn MD Dec 26, 2016 07:33
[2016-12-26] MEDS: ASPIRIN 81 MG CHEW TAB CHEW SCH (09:00)
[2016-12-26] MEDS: FERROUS SULFATE 325 MG (65 MG ELEMENTAL IRON) TAB PO SCH (09:44)
[2016-12-26] MEDS: SENNOSIDES SYRUP 8.8 MG/5 ML CUP PO SCH (09:44)
[2016-12-26] MEDS: POLYETHYLENE GLYCOL 17 GM PKG PO SCH (09:44)
[2016-12-26] MEDS: POTASSIUM CHLORIDE 25 MEQ EFFERVESCENT TAB PO SCH ×2 (09:44→23:05)
[2016-12-26] MEDS: CHOLECALCIFEROL (VIT D3) LIQ 400 UNITS/ML 50 ML BOTTLE J-TUBE SCH ×2 (09:45→23:05)
[2016-12-26] MEDS: SODIUM CHLORIDE 0.9% FLUSH 10 ML FLUSH IV FLUSH SCH ×2 (09:47→23:05)
[2016-12-26] MEDS: PANTOPRAZOLE SODIUM 40 MG VIAL IV PUSH SCH (09:47)
[2016-12-26 12:04] VITALS: O2SAT 96
--- NOTE | 2016-12-26 12:10 | HHI.PR ---
Subjective Remarks Follow-up DVT/PE 12/26/16-patient seen and examined the currently nothing by mouth as patient still unable to swallow. Currently on subcutaneous Lovenox. No acute event overnight Objective Vitals Vital Signs Date Time Temp Pulse Resp B/P (MAP) Pulse Ox O2 Delivery O2 Flow Rate FiO2 12/26/16 04:37 97.5 87 18 141/96 (111) 95 12/26/16 03:49 96 Nasal Cannula 2.00 12/26/16 03:08 93 2.00 12/25/16 23:32 97.5 90 18 125/84 (98) 93 12/25/16 23:30 93 2.00 12/25/16 21:31 92 12/25/16 21:15 97 2.00 12/25/16 20:00 97.7 84 18 135/84 (101) 97 12/25/16 18:00 85 12/25/16 17:00 84 12/25/16 16:00 87 12/25/16 15:00 97.3 82 18 135/88 (104) 92 12/25/16 15:00 95 2.00 12/25/16 14:00 86 12/25/16 13:00 84 12/25/16 12:43 Nasal Cannula 2.00 I/O 12/25/16 12/25/16 12/25/16 12/26/16 12/26/16 12/26/16 07:00 15:00 23:00 07:00 15:00 23:00 Intake Total 100 ml 1176 ml 637 ml Output Total 600 ml 300 ml Balance -500 ml 1176 ml 337 ml IV Total 100 ml Tube Feeding 976 ml 537 ml Other 200 ml 100 ml Output Urine Total 600 ml 300 ml # Bowel Movements 1 1 Result Diagram: 12/26/16 0439 Imaging Last Impressions Chest X-Ray 12/21/16 0600 Signed Impressions: Service Date/Time: Wednesday, December 21, 2016 04:00 - CONCLUSION: No significant change Luan Nunez MD Small Bowel X-Ray 12/16/16 0000 Signed Impressions: Service Date/Time: Friday, December 16, 2016 14:10 - CONCLUSION: Unremarkable small bowel examination. Armand Valencia MD Abdomen X-Ray 12/15/16 0000 Signed Impressions: Service Date/Time: December 08:15 - CONCLUSION: 1. Jejunal feeding tube remains in place with paucity of bowel gas. 2. Abnormal opacity at the lung bases with apparent bilateral effusions. Italo Nelson MD Abdomen/Pelvis CT 12/12/16 0000 Signed Impressions: Service Date/Time: Monday, December 12, 2016 13:31 - CONCLUSION: Prominent consolidative changes in the posterior lung bases and small effusions. Very large hiatal hernia. Hepatic and renal cysts. Luan Nunez MD Head CT 12/08/16 0600 Signed Impressions: Service Date/Time: November 11:16 - CONCLUSION: 1. Increased paranasal sinus opacification. 2. No other significant interval change. Subacute to chronic ischemic findings of the right basal ganglia. Titi Najera MD IVC Filter Placement X-Ray 12/07/16 0000 Signed Impressions: Service Date/Time: Wednesday, December 07, 2016 11:49 - CONCLUSION: Uncomplicated inferior vena cava filter placement as above. Patric Stover MD Lower Extremity Ultrasound 12/05/16 0000 Signed Impressions: Service Date/Time: Monday, December 05, 2016 23:02 - CONCLUSION: 1. Positive for deep venous thrombosis as above. Sidney Pérez MD CT Angiography 12/05/16 0000 Signed Impressions: Service Date/Time: Monday, December 05, 2016 18:13 - CONCLUSION: 1. Extensive bilateral pulmonary arterial thrombi emboli bilaterally within the segmental and lobar vessels. There are no imaging findings to indicate right heart strain. 2. Stable 3.7 cm hypodense lesion with calcification either in the posterior mediastinum abutting the descending thoracic aorta or in the posterior left pleural space. Stranding of uncertain etiology but has not changed in approximately 13 months. 3. Stable large hiatal hernia. There is atelectasis/volume loss in both lower lobes. Luan Bermudez MD Objective Remarks GENERAL: NAD SKIN: Warm and dry. HEAD: Normocephalic. EYES: No scleral icterus. No injection or drainage. NECK: Supple, trachea midline. No JVD or lymphadenopathy. CARDIOVASCULAR: Regular rate and rhythm without murmurs, gallops, or rubs. RESPIRATORY: Breath sounds equal bilaterally. No accessory muscle use. GASTROINTESTINAL: Abdomen soft, non-tender, nondistended. MUSCULOSKELETAL: No cyanosis, or edema. BACK: Nontender without obvious deformity. No CVA tenderness. Procedures IVC filter placement J tube placement(Open). A/P Problem List: (1) Hemoptysis ICD Code: R04.2 - Hemoptysis Status: Acute (2) Pulmonary embolism ICD Code: I26.99 - Other pulmonary embolism without acute cor pulmonale Status: Acute (3) DVT (deep venous thrombosis) ICD Code: I82.409 - Acute embolism and thrombosis of unspecified deep veins of unspecified lower extremity Status: Acute (4) History of CVA (cerebrovascular accident) ICD Code: Z86.73 - Personal history of transient ischemic attack (TIA), and cerebral infarction without residual deficits Assessment and Plan 66 year-old man with PE/DVT Appreciate input from hematology Status post IVC filter placement Continue with subcutaneous Lovenox anti-patient able to take by mouth day and will switch to oral anticoagulation History of Rasmussen esophagus GI bleed /Hemoptysis-resolved Status post EGD with PEG tube placement Hypertension Currently normotensive Hyperlipidemia Continue with statin History of CVA Aspirin, statin and when able to tolerate by mouth will resume Plavix PT to treat and eval Iron deficiency anemia Continue ferrous sulfate DVT prophylaxis: Lovenox Discharge Planning Will discharge to [facility] Chapito Mendiola MD Dec 26, 2016 12:10
--- NOTE | 2016-12-26 17:08 | HHI.PR ---
Subjective Remarks ALERT NO SOB AT REST Objective Vital Signs Date Time Temp Pulse Resp B/P (MAP) Pulse Ox O2 Delivery O2 Flow Rate FiO2 12/26/16 12:04 96 Nasal Cannula 2.00 12/26/16 04:37 97.5 87 18 141/96 (111) 95 12/26/16 03:49 96 Nasal Cannula 2.00 12/26/16 03:08 93 2.00 12/25/16 23:32 97.5 90 18 125/84 (98) 93 12/25/16 23:30 93 2.00 12/25/16 21:31 92 12/25/16 21:15 97 2.00 12/25/16 20:00 97.7 84 18 135/84 (101) 97 12/25/16 18:00 85 I/O 12/25/16 12/25/16 12/25/16 12/26/16 12/26/16 12/26/16 06:59 14:59 22:59 06:59 14:59 22:59 Intake Total 100 ml 1176 ml 637 ml Output Total 600 ml 300 ml Balance -500 ml 1176 ml 337 ml IV Total 100 ml Tube Feeding 976 ml 537 ml Other 200 ml 100 ml Output Urine Total 600 ml 300 ml # Bowel Movements 1 1 Result Diagram: 12/26/16 0439 Objective Remarks GENERAL: SKIN: Warm and dry. HEAD: Atraumatic. Normocephalic. EYES: Pupils equal and round. No scleral icterus. No injection or drainage. ENT: No nasal bleeding or discharge. Mucous membranes pink and moist. NECK: Trachea midline. No JVD. CARDIOVASCULAR: Regular rate and rhythm. RESPIRATORY: No accessory muscle use. decrease breath sounds at basis GASTROINTESTINAL: Abdomen soft, non-tender, nondistended. Hepatic and splenic margins not palpable. MUSCULOSKELETAL: Extremities without clubbing, cyanosis, or edema. No obvious deformities. NEUROLOGICAL: Awake and alert. No obvious cranial nerve deficits. Motor grossly within normal limits. Five out of 5 muscle strength in the arms and legs. Normal speech. PSYCHIATRIC: Appropriate mood and affect; insight and judgment normal. Assessment and Plan Assessment and Plan RESPIRATORY FAILURE , resolved DVT/PE PLAN O2 NEEDED INCREASE ACTIVITY Reynaldo Jacobs MD Dec 26, 2016 17:08
[2016-12-26 20:15] VITALS: PULSE 90
[2016-12-26] MEDS: [UNRECOGNIZED DRUG - REMARK] J-TUBE SCH (21:00)
[2016-12-26] MEDS: PRAVASTATIN SOD 20 MG TAB PO SCH (23:05)
[2016-12-26 23:14] VITALS: BP 136/73; PULSE 91; RESP 18; TEMP 97.4; O2SAT 95
[2016-12-27] VITALS (7 sets, daily range): BP systolic 122–131; BP diastolic 77–81; PULSE 77–90; RESP 16–19; TEMP 97.3–97.6; O2SAT 93–94
[2016-12-27] MEDS: FREE WATER G-TUBE SCH ×2 (03:29→13:22)
[2016-12-27] MEDS: CHLORHEXIDINE GLUCONATE 2 % 1 PACK (2 CLOTHS) TOP SCH (03:29)
[2016-12-27] MEDS: INSULIN NovoLIN REGULAR SUPPLEMENTAL SCALE SQ SCH ×2 (05:00→11:00)
[2016-12-27] MEDS: ENOXAPARIN SODIUM 100 MG/ML SYRINGE SQ SCH ×2 (06:04→15:57)
[2016-12-27] MEDS: guaiFENesin SOLUTION 200 MG/10 ML CUP OG-TUBE SCH ×2 (06:04→13:23)
--- NOTE | 2016-12-27 07:40 | PD.ONC.PN ---
Subjective Subjective Remarks Still can not swallow. No bleeding. No CP/SOB. Objective Data Date Time Temp Pulse Resp B/P (MAP) Pulse Ox O2 Delivery O2 Flow Rate FiO2 12/27/16 05:58 97.3 80 16 131/77 (95) 94 12/27/16 03:51 Room Air 21 12/26/16 23:14 97.4 91 18 136/73 (94) 95 12/26/16 21:30 Room Air 21 12/26/16 19:44 Nasal Cannula 12/26/16 12:04 96 Nasal Cannula 2.00 12/27/16 12/27/16 12/27/16 07:00 15:00 23:00 Intake Total 1058 ml Output Total 550 ml Balance 508 ml Result Diagram: 12/26/16 0439 Laboratory Results Laboratory Tests Test 12/27/16 06:01 Activated Partial Thromboplast Time 28.0 SEC Administered Medications Medications (Trade) Dose Ordered Sig/Trang Route PRN Reason Start Time Stop Time Status Last Admin Dose Admin Pantoprazole Sodium (Protonix Inj) 40 mg DAILY IV PUSH 12/05/16 16:30 12/26/16 09:47 Sodium Chloride (NS Flush) 2 ml BID IV FLUSH 12/07/16 21:00 12/26/16 23:05 Miscellaneous Information 1 [id number] XX 12/07/16 14:00 12/07/16 14:00 Chlorhexidine Gluconate (Chlorhexidine 2% Cloth) 3 pack Taper DAILY@04 TOP 12/08/16 04:00 12/04/17 03:59 12/20/16 04:00 Ferrous Sulfate (Ferrous Sulfate) 325 mg DAILY PO 12/08/16 09:00 12/26/16 09:44 Pravastatin Sodium (Pravachol) 20 mg HS PO 12/07/16 21:00 12/26/16 23:05 Acetaminophen (Tylenol 650 Mg/ 20 ml Liq) 650 mg Q6H PRN PO fever >101 12/08/16 16:15 12/25/16 06:02 Aspirin (Aspirin Chew) 81 mg DAILY CHEW 12/09/16 09:00 12/26/16 09:00 Docusate Sodium (Colace Liq) 50 mg BID J-TUBE 12/09/16 21:00 Future Hold 12/15/16 20:26 Cholecalciferol (Vitamin D Liq) 2,000 units BID J-TUBE 12/09/16 21:00 12/26/16 23:05 Ondansetron HCl (Zofran Inj) 4 mg Q8HR PRN IV PUSH N/V 12/09/16 17:00 12/16/16 16:15 Sennosides (Senna Liq) 8.8 mg DAILY PO 12/11/16 09:00 12/26/16 09:44 Polyethylene Glycol (Miralax) 17 gm DAILY PO 12/11/16 09:00 12/26/16 09:44 Albuterol Sulfate (Albuterol Neb) 2.5 mg Q2HR NEB PRN NEB dyspnea 12/16/16 08:45 12/22/16 12:05 Metoclopramide HCl (Reglan Inj) 5 mg Q8HR IV PUSH 12/16/16 14:00 Future Hold 12/16/16 21:44 Guaifenesin (Robitussin Liq) 400 mg Q8HR OG-TUBE 12/18/16 14:00 12/27/16 06:04 Water (Free Water) VOLUME: 100 ML Q8HR G-TUBE 12/18/16 14:00 12/27/16 03:29 Potassium Bicarb/ Potassium Chloride (K-Lyte Cl Eff) 25 meq Q12HR PO 12/19/16 10:00 12/26/16 23:05 Enoxaparin Sodium (Lovenox Inj) 90 mg Q12H SQ 12/22/16 16:00 12/27/16 06:04 Non-Formulary Medication NON-FORM DRUG: OS... HS J-TUBE 12/25/16 21:00 12/26/16 21:00 Objective Remarks GENERAL: Well-nourished, well-developed patient. SKIN: Warm and dry. HEAD: Normocephalic. EYES: No scleral icterus. No injection or drainage. NECK: Supple, trachea midline. No JVD or lymphadenopathy. LYMPHATIC: No adenopathy. CARDIOVASCULAR: Regular rate and rhythm without murmurs. RESPIRATORY: Breath sounds equal bilaterally. No accessory muscle use. GASTROINTESTINAL: Abdomen soft, non-tender, nondistended. PEG tube site non tender. EXTREMITIES: No cyanosis, or edema. MUSCULOSKELETAL: Adequate muscle tone. NEUROLOGICAL: No obvious focal deficit. Awake, alert, and oriented x3. PSYCHIATRIC: Appropriate mood and affect; insight and judgment normal. Assessment/Plan Problem List: (1) Pulmonary embolism ICD Codes: I26.99 - Other pulmonary embolism without acute cor pulmonale Status: Acute Plan: --CT angiography shows extensive bilateral pulmonary embolism -- Ultrasound of bilateral lower extremity shows a chronic DVT on the left and a nonocclusive thrombus in the right -- The patient has a family history of blood clots -- IVC filter placed on 12/07. -- Currently on Lovenox, not able to swallow. Hx/Workup: The patient presented with bleeding in his pharynx after an attempt of tube feed placement. 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 He was also apparently diagnosed with a DVT and pulmonary embolism while at [facility]. (2) History of CVA (cerebrovascular accident) ICD Codes: Z86.73 - Personal history of transient ischemic attack (TIA), and cerebral infarction without residual deficits Plan: --had a stroke after the neck surgery with hemorrhagic transformation in caudate lobe noted MRA 10/27. --was later started on Plavix. No US or CTA found in the records and no mention of DVT/PE during his stay at [facility]. Assessment 66-year-old male admitted with hemoptysis; hematology consulted for history of recent pulmonary embolism Plan 1. continue Lovenox 2. Can switch to oral anticoagulant once able to swallow 3. Monitor CBC 4. Possible d/c to rehab today. Problem Qualifiers (1) Pulmonary embolism: Qualified Codes: I26.99 - Other pulmonary embolism without acute cor pulmonale Paulo Flynn MD Dec 27, 2016 07:40
--- NOTE | 2016-12-27 08:27 | HHI.PR ---
Subjective Remarks ALERT NO SOB AT REST Objective Vital Signs Date Time Temp Pulse Resp B/P (MAP) Pulse Ox O2 Delivery O2 Flow Rate FiO2 12/27/16 05:58 97.3 80 16 131/77 (95) 94 12/27/16 04:06 89 12/27/16 03:51 Room Air 21 12/27/16 00:06 90 12/26/16 23:14 97.4 91 18 136/73 (94) 95 12/26/16 21:30 Room Air 21 12/26/16 20:15 90 12/26/16 19:44 Nasal Cannula 12/26/16 12:04 96 Nasal Cannula 2.00 I/O 12/26/16 12/26/16 12/26/16 12/27/16 12/27/16 12/27/16 07:00 15:00 23:00 07:00 15:00 23:00 Intake Total 637 ml 1108 ml 1058 ml Output Total 300 ml 500 ml 550 ml Balance 337 ml 608 ml 508 ml Tube Feeding 537 ml 788 ml 858 ml Tube Irrigant 120 ml 200 ml Other 100 ml 200 ml Output Urine Total 300 ml 500 ml 550 ml # Voids 1 # Bowel Movements 1 Result Diagram: 12/26/16 0439 Objective Remarks GENERAL: SKIN: Warm and dry. HEAD: Atraumatic. Normocephalic. EYES: Pupils equal and round. No scleral icterus. No injection or drainage. ENT: No nasal bleeding or discharge. Mucous membranes pink and moist. NECK: Trachea midline. No JVD. CARDIOVASCULAR: Regular rate and rhythm. RESPIRATORY: No accessory muscle use. decrease breath sounds at basis GASTROINTESTINAL: Abdomen soft, non-tender, nondistended. Hepatic and splenic margins not palpable. MUSCULOSKELETAL: Extremities without clubbing, cyanosis, or edema. No obvious deformities. NEUROLOGICAL: Awake and alert. No obvious cranial nerve deficits. Motor grossly within normal limits. Five out of 5 muscle strength in the arms and legs. Normal speech. PSYCHIATRIC: Appropriate mood and affect; insight and judgment normal. Assessment and Plan Assessment and Plan RESPIRATORY FAILURE , resolved DVT/PE H/O CVA DYSPHAGIA PLAN O2 NEEDED INCREASE ACTIVITY ANTICOAGULATION Reynaldo Jacobs MD Dec 27, 2016 08:27
--- NOTE | 2016-12-27 08:29 | HHI.PR ---
Subjective Remarks ALERT NO SOB AT REST Objective Vital Signs Date Time Temp Pulse Resp B/P (MAP) Pulse Ox O2 Delivery O2 Flow Rate FiO2 12/27/16 05:58 97.3 80 16 131/77 (95) 94 12/27/16 04:06 89 12/27/16 03:51 Room Air 21 12/27/16 00:06 90 12/26/16 23:14 97.4 91 18 136/73 (94) 95 12/26/16 21:30 Room Air 21 12/26/16 20:15 90 12/26/16 19:44 Nasal Cannula 12/26/16 12:04 96 Nasal Cannula 2.00 I/O 12/26/16 12/26/16 12/26/16 12/27/16 12/27/16 12/27/16 06:59 14:59 22:59 06:59 14:59 22:59 Intake Total 637 ml 1108 ml 1058 ml Output Total 300 ml 500 ml 550 ml Balance 337 ml 608 ml 508 ml Tube Feeding 537 ml 788 ml 858 ml Tube Irrigant 120 ml 200 ml Other 100 ml 200 ml Output Urine Total 300 ml 500 ml 550 ml # Voids 1 # Bowel Movements 1 Result Diagram: 12/26/16 0439 Objective Remarks GENERAL: SKIN: Warm and dry. HEAD: Atraumatic. Normocephalic. EYES: Pupils equal and round. No scleral icterus. No injection or drainage. ENT: No nasal bleeding or discharge. Mucous membranes pink and moist. NECK: Trachea midline. No JVD. CARDIOVASCULAR: Regular rate and rhythm. RESPIRATORY: No accessory muscle use. decrease breath sounds at basis GASTROINTESTINAL: Abdomen soft, non-tender, nondistended. Hepatic and splenic margins not palpable. MUSCULOSKELETAL: Extremities without clubbing, cyanosis, or edema. No obvious deformities. NEUROLOGICAL: Awake and alert. No obvious cranial nerve deficits. Motor grossly within normal limits. Five out of 5 muscle strength in the arms and legs. Normal speech. PSYCHIATRIC: Appropriate mood and affect; insight and judgment normal. Assessment and Plan Assessment and Plan RESPIRATORY FAILURE , resolved DVT/PE H/O CVA DYSPHAGIA PLAN O2 NEEDED INCREASE ACTIVITY ANTICOAGULATION Reynaldo Jacobs MD Dec 27, 2016 08:29
[2016-12-27] MEDS: POLYETHYLENE GLYCOL 17 GM PKG PO SCH (09:00)
--- NOTE | 2016-12-27 09:32 | HHI.PR ---
Subjective Remarks Follow-up DVT/PE 12/26/16-patient seen and examined the currently nothing by mouth as patient still unable to swallow. Currently on subcutaneous Lovenox. No acute event overnight 12/27/16-patient seen and examined, still not able to swallow. Denies any shortness of breath. Objective Vitals Vital Signs Date Time Temp Pulse Resp B/P (MAP) Pulse Ox O2 Delivery O2 Flow Rate FiO2 12/27/16 09:00 84 12/27/16 07:15 97.6 77 19 122/81 (95) 93 12/27/16 07:00 88 12/27/16 05:58 97.3 80 16 131/77 (95) 94 12/27/16 04:06 89 12/27/16 03:51 Room Air 21 12/27/16 00:06 90 12/26/16 23:14 97.4 91 18 136/73 (94) 95 12/26/16 21:30 Room Air 21 12/26/16 20:15 90 12/26/16 19:44 Nasal Cannula 12/26/16 12:04 96 Nasal Cannula 2.00 I/O 12/26/16 12/26/16 12/26/16 12/27/16 12/27/16 12/27/16 06:59 14:59 22:59 06:59 14:59 22:59 Intake Total 637 ml 1108 ml 1058 ml Output Total 300 ml 500 ml 550 ml Balance 337 ml 608 ml 508 ml Tube Feeding 537 ml 788 ml 858 ml Tube Irrigant 120 ml 200 ml Other 100 ml 200 ml Output Urine Total 300 ml 500 ml 550 ml # Voids 1 # Bowel Movements 1 Result Diagram: 12/26/16 0439 Objective Remarks GENERAL: NAD SKIN: Warm and dry. HEAD: Normocephalic. EYES: No scleral icterus. No injection or drainage. NECK: Supple, trachea midline. No JVD or lymphadenopathy. CARDIOVASCULAR: Regular rate and rhythm without murmurs, gallops, or rubs. RESPIRATORY: Breath sounds equal bilaterally. No accessory muscle use. GASTROINTESTINAL: Abdomen soft, non-tender, nondistended. MUSCULOSKELETAL: No cyanosis, or edema. BACK: Nontender without obvious deformity. No CVA tenderness. Procedures IVC filter placement J tube placement(Open). A/P Problem List: (1) Hemoptysis ICD Code: R04.2 - Hemoptysis Status: Acute (2) Pulmonary embolism ICD Code: I26.99 - Other pulmonary embolism without acute cor pulmonale Status: Acute (3) DVT (deep venous thrombosis) ICD Code: I82.409 - Acute embolism and thrombosis of unspecified deep veins of unspecified lower extremity Status: Acute (4) History of CVA (cerebrovascular accident) ICD Code: Z86.73 - Personal history of transient ischemic attack (TIA), and cerebral infarction without residual deficits Assessment and Plan 66 year-old man with PE/DVT Appreciate input from hematology Status post IVC filter placement Continue with subcutaneous Lovenox until patient able to take by mouth day and then will switch to oral anticoagulation History of Rasmussen esophagus GI bleed /Hemoptysis-resolved Status post EGD with PEG tube placement Hypertension Currently normotensive Hyperlipidemia Continue with statin History of CVA Aspirin, statin and when able to tolerate by mouth will resume Plavix PT to treat and eval Iron deficiency anemia Continue ferrous sulfate DVT prophylaxis: Lovenox Discharge Planning Will discharge to [facility] Problem Qualifiers (1) Pulmonary embolism: Qualified Codes: I26.99 - Other pulmonary embolism without acute cor pulmonale (2) DVT (deep venous thrombosis): Qualified Codes: I82.409 - Acute embolism and thrombosis of unspecified deep veins of unspecified lower extremity Chapito Mendiola MD Dec 27, 2016 09:32
[2016-12-27] MEDS: ASPIRIN 81 MG CHEW TAB CHEW SCH (09:54)
[2016-12-27] MEDS: FERROUS SULFATE 325 MG (65 MG ELEMENTAL IRON) TAB PO SCH (09:54)
[2016-12-27] MEDS: POTASSIUM CHLORIDE 25 MEQ EFFERVESCENT TAB PO SCH (09:54)
[2016-12-27] MEDS: SENNOSIDES SYRUP 8.8 MG/5 ML CUP PO SCH (09:54)
[2016-12-27] MEDS: PANTOPRAZOLE SODIUM 40 MG VIAL IV PUSH SCH (09:56)
[2016-12-27] MEDS: CHOLECALCIFEROL (VIT D3) LIQ 400 UNITS/ML 50 ML BOTTLE J-TUBE SCH (09:56)
[2016-12-27] MEDS: SODIUM CHLORIDE 0.9% FLUSH 10 ML FLUSH IV FLUSH SCH (09:57)
--- NOTE | 2016-12-27 13:55 | HHI.DS ---
Discharge Summary Admission Date Dec 05, 2016 at 15:40 Discharge Date: Dec 27, 2016 Admitting Diagnosis Hemoptysis, Feeding tube dependent. (1) Hemoptysis ICD Code: R04.2 - Hemoptysis Status: Acute (2) Pulmonary embolism ICD Code: I26.99 - Other pulmonary embolism without acute cor pulmonale Status: Acute (3) DVT (deep venous thrombosis) ICD Code: I82.409 - Acute embolism and thrombosis of unspecified deep veins of unspecified lower extremity Status: Acute (4) History of CVA (cerebrovascular accident) ICD Code: Z86.73 - Personal history of transient ischemic attack (TIA), and cerebral infarction without residual deficits Procedures IVC filter placement J tube placement(Open). Brief History - From Admission History of present illness from the admitting physician. 66-year-old male with a past medical history of gastroesophageal reflux disease, Rasmussen's esophagus, hypertension, hyperlipidemia, iron-deficiency anemia, coronary artery disease, PE and DVT a year ago. The patient had a tumor removed from the right side of his neck at [facility] in October with pathology showing a glomus paraganglioma. 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 He had Dobbhoff placed for approximately one month and went to outpatient surgical center today to have a peg tube placed. However during procedure the patient had questionable some hemoptysis. The patient was scoped by Dr. Peña who did not think esophagus was the source of bleeding. The patient also noted to have hiatal hernia and a G tube could not be placed. The patient was intubated at the surgical center with Versed and transferred to the ER. When seen the patient is intubated and on full mechanical ventilation. His initial blood pressure on arrival 135/84 with a pulse of 84. Chest x-ray showed subsegmental atelectasis at the left base. CBC/BMP: 12/26/16 0439 Significant Findings Laboratory Tests Test 12/25/16 07:23 12/26/16 04:39 12/27/16 06:01 Activated Partial Thromboplast Time 32.4 SEC (24.3-30.1) 31.0 SEC (24.3-30.1) Red Blood Count 4.30 MIL/MM3 (4.50-5.90) Hemoglobin 12.3 GM/DL (13.0-17.0) Hematocrit 37.6 % (39.0-51.0) Imaging Last Impressions Chest X-Ray 12/21/16 0600 Signed Impressions: Service Date/Time: Wednesday, December 21, 2016 04:00 - CONCLUSION: No significant change Luan Nunez MD Small Bowel X-Ray 12/16/16 0000 Signed Impressions: Service Date/Time: Friday, December 16, 2016 14:10 - CONCLUSION: Unremarkable small bowel examination. Armand Valencia MD Abdomen X-Ray 12/15/16 0000 Signed Impressions: Service Date/Time: December 08:15 - CONCLUSION: 1. Jejunal feeding tube remains in place with paucity of bowel gas. 2. Abnormal opacity at the lung bases with apparent bilateral effusions. Italo Nelson MD Abdomen/Pelvis CT 12/12/16 0000 Signed Impressions: Service Date/Time: Monday, December 12, 2016 13:31 - CONCLUSION: Prominent consolidative changes in the posterior lung bases and small effusions. Very large hiatal hernia. Hepatic and renal cysts. Luan Nunez MD Head CT 12/08/16 0600 Signed Impressions: Service Date/Time: November 11:16 - CONCLUSION: 1. Increased paranasal sinus opacification. 2. No other significant interval change. Subacute to chronic ischemic findings of the right basal ganglia. Titi Najera MD IVC Filter Placement X-Ray 12/07/16 0000 Signed Impressions: Service Date/Time: Wednesday, December 07, 2016 11:49 - CONCLUSION: Uncomplicated inferior vena cava filter placement as above. Patric Stover MD Lower Extremity Ultrasound 12/05/16 0000 Signed Impressions: Service Date/Time: Monday, December 05, 2016 23:02 - CONCLUSION: 1. Positive for deep venous thrombosis as above. Sidney Pérez MD CT Angiography 12/05/16 0000 Signed Impressions: Service Date/Time: Monday, December 05, 2016 18:13 - CONCLUSION: 1. Extensive bilateral pulmonary arterial thrombi emboli bilaterally within the segmental and lobar vessels. There are no imaging findings to indicate right heart strain. 2. Stable 3.7 cm hypodense lesion with calcification either in the posterior mediastinum abutting the descending thoracic aorta or in the posterior left pleural space. Stranding of uncertain etiology but has not changed in approximately 13 months. 3. Stable large hiatal hernia. There is atelectasis/volume loss in both lower lobes. Luan Bermudez MD PE at Discharge GENERAL: NAD SKIN: Warm and dry. HEAD: Normocephalic. EYES: No scleral icterus. No injection or drainage. NECK: Supple, trachea midline. No JVD or lymphadenopathy. CARDIOVASCULAR: Regular rate and rhythm without murmurs, gallops, or rubs. RESPIRATORY: Breath sounds equal bilaterally. No accessory muscle use. GASTROINTESTINAL: Abdomen soft, non-tender, nondistended. MUSCULOSKELETAL: No cyanosis, or edema. BACK: Nontender without obvious deformity. No CVA tenderness. Hospital Course 66-year-old male with a past medical history of gastroesophageal reflux disease , Rasmussen's esophagus, hypertension, hyperlipidemia, iron-deficiency anemia, coronary artery disease, PE and DVT year ago. He had a tumor removed from the right side of his neck at [facility] in October with pathology showing a glomus paraganglioma. 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 He had Dobbhoff placed for approximately one month and went to outpatient surgical center today to have a peg tube placed. However during procedure the patient had some hemoptysis. The patient was scoped by Dr. Peña who did not think esophagus was the source of bleeding. The patient also noted to have hiatal hernia and a G tube could not be placed. The patient was intubated at the surgical center with Versed and transferred to the ER. When seen the patient is intubated and on full mechanical ventilation. According to the patient's and daughter, he was on anticoagulation with Coumadin for his PE and DVT and was taken off of it in October and placed on Plavix instead. The patient was eventually extubated. He remained stable on a nasal cannula. He was able to tolerate tube feeding. He underwent IVC filter placement and G- tube placement. He was followed by oncology. Patient was started on therapeutic dose of Lovenox for treatment of DVT/PE. He is to continue on Lovenox until he can tolerate by mouth at which point he may be transitioned to Oral Anticoagulation Pt Condition on Discharge: Stable Discharge Disposition: Rehab Inpatient Discharge Time: > 30 minutes Discharge Instructions DIET: Follow Instructions for: On Tube Feeding Activities you can perform: Regular-No Restrictions Follow up Referrals: Oncology Oncology/Hematology - 1 Week with Paulo Flynn MD PCP Follow-up - 2-3 Days New Medications: Enoxaparin Inj (Lovenox Inj) 100 Mg/Ml Syr 90 MG SQ Q12H for 30 Days, INJECTION Water For Injection, Sterile (Sterile Water For Injecti) 1 Inj Inj 0 ML G-TUBE Q8HR for . for 30 Days, INJECTION Continued Medications: Aspirin (David Low Dose) 81 Mg Tab 81 MG PO HS for heart for 30 Days, TAB Calcium Carbonate (Calcium 600) 600 Mg Calcium (1500 Mg) Tab 1 TAB PO HS for 30 Days, TAB Cholecalciferol (Vitamin D3 Super Strength) 2,000 Unit Cap 2000 UNIT PO BID, CAP Dicyclomine Hcl (Bentyl) 20 Mg Tab 20 MG PO Q6HR PRN for PAIN SCALE 1 TO 10, #20 TAB FOR CRAMPS Docusate Sodium (Docusate Sodium) 100 Mg Cap 100 MG PO TID, CAP Ferrous Sulfate (Iron) 325 Mg Tab 325 MG PO DAILY, TAB Guaifenesin (Mucinex) 600 Mg Tabcr 600 MG PO BID, TABCR Loratadine (Loratadine) 10 Mg Tab 10 MG PO PRN, TAB Lovastatin (Lovastatin) 20 Mg Tab 20 MG PO HS Omeprazole 20 mg (Omeprazole 20 mg) 20 Mg Tab 20 MG PO DAILY Discontinued Medications: DILTIAZEM XT 240 mg (Cartia) (Cartia XT 240 mg) 240 Mg/24 Hr Cap 240 MG PO DAILY, CAP Enoxaparin Sodium (Lovenox) 100 Mg/Ml Inj 100 MG SQ BID for pulmonary embolism for 5 Days, INJ Warfarin Sod (Coumadin) 5 Mg Tab 5 MG PO DAILY@16 for Pulmonary embolism for 7 Days, TAB Chapito Mendiola MD Dec 27, 2016 13:55
== END 2016-12-27 16:31 | DRG 166 ==
LOC: NEPE 13:19 → NEDA 15:40 → HIME 18:25 → HIMW 12-09 18:00 → HCIS 12-20 12:38
PROVIDERS: ADMIT Internal Medicine Critical Care Medicine; ATTEND Hospitalist
PROC: 0B938ZZ Drainage of Right Main Bronchus, Via Natural or Artificial Opening Endoscopic (ICD-10-PCS; 2016-12-05)
PROC: 5A1955Z Respiratory Ventilation, Greater than 96 Consecutive Hours (ICD-10-PCS; 2016-12-05)
PROC: 0B968ZZ Drainage of Right Lower Lobe Bronchus, Via Natural or Artificial Opening Endoscopic (ICD-10-PCS; 2016-12-05)
PROC: 0DHA0UZ Insertion of Feeding Device into Jejunum, Open Approach (ICD-10-PCS; 2016-12-07)
PROC: B5191ZZ Fluoroscopy of Inferior Vena Cava using Low Osmolar Contrast (ICD-10-PCS; 2016-12-07)
PROC: 06H03DZ Insertion of Intraluminal Device into Inferior Vena Cava, Percutaneous Approach (ICD-10-PCS; principal; 2016-12-07 12:52)
DX: J96.01 Acute respiratory failure with hypoxia (principal); I26.99 Other pulmonary embolism without acute cor pulmonale; J90 Pleural effusion, not elsewhere classified; J95.62 Intraoperative hemorrhage and hematoma of a respiratory system organ or structure complicating other procedure; I82.431 Acute embolism and thrombosis of right popliteal vein; E87.1 Hypo-osmolality and hyponatremia; J38.01 Paralysis of vocal cords and larynx, unilateral; I27.20 Pulmonary hypertension, unspecified; R04.2 Hemoptysis; I82.512 Chronic embolism and thrombosis of left femoral vein; I82.542 Chronic embolism and thrombosis of left tibial vein; I82.441 Acute embolism and thrombosis of right tibial vein; I82.491 Acute embolism and thrombosis of other specified deep vein of right lower extremity; J98.11 Atelectasis; K44.9 Diaphragmatic hernia without obstruction or gangrene; R13.10 Dysphagia, unspecified; D50.9 Iron deficiency anemia, unspecified; E87.6 Hypokalemia; I25.10 Atherosclerotic heart disease of native coronary artery without angina pectoris; K21.9 Gastro-esophageal reflux disease without esophagitis; E78.5 Hyperlipidemia, unspecified; K22.70 Barrett's esophagus without dysplasia; K31.7 Polyp of stomach and duodenum; N28.1 Cyst of kidney, acquired; Z86.711 Personal history of pulmonary embolism; Z79.02 Long term (current) use of antithrombotics/antiplatelets; Z86.73 Personal history of transient ischemic attack (TIA), and cerebral infarction without residual deficits; Z86.718 Personal history of other venous thrombosis and embolism
CPT/HCPCS: 31624; 36600; 37191; 70450; 71010; 71275; 74000; 74177; 74250; 76937; 80048; 80053; 80074; 81001; 81241; 82150; 82272; 82805; 82948; 83090; 83605; 83690; 83735; 83880; 84100; 84132; 84484; 85025; 85027; 85240; 85300; 85303; 85306; 85307; 85597; 85598; 85610; 85613; 85730; 86147; 86403; 86850; 86900; 86901; 87040; 87070; 87086; 87205; 87493; 87641; 93005; 93306; 93970; 94002; 94003; 94150; 94640; 94664; 94667; 94668; 96365; 96366; 96368; C1769; C1880; C9113; J0690; J1644; J1650; J1940; J2250; J2405; J2543; J2765; J3010; J3370; J3480; J7030; J7042; J7050; J7608; J7613; P9047; Q9963; Q9967